=== PATIENT | female | born 1960 | race Caucasian/White ===

== ENCOUNTER 2020-06-22 09:09 | Emergency (ER) | payer BC, SELFPAY ==
[2020-06-22 09:13] VITALS: PULSE 95; RESP 16; TEMP 36.7; O2SAT 99; BMI 25.8
[2020-06-22 09:20] VITALS: BP 179/97; PULSE 90; RESP 18; O2SAT 99
--- NOTE | 2020-06-22 09:29 | ED_ITS ---
HPI - General Adult General: Chief complaint: Dental/Oral Stated complaint: flu symptoms/neg for covid as of 06/21 Time Seen by Provider: 06/22/20 09:10 Source: patient Mode of arrival: ambulatory Limitations: no limitations History of Present Illness: HPI narrative: Patient is a 59-year-old female who presents to ED today with a complaint of a sore throat over the past 3 weeks. Patient tells me she is having pain in the back of her throat with swallowing and states it feels like needles . She has been seen at another facility and prescribed a round of azithromycin without relief. She is also complaining of some hoarseness and body aches. Patient states she was tested for COVID recently and this came back negative. She has a complaint of some mild dizziness and mild right-sided belly pain that recently started. She has associated nausea and bloating but has not had any episodes of vomiting. She is reporting normal defecation and urinary habits. She has not been running fevers. She has not had any sick contacts. Onset (ago): day(s) Associated symptoms: Reports nausea; Deny chest pain, confusion, dyspnea, headache(s), malaise, rash, palpitations, syncope or vomiting Review of Systems Const: Reports: body aches; Denies: fever(s), chills, change in appetite, change in weight, fatigue or malaise Eyes: Denies: change in vision, blurry vision, photophobia, floaters or seeing flashes ENMT: Reports: throat pain and odynophagia; Denies: swelling of lips/tongue, oral sores, ear or mastoid pain, ear discharge, nasal congestion or sinus pain Card: Denies: chest pain, palpitations, irregular heart rhythm, edema, lightheadedness, syncope or pre-syncope Resp: Denies: dyspnea, productive cough or chest congestion GI: Reports: abdominal pain and nausea; Denies: vomiting, hematemesis, coffee ground emesis, heartburn, diarrhea, change in bowel habits, pain on defecation, change in stool character, hematochezia, melena or white/light colored stool : Denies: flank pain, difficulty voiding, dysuria, urinary frequency or urinary urgency Musc: Denies: neck pain, back pain, extremity pain, extremity swelling, joint pain or joint swelling Skin/Breast: Denies: rash Neuro: Reports: dizziness; Denies: headache(s), numbness in extremities, weakness in extremities, sensory changes, lack of coordination, difficulty walking, frequent falls, confusion or Slurred speech present PFSH ED PFSH: Social History Smoking and tobacco status: current every day smoker Physical Exam Const: COMMON NORMALS: no acute distress, patient oriented x3, no limitations and alert ORIENTATION/CONSCIOUSNESS: Yes oriented to person, Yes oriented to place and Yes oriented to time HENMT: COMMON NORMALS: normocephalic, atraumatic, hearing grossly normal bilaterally, external ears normal, EAC's normal, TM's normal bilaterally, Normal external nose present, Normal nasal mucous membranes and turbinates present and moist oral mucous membranes HEAD & SCALP: normal to inspection, normocephalic and atraumatic FACE & SINUS: normal facial exam and sinuses nontender NOSE: Normal external nose present and Normal nasal mucous membranes and turbinates present EXTERNAL EAR: Yes external ears normal EXTERNAL AUDITORY CANAL: EAC's normal TYMPANIC MEMBRANE: TM's normal bilaterally MOUTH: lip normal, tongue normal and other (pt has candidal lesions that brush to hard palate ) TEETH & GINGIVA: Yes edentulous THROAT: posterior oropharynx normal, tonsils normal and uvula midline Eye: COMMON NORMALS: Equal, round and reactive pupils present, EOMs intact bilaterally, conjunctivae normal and no scleral icterus CONJUNCTIVA: Yes conjunctivae normal PUPIL: Yes Equal, round and reactive pupils present Neck/C-Spine: COMMON NORMALS: full ROM, no lymphadenopathy and no meningeal signs Resp: COMMON NORMALS: normal respiratory effort and clear to auscultation bilaterally AUSCULTATION: clear to auscultation bilaterally Cardio: COMMON NORMALS: regular rate and regular rhythm RATE: regular rate RHYTHM: regular rhythm GI: COMMON NORMALS: Normal to inspection, nondistended, normoactive bowel sounds present, Soft to palpation, non-tender, No hepatosplenomegaly present and no masses PALPATION: Yes Soft to palpation and Yes No hepatosplenomegaly present Extremity: GENERAL: Yes normal exam except as noted Neuro: EDWIN COMA SCALE: document GCS findings Edwin coma scale eye o pening: Spontaneous Edwin coma scale verbal response: Orientated Edwin coma scale motor response: Obey commands Edwin coma scale total score: 15 COMMON NORMALS: patient oriented x3, CN's II-XII intact bilaterally, moves all extremities, no focal motor deficits, no sensory deficits noted and gait normal SENSORIUM/ORIENTATION: Yes alert, Yes oriented to person, Yes oriented to place and Yes oriented to time MENINGEAL SIGNS: Yes no meningeal signs Skin: COMMON NORMALS: no rashes or lesions noted GENERAL SKIN EXAM: no rashes or lesions noted Course Vital Signs: Vital signs: Vital Signs Temperature 98.1 F 06/22/20 09:13 Pulse Rate 82 06/22/20 10:31 Respiratory Rate 16 06/22/20 10:31 Blood Pressure 139/65 06/22/20 10:31 Pulse Oximetry 99 06/22/20 10:31 MDM - General Adult MDM Narrative: Medical decision making narrative: Patient's work-up here is non-concerning. Her vitals are stable at this time. Physical exam is normal apart from allie lesions noted throughout her hard palate. This is most likely the cause of patient's sore throat over the past few weeks. She is on chronic inhaled Symbicort, wears dentures, she is an everyday smoker, and rece ntly underwent antibiotic therapy. Will place patient on clotrimazole lozenges over the next 2 weeks. Recommend rinsing her mouth out thoroughly after using her Symbicort. Recommend close follow-up with her primary care provider. Return to ED precautions given. Lab Data: Labs: Lab Results 06/22/20 06/22/20 06/22/20 Range/Units 09:44 09:44 09:44 WBC 12.3 H (4.0-10.0) 10^3/ uL RBC 4.67 (4.1-5.3) 10^6/u L Hgb 14.3 (11.5-15.3) g/dL Hct 43.9 (37.0-47.0) % MCV 94.0 (81-99) fL MCH 30.6 (28.0-34.0) pg MCHC 32.6 (30.0-36.0) g/dL RDW 12.2 (12.1-15.1) % Plt Count 384 (130-400) 10^3/c mm MPV 9.9 (7.4-10.4) fL Neut % (Auto) 55.6 % Lymph % (Auto) 33.8 % [place] % (Auto) 5.1 % Eos % (Auto) 4.1 % Baso % (Auto) 1.1 % Neut # (Auto) 6.86 (1.8-7.7) 10^3/u L Lymph # (Auto) 4.2 (0.8-4.8) 10^3/u L [place] # (Auto) 0.6 (0.2-0.9) 10^3/u L Eos # (Auto) 0.5 (0.0-0.8) 10^3/u L Baso # (Auto) 0.1 (0.0-0.1) 10^3/u L Nucleated RBC % (a uto) 0 % Nucleated RBCs # 0.0 /100WBC Sodium 137 (136-145) mmol/L Potassium 4.3 (3.5-5.1) mmol/L Chloride 97 L (98-107) mmol/L Carbon Dioxide 29 (22-29) mmol/L Anion Gap 15.3 (5-19) BUN 15 (6-20) mg/dL Creatinine 0.7 (0.5-0.9) mg/dL GFR Calculation 86.2 L (90-130) mL/min Glucose 92 (65-115) mg/dL Calculated Osmolal ity 280 L (285-295) mOsm/k g Calcium 9.8 (8.5-10.5) mg/dL Total Bilirubin 0.2 (0.15-1.2) mg/dL AST 17 (0-32) U/L ALT 19 (0-33) U/L Alkaline Phosphata se 85 (35-105) IU/L Total Protein 8.0 (6.6-8.7) g/dL Albumin 4.3 (3.5-5.2) g/dL Globulin 3.7 (1.3-4.6) g/dL Lipase 34 (13-60) U/L Urine Color Yellow (Yellow) Urine Appearance Clear (CLEAR) Urine pH 6 (5-7) Ur Specific Gravit y 1.010 (1.005-1.030) Urine Protein Neg (Negative) Urine Glucose (UA) Norm (Normal) Urine Ketones Negative (Negative) Urine Blood Neg (Negative) Urine Nitrate Negative (Negative) Urine Bilirubin Neg (NEGATIVE) Urine Urobilinogen Norm (Negative) mg/dL Ur Leukocyte Andra ase Negative (Negative) Imaging Data^: CXR: Radiologist's impression: [address] [place] [address] XRay Report Signed Patient: Danisha Leonard Unit #: [id number] : 1960 Age/Sex: 59 / F ADM Date: 06/22/20 Loc: ER Room/Bed: Attending Dr: Ordering Provider/Ordering MD: Leda Leavitt Date of Service: 06/22/20 Procedure(s): XR chest 1V portable [id number] Accession Number(s): [id number] Report Number: [id number] WS: [id number] PORTABLE CHEST HISTORY: dizzy, body aches, low grade fevers COMPARISON: 10/21/2012 Lungs are clear and well expanded. No pleural effusion or pneumothorax. Cardiac size: Normal. Mediastinum/Aorta: Normal mediastinum. No osseous abnormality seen. XR/XR chest 1V portable [id number] IMPRESSION: Unremarkable portable chest. Dictated By: Rohini Goff DO Signed By: Rohini Goff DO Signed Date/Time: 06/22/2055 DD/ 3 Discharge Plan Discharge Patient Disposition: Home, Self-Care Clinical Impression: Candidiasis of mouth Condition: Stable Prescriptions: New clotrimazole 10 mg roman 10 mg MUCOUS MEM 5XD 14 Days Qty: 70 RF: 0 Discharge Orders: Discharge Order (Routine); Ordered 06/22/20 Ordered By: Leda Leavitt Referrals: Robert Ma MD [Primary Care Provider] - Patient Instructions: Oral Candidiasis (ED), Thrush - Adult Activity Restrictions/Additional Instructions: Please follow up with primary care in one week for continued symptoms. Discharge Date/Time: 06/22/20 10:31 Coding Level of Care Code ED Medical Education Specialist for Chg Fwd Exam Comprehensive
--- NOTE | 2020-06-22 09:31 | XR_ITS ---
WS: [id number] PORTABLE CHEST HISTORY: dizzy, body aches, low grade fevers COMPARISON: 10/21/2012 Lungs are clear and well expanded. No pleural effusion or pneumothorax. Cardiac size: Normal. Mediastinum/Aorta: Normal mediastinum. No osseous abnormality seen. XR/XR chest 1V portable [id number] IMPRESSION: Unremarkable portable chest.
[2020-06-22 09:40] VITALS: BP 150/83; PULSE 85; RESP 18; O2SAT 95
[2020-06-22] MEDS: sodium chloride 0.9% 1,000 ML 999 ML IV (09:47)
[2020-06-22 09:48] LABS: Add Urine Microscopic? NO
[2020-06-22 09:54] LABS: Basophils # 0.1 10^3/uL (0.0-0.1); Basophils % 1.1 %; Eosinophils # 0.5 10^3/uL (0.0-0.8); Eosinophils % 4.1 %; Hematocrit 43.9 % (37.0-47.0); Hemoglobin 14.3 g/dL (11.5-15.3); Lymphocytes # 4.2 10^3/uL (0.8-4.8); Lymphocytes % 33.8 %; Mean Corpuscular HGB Conc 32.6 g/dL (30.0-36.0); Mean Corpuscular Hemoglobin 30.6 pg (28.0-34.0); Mean Platelet Volume 9.9 fL (7.4-10.4); Monocytes # 0.6 10^3/uL (0.2-0.9); Monocytes % 5.1 %; Neutrophils # 6.86 10^3/uL (1.8-7.7); Neutrophils % 55.6 %; Nucleated Red Blood Cells % 0 %; Platelet Count 384 10^3/cmm (130-400); Red Blood Count 4.67 10^6/uL (4.1-5.3); Red Cell Distribution Width 12.2 % (12.1-15.1); White Blood Count 12.3 10^3/uL (4.0-10.0)
[2020-06-22 09:58] LABS: Bilirubin Urine Neg (NEGATIVE); Blood Urine Neg (Negative); Glucose Urine UA Norm (Normal); Ketones Urine Negative (Negative); Leukocyte Esterase Urine Negative (Negative); Nitrate Urine Negative (Negative); Protein Urine Neg (Negative); Urine Appearance Clear (CLEAR); Urine Color Yellow (Yellow); Urobilinogen Urine Norm (Negative); pH Urine 6 (5-7)
[2020-06-22 10:14] LABS: Alanine Aminotransferase 19 U/L (0-33); Albumin Level 4.3 g/dL (3.5-5.2); Alkaline Phosphatase 85 IU/L (35-105); Anion Gap 15.3 (5-19); Aspartate Amino Transferase 17 U/L (0-32); Blood Urea Nitrogen 15 mg/dL (6-20); Calcium 9.8 mg/dL (8.5-10.5); Carbon Dioxide 29 mmol/L (22-29); Chloride 97 mmol/L (98-107); Globulin 3.7 g/dL (1.3-4.6); Glomerular Filtration Rate 86.2 mL/min (90-130); Glucose 92 mg/dL (65-115); Lipase 34 U/L (13-60); Osmolality Calculated 280 mOsm/kg (285-295); Potassium 4.3 mmol/L (3.5-5.1); Sodium 137 mmol/L (136-145); Total Bilirubin 0.2 mg/dL (0.15-1.2)
[2020-06-22 10:31] VITALS: BP 139/65; PULSE 82; RESP 16; O2SAT 99
== END 2020-06-22 10:31 | disposition home or self-care (01) ==
PROVIDERS: Emergency Provider Physician Assistant; PCP Family Medicine
DX: B37.0 Candidal stomatitis (principal); F17.210 Nicotine dependence, cigarettes, uncomplicated
CPT/HCPCS: 12345; 71045; 80053; 81003; 83690; 85025; 96360; 99283; J7030

== ENCOUNTER 2020-07-04 13:04 | Outpatient (CLI) | payer BC, SELFPAY ==
[2020-07-04 13:35] LABS: C Reactive Protein 107.3 mg/L (0.0-4.9); Lipase 22 U/L (13-60)
== END 2020-07-04 13:05 | disposition home or self-care (01) ==
LOC: LAB 13:07
PROVIDERS: PCP Family Medicine; Visit Provider Family Medicine
DX: R10.11 Right upper quadrant pain (principal)
CPT/HCPCS: 83690; 86140

== ENCOUNTER 2020-07-04 16:02 | Observation (INO) | payer SELFPAY ==
[2020-07-04] VITALS (7 sets, daily range): BP systolic 99–130; BP diastolic 61–68; PULSE 75–85; RESP 16–18; TEMP 36.6–37.1; O2SAT 92–95; BMI 26.4
--- NOTE | 2020-07-04 16:32 | ECG_ITS ---
[facility] Test Date: 2020-07-04 Pat Name: Danisha Leonard Department: Room: Gender: Female Payable Representative: : 1960 Requested By: Virginia Walden Order Number: [id number] Riley MD: Diane Olivo M.D. Measurements Intervals [place] Rate: 78 P: 15 WA: 163 QRS: -30 QRSD: 90 T: 7 QT: 369 QTc: 421 Interpretive Statements SINUS RHYTHM BORDERLINE LEFT AXIS DEVIATION [QRS AXIS < -20] POSSIBLE RIGHT VENTRICULAR CONDUCTION DELAY [RSR (QR) IN V1/V2] No previous ECG available for comparison Electronically Signed On 07-04-2020 20:33:23 CDT by Diane Olivo M.D. [id number]
[2020-07-04] MEDS: sodium chloride 0.9% 1,000 ML 999 ML IV (16:48)
--- NOTE | 2020-07-04 17:17 | W.ED.MEDCLER ---
HPI - Medical Clearance General Chief complaint: Medical Clearance Stated complaint: direct admit for Dr. ricci Time Seen by Provider: 07/04/20 16:25 Source: patient and old records reviewed Limitations: other (Patient was sent from Dr. Ricci office for evaluation of ongoing fatigue, nausea, abnormal lab test. Dr. Ricci spoke with Dr. Garcia regarding admission but due to current policy the patient had to come to the ER for COVID screening.) Related Information Home Medications Medication Instructions Recorded Confirmed Magnesium-Zinc Tab 1 tab PO DAILY 07/04/20 07/04/20 Stool Softener 2 tab PO BEDTIME 07/04/20 07/04/20 Vitamin C 1 tab PO DAILY 07/04/20 07/04/20 multivitamin [Multiple Vitamins] 1 tab PO DAILY 07/04/20 07/04/20 nitrofurantoin monohyd/m-cryst 100 mg PO BID 07/04/20 07/04/20 [Macrobid] tramadol [Ultram] 50 mg PO TID PRN 07/04/20 07/04/20 Previous Rx's Medication Instructions Recorded clotrimazole 10 mg MUCOUS MEM 5XD 14 Days #70 06/22/20 tab Allergies Allergy/AdvReac Type Severity Reaction Status Date / Time clindamycin Allergy ALGY-Hives Verified 07/04/20 16:50 egg Allergy ADR-Vomitin Verified 07/04/20 16:50 g Penicillins Allergy ALGY-Hives Verified 07/04/20 16:50 Course Course On my exam the patient has a nontender abdomen. Heart and lungs are normal. She is alert and oriented. She has a negative COVID screen. She will be admitted to Dr. Sullivan. I did add EKG and troponin to her work-up. EKG shows a ventricular rate of 78 with sinus rhythm. Left axis deviation. Normal intervals. This was interpreted at 1655 on July 04, 2020. Vital Signs Temperature 98.7 F 07/04/20 16:12 Pulse Rate 80 07/04/20 16:56 Respiratory Rate 18 07/04/20 16:56 Blood Pressure 102/68 07/04/20 16:56 Pulse Oximetry 94 07/04/20 16:56 Discharge Plan Discharge Prescriptions: No Action clotrimazole 10 mg roman 10 mg MUCOUS MEM 5XD 14 Days Qty: 70 RF: 0 Multiple Vitamins Tablet 1 tab PO DAILY RF: 0 Ultram 50 mg Tablet 50 mg PO TID PRN (Reason: Pain) RF: 0 Macrobid 100 mg Capsule 100 mg PO BID RF: 0 Magnesium-Zinc Tab 1 tab PO DAILY RF: 0 Stool Softener 2 tab PO BEDTIME RF: 0 Vitamin C 1 tab PO DAILY RF: 0
[2020-07-04 17:40] LABS: Troponin(5th) Baseline 6 ng/L (0-10)
--- NOTE | 2020-07-04 17:55 | CTR_ITS ---
PROCEDURE INFORMATION: Exam: CT Chest Without and With Contrast Exam date and time: 07/04/2020 6:15 PM Age: 59 years old Clinical indication: Nausea; Cough; Prior surgery; Surgery type: Bladder, renal stents, hyst; Additional info: Nausea, malaise TECHNIQUE: Imaging protocol: Computed tomography of the chest without and with intravenous contrast. Radiation optimization: All CT scans at this facility use at least one of these dose optimization techniques: automated exposure control; mA and/or kV adjustment per patient size (includes targeted exams where dose is matched to clinical indication); or iterative reconstruction. Contrast material: OMNI 300; Contrast volume: 95 ml; Contrast route: INTRAVENOUS (IV); COMPARISON: CT abdomen pelvis w con* [id number] 08/31/2019 2:30 PM RADIATION DOSE METRICS: Total DLP (mGy-cm): 1559.59 FINDINGS: Lungs: There are scattered granuloma in both lungs in keeping with old granulomatous disease. There are some minimal atelectatic changes in the posterior right upper lobe and posterior left lower lobe. Pleural space: Unremarkable. No pneumothorax. No pleural effusion. Heart: Unremarkable. No cardiomegaly. No pericardial effusion. Aorta: Unremarkable. No aortic aneurysm. Lymph nodes: There are calcified hilar lymph nodes in keeping with old granulomatous disease. There is calcified paratracheal lymph node measuring approximately 9 x 14 mm. There is no adenopathy in the chest. Bones/joints: Unremarkable. No acute fracture. Soft tissues: Unremarkable. IMPRESSION: 1. Old granulomatous disease. 2. Minimal atelectasis. PROCEDURE INFORMATION: Exam: CT Abdomen And Pelvis Without And With Contrast Exam date and time: 07/04/2020 6:15 PM Age: 59 years old Clinical indication: Nausea; Cough; Prior surgery; Surgery type: Bladder, renal stents, hyst; Additional info: Nausea, malaise TECHNIQUE: Imaging protocol: Computed tomography of the abdomen and pelvis without and with intravenous contrast. Radiation optimization: All CT scans at this facility use at least one of these dose optimization techniques: automated exposure control; mA and/or kV adjustment per patient size (includes targeted exams where dose is matched to clinical indication); or iterative reconstruction. Contrast material: OMNI 300; Contrast volume: 95 ml; Contrast route: INTRAVENOUS (IV); COMPARISON: CT abdomen pelvis w con* [id number] 08/31/2019 2:30 PM RADIATION DOSE METRICS: Total DLP (mGy-cm): 1559.59 FINDINGS: Liver: There is a diffuse decrease in hepatic parenchymal density, consistent with moderate fatty infiltration. There is moderate enlargement of the liver. Gallbladder and bile ducts: Multiple calcified gallstones are present. Pancreas: The pancreas is normal. Spleen: The spleen is normal. Adrenals: The adrenal glands are normal. Kidneys and ureters: The kidneys are normal. There is no evidence of renal or ureteral calcifications. There is no evidence of hydronephrosis. Stomach and bowel: Moderate diverticulosis is present in the distal colon. There is moderate thickening of a segment of the mid sigmoid colon with some minimal stranding in the adjacent fat. This is worrisome for some mild diverticulitis. Correlation with clinical findings is suggested. There is no evidence of intestinal obstruction. Appendix: Not identified Intraperitoneal space: Unremarkable. No free air. No significant fluid collection. Vasculature: The aorta demonstrates moderate atherosclerotic calcification. A stent is again identified in the right common iliac artery and remains patent. Lymph nodes: Unremarkable. No enlarged lymph nodes. Bladder: Unremarkable as visualized. Reproductive: There has been a hysterectomy. Bones/joints: The lumbar spine demonstrates mild degenerative changes at multiple levels. Soft tissues: Unremarkable. CT/CT chest abd pel wo/w con IMPRESSION: 1. Question of mild diverticulitis. 2. Hepatomegaly and fatty liver. 3. Cholelithiasis. 4. Stable atherosclerotic disease in the aorta. Radiation Dose CTDIVOL = (mGy): DLP = 1559.59~1559.59 (mGy-cm)
--- NOTE | 2020-07-04 18:00 | PM.HP ---
Providers/Chief Complaint Admitting Physician: Stefan Sanchez MD Primary Care Provider: Robert Ma MD Chief Complaint: sent by doctor radhames History of Present Illness Danisha Leonard is a 59 year old female HTN, HLD, PVD, s/p PTCA, COPD, chronic smoker, infrarenal aortic aneurysm non complaint to medications was sent in today because of persistent nausea, malaise, weakness for last 1 month. Patient states she would feel nauseous whenever she would walk around. Her symptoms of nausea along with malaise and weakness get worse when she lies down at night to sleep. She denies of having any dysuria, diarrhea, headache. Does complain of change in sense of taste but denies any change in sense of smell. Denies of having any abdominal pain, weakness in her extremities, fall, night sweats, loss of weight, dizziness, sick contacts, exposure to COVID-19. She states she does have an exposure to take when she removed a tick from her neck around 2 weeks ago. She is also exposed to rodents at her house. When patient went to Dr. Ma office today blood work was done which showed mild derangement of liver function tests. She was sent into the ER today because of the blood work result and persistent of symptoms for last 1 month for further evaluation. Review of Systems General: Reports: 10 or more systems reviewed and unremarkable except in HPI and below Const: Reports: malaise; Denies: fever(s), chills, body aches, change in appetite, change in weight, night sweats, diaphoresis, change in sleep pattern, daytime sleepiness or snoring Eyes: Denies: change in vision, blurry vision, photophobia, eye discomfort or eye discharge ENMT: Denies: throat pain, enlarged tonsils, hoarseness, mouth pain, oral sores, dry mouth, tinnitus, nasal congestion or post nasal drip Card: Denies: chest pain, palpitations, irregular heart rhythm, edema, swelling of feet/ankles, lightheadedness, syncope, pre-syncope, dyspnea on exertion, orthopnea, leg pain with exertion or acrocyanosis Resp: Denies: dyspnea, productive cough, non-productive cough, wheezing, stridor, pain on inspiration, change in phlegm color, hemoptysis or chest congestion GI: Reports: abdominal pain and nausea; Denies: vomiting, hematemesis, coffee ground emesis, dysphagia, heartburn, diarrhea, constipation, bloating, GI cramping, change in bowel habits, pain on defecation, hematochezia or melena : Denies: flank pain, dysuria, urinary frequency, urinary urgency, urinary hesitancy, nocturia or hematuria Musc: Denies: neck pain, back pain, extremity pain, joint pain, joint swelling, joint redness, joint stiffness or limited range of motion Neuro: Denies: headache(s), numbness in extremities, weakness in extremities, sensory changes, lack of coordination, difficulty walking, frequent falls, dizziness, vertigo, confusion, Slurred speech present, difficulty communicating thoughts or seizure-like activity Psych: Denies: anxiety, depression, mood swings, panic attacks, hopelessness or irritability Endo: Denies: polyuria, polydipsia, tired all the time, cold intolerance, excessive sweating, flushing or heat intolerance Deric/Lymph: Denies: easy bruising or easy bleeding All/Imm: Denies: tongue swelling, facial swelling or acute wheezing Medications/Allergies Home Medications Medication Instructions Recorded Confirmed Last Taken Type clotrimazole 10 mg MUCOUS MEM 5XD 14 Days #70 06/22/20 07/04/20 07/04/20 15:30 Rx tab Magnesium-Zinc Tab 1 tab PO DAILY 07/04/20 07/04/20 Unknown History Multiple Vitamins 1 tab PO DAILY 07/04/20 07/04/20 Unknown History Stool Softener 2 tab PO BEDTIME 07/04/20 07/04/20 07/03/20 History Ultram 50 mg PO TID PRN 07/04/20 07/04/20 07/04/20 08:30 History Vitamin C 1 tab PO DAILY 07/04/20 07/04/20 07/03/20 History 2 tabs doxycycline hyclate 100 mg PO BID 7 Days #14 tab 07/05/20 Unknown Rx levofloxacin 500 mg PO DAILY 7 Days #7 tab 07/05/20 Unknown Rx sucralfate [Carafate] 2 gm PO BID PRN 28 Days #1120 ml 07/05/20 Unknown Rx ursodiol 250 mg PO BID #14 tab 07/05/20 Unknown Rx Allergies Allergy/AdvReac Type Severity Reaction Status Date / Time clindamycin Allergy ALGY-Hives Verified 07/04/20 16:50 egg Allergy ADR-Vomitin Verified 07/04/20 16:50 g Penicillins Allergy ALGY-Hives Verified 07/04/20 16:50 PFSH Acute PFSH: Medical History (Updated 07/04/20 @ 18:10 by Stefan Sanchez MD) Abdominal aortic aneurysm COPD (chronic obstructive pulmonary disease) HTN (hypertension) PAD (peripheral artery disease) Surgical History (Updated 07/04/20 @ 18:09 by Stefan Sanchez MD) Post PTCA Social History (Updated 07/04/20 @ 18:09 by Stefan Sanchez MD) Smoking and tobacco status: heavy tobacco smoker Alcohol intake: never Lives independently: Yes Household members: none Housing: House Vitals/I&O/Wt Last Vital Signs Temp 98.7 F 07/04/20 16:12 Pulse 80 07/04/20 16:56 Resp 18 07/04/20 16:56 BP 102/68 07/04/20 16:56 Pulse Ox 94 07/04/20 16:56 Weight last 48 hrs Weight 72.121 kg Physical Exam Narrative: EXAM NARRATIVE: General: No acute distress, AO x3 HEENT: PERRLA, pupils bilaterally equal and reactive Chest: Normal vesicular breath sounds, no added sounds, equal good air entry bilaterally CVS: S1-S2 regular, no murmurs, no tachycardia, no gallops, no rubs Abdomen: Soft, tenderness on deep palpation right upper quadrant, no guarding no rebound tenderness, no organomegaly, bowel sounds present Neuro: No focal deficits, no facial deformity, AO x3, power 5/5 in all limbs Data : 07/05/20 04:29 07/05/20 06:25 A&P Assessment and plan (1) Nausea: Status: Acute (2) Malaise: Status: Acute (3) PAD (peripheral artery disease): Status: Acute (4) HTN (hypertension): Status: Acute (5) COPD (chronic obstructive pulmonary disease): Status: Acute (6) COVID-19 virus test result unknown: Status: Acute (7) Abdominal aortic aneurysm: Status: Acute (8) Non-compliance: Status: Acute Additional A&P Information Patient symptoms of nausea, malaise can be up because various etiologies. Etiology could be because of cholelithiasis/cholecystitis though possibility of cholecystitis and cholangitis are low as per the examination. Patient symptoms could be because of unstable angina as she is noncompliant to her cardiac medication and history of peripheral stenting. It could be related to possible marijuana abuse. Patient is a chronic smoker. Her symptoms could be related to tick exposure. Cannot rule out infectious cause as well. Though patient is afebrile at present so we will hold off on starting any antibiotics. We will also check for rapid COVID antigen. We will get CBC, CMP, ESR, CRP, hepatitis panel, CT abdomen chest pelvis with and without contrast, d-dimer, GGT, LDH, proBNP, TSH, procalcitonin, urinalysis, drug urine toxicology, tick panel, CHANA screen. For now stop nitrofurantoin as that can also cause nausea and derangement of liver functions. Start patient on IV fluids, Protonix, Zofran as needed, bland diet. Chances of PE are low as patient is saturating well on room air and is hemodynamically stable. If patient's echocardiogram shows any regional wall motion abnormality we will check for a stress test. We will change medications as per the clinical course. Full code. Protonix. Low Christiano score: Low chances of DVT. On mechanical prophylaxis for DVT. We will admit patient under observation for less than 2 midnights for evaluation of nausea and fatigue Attestations Medical Necessity Statement*: Less than 2 midnights for evaluation of nausea and fatigue. Admit under observation Time Spent in Patient Care: Greater than 35 minutes (>than 50% of time spent in counselling and/or direct pt care on unit). Coding Level of Care Code Acute Continuous Improvement Lead for [facility] Fwd Diagnoses Nausea R11.0 Malaise R53.81 PAD (peripheral artery disease) I73.9 HTN (hypertension) I10 COPD (chronic obstructive pulmonary disease) J44.9 COVID-19 virus test result unknown Z20.828 Abdominal aortic aneurysm I71.4 Non-compliance Z91.19
[2020-07-04 18:25] LABS: Basophils # 0.1 10^3/uL (0.0-0.1); Basophils % 0.6 %; Eosinophils # 0.9 10^3/uL (0.0-0.8); Eosinophils % 11.1 %; Hematocrit 33.7 % (37.0-47.0); Hemoglobin 10.9 g/dL (11.5-15.3); Lymphocytes # 2.1 10^3/uL (0.8-4.8); Lymphocytes % 25.8 %; Mean Corpuscular HGB Conc 32.3 g/dL (30.0-36.0); Mean Corpuscular Hemoglobin 30.8 pg (28.0-34.0); Mean Corpuscular Volume 95.2 fL (81-99); Mean Platelet Volume 10.1 fL (7.4-10.4); Monocytes # 0.4 10^3/uL (0.2-0.9); Monocytes % 4.9 %; Neutrophils # 4.58 10^3/uL (1.8-7.7); Neutrophils % 57.2 %; Nucleated Red Blood Cells % 0 %; Platelet Count 234 10^3/cmm (130-400); Red Blood Count 3.54 10^6/uL (4.1-5.3); Red Cell Distribution Width 12.4 % (12.1-15.1)
[2020-07-04 18:47] LABS: NT Pro B Type Natriuretic Pept 111 pg/mL (0-125); Procalcitonin 0.15 ng/mL (0-0.5)
[2020-07-04] MEDS: iohexol 300 mg/mL 100 mL Btl IV (18:47)
[2020-07-04 18:50] LABS: C Reactive Protein 92.9 mg/L (0.0-4.9)
[2020-07-04 18:52] LABS: Thyroid Stimulating Hormone 0.66 uIU/mL (0.27-4.20)
[2020-07-04 18:53] LABS: Anion Gap 12.4 (5-19); Blood Urea Nitrogen 16 mg/dL (6-20); Calcium 8.6 mg/dL (8.5-10.5); Carbon Dioxide 27 mmol/L (22-29); Chloride 100 mmol/L (98-107); Globulin 2.9 g/dL (1.3-4.6); Glucose 93 mg/dL (65-115); Lactate Dehydrogenase 142 U/L (135-214); Sodium 136 mmol/L (136-145); Total Bilirubin 0.3 mg/dL (0.15-1.2)
[2020-07-04 19:01] LABS: SARS Covid-2 Antigen Negative (Negative)
--- NOTE | 2020-07-04 19:22 | PC.NURSE ---
EKG done at 1911 and shown to ER doctor
[2020-07-04 19:32] LABS: Alanine Aminotransferase 145 U/L (0-33); Albumin Level 3.2 g/dL (3.5-5.2); Alkaline Phosphatase 149 IU/L (35-105); Aspartate Amino Transferase 55 U/L (0-32); Gamma Glutamyl Transferase 265 U/L (5-36); Glomerular Filtration Rate 86.2 mL/min (90-130); Iron 64 ug/dL (37-145); Osmolality Calculated 286 mOsm/kg (285-295); Percent Saturation 33.8 % (20-50); Potassium 3.6 mmol/L (3.5-5.1); Total Iron Binding Capacity 189 mcg/dl; Total Protein 6.3 g/dL (6.6-8.7); Unsaturated Iron Binding 125 ug/dL (112-347)
[2020-07-04 19:48] LABS: Troponin 5 2HR Delta 0 ABS# (0-10)
[2020-07-04] MEDS: sodium chloride 0.9% 1,000 ML 75 ML IV (20:27)
[2020-07-04] MEDS: famotidine 20 mg/2 mL INJ IVP (20:27)
[2020-07-04 21:43] LABS: Amphetamines Screen Urine Negative (Negative); Barbiturates Screen Urine Negative (Negative); Benzodiazepines Screen Urine Negative (Negative); Cocaine Screen Urine Negative (Negative); Opiate Screen Urine Negative (Negative); PCP Screen Urine Negative (Negative); THC Screen Urine Negative (Negative)
--- NOTE | 2020-07-04 22:32 | ECG_ITS ---
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 Measurements Intervals [place] Rate: 79 P: 68 PA: 173 QRS: 76 QRSD: 86 T: 58 QT: 366 QTc: 420 Interpretive Statements SINUS RHYTHM Compared to ECG 07/04/2020 16:52:23 No significant changes Electronically Signed On 07-05-2020 12:57:00 CDT by Zulema Olivares M.D. [id number]
[2020-07-04 23:25] LABS: Erythrocyte Sedimentation Rate 53 mm/hr (0-15)
[2020-07-04 23:43] LABS: Troponin 5 6HR 6.73 ng/L (0-10); Troponin 5 6HR Delta 0.73 ng/L (0-12)
[2020-07-04 23:48] LABS: Bacteria Urine 1+; Bilirubin Urine Neg (NEGATIVE); Blood Urine 2+ (Negative); Glucose Urine UA Norm (Normal); Ketones Urine 1+ (Negative); Leukocyte Esterase Urine 2+ (Negative); Nitrate Urine Negative (Negative); Protein Urine Neg (Negative); RBC Urine 0-4 /hpf (0-2); Squamous Epithelial Cell Urine 25-40 (0-5); Urine Appearance Cloudy (CLEAR); Urine Color Yellow (Yellow); Urobilinogen Urine Norm (Negative); WBC Urine 25-40 /hpf (0-5); pH Urine 5 (5-7)
[2020-07-05 03:20] VITALS: BP 106/64; PULSE 76; RESP 18; TEMP 36.7; O2SAT 95
[2020-07-05 05:21] LABS: Basophils # 0.1 10^3/uL (0.0-0.1); Basophils % 1.1 %; Eosinophils # 0.9 10^3/uL (0.0-0.8); Eosinophils % 13.2 %; Hematocrit 35.1 % (37.0-47.0); Hemoglobin 11.3 g/dL (11.5-15.3); Lymphocytes % 42.5 %; Mean Corpuscular HGB Conc 32.2 g/dL (30.0-36.0); Mean Corpuscular Volume 96.4 fL (81-99); Mean Platelet Volume 10.7 fL (7.4-10.4); Monocytes # 0.5 10^3/uL (0.2-0.9); Monocytes % 6.7 %; Neutrophils # 2.55 10^3/uL (1.8-7.7); Neutrophils % 36.4 %; Nucleated Red Blood Cells % 0 %; Platelet Count 252 10^3/cmm (130-400); Red Blood Count 3.64 10^6/uL (4.1-5.3); Red Cell Distribution Width 12.4 % (12.1-15.1)
[2020-07-05 05:38] LABS: Hepatitis A Antibody IgM Non-Reactive (Nonreactive); Hepatitis B Core AB, Total Non-Reactive (Nonreactive); Hepatitis B Surface AB 3.5 (0-8.5); Hepatitis B Surface Antigen Non-Reactive (Nonreactive); Hepatitis C Virus Antibody Non-Reactive (Nonreactive)
[2020-07-05 05:49] LABS: Estmated Average Glucose 134; Hemoglobin A1C 6.3 % (4.0-6.0)
[2020-07-05 06:08] LABS: Magnesium 2.3 mg/dL (1.7-2.3)
[2020-07-05 06:12] LABS: Slide Review Slide Review Perform
[2020-07-05 06:14] LABS: Chol HDL Ratio 4.48 mg/dL (0.0-4.40); Cholesterol 224 mg/dL (0-200); HDL Cholesterol 50 mg/dL (60-100); LDL Cholesterol Calculated 151 mg/dL (50-129); Triglycerides 113 mg/dL (0-150); VLDL Cholestrol Calculation 23 mg/dL (0-30)
[2020-07-05 06:56] LABS: Alanine Aminotransferase 111 U/L (0-33); Alkaline Phosphatase 147 IU/L (35-105); Anion Gap 10.6 (5-19); Aspartate Amino Transferase 34 U/L (0-32); Blood Urea Nitrogen 13 mg/dL (6-20); Calcium 8.6 mg/dL (8.5-10.5); Carbon Dioxide 26 mmol/L (22-29); Chloride 106 mmol/L (98-107); Glucose 101 mg/dL (65-115); Osmolality Calculated 284 mOsm/kg (285-295); Potassium 3.6 mmol/L (3.5-5.1); Sodium 139 mmol/L (136-145); Total Bilirubin 0.2 mg/dL (0.15-1.2)
--- NOTE | 2020-07-05 07:16 | PC.NURSE ---
Patient resting in bed, denies pain, reports feeling electricity throughout my body when I get up and nauseas. Assisted to bathroom standby assist, no weakness noted, voided X1, assisted back to bed Call light in reach, SCD's placed.
[2020-07-05 07:52] VITALS: BP 121/58; PULSE 80; RESP 18; TEMP 36.7; O2SAT 95
[2020-07-05] MEDS: famotidine 20 mg/2 mL INJ IVP (08:44)
[2020-07-05] MEDS: aspirin 81 mg EC Tablet PO (08:44)
[2020-07-05] MEDS: sodium chloride 0.9% 1,000 ML 75 ML IV (08:45)
[2020-07-05 11:27] VITALS: BP 137/78; PULSE 78; RESP 17; TEMP 36.5; O2SAT 95
--- NOTE | 2020-07-05 11:33 | PC.CHAP ---
Pastoral Care Encounter/Spiritual Assessment Type of Contact [] Declined prepared foods service team member visit [] Patient/Family/Request visit [] Outpatient visit [] Follow-up visit [] Physician referral [] Code/Alert [X] Routine visit [] Staff referral [] Actively dying [] Patient sleeping [] Family support [] [] Out of room [] Palliative care [] [x] Receiving care in room [] Pre-surgical visit [] Trauma [] Long length of stay [] ICU visit [] Other: Relational/Emotional Strength [x] Patient feels connected with others/family/visitors/staff [x] Distress [] Loneliness/isolation [] Abandonment Spirituality of Patient [x] Person of Donna [] Attends Mosque of their Donna [x] Believes in Prayer [] Reads Bible or Jehovah'S Witness materials [] There are Spiritual issues to be addressed Risk Prevention Engineer Interventions [x] Prayer [x] Active listening [x] Non-anxious presence [x] Spiritual/emotional support [] Crisis/trauma care [x] Spiritual counseling [] Bereavement support [] Provided bereavement packet [] Provided Bible/devotional materials [] Provided toy/stuffed animal, coloring book to patient or family member [] Provided Communion [] Anointing/[place] [] Salvation [x] Completed spiritual assessment [] Other: Impact on Illness or Injury [] Angry [x] Fearful [x] Anxious [] Often cries [] Exhaustion [] Unable to work [] Unable to attend quaker [] Unable to walk/stand [] Unable to read [] Unable to drive [] Unable to eat/drink [] Unable to sleep [] Unable to be with family [] Patient intubated [] Other: Summary She a neative attiitidue was able to communicate her feelings doen't know about treatment Time spent with patient 10 mins
--- NOTE | 2020-07-05 11:41 | PC.NURSE ---
Patient requesting macrobid states, I have a UTI and was started on macrobid but I haven't gotten it here. Notified Dr. Sanchez. Deneis need for tramadol or pain medication at this time.
--- NOTE | 2020-07-05 13:20 | P.DS_ITS ---
Discharge Providers Date of Admission: 07/04/20 16:58 Date of Discharge: July 05, 2020 Attending Provider at Admission: Stefan Sanchez MD Attending Provider at Discharge: Stefan Sanchez MD Primary Care Provider: Robert Ricci MD Diagnoses at Discharge Discharge Diagnosis (1) Nausea: Status: Acute (2) Malaise: Status: Acute (3) PAD (peripheral artery disease): Status: Acute (4) HTN (hypertension): Status: Acute (5) COPD (chronic obstructive pulmonary disease): Status: Acute (6) COVID-19 virus test result unknown: Status: Acute (7) Abdominal aortic aneurysm: Status: Acute (8) Non-compliance: Status: Acute Reason for Visit Reason for Visit: sent by doctor ricci Hospital Course Discharge Summary: Danisha Leonard is a 59 year old female HTN, HLD, PVD, s/p PTCA, COPD, chronic smoker, infrarenal aortic aneurysm non complaint to medications was sent in today because of persistent nausea, malaise, weakness for last 1 month. Patient states she would feel nauseous whenever she would walk around. Her symptoms of nausea along with malaise and weakness get worse when she lies down at night to sleep. She denies of having any dysuria, diarrhea, headache. Does complain of change in sense of taste but denies any change in sense of smell. Denies of having any abdominal pain, weakness in her extremities, fall, night sweats, loss of weight, dizziness, sick contacts, exposure to COVID-19. She states she does have an exposure to take when she removed a tick from her neck around 2 weeks ago. She is also exposed to rodents at her house. When patient went to Dr. Ricci office today blood work was done which showed mild derangement of liver function tests. She was sent into the ER today because of the blood work result and persistent of symptoms for last 1 month for further evaluation. Patient was admitted to the floor for further evaluation. Her blood from showed a normal hemoglobin, white count with differential with mildly elevated eosinophilia, ESR of 53, d-dimer of 1.9, liver function concerning for a normal bilirubin, AST/ALT of 55/145 and alkaline phosphatase of 149, CRP of 92, urinalysis negative for nitrite but positive for 2+ leuk esterase with 25-40 WBCs, toxicology negative, negative hepatitis panel. She underwent CT abdomen pelvis chest with and without contrast which was concerning for all granulomat ous disease with possible atelectatic changes in the right posterior upper lobe and posterior left lower lobe, old granulomatous hilar lymph nodes and paratracheal lymph node measuring up to 9 into [address] abdomen concerning for hepatomegaly and fatty liver. Gallbladder ultrasound was done which showed hepatomegaly with diffuse fatty infiltration with cholelithiasis with a normal common bile duct. It is possible that patient symptoms are because of unstable angina but troponins were cycled and were within normal limits with echocardiogram showing an EF of 65% with moderate pulmonary hypertension and no diastolic dysfunction. It is possible that patient symptoms of persistent nausea but no vomiting is most likely because of cholelithiasis. Patient has been advised to take Carafate and Ursodiol with bland fat-free diet for next couple of weeks. She has been advised to follow-up with Dr. James as an outpatient for possible elective cholecystectomy. Her symptoms of tiredness and weakness could be related to chronic granulomatous disease for which tick panel, histo panel, QuantiFERON has been sent and the results will come back in a week. Results were discussed with her primary care provider Dr. Ricci. He agrees with the plan of treatment. Patient to follow-up with Dr. Ricci in a week in his office for a repeat CMP. He is been discharged in hemodynamic stable condition. Her home medication of nitrofurantoin has been stopped because it can cause liver dysfunction as well. She is been discharged on levofloxacin for possible UTI for next 5 days and doxycycline for next 7 days for tick exposure. Physical Exam Narrative: EXAM NARRATIVE: General: No acute distress, AO x3 HEENT: PERRLA, pupils bilaterally equal and reactive Chest: Normal vesicular breath sounds, no added sounds, equal good air entry bilaterally CVS: S1-S2 regular, no murmurs, no tachycardia, no gallops, no rubs Abdomen: Soft, tenderness on deep palpation right upper quadrant, no guarding no rebound tenderness, no organomegaly, bowel sounds present Neuro: No focal deficits, no facial deformity, AO x3, power 5/5 in all limbs Discharge Data Data Completed and Pending: Completed Studies During Hospitalization Category Date Time Status CT chest abd pel wo/w con Routine Cat Scan 07/04/20 17:55 Completed CV echo complete* [id number] Routine Ultrasound 07/05/20 17:55 Completed Pending at discharge Category Date Time Status Angiotensin Conve rting Enzyme Routi ne Lab 07/04/20 22:57 Received Blood Culture Sta t Lab 07/04/20 23:10 Results Histoplasma Antib natalie Routine Lab 07/04/20 22:57 Received LAB Peripheral Sm ear Routine Lab 07/05/20 04:29 Received [facility] CHANA Profile R outine Lab 07/04/20 22:57 Received [id number] ld Plus Routine Lab 07/04/20 22:57 Received Tick Panel Stat Lab 07/04/20 22:57 Received Labs from last 24 hours 07/05/20 07/05/20 07/05/20 06:25 04:29 04:29 WBC 7.0 Corrected WBC RBC 3.64 L Hgb 11.3 L Hct 35.1 L MCV 96.4 MCH 31.0 MCHC 32.2 RDW 12.4 Plt Count 252 MPV 10.7 H Gran % Neut % (Auto) 36.4 Lymph % (Auto) 42.5 Mitchell % (Auto) 6.7 Eos % (Auto) 13.2 Baso % (Auto) 1.1 Neut # (Auto) 2.55 Lymph # (Auto) 3.0 Mitchell # (Auto) 0.5 Eos # (Auto) 0.9 H Baso # (Auto) 0.1 Absolute Gran (aut o) Nucleated RBC % (a uto) 0 Nucleated RBCs # 0.0 ESR D-Dimer Sodium 139 Cancelled Potassium 3.6 Cancelled Chloride 106 Cancelled Carbon Dioxide 26 Cancelled Anion Gap 10.6 Cancelled BUN 13 Cancelled Creatinine 0.6 Cancelled GFR Calculation 103.0 Cancelled Glucose 101 Cancelled Estimat Average Gl ucose Hemoglobin A1c Calculated Osmolal ity 284 L Cancelled Calcium 8.6 Cancelled Magnesium 2.3 Iron TIBC % Saturation Unsat Iron Binding Total Bilirubin 0.2 Cancelled GGT AST 34 H Cancelled ALT 111 H Cancelled Alkaline Phosphata se 147 H Cancelled Lactate Dehydrogen ase Troponin T Baselin e Troponin T 120 Min [place] Troponin T Troponin T Hi Sens 6Hr Troponin T Hi Sens 6Hr Delta C-Reactive Protein NT-Pro-B Natriuret Pep Total Protein 6.0 L Cancelled Albumin 3.0 L Cancelled Globulin 3.0 Cancelled Triglycerides Cholesterol LDL Cholesterol, C alc Total VLDL Cholest jorge HDL Cholesterol Cholesterol/HDL Ra talisha Angiotensin Conver t Enz Procalcitonin TSH Urine Color Urine Appearance Urine pH Ur Specific Gravit y Urine Protein Urine Glucose (UA) Urine Ketones Urine Blood Urine Nitrate Urine Bilirubin Urine Urobilinogen Ur Leukocyte Andra ase Urine RBC Urine WBC Ur Squamous Epith Cells Amorphous Sediment Urine Bacteria Urine Opiates Scre en Ur Barbiturates Sc reen Ur Phencyclidine S crn Ur Amphetamines Sc reen U Benzodiazepines Scrn Urine Cocaine Scre en U Marijuana (THC) Screen SS-A/Ro IgG Antibo dy SS-B/La IgG Antibo dy Anti-nRNP/Sm IgG A b Scl-70 Scleroderma Ab Lyme Ab (Western B lot) E. chaffeensis IgG Ab E. chaffeensis IgM Ab E. chaffeensis Int erp E. chaffeensis Com ment Hepatitis A IgM Ab Hep Bs Antigen Hep Bs Antibody Hep B Core Total A b Hepatitis C Antibo dy Histoplasma Antibo dy Rickettsia IgG Ab Rickettsia IgM Ab SARS-CoV-2 Ag (Rap id) TB (QFT) Gold In T ube TB Test (QFT) Nil TB Test (QFT) Rocky gen TB Test Mitogen - Nil TB Test TB - Nil 07/05/20 07/05/20 07/04/20 04:29 04:29 22:57 WBC Corrected WBC RBC Hgb Hct MCV MCH MCHC RDW Plt Count MPV Gran % Neut % (Auto) Lymph % (Auto) Mitchell % (Auto) Eos % (Auto) Baso % (Auto) Neut # (Auto) Lymph # (Auto) Mitchell # (Auto) Eos # (Auto) Baso # (Auto) Absolute Gran (aut o) Nucleated RBC % (a uto) Nucleated RBCs # ESR D-Dimer Sodium Potassium Chloride Carbon Dioxide Anion Gap BUN Creatinine GFR Calculation Glucose Estimat Average Gl ucose 134 Hemoglobin A1c 6.3 H Calculated Osmolal ity Calcium Magnesium Iron TIBC % Saturation Unsat Iron Binding Total Bilirubin GGT AST ALT Alkaline Phosphata se Lactate Dehydrogen ase Troponin T Baselin e Troponin T 120 Min [place] Delta Troponin T Troponin T Hi Sens 6Hr Troponin T Hi Sens 6Hr Delta C-Reactive Protein NT-Pro-B Natriuret Pep Total Protein Albumin Globulin Triglycerides 113 Cholesterol 224 H LDL Cholesterol, C alc 151 H Total VLDL Cholest jorge 23 HDL Cholesterol 50 L Cholesterol/HDL Ra talisha 4.48 H Angiotensin Conver t Enz Procalcitonin TSH Urine Color Urine Appearance Urine pH Ur Specific Gravit y Urine Protein Urine Glucose (UA) Urine Ketones Urine Blood Urine Nitrate Urine Bilirubin Urine Urobilinogen Ur Leukocyte Andra ase Urine RBC Urine WBC Ur Squamous Epith Cells Amorphous Sediment Urine Bacteria Urine Opiates Scre en Ur Barbiturates Sc reen Ur Phencyclidine S crn Ur Amphetamines Sc reen U Benzodiazepines Scrn Urine Cocaine Scre en U Marijuana (THC) Screen SS-A/Ro IgG Antibo dy SS-B/La IgG Antibo dy Anti-nRNP/Sm IgG A b Scl-70 Scleroderma Ab Lyme Ab (Western B lot) E. chaffeensis IgG Ab E. chaffeensis IgM Ab E. chaffeensis Int erp E. chaffeensis Com ment Hepatitis A IgM Ab Non-reactive Hep Bs Antigen Non-reactive Hep Bs Antibody 3.5 Hep B Core Total A b Non-reactive Hepatitis C Antibo dy Non-reactive Histoplasma Antibo dy Rickettsia IgG Ab Rickettsia IgM Ab SARS-CoV-2 Ag (Rap id) TB (QFT) Gold In T ube TB Test (QFT) Nil TB Test (QFT) Rocky gen TB Test Mitogen - Nil TB Test TB - Nil 07/04/20 07/04/20 07/04/20 22:57 22:57 22:57 WBC Corrected WBC RBC Hgb Hct MCV MCH MCHC RDW Plt Count MPV Gran % Neut % (Auto) Lymph % (Auto) Mitchell % (Auto) Eos % (Auto) Baso % (Auto) Neut # (Auto) Lymph # (Auto) Mitchell # (Auto) Eos # (Auto) Baso # (Auto) Absolute Gran (aut o) Nucleated RBC % (a uto) Nucleated RBCs # ESR D-Dimer Sodium Potassium Chloride Carbon Dioxide Anion Gap BUN Creatinine GFR Calculation Glucose Estimat Average Gl ucose Hemoglobin A1c Calculated Osmolal ity Calcium Magnesium Iron TIBC % Saturation Unsat Iron Binding Total Bilirubin GGT AST ALT Alkaline Phosphata se Lactate Dehydrogen ase Troponin T Baselin e Troponin T 120 Min [place] Troponin T Troponin T Hi Sens 6Hr Troponin T Hi Sens 6Hr Delta C-Reactive Protein NT-Pro-B Natriuret Pep Total Protein Albumin Globulin Triglycerides Cholesterol LDL Cholesterol, C alc Total VLDL Cholest jorge HDL Cholesterol Cholesterol/HDL Ra talisha Angiotensin Conver t Enz Procalcitonin TSH Urine Color Urine Appearance Urine pH Ur Specific Gravit y Urine Protein Urine Glucose (UA) Urine Ketones Urine Blood Urine Nitrate Urine Bilirubin Urine Urobilinogen Ur Leukocyte Andra ase Urine RBC Urine WBC Ur Squamous Epith Cells Amorphous Sediment Urine Bacteria Urine Opiates Scre en Ur Barbiturates Sc reen Ur Phencyclidine S crn Ur Amphetamines Sc reen U Benzodiazepines Scrn Urine Cocaine Scre en U Marijuana (THC) Screen SS-A/Ro IgG Antibo dy Pending SS-B/La IgG Antibo dy Pending Anti-nRNP/Sm IgG A b Pending Scl-70 Scleroderma Ab Pending Lyme Ab (Western B lot) E. chaffeensis IgG Ab E. chaffeensis IgM Ab E. chaffeensis Int erp E. chaffeensis Com ment Hepatitis A IgM Ab Hep Bs Antigen Hep Bs Antibody Hep B Core Total A b Hepatitis C Antibo dy Histoplasma Antibo dy Pending Rickettsia IgG Ab Rickettsia IgM Ab SARS-CoV-2 Ag (Rap id) TB (QFT) Gold In T ube Pending TB Test (QFT) Nil Pending TB Test (QFT) Rocky gen Pending TB Test Mitogen - Nil Pending TB Test TB - Nil Pending 07/04/20 07/04/20 07/04/20 22:57 22:57 22:57 WBC Corrected WBC RBC Hgb Hct MCV MCH MCHC RDW Plt Count MPV Gran % Neut % (Auto) Lymph % (Auto) Mitchell % (Auto) Eos % (Auto) Baso % (Auto) Neut # (Auto) Lymph # (Auto) Mitchell # (Auto) Eos # (Auto) Baso # (Auto) Absolute Gran (aut o) Nucleated RBC % (a uto) Nucleated RBCs # ESR D-Dimer Sodium Potassium Chloride Carbon Dioxide Anion Gap BUN Creatinine GFR Calculation Glucose Estimat Average Gl ucose Hemoglobin A1c Calculated Osmolal ity Calcium Magnesium Iron TIBC % Saturation Unsat Iron Binding Total Bilirubin GGT AST ALT Alkaline Phosphata se Lactate Dehydrogen ase Troponin T Baselin e Troponin T 120 Min [place] Delta Troponin T Troponin T Hi Sens 6Hr 6.73 Troponin T Hi Sens 6Hr Delta 0.73 C-Reactive Protein NT-Pro-B Natriuret Pep Total Protein Albumin Globulin Triglycerides Cholesterol LDL Cholesterol, C alc Total VLDL Cholest jorge HDL Cholesterol Cholesterol/HDL Ra talisha Angiotensin Conver t Enz Pending Procalcitonin TSH Urine Color Urine Appearance Urine pH Ur Specific Gravit y Urine Protein Urine Glucose (UA) Urine Ketones Urine Blood Urine Nitrate Urine Bilirubin Urine Urobilinogen Ur Leukocyte Andra ase Urine RBC Urine WBC Ur Squamous Epith Cells Amorphous Sediment Urine Bacteria Urine Opiates Scre en Ur Barbiturates Sc reen Ur Phencyclidine S crn Ur Amphetamines Sc reen U Benzodiazepines Scrn Urine Cocaine Scre en U Marijuana (THC) Screen SS-A/Ro IgG Antibo dy SS-B/La IgG Antibo dy Anti-nRNP/Sm IgG A b Scl-70 Scleroderma Ab Lyme Ab (Western B lot) Pending E. chaffeensis IgG Ab Pending E. chaffeensis IgM Ab Pending E. chaffeensis Int erp Pending E. chaffeensis Com ment Pending Hepatitis A IgM Ab Hep Bs Antigen Hep Bs Antibody Hep B Core Total A b Hepatitis C Antibo dy Histoplasma Antibo dy Rickettsia IgG Ab Pending Rickettsia IgM Ab Pending SARS-CoV-2 Ag (Rap id) TB (QFT) Gold In T ube TB Test (QFT) Nil TB Test (QFT) Rocky gen TB Test Mitogen - Nil TB Test TB - Nil 07/04/20 07/04/20 07/04/20 20:10 20:10 19:04 WBC Corrected WBC RBC Hgb Hct MCV MCH MCHC RDW Plt Count MPV Gran % Neut % (Auto) Lymph % (Auto) Mitchell % (Auto) Eos % (Auto) Baso % (Auto) Neut # (Auto) Lymph # (Auto) Mitchell # (Auto) Eos # (Auto) Baso # (Auto) Absolute Gran (aut o) Nucleated RBC % (a uto) Nucleated RBCs # ESR D-Dimer Sodium Potassium Chloride Carbon Dioxide Anion Gap BUN Creatinine GFR Calculation Glucose Estimat Average Gl ucose Hemoglobin A1c Calculated Osmolal ity Calcium Magnesium Iron TIBC % Saturation Unsat Iron Binding Total Bilirubin GGT AST ALT Alkaline Phosphata se Lactate Dehydrogen ase Troponin T Baselin e Troponin T 120 Min [place] 6.00 Delta Troponin T 0 Troponin T Hi Sens 6Hr Troponin T Hi Sens 6Hr Delta C-Reactive Protein NT-Pro-B Natriuret Pep Total Protein Albumin Globulin Triglycerides Cholesterol LDL Cholesterol, C alc Total VLDL Cholest jorge HDL Cholesterol Cholesterol/HDL Ra talisha Angiotensin Conver t Enz Procalcitonin TSH Urine Color Yellow Urine Appearance Cloudy Urine pH 5 Ur Specific Gravit y 1.010 Urine Protein Neg Urine Glucose (UA) Norm Urine Ketones 1+ H Urine Blood 2+ H Urine Nitrate Negative Urine Bilirubin Neg Urine Urobilinogen Norm Ur Leukocyte Andra ase 2+ H Urine RBC 0-4 H Urine WBC 25-40 H Ur Squamous Epith Cells 25-40 H Amorphous Sediment Not Reportable Urine Bacteria 1+ H Urine Opiates Scre en Negative Ur Barbiturates Sc reen Negative Ur Phencyclidine S crn Negative Ur Amphetamines Sc reen Negative U Benzodiazepines Scrn Negative Urine Cocaine Scre en Negative U Marijuana (THC) Screen Negative SS-A/Ro IgG Antibo dy SS-B/La IgG Antibo dy Anti-nRNP/Sm IgG A b Scl-70 Scleroderma Ab Lyme Ab (Western B lot) E. chaffeensis IgG Ab E. chaffeensis IgM Ab E. chaffeensis Int erp E. chaffeensis Com ment Hepatitis A IgM Ab Hep Bs Antigen Hep Bs Antibody Hep B Core Total A b Hepatitis C Antibo dy Histoplasma Antibo dy Rickettsia IgG Ab Rickettsia IgM Ab SARS-CoV-2 Ag (Rap id) TB (QFT) Gold In T ube TB Test (QFT) Nil TB Test (QFT) Rocky gen TB Test Mitogen - Nil TB Test TB - Nil 07/04/20 07/04/20 07/04/20 18:11 18:11 18:11 WBC 8.0 Corrected WBC RBC 3.54 L Hgb 10.9 L Hct 33.7 L MCV 95.2 MCH 30.8 MCHC 32.3 RDW 12.4 Plt Count 234 MPV 10.1 Gran % Neut % (Auto) 57.2 Lymph % (Auto) 25.8 Mitchell % (Auto) 4.9 Eos % (Auto) 11.1 Baso % (Auto) 0.6 Neut # (Auto) 4.58 Lymph # (Auto) 2.1 Mitchell # (Auto) 0.4 Eos # (Auto) 0.9 H Baso # (Auto) 0.1 Absolute Gran (aut o) Nucleated RBC % (a uto) 0 Nucleated RBCs # 0.0 ESR 53 H D-Dimer Sodium Potassium Chloride Carbon Dioxide Anion Gap BUN Creatinine GFR Calculation Glucose Estimat Average Gl ucose Hemoglobin A1c Calculated Osmolal ity Calcium Magnesium Iron TIBC % Saturation Unsat Iron Binding Total Bilirubin GGT AST ALT Alkaline Phosphata se Lactate Dehydrogen ase Troponin T Baselin e Troponin T 120 Min [place] Troponin T Troponin T Hi Sens 6Hr Troponin T Hi Sens 6Hr Delta C-Reactive Protein NT-Pro-B Natriuret Pep Total Protein Albumin Globulin Triglycerides Cholesterol LDL Cholesterol, C alc Total VLDL Cholest jorge HDL Cholesterol Cholesterol/HDL Ra talisha Angiotensin Conver t Enz Procalcitonin TSH 0.66 Urine Color Urine Appearance Urine pH Ur Specific Gravit y Urine Protein Urine Glucose (UA) Urine Ketones Urine Blood Urine Nitrate Urine Bilirubin Urine Urobilinogen Ur Leukocyte Andra ase Urine RBC Urine WBC Ur Squamous Epith Cells Amorphous Sediment Urine Bacteria Urine Opiates Scre en Ur Barbiturates Sc reen Ur Phencyclidine S crn Ur Amphetamines Sc reen U Benzodiazepines Scrn Urine Cocaine Scre en U Marijuana (THC) Screen SS-A/Ro IgG Antibo dy SS-B/La IgG Antibo dy Anti-nRNP/Sm IgG A b Scl-70 Scleroderma Ab Lyme Ab (Western B lot) E. chaffeensis IgG Ab E. chaffeensis IgM Ab E. chaffeensis Int erp E. chaffeensis Com ment Hepatitis A IgM Ab Hep Bs Antigen Hep Bs Antibody Hep B Core Total A b Hepatitis C Antibo dy Histoplasma Antibo dy Rickettsia IgG Ab Rickettsia IgM Ab SARS-CoV-2 Ag (Rap id) TB (QFT) Gold In T ube TB Test (QFT) Nil TB Test (QFT) Rocky gen TB Test Mitogen - Nil TB Test TB - Nil 07/04/20 07/04/20 07/04/20 18:11 18:11 18:02 WBC Corrected WBC RBC Hgb Hct MCV MCH MCHC RDW Plt Count MPV Gran % Neut % (Auto) Lymph % (Auto) Mitchell % (Auto) Eos % (Auto) Baso % (Auto) Neut # (Auto) Lymph # (Auto) Mitchell # (Auto) Eos # (Auto) Baso # (Auto) Absolute Gran (aut o) Nucleated RBC % (a uto) Nucleated RBCs # ESR D-Dimer 1.90 H Sodium 136 Potassium 3.6 Chloride 100 Carbon Dioxide 27 Anion Gap 12.4 BUN 16 Creatinine 0.7 GFR Calculation 86.2 L Glucose 93 Estimat Average Gl ucose Hemoglobin A1c Calculated Osmolal ity 286 Calcium 8.6 Magnesium Iron 64 TIBC 189 % Saturation 33.8 Unsat Iron Binding 125 Total Bilirubin 0.3 GGT 265 H AST 55 H ALT 145 H Alkaline Phosphata se 149 H Lactate Dehydrogen ase 142 Troponin T Baselin e Troponin T 120 Min [place] Delta Troponin T Troponin T Hi Sens 6Hr Troponin T Hi Sens 6Hr Delta C-Reactive Protein NT-Pro-B Natriuret Pep 111 Total Protein 6.3 L Albumin 3.2 L Globulin 2.9 Triglycerides Cholesterol LDL Cholesterol, C alc Total VLDL Cholest jorge HDL Cholesterol Cholesterol/HDL Ra talisha Angiotensin Conver t Enz Procalcitonin 0.15 TSH Urine Color Urine Appearance Urine pH Ur Specific Gravit y Urine Protein Urine Glucose (UA) Urine Ketones Urine Blood Urine Nitrate Urine Bilirubin Urine Urobilinogen Ur Leukocyte Andra ase Urine RBC Urine WBC Ur Squamous Epith Cells Amorphous Sediment Urine Bacteria Urine Opiates Scre en Ur Barbiturates Sc reen Ur Phencyclidine S crn Ur Amphetamines Sc reen U Benzodiazepines Scrn Urine Cocaine Scre en U Marijuana (THC) Screen SS-A/Ro IgG Antibo dy SS-B/La IgG Antibo dy Anti-nRNP/Sm IgG A b Scl-70 Scleroderma Ab Lyme Ab (Western B lot) E. chaffeensis IgG Ab E. chaffeensis IgM Ab E. chaffeensis Int erp E. chaffeensis Com ment Hepatitis A IgM Ab Hep Bs Antigen Hep Bs Antibody Hep B Core Total A b Hepatitis C Antibo dy Histoplasma Antibo dy Rickettsia IgG Ab Rickettsia IgM Ab SARS-CoV-2 Ag (Rap id) Negative TB (QFT) Gold In T ube TB Test (QFT) Nil TB Test (QFT) Rocky gen TB Test Mitogen - Nil TB Test TB - Nil 07/04/20 07/04/20 07/04/20 17:05 17:02 17:02 WBC Cancelled Corrected WBC Cancelled RBC Cancelled Hgb Cancelled Hct Cancelled MCV Cancelled MCH Cancelled MCHC Cancelled RDW Cancelled Plt Count Cancelled MPV Cancelled Gran % Cancelled Neut % (Auto) Cancelled Lymph % (Auto) Cancelled Mitchell % (Auto) Cancelled Eos % (Auto) Cancelled Baso % (Auto) Cancelled Neut # (Auto) Cancelled Lymph # (Auto) Cancelled Mitchell # (Auto) Cancelled Eos # (Auto) Cancelled Baso # (Auto) Cancelled Absolute Gran (aut o) Cancelled Nucleated RBC % (a uto) Cancelled Nucleated RBCs # Cancelled ESR D-Dimer Sodium Potassium Chloride Carbon Dioxide Anion Gap BUN Creatinine GFR Calculation Glucose Estimat Average Gl ucose Hemoglobin A1c Calculated Osmolal ity Calcium Magnesium Iron TIBC % Saturation Unsat Iron Binding Total Bilirubin GGT AST ALT Alkaline Phosphata se Lactate Dehydrogen ase Troponin T Baselin e 6 Troponin T 120 Min [place] Troponin T Troponin T Hi Sens 6Hr Troponin T Hi Sens 6Hr Delta C-Reactive Protein 92.9 H NT-Pro-B Natriuret Pep Total Protein Albumin Globulin Triglycerides Cholesterol LDL Cholesterol, C alc Total VLDL Cholest jorge HDL Cholesterol Cholesterol/HDL Ra talisha Angiotensin Conver t Enz Procalcitonin TSH Urine Color Urine Appearance Urine pH Ur Specific Gravit y Urine Protein Urine Glucose (UA) Urine Ketones Urine Blood Urine Nitrate Urine Bilirubin Urine Urobilinogen Ur Leukocyte Andra ase Urine RBC Urine WBC Ur Squamous Epith Cells Amorphous Sediment Urine Bacteria Urine Opiates Scre en Ur Barbiturates Sc reen Ur Phencyclidine S crn Ur Amphetamines Sc reen U Benzodiazepines Scrn Urine Cocaine Scre en U Marijuana (THC) Screen SS-A/Ro IgG Antibo dy SS-B/La IgG Antibo dy Anti-nRNP/Sm IgG A b Scl-70 Scleroderma Ab Lyme Ab (Western B lot) E. chaffeensis IgG Ab E. chaffeensis IgM Ab E. chaffeensis Int erp E. chaffeensis Com ment Hepatitis A IgM Ab Hep Bs Antigen Hep Bs Antibody Hep B Core Total A b Hepatitis C Antibo dy Histoplasma Antibo dy Rickettsia IgG Ab Rickettsia IgM Ab SARS-CoV-2 Ag (Rap id) TB (QFT) Gold In T ube TB Test (QFT) Nil TB Test (QFT) Rocky gen TB Test Mitogen - Nil TB Test TB - Nil Vitals: Last Vital Signs Temp 97.7 F 07/05/20 11:27 Pulse 78 07/05/20 11:27 Resp 17 07/05/20 11:27 BP 137/78 07/05/20 11:27 Pulse Ox 95 07/05/20 11:27 Discharge Plan Discharge Patient Disposition: Home Condition: Stable Prescriptions: New levofloxacin 500 mg tablet 500 mg PO DAILY 7 Days Qty: 7 RF: 0 doxycycline hyclate 100 mg tablet 100 mg PO BID 7 Days Qty: 14 RF: 0 Carafate 100 mg/mL suspension 2 gm PO BID PRN (Reason: nausea and vomiting) 28 Days Qty: 1120 RF: 0 ursodiol 250 mg tablet 250 mg PO BID Qty: 14 RF: 0 Continued clotrimazole 10 mg roman 10 mg MUCOUS MEM 5XD 14 Days Qty: 70 RF: 0 Multiple Vitamins Tablet 1 tab PO DAILY RF: 0 Ultram 50 mg Tablet 50 mg PO TID PRN (Reason: Pain) RF: 0 Magnesium-Zinc Tab 1 tab PO DAILY RF: 0 Stool Softener 2 tab PO BEDTIME RF: 0 Vitamin C 1 tab PO DAILY RF: 0 Discontinued nitrofurantoin monohyd/m-cryst [Macrobid] 100 mg Capsule 100 mg PO BID RF: 0 Discharge Orders: Discharge Order (Routine); Ordered 07/05/20 Ordered By: Stefan Sanchez Referrals: Mukesh James MD [Physician] - 08/09/20 1:00 pm (possible cholecystectomy, persistent nausea) Robert Ricci MD [Primary Care Provider] - 07/13/20 10:15 am Discharge Diet: GI Soft Discharge Activity: Resume usual activity Patient Instructions: Doxycycline (By mouth), Levofloxacin (By mouth), Chronic Hypertension (DC), Fatigue (DC) Activity Restrictions/Additional Instructions: Please use bland diet for next 2 weeks. Levofloxacin and doxycycline at the antibiotic facility for next 1 week. Please recheck CMP in 1 week and follow-up with your primary care provider Dr. Ricci. Please follow-up with Dr. Harp in 1 month for possible cholecystectomy if your symptoms of nausea persist. Stop medication Macrobid. Discharge Attestations Time Spent in Discharge Care*: greater than 30 min Specific Discharge Activities: Specific discharge activities: educating patient, discussing with pcp/other providers, discussing with director of casework department/social workers/dc planners, documenting/other paperwork and evaluating patient/reviewing data Status at Discharge: Cognitive status at discharge: cognitively intact , Behavioral status at discharge: cooperative , Functional status at discharge: independent ambulation Overall status at discharge: patient is progressing back to baseline Quality Metrics Clinical Quality Measures During this hospital stay, did patient experience: None Coding Level of Care Code Acute Drama 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
[2020-07-05 13:26] VITALS: BP 137/78; PULSE 78; RESP 17; TEMP 36.5; O2SAT 95
--- NOTE | 2020-07-05 13:57 | PC.NURSE ---
Discharge instructions provided, verbalized understanding, awaiting meds to beds delivery for discharge.
[2020-07-05 14:02] LABS: LAB Peripheral Smear Sent for Review
--- NOTE | 2020-07-05 15:00 | PC.NURSE ---
Medication dropped off from pharmacy meds to beds.
--- NOTE | 2020-07-05 17:55 | USCV_ITS ---
Danisha Leonard Age: 59 Gender: F : 1960 Exam Date: 07/05/2020 05:57 Ordering Phys: Stefan Sanchez MD Technologist: Karen Mccain Exam Location: [facility] [place] Indication: PHTN DD BP: 106 / 64 HR: 77 Rhythm: Sinus Technical Quality: Adequate MEASUREMENTS (Male / Female) Normal Values 2D ECHO LV Diastolic Diameter PLAX 3.6 cm 4.2 - 5.9 / 3.9 - 5.3 cm LV Systolic Diameter PLAX 2.6 cm LV Chamber Size 2.8 cm IVS Diastolic Thickness 0.9 cm 0.6 - 1.0 / 0.6 - 0.9 cm IVS Systolic Thickness 1.3 cm LVPW Diastolic Thickness 1.3 cm 0.6 - 1.0 / 0.6 - 0.9 cm LVPW Systolic Thickness 1.4 cm RV Chamber Size 2.1 cm LVOT Diameter 2.0 cm LV Ejection Fraction 2D Teich 57.6 % LV Ejection Fraction MOD 2C 67.2 % LV Ejection Fraction 2C AL 68.1 % LA Diameter 3.7 cm LA Width 2.8 cm LA Height 4.4 cm RA Width 2.2 cm RA Height 3.5 cm M-MODE LV Diastolic Diameter MM 4.2 cm 4.2 - 5.9 / 3.9 - 5.3 cm LV Systolic Diameter MM 2.8 cm LV Ejection Fraction MM Teich 61.1 % IVS Diastolic Thickness MM 0.7 cm 0.6 - 1.0 / 0.6 - 0.9 cm IVS Systolic Thickness MM 1.2 cm LVPW Diastolic Thickness MM 1.1 cm 0.6 - 1.0 / 0.6 - 0.9 cm LVPW Systolic Thickness MM 1.3 cm RV Diastolic Diameter MM 1.5 cm Aortic Annulus Diameter 3.2 cm LA Ao Ratio MM 1.1 MV E Point Septal Separation 0.4 cm DOPPLER AV Peak Velocity 127.0 cm/s LVOT Peak Velocity 87.0 cm/s AV Area Cont Eq vti 2.8 cm squared AV Area Cont Eq pk 2.2 cm squared MV Area PHT 4.8 cm squared Mitral E to A Ratio 1.1 MV E' Velocity 12.0 cm/s Mitral E to MV E' Ratio 8.7 Mitral E to LV E' Lateral Ratio 8.6 Mitral E to LV E' Septal Ratio 8.9 TR Peak Velocity 399.2 cm/s TR Peak Gradient 63.7 mmHg TR Mean Velocity 267.0 cm/s TR Mean Gradient 34.1 mmHg TR Velocity Time Integral 152.4 cm TV Peak E Velocity 59.0 cm/s Right Atrial Pressure 3.0 mmHg Pulmonary Artery Systolic Pressu 66.7 mmHg PV Peak Velocity 72.0 cm/s RV Acceleration Time 0.1 s RV Ejection Time 0.4 s RV AcT/ET 0.3 FINDINGS Left Ventricle Normal left ventricular size, systolic function and wall thickness, with no regional wall motion abnormalities. Normal left ventricular wall thickness. Normal diastolic filling pattern. Right Ventricle The right ventricle is normal in size and function. Right Atrium The right atrium is normal in size. Left Atrium The left atrium is normal in size. Mitral Valve Structurally normal mitral valve without significant stenosis or prolapse. There is no mitral regurgitation. Aortic Valve Structurally normal aortic valve without significant sclerosis or stenosis. There is no aortic regurgitation. Tricuspid Valve Structurally normal tricuspid valve without significant stenosis. Trace TR is present.RVSP is elevated and is more than 60. At least moderate pulmonary hypertension is noted. RA pressure is 0 to 5 mmHg. Pulmonic Valve Structurally normal pulmonic valve without significant stenosis. There is no pulmonic regurgitation. Pericardium Normal pericardium without effusion. Aorta Normal ascending aorta dimension. CONCLUSIONS Normal LV systolic function with EF of 55 to 60%. Normal diastolic function. Pulmonary hypertension is noted. Normal RA pressure Javier Nagy MD (Electronically Signed) Final Date: 05 July 2020 11:32 S
--- NOTE | 2020-07-06 11:26 | PC.RESP ---
Smoking Cessation information sent to patient.
[2020-07-06 13:44] LABS: Angiotensin Converting Enzyme 27 U/L (9-67); Anti-Double Strand DNA AB <1 IU/mL; Jo-1 Antibody <1.0 NEG AI (<1.0 NEG); Lyme AB Screen <0.90 index; SM/RNP Antibodies <1.0 NEG AI (<1.0 NEG); SS-B/LA IGG <1.0 NEG AI (<1.0 NEG); Scleroderma Ab(Scl-70) Ab <1.0 NEG AI (<1.0 NEG); Ss-A/Ro Igg <1.0 NEG AI (<1.0 NEG)
[2020-07-07 12:40] LABS: Quantiferon Mitogen >10.00 IU/mL; Quantiferon Nil 0.04 IU/mL; Quantiferon Plus TB2 0.01 IU/mL; Quantiferon TB Gold NEGATIVE (NEGATIVE)
[2020-07-08 17:14] LABS: E. Chaffeensis AB IGG <1:64; E. Chaffeensis AB IGM <1:20; RMSF IGG NOT DETECTED; RMSF IGM NOT DETECTED
== END 2020-07-05 15:16 | disposition home or self-care (01) ==
LOC: ER 16:44 → MEDSURG 17:32
PROVIDERS: Emergency Medicine; Admitting Provider Student in an Organized Health Care Education/Training Program; PCP Family Medicine; Visit Provider Student in an Organized Health Care Education/Training Program
DX: R11.0 Nausea (principal); R53.81 Other malaise; I73.9 Peripheral vascular disease, unspecified; I10 Essential (primary) hypertension; J44.9 Chronic obstructive pulmonary disease, unspecified; I71.4 Abdominal aortic aneurysm, without rupture; Z91.19 Patient's noncompliance with other medical treatment and regimen; Z20.828 Contact with and (suspected) exposure to other viral communicable diseases; F17.210 Nicotine dependence, cigarettes, uncomplicated
CPT/HCPCS: 12345; 36415; 71260; 74178; 80053; 80061; 80306; 80500; 81001; 82164; 82977; 83036; 83540; 83550; 83615; 83735; 83880; 84145; 84443; 84484; 85025; 85378; 85651; 86140; 86225; 86235; 86480; 86618; 86666; 86698; 86705; 86706; 86709; 86757; 86803; 87040; 87340; 87426; 93005; 93306; 96361; 96374; 96375; 99284; 99285; G0378; J3490; J7030; Q9967

== ENCOUNTER 2020-07-12 12:23 | Emergency (ER) | payer SELFPAY ==
[2020-07-12 12:44] VITALS: BP 122/76; PULSE 100; RESP 16; TEMP 36.7; O2SAT 96; BMI 25.4
--- NOTE | 2020-07-12 13:01 | ECG_ITS ---
[facility] Test Date: 2020-07-12 Pat Name: Danisha Leonard Department: Room: Gender: Female Individualized Education Plan Aide: : 1960 Requested By: Feng Florian I Order Number: [id number] Riley MD: Diane Olivo M.D. Measurements Intervals [place] Rate: 87 P: 66 WA: 147 QRS: 75 QRSD: 82 T: 74 QT: 340 QTc: 411 Interpretive Statements SINUS RHYTHM Compared to ECG 07/04/2020 19:12:00 No significant changes Electronically Signed On 07-13-2020 0:28:37 CDT by Diane Olivo M.D. [id number]
--- NOTE | 2020-07-12 13:02 | ED_ITS ---
HPI - General Adult General: Chief complaint: General Medical Stated complaint: Abd pain, HTN, R arm pain Time Seen by Provider: 07/12/20 12:52 Source: patient Mode of arrival: ambulatory Limitations: no limitations History of Present Illness: HPI narrative: Patient is a 59-year-old female who was recently admitted for gallbladder disease. Gallbladder was not taken out and she was discharged home. She states that she has an outpatient appointment with the surgeon. She initially thought the gallbladder was going to be surgically removed during her hospital admission but apparently was not. Her pain continues to be present and it is worsening now. She denies any fever. She does know what is going on. She says she does not know she will live until her surgical appointment because the pain hurts a lot. Onset (ago): hour(s) Location: abdomen (RUQ) Radiation: non-radiation Severity scale (1-10): 3 Quality: stabbing Pain Consistency: constant Relieving factors: none Exacerbating factors: none Associated symptoms: Reports nausea; Deny chest pain, confusion, cough, diaphoresis, decreased appetite, dyspnea, fevers/chills or rash Review of Systems General: Reports: 10 or more systems reviewed and unremarkable except in HPI and below Const: Denies: diaphoresis Eyes: Denies: change in vision or blurry vision ENMT: Denies: throat pain, enlarged tonsils, odynophagia, hoarseness, mouth pain or swelling of lips/tongue Card: Denies: chest pain Resp: Denies: dyspnea GI: Reports: nausea : Denies: flank pain, difficulty voiding, dysuria, urinary frequency, urinary urgency or urinary hesitancy Musc: Denies: neck pain, back pain or extremity swelling Skin/Breast: Denies: rash, pruritus or erythema Neuro: Denies: confusion Endo: Denies: polyuria, polydipsia or tired all the time PFSH ED PFSH: Medical History Abdominal aortic aneurysm COPD (chronic obstructive pulmonary disease) HTN (hypertension) PAD (peripheral artery disease) Surgical History Post PTCA Social History Smoking and tobacco status: heavy tobacco smoker Alcohol intake: never Substance/Drug Use: never Lives independently: Yes Household members: none Housing: House Physical Exam Const: COMMON NORMALS: no acute distress, average body habitus, patient oriented x3, no limitations, healthy appearing, alert and well nourished HENMT: COMMON NORMALS: normocephalic, atraumatic and moist oral mucous membranes HEAD & SCALP: normocephalic and atraumatic Neck/C-Spine: COMMON NORMALS: no meningeal signs and no JVD Resp: COMMON NORMALS: normal respiratory effort, No retractions, No use of accessory muscles, clear to auscultation bilaterally and percussion normal AUSCULTATION: clear to auscultation bilaterally PERCUSSION: percussion normal Cardio: COMMON NORMALS: no JVD, regular rate, regular rhythm, S1 normal heart sound present, S2 normal heart sound present, No gallops present (Cardio), No clicks present (Cardio), No murmurs present (Cardio), No rub (Cardio) and Peripheral pulses 2+ throughout RATE: regular rate RHYTHM: regular rhythm HEART SOUNDS: S1 normal heart sound present and S2 normal heart sound present PERIPHERAL PULSES: Peripheral pulses 2+ throughout GI: COMMON NORMALS: Normal to inspection, nondistended, normoactive bowel sounds present, Soft to palpation, No hepatosplenomegaly present, no masses and no bruits PALPATION: Yes Soft to palpation, Yes Tenderness to palpation present (GI) Details: RUQ, No Guarding due to palpation present (GI), No Rigid due to palpation, Yes No hepatosplenomegaly present and No Rebound tenderness present : COMMON NORMALS: Yes no CVA tenderness BLADDER/KIDNEY EXAM: Yes no CVA tenderness Back/Pelvis: COMMON NORMALS: no CVA tenderness Extremity: COMMON NORMALS: normal to inspection, full ROM, capillary refill normal, no calf tenderness and no pedal edema Neuro: COMMON NORMALS: patient oriented x3 SENSORIUM/ORIENTATION: Yes alert MENINGEAL SIGNS: Yes no meningeal signs Skin: COMMON NORMALS: no rashes or lesions noted, no wounds, turgor normal, no jaundice, no petechiae and no mottling GENERAL SKIN EXAM: no rashes or lesions noted and turgor normal Course Reevaluation(s): Reevaluation #1: Discussed her lab and imaging findings with her. No signs of acute cholecystitis. She however has diverticulitis and g allbladder disease. I believe her pain is from the gallbladder disease. She already has an appointment to see the surgeon and she is advised to keep that appointment. We will give her some antibiotics for diverticulitis as well as pain medicine. She is advised to consume a low-fat diet to prevent recurrence of the pain. She voiced understanding and is in agreement with the plan Time: 17:06 Vital Signs: Vital signs: Vital Signs Temperature 98.1 F 07/12/20 12:44 Pulse Rate 78 07/12/20 16:51 Respiratory Rate 14 07/12/20 16:51 Blood Pressure 127/79 07/12/20 16:51 Pulse Oximetry 97 07/12/20 16:51 MDM - General Adult MDM Narrative: Medical decision making narrative: 59-year-old female with a history of gallbladder disease who presents to the emergency department with right upper quadrant pain. Evaluation shows that she does not have cholecystitis. She however has resolving diverticulitis on CT. She is discharged home with a prescription for ciprofloxacin and metronidazole as well as hydrocodone for pain. She already has an appointment with the surgeon and she is advised to keep the appointment. She is also advised to consume a low-fat diet. Medical Records: Attestation: I reviewed the patient's medical records. Lab Data: Attestation: I reviewed the patient's lab results. Labs: Lab Results 07/12/20 07/12/20 07/12/20 Range/Units 13:17 13:17 13:17 WBC 7.2 (4.0-10.0) 10^3/ uL RBC 4.32 (4.1-5.3) 10^6/u L Hgb 13.5 (11.5-15.3) g/dL Hct 41.0 (37.0-47.0) % MCV 94.9 (81-99) fL MCH 31.3 (28.0-34.0) pg MCHC 32.9 (30.0-36.0) g/dL RDW 12.7 (12.1-15.1) % Plt Count 544 H (130-400) 10^3/c mm MPV 9.5 (7.4-10.4) fL Neut % (Auto) 42.6 % Lymph % (Auto) 42.8 % [place] % (Auto) 6.1 % Eos % (Auto) 5.3 % Baso % (Auto) 2.8 % Neut # (Auto) 3.08 (1.8-7.7) 10^3/u L Lymph # (Auto) 3.1 (0.8-4.8) 10^3/u L [place] # (Auto) 0.4 (0.2-0.9) 10^3/u L Eos # (Auto) 0.4 (0.0-0.8) 10^3/u L Baso # (Auto) 0.2 H (0.0-0.1) 10^3/u L Nucleated RBC % (a uto) 0 % Nucleated RBCs # 0.0 /100WBC Sodium 136 (136-145) mmol/L Potassium 4.7 (3.5-5.1) mmol/L Chloride 98 (98-107) mmol/L Carbon Dioxide 29 (22-29) mmol/L Anion Gap 13.7 (5-19) BUN 17 (6-20) mg/dL Creatinine 0.8 (0.5-0.9) mg/dL GFR Calculation 73.9 L (90-130) mL/min Glucose 107 (65-115) mg/dL Calculated Osmolal ity 279 L (285-295) mOsm/k g Calcium 10.4 (8.5-10.5) mg/dL Total Bilirubin 0.2 (0.15-1.2) mg/dL AST 14 (0-32) U/L ALT 25 (0-33) U/L Alkaline Phosphata se 121 H (35-105) IU/L Troponin T Baselin e 6 (0-10) ng/L Troponin T 120 Min [place] (0-10) ng/L Delta Troponin T (0-10) ABS# C-Reactive Protein 3.3 (0.0-4.9) mg/L Total Protein 7.7 (6.6-8.7) g/dL Albumin 4.2 (3.5-5.2) g/dL Globulin 3.5 (1.3-4.6) g/dL Lipase 45 (13-60) U/L Urine Color (Yellow) Urine Appearance (CLEAR) Urine pH (5-7) Ur Specific Gravit y (1.005-1.030) Urine Protein (Negative) Urine Glucose (UA) (Normal) Urine Ketones (Negative) Urine Blood (Negative) Urine Nitrate (Negative) Urine Bilirubin (NEGATIVE) Urine Urobilinogen (Negative) mg/dL Ur Leukocyte Andra ase (Negative) 07/12/20 07/12/20 Range/Units 14:09 15:30 WBC (4.0-10.0) 10^3/ uL RBC (4.1-5.3) 10^6/u L Hgb (11.5-15.3) g/dL Hct (37.0-47.0) % MCV (81-99) fL MCH (28.0-34.0) pg MCHC (30.0-36.0) g/dL RDW (12.1-15.1) % Plt Count (130-400) 10^3/c mm MPV (7.4-10.4) fL Neut % (Auto) % Lymph % (Auto) % [place] % (Auto) % Eos % (Auto) % Baso % (Auto) % Neut # (Auto) (1.8-7.7) 10^3/u L Lymph # (Auto) (0.8-4.8) 10^3/u L [place] # (Auto) (0.2-0.9) 10^3/u L Eos # (Auto) (0.0-0.8) 10^3/u L Baso # (Auto) (0.0-0.1) 10^3/u L Nucleated RBC % (a uto) % Nucleated RBCs # /100WBC Sodium (136-145) mmol/L Potassium (3.5-5.1) mmol/L Chloride (98-107) mmol/L Carbon Dioxide (22-29) mmol/L Anion Gap (5-19) BUN (6-20) mg/dL Creatinine (0.5-0.9) mg/dL GFR Calculation (90-130) mL/min Glucose (65-115) mg/dL Calculated Osmolal ity (285-295) mOsm/k g Calcium (8.5-10.5) mg/dL Total Bilirubin (0.15-1.2) mg/dL AST (0-32) U/L ALT (0-33) U/L Alkaline Phosphata se (35-105) IU/L Troponin T Baselin e (0-10) ng/L Troponin T 120 Min [place] 6.00 (0-10) ng/L Delta Troponin T 0 (0-10) ABS# C-Reactive Protein (0.0-4.9) mg/L Total Protein (6.6-8.7) g/dL Albumin (3.5-5.2) g/dL Globulin (1.3-4.6) g/dL Lipase (13-60) U/L Urine Color Straw (Yellow) Urine Appearance Clear (CLEAR) Urine pH 6 (5-7) Ur Specific Gravit y 1.015 (1.005-1.030) Urine Protein Neg (Negative) Urine Glucose (UA) Norm (Normal) Urine Ketones Negative (Negative) Urine Blood Neg (Negative) Urine Nitrate Negative (Negative) Urine Bilirubin Neg (NEGATIVE) Urine Urobilinogen Norm (Negative) mg/dL Ur Leukocyte Andra ase Negative (Negative) Imaging Data^: US: Radiologist's impression: [place] [address] Ultrasound Report Signed Patient: Danisha Leonard #: [id number] : 1960cct#:[id number] Age/Sex: 59 / FADM Date: 07/12/20 Loc: [facility]/Bed: Attending Dr: Ordering Provider/Ordering MD: Feng Florian MD, [facility] [place] Date of Service: 07/12/20 Procedure(s): US gall bladder 19288 Accession Number(s): [id number] Report Number: [id number] WS: [id number] ULTRASOUND ABDOMEN LIMITED CLINICAL INFORMATION: RUQ pain. GB disease COMPARISON: None. FINDINGS: Liver Size: Normal. Craniocaudal length: 13.5 cm. Echogenicity: Diffuse fatty infiltration liver. Surface nodularity: None. Mass (size and location): None. Bile ducts Intrahepatic ducts: Normal. Common bile duct diameter: 0.3 cm. Gallbladder Cholelithiasis. Gallstones: Present Gallbladder sludge: None. Gallbladder wall thickening: None. Pericholecystic fluid: None. Sonographic Rosales sign: Absent. Pancreas Normal as visualized. Right kidney: Normal. Hydronephrosis: None. Size: 10.6 cm x 3.9 cm x 4.1 cm. Abdominal aorta and IVC Visualized portions are normal. Ascites: None. US/US gall bladder [id number] IMPRESSION: 1. Mild diffuse fatty infiltration liver. 2. Dense shadowing cholelithiasis. Normal common bile duct. Gallbladder wall not well seen due to shadowing. 3. No hydronephrosis in right kidney. Dictated By:Castillo Maddox MD Signed By:Castillo Maddox MDSigned Date/Time:07/12/20 1548 DD/ 1546 CT Abd/Pel: Radiologist's impression: [place] [address] CT Scan Report Signed Patient: Danisha Leonard #: [id number] : 2Acct#:[id number] Age/Sex: 59 / FADM Date: 07/12/20 Loc: [facility]/Bed: Attending Dr: Ordering Provider/Ordering MD: Feng Florian MD, [facility] [place] Date of Service: 07/12/20 Procedure(s): CT abdomen pelvis w con* [id number] Accession Number(s): [id number] Report Number: [id number] PROCEDURE INFORMATION: Exam: CT Abdomen And Pelvis With Contrast Exam date and time: 07/12/2020 3:06 PM Age: 59 years old Clinical indication: Abdominal pain; Localized; Right upper quadrant (ruq); Prior surgery; Surgery type: Renal stent. Hysterectomy. Bladder; Patient HX: Persistent ruq pain. ; Additional info: Ruq pain. Gbd TECHNIQUE: Imaging protocol: Computed tomography of the abdomen and pelvis with intravenous contrast. Radiation optimization: All CT scans at this facility use at least one of these dose optimization techniques: automated exposure control; mA and/or kV adjustment per patient size (includes targeted exams where dose is matched to clinical indication); or iterative reconstruction. Contrast material: OMNI 300; Contrast volume: 95 ml; Contrast route: INTRAVENOUS (IV); COMPARISON: CT chest abd pel wo/w con 07/04/2020 6:40 PM RADIATION DOSE METRICS: Total DLP (mGy-cm): 517.98 FINDINGS: Liver: Mild hepatic steatosis, unchanged. Gallbladder and bile ducts: Numerous 4-5 mm calcified gallstones layering in dependent aspect of otherwise unremarkable gallbladder. No biliary ductal dilatation or obvious common duct stone. Pancreas: Normal. No ductal dilation. Spleen: Normal. No splenomegaly. Adrenals: Normal. No mass. Kidneys and ureters: Normal. No hydronephrosis. Stomach and bowel: Recent 07/04/2020 CT scan suggested mild sigmoid colon diverticulitis. This appears improved today. Appendix: No evidence of appendicitis. Intraperitoneal space: Unremarkable. No free air. No significant fluid collection. Vasculature: Abundant aortoiliac atherosclerotic disease with right common iliac artery stent in place, unchanged. Lymph nodes: Unremarkable. No enlarged lymph nodes. Bladder: Unremarkable as visualized. Reproductive: Prior hysterectomy. Bones/joints: Unremarkable. No acute fracture. Soft tissues: Unremarkable. CT/CT abdomen pelvis w con* [id number] IMPRESSION: 1.) Mild sigmoid colon diverticulitis, improving. 2.) Hepatic steatosis, unchanged. Chronic gallstones. No CT evidence for acute cholecystitis. Radiation Dose CTDIVOL = (mGy): DLP = 517.98 (mGy-cm) Dictated By:Shreyas Enrique MD Signed By:Shreyas Enriqueigned Date/Time:07/12/201619 DD/ 18 Discharge Plan Discharge Patient Disposition: Home Clinical Impression: Biliary colic Biliary calculi Qualifiers: Cholelithiasis location: gallbladder Cholecystitis presence: without cholecystitis Biliary obstruction: without biliary obstruction Qualified Code(s): K80.20 - Calculus of gallbladder without cholecystitis without obstruction Diverticulitis large intestine Qualifiers: Diverticulitis bleeding: without bleeding Diverticulitis complication: without perforation or abscess Qualified Code(s): K57.32 - Diverticulitis of large intestine without perforation or abscess without bleeding Condition: Stable Prescriptions: New ciprofloxacin HCl 500 mg tablet 500 mg PO BID Qty: 14 RF: 0 Flagyl 500 mg tablet 250 mg PO TID Qty: 21 RF: 0 Leggett 5-325 mg tablet 1 tab PO Q6H PRN (Reason: gall stones) Qty: 14 RF: 0 Continued multivitamin [Multiple Vitamins] Tablet 1 tab PO DAILY RF: 0 Magnesium-Zinc Tab 1 tab PO DAILY RF: 0 Stool Softener 2 tab PO BEDTIME RF: 0 Vitamin C 1 tab PO DAILY RF: 0 sucralfate [Carafate] 100 mg/mL suspension 2 gm PO BID PRN (Reason: nausea and vomiting) 28 Days Qty: 1120 RF: 0 ursodiol 250 mg tablet 250 mg PO BID Qty: 14 RF: 0 clotrimazole 10 mg roman 10 mg PO 5XD RF: 0 clopidogrel 75 mg tablet 75 mg PO DAILY RF: 0 Aspir-81 81 mg Tablet,Delayed Release (Dr/Ec) 81 mg PO DAILY RF: 0 potassium gluconate 1 tab PO DAILY RF: 0 Discontinued tramadol [Ultram] 50 mg Tablet 50 mg PO TID PRN (Reason: Pain) RF: 0 levofloxacin 500 mg tablet See Rx Instructions .ROUTE .COMPLEX RF: 0 doxycycline hyclate 100 mg tablet 100 mg PO BID RF: 0 Discharge Orders: Discharge Order (Routine); Ordered 07/12/20 Ordered By: Feng Florian Referrals: Robert Ma MD [Primary Care Provider] - 4-7 days Discharge Activity: Resume usual activity Patient Instructions: Diverticulitis (ED), Biliary Colic (ED) Activity Restrictions/Additional Instructions: Return for any new or worsening symptoms. Follow-up with your primary care provider within 1 week. Take antibiotics as prescribed. Consume a low-fat diet to prevent recurrence of the pain. Coding Level of Care Code ED Memory Care Program Resident for Aida Fwfestus Exam Comprehensive
[2020-07-12 13:37] LABS: Basophils # 0.2 10^3/uL (0.0-0.1); Basophils % 2.8 %; Eosinophils # 0.4 10^3/uL (0.0-0.8); Eosinophils % 5.3 %; Hemoglobin 13.5 g/dL (11.5-15.3); Lymphocytes # 3.1 10^3/uL (0.8-4.8); Lymphocytes % 42.8 %; Mean Corpuscular HGB Conc 32.9 g/dL (30.0-36.0); Mean Corpuscular Hemoglobin 31.3 pg (28.0-34.0); Mean Corpuscular Volume 94.9 fL (81-99); Mean Platelet Volume 9.5 fL (7.4-10.4); Monocytes # 0.4 10^3/uL (0.2-0.9); Monocytes % 6.1 %; Neutrophils # 3.08 10^3/uL (1.8-7.7); Neutrophils % 42.6 %; Nucleated Red Blood Cells % 0 %; Platelet Count 544 10^3/cmm (130-400); Red Blood Count 4.32 10^6/uL (4.1-5.3); Red Cell Distribution Width 12.7 % (12.1-15.1); White Blood Count 7.2 10^3/uL (4.0-10.0)
[2020-07-12 13:55] LABS: Alanine Aminotransferase 25 U/L (0-33); Albumin Level 4.2 g/dL (3.5-5.2); Alkaline Phosphatase 121 IU/L (35-105); Anion Gap 13.7 (5-19); Aspartate Amino Transferase 14 U/L (0-32); Blood Urea Nitrogen 17 mg/dL (6-20); Calcium 10.4 mg/dL (8.5-10.5); Carbon Dioxide 29 mmol/L (22-29); Chloride 98 mmol/L (98-107); Globulin 3.5 g/dL (1.3-4.6); Glomerular Filtration Rate 73.9 mL/min (90-130); Glucose 107 mg/dL (65-115); Lipase 45 U/L (13-60); Osmolality Calculated 279 mOsm/kg (285-295); Potassium 4.7 mmol/L (3.5-5.1); Sodium 136 mmol/L (136-145); Total Bilirubin 0.2 mg/dL (0.15-1.2); Total Protein 7.7 g/dL (6.6-8.7); Troponin(5th) Baseline 6 ng/L (0-10)
--- NOTE | 2020-07-12 13:59 | CTR_ITS ---
PROCEDURE INFORMATION: Exam: CT Abdomen And Pelvis With Contrast Exam date and time: 07/12/2020 3:06 PM Age: 59 years old Clinical indication: Abdominal pain; Localized; Right upper quadrant (ruq); Prior surgery; Surgery type: Renal stent. Hysterectomy. Bladder; Patient HX: Persistent ruq pain. ; Additional info: Ruq pain. Gbd TECHNIQUE: Imaging protocol: Computed tomography of the abdomen and pelvis with intravenous contrast. Radiation optimization: All CT scans at this facility use at least one of these dose optimization techniques: automated exposure control; mA and/or kV adjustment per patient size (includes targeted exams where dose is matched to clinical indication); or iterative reconstruction. Contrast material: OMNI 300; Contrast volume: 95 ml; Contrast route: INTRAVENOUS (IV); COMPARISON: CT chest abd pel wo/w con 07/04/2020 6:40 PM RADIATION DOSE METRICS: Total DLP (mGy-cm): 517.98 FINDINGS: Liver: Mild hepatic steatosis, unchanged. Gallbladder and bile ducts: Numerous 4-5 mm calcified gallstones layering in dependent aspect of otherwise unremarkable gallbladder. No biliary ductal dilatation or obvious common duct stone. Pancreas: Normal. No ductal dilation. Spleen: Normal. No splenomegaly. Adrenals: Normal. No mass. Kidneys and ureters: Normal. No hydronephrosis. Stomach and bowel: Recent 07/04/2020 CT scan suggested mild sigmoid colon diverticulitis. This appears improved today. Appendix: No evidence of appendicitis. Intraperitoneal space: Unremarkable. No free air. No significant fluid collection. Vasculature: Abundant aortoiliac atherosclerotic disease with right common iliac artery stent in place, unchanged. Lymph nodes: Unremarkable. No enlarged lymph nodes. Bladder: Unremarkable as visualized. Reproductive: Prior hysterectomy. Bones/joints: Unremarkable. No acute fracture. Soft tissues: Unremarkable. CT/CT abdomen pelvis w con* [id number] IMPRESSION: 1.) Mild sigmoid colon diverticulitis, improving. 2.) Hepatic steatosis, unchanged. Chronic gallstones. No CT evidence for acute cholecystitis. Radiation Dose CTDIVOL = (mGy): DLP = 517.98 (mGy-cm)
[2020-07-12 14:12] LABS: C Reactive Protein 3.3 mg/L (0.0-4.9)
[2020-07-12 14:19] LABS: Add Urine Microscopic? NO
[2020-07-12 14:23] LABS: Bilirubin Urine Neg (NEGATIVE); Blood Urine Neg (Negative); Glucose Urine UA Norm (Normal); Ketones Urine Negative (Negative); Leukocyte Esterase Urine Negative (Negative); Nitrate Urine Negative (Negative); Protein Urine Neg (Negative); Specific Gravity, Urine 1.015 (1.005-1.030); Urine Appearance Clear (CLEAR); Urine Color Straw (Yellow); Urobilinogen Urine Norm (Negative); pH Urine 6 (5-7)
--- NOTE | 2020-07-12 15:01 | ECG_ITS ---
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 Measurements Intervals [place] Rate: 81 P: 58 ID: [id number] QRS: 63 QRSD: 82 T: 61 QT: 364 QTc: 424 Interpretive Statements SINUS RHYTHM Compared to ECG 07/12/2020 13:20:13 No significant changes Electronically Signed On 07-13-2020 0:39:30 CDT by Diane Olivo M.D. [id number]
[2020-07-12 15:09] VITALS: BP 108/71; PULSE 83; RESP 18; O2SAT 97
[2020-07-12] MEDS: iohexol 300 mg/mL 100 mL Btl IV (15:44)
[2020-07-12 15:59] LABS: Troponin 5 2HR Delta 0 ABS# (0-10)
[2020-07-12 16:51] VITALS: BP 127/79; PULSE 78; RESP 14; O2SAT 97
[2020-07-12 17:26] VITALS: BP 127/79; PULSE 74; RESP 20; O2SAT 97
== END 2020-07-12 17:28 | disposition home or self-care (01) ==
PROVIDERS: Emergency Provider Family Medicine; PCP Family Medicine
DX: K80.20 Calculus of gallbladder without cholecystitis without obstruction (principal); K57.32 Diverticulitis of large intestine without perforation or abscess without bleeding; Z79.02 Long term (current) use of antithrombotics/antiplatelets; Z79.82 Long term (current) use of aspirin; J44.9 Chronic obstructive pulmonary disease, unspecified; I10 Essential (primary) hypertension; F17.210 Nicotine dependence, cigarettes, uncomplicated
CPT/HCPCS: 12345; 36415; 74177; 76705; 80053; 81003; 83690; 84484; 85025; 86140; 93005; 99282; 99284; Q9967

== ENCOUNTER → 2020-08-05 09:25 | Outpatient (BNVA) | payer BC, SELFPAY | PROVIDERS: PCP Family Medicine; Visit Provider Internal Medicine | DX: Z11.59 Encounter for screening for other viral diseases (principal) | CPT/HCPCS: 87635 ==

== ENCOUNTER 2020-08-11 09:16 | Day surgery (SDC) | payer SELFPAY ==
[2020-08-10 17:03] VITALS: BMI 24.8
[2020-08-11] VITALS (7 sets, daily range): BP systolic 92–144; BP diastolic 63–75; PULSE 73–94; RESP 16–20; TEMP 36.2–36.8; O2SAT 90–100
--- NOTE | 2020-08-11 09:31 | W.PM.OPSUD ---
Surgery/Procedure H&P Update DATE OF PROCEDURE: August 11, 2020 DATE H&P PERFORMED: 08/02/20 H&P UPDATE INFORMATION: I have reviewed H&P completed within last 30 days, I have examined patient prior to procedure and No changes to prior documentation PREOP DIAGNOSIS: Cholelithiasis PLANNED PROCEDURE: Operation Date: 08/11/20 10:05 Proposed Procedures p Laparoscopic Cholecystectomy poss open 00905 K80.20(Not Applicable) - Mukesh James MD
[2020-08-11] MEDS: sodium chloride 0.9% 1,000 ML 30 ML IV (09:55)
--- NOTE | 2020-08-11 10:10 | ANES.PREANE2 ---
Pre-Anesthetic Assessment Pre-Anesthetic Assessment: Height/Weight: Height 1.68 m Weight 69.853 kg Temp Pulse Resp BP Pulse Ox 97.2 F L 94 18 92/75 96 08/11/20 09:49 08/11/20 09:49 08/11/20 09:49 08/11/20 09:49 08/11/20 09:49 Preop Diagnosis: Cholelithiasis Proposed Procedure: Operation Date: 08/11/20 10:05 Proposed Procedures p [place] [address] K80.20(Not Applicable) - Mukesh James MD Familial anesthetic complications: none Was Beta Farhana taken within 24 hours: N/A Last intake: Intake Last Liquid Date 08/10/20 Last Liquid Time 22:00 Last Solid Date 08/10/20 Last Solid Time 19:00 Social: Social History: Tobacco and No alcohol Exam: Pre-Anes Outpt Exam: alert, oriented x 3, clear to auscultation bilaterally and regular rate & rhythm Airway: Cervical ROM: WNL MP: 2 Dentition: False Pulmonary: Pulmonary: COPD CV/HEM: CV/HEM: HTN and PVD Comments: AAA echo - EF 55%, mod pulm HTn Anesthetic Plan: ASA status: 3 Anesthesia: General Risk of > 500 ml blood loss (7ml/kg in children): No Meds/Allergies Current Medications: Current Medications Generic Name Dose Route Start Last Admin Trade Name Freq PRN Reason Stop Dose Admin Sodium Chloride 1,000 mls @ 30 ml s/hr 08/11/20 09:30 08/11/20 09:55 Sodium Chloride 0.9% IV 08/12/20 09:29 30 mls/hr .Q24H NILS Administration PFSH Anesthesia PFSH: Medical History (Updated 08/02/20 @ 16:53 by Mukesh James MD) Abdominal aortic aneurysm COPD (chronic obstructive pulmonary disease) HTN (hypertension) PAD (peripheral artery disease) Sigmoid diverticulitis Surgical History History of hysterectomy Post PTCA Status post colonoscopy Social History Smoking and tobacco status: heavy tobacco smoker Alcohol intake: never Lives independently: Yes Household members: none Housing: House Data Anesthesia Cardiac Studies: No Data to Display
[2020-08-11] MEDS: levofloxacin-dextrose 5 % 500 MG/100 ML PREMIX 100 MG IV (13:03)
[2020-08-11] MEDS: HYDROcodone-acetaminophen 5-325 mg Tablet 1 TAB PO (15:11)
--- NOTE | 2020-08-11 15:30 | ANE.PACU2 ---
Inpatient post-anesthesia follow up: Airway intact: Yes Vital signs: Temperature 98.3 F Pulse Rate 78 Respiratory Rate 18 Blood Pressure 126/64 Pulse Oximetry 90 Oxygen Delivery Me thod Room Air Oxygen Flow Rate 0 Fraction of Inspir ed Oxygen Hydration adequate: Yes Nausea and vomiting: No Pain level: 1 Mental status: Baseline
--- NOTE | 2020-08-11 17:54 | P.OP_ITS ---
Operative Report Date of procedure: August 11, 2020 Pre-op Diagnosis: Cholelithiasis Post-op diagnosis: same Procedure Done: Laparoscopic cholecystectomy Specimens removed/disposition: Gallbladder Surgeon: Mukesh James Anesthesia: MAC Condition: stable Disposition: PACU Procedure: The patient was taken to the operating room and was intubated under general anesthesia. After the antibiotic had been administered, the abdomen was prepped and draped in a sterile manner. Using a #15 blade, a 1 centimeter infraumbilical curvilinear incision was made and using an open Jake technique the peritoneal cavity was entered. A 10 millimeter port was placed and 15 millimeters of pneumoperitoneum was created. A 10 millimeter, 30 degrees scope was then introduced. Three 5 millimeter ports were placed in the epigastric, midclavicular and the anterior axillary line two fingerbreadths below the costal margin on the right side under the direct visualization. Ratcheted forceps were introduced into the lateral most port and was used to retract the fundus of the gallbladder cephalad and using forceps the infundibulum of the gallbladder was retracted laterally. Using L-hook cautery the peritoneum overlying the Calot's triangle was opened medially and laterally until the cystic duct and the cystic artery were skeletonized. Dissection was carried along the body of the gallbladder and after ensuring critical view of safety, 4 clips applied on the cystic duct and 3 clips applied on the cystic artery and cut leaving, 3 clips on the remaining portion of the duct and 2 clips on the remaining portion of the artery. The rest of the gallbladder was dissected off the liver using L-hook cautery. The gallbladder was distended and there was spillage of bile but no stones which was irrigated and suctioned out. There was no bleeding or bile l eaking noted from the gallbladder fossa and the clips appeared to be in place. An EndoCatch bag was introduced to remove the gallbladder. All the ports were removed under direct visualization and there was no bleeding noted from the port sites. The fascia of the umbilicus was closed using [id number] 0 Vicryl sutures and the subcutaneous tissue was approximated using 3-0 Vicryl sutures. The skin at all four ports were closed using 4-0 Monocryl and Dermabond. A total of 10 millimeters of 0.5% Marcaine was infiltrated around the port sites. The patient was stable throughout the procedure.
== END 2020-08-11 15:30 | disposition home or self-care (01) ==
PROVIDERS: PCP Family Medicine; Visit Provider Surgery
PROC: 0FT44ZZ Resection of Gallbladder, Percutaneous Endoscopic Approach (ICD-10-PCS; CPT 47562; principal; 2020-08-11 10:05)
DX: K80.10 Calculus of gallbladder with chronic cholecystitis without obstruction (principal); J44.9 Chronic obstructive pulmonary disease, unspecified; I10 Essential (primary) hypertension; F17.200 Nicotine dependence, unspecified, uncomplicated; Z88.0 Allergy status to penicillin; Z88.1 Allergy status to other antibiotic agents; Z79.82 Long term (current) use of aspirin
CPT/HCPCS: 47562; 12345; 88304; J1956; J2405; J2704; J2710; J3010; J3490; J7030

== ENCOUNTER → 2020-10-06 14:31 | Outpatient (BNVA) | payer MEDICAID, SELFPAY | PROVIDERS: PCP Family Medicine; Visit Provider Surgery | DX: Z11.59 Encounter for screening for other viral diseases (principal); K57.32 Diverticulitis of large intestine without perforation or abscess without bleeding | CPT/HCPCS: 87635 ==

== ENCOUNTER 2020-10-11 08:00 | Day surgery (SDC) | payer MEDICAID, SELFPAY ==
[2020-10-06 13:32] VITALS: BMI 25.2
[2020-10-11 08:35] VITALS: BP 125/86; PULSE 99; RESP 18; TEMP 37.2; O2SAT 95
--- NOTE | 2020-10-11 08:41 | W.PM.OPSUD ---
Surgery/Procedure H&P Update DATE OF PROCEDURE: October 11, 2020 DATE H&P PERFORMED: 09/27/20 H&P UPDATE INFORMATION: I have reviewed H&P completed within last 30 days, I have examined patient prior to procedure and No changes to prior documentation PREOP DIAGNOSIS: History of diverticulitis PLANNED PROCEDURE: Operation Date: 10/11/20 09:00 Proposed Procedures p Colonoscopy 45089 K57.32(Not Applicable) - Mukesh James MD
[2020-10-11] MEDS: sodium chloride 0.9% 1,000 ML 30 ML IV (08:43)
--- NOTE | 2020-10-11 08:57 | ANES.PREANE2 ---
Pre-Anesthetic Assessment Pre-Anesthetic Assessment: Height/Weight: Height 1.68 m Weight 70.76 kg Temp Pulse Resp BP Pulse Ox 99 F 99 18 125/86 95 10/11/20 08:35 10/11/20 08:35 10/11/20 08:35 10/11/20 08:35 10/11/20 08:35 Preop Diagnosis: History of diverticulitis Proposed Procedure: Operation Date: 10/11/20 09:00 Proposed Procedures p Colonoscopy 03418 K57.32(Not Applicable) - Mukesh James MD Familial anesthetic complications: none Was Beta Farhana taken within 24 hours: N/A Last intake: Intake Last Liquid Date 10/10/20 Last Liquid Time 20:00 Last Solid Date 10/09/20 Last Solid Time 20:00 Last Intake: 05:30 Social: Social History: Tobacco Packs per day: 1.5ppd Pack years: 30 Exam: Pre-Anes Outpt Exam: alert, oriented x 3, clear to auscultation bilaterally and regular rate & rhythm Airway: Submandibular: WNL Cervical ROM: WNL MP: 1 Dentition: False Pulmonary: Pulmonary: COPD Comments: pulm HTN ef 55% CV/HEM: CV/HEM: HTN Comments: Peripheral stent in 2013 : : None reported Hepatic: Hepatic: None reported GI: GI: None reported Metabolic: Metabolic: None reported Musc/skel: Musc/skel: Lower Back Pain and OA/DJD Anesthetic Plan: ASA status: 3 Anesthesia: MAC Risk of > 500 ml blood loss (7ml/kg in children): No Meds/Allergies Current Medications: Current Medications Generic Name Dose Route Start Last Admin Trade Name Freq PRN Reason Stop Dose Admin Sodium Chloride 1,000 mls @ 30 ml s/hr 10/11/20 08:30 10/11/20 08:43 Sodium Chloride 0.9% IV 30 mls/hr .Q24H NILS Administration PFSH Anesthesia PFSH: Medical History (Updated 09/27/20 @ 17:16 by Mukesh James MD) Abdominal aortic aneurysm COPD (chronic obstructive pulmonary disease) Gastritis HTN (hypertension) PAD (peripheral artery disease) Sigmoid diverticulitis Surgical History (Updated 09/27/20 @ 17:16 by Mukesh James MD) History of hysterectomy Post PTCA Status post colonoscopy Status post laparoscopic cholecystectomy (09/10/20) Social History Smoking and tobacco status: heavy tobacco smoker Alcohol intake: never Lives independently: Yes Household members: none Housing: House Data Anesthesia Cardiac Studies: No Data to Display
[2020-10-11 11:54] VITALS: BP 87/62; PULSE 77; RESP 18; TEMP 36.1; O2SAT 99
--- NOTE | 2020-10-11 12:06 | ANE.PACU2 ---
Inpatient post-anesthesia follow up: Airway intact: Yes Vital signs: Temperature 97 F Pulse Rate 77 Respiratory Rate 18 Blood Pressure 87/62 Pulse Oximetry 99 Oxygen Delivery Me thod Room Air Oxygen Flow Rate Fraction of Inspir ed Oxygen Hydration adequate: Yes Nausea and vomiting: No Pain level: 1 Mental status: Baseline
[2020-10-11 12:14] VITALS: BP 100/86; PULSE 79; RESP 18; O2SAT 100
--- NOTE | 2020-10-11 17:32 | ANE.PACU2 ---
Inpatient post-anesthesia follow up: Airway intact: Yes Vital signs: Temperature 97 F Pulse Rate 79 Respiratory Rate 18 Blood Pressure 100/86 Pulse Oximetry 100 Oxygen Delivery Me thod Room Air Oxygen Flow Rate Fraction of Inspir ed Oxygen Hydration adequate: Yes Nausea and vomiting: No Pain level: 1 Mental status: Baseline
== END 2020-10-11 12:21 | disposition home or self-care (01) ==
PROVIDERS: PCP Family Medicine; Visit Provider Surgery
PROC: 0DJD8ZZ Inspection of Lower Intestinal Tract, Via Natural or Artificial Opening Endoscopic (ICD-10-PCS; CPT 45378; principal; 2020-10-11 09:00)
DX: K57.32 Diverticulitis of large intestine without perforation or abscess without bleeding (principal); K57.30 Diverticulosis of large intestine without perforation or abscess without bleeding; K64.8 Other hemorrhoids; I10 Essential (primary) hypertension; M19.90 Unspecified osteoarthritis, unspecified site; J44.9 Chronic obstructive pulmonary disease, unspecified; F17.210 Nicotine dependence, cigarettes, uncomplicated; Z79.82 Long term (current) use of aspirin
CPT/HCPCS: 12345; 45378; J7030

== ENCOUNTER 2020-11-12 13:18 | Emergency (ER) | payer MEDICAID, SELFPAY ==
--- NOTE | 2020-11-12 13:29 | XRR_ITS ---
PROCEDURE INFORMATION: Exam: XR Chest, 1 View Exam date and time: 11/12/2020 1:30 PM Age: 60 years old Clinical indication: Shortness of breath; Additional info: SOB TECHNIQUE: Imaging protocol: XR of the chest Views: 1 view. COMPARISON: CT chest abd pel wo/w con 07/04/2020 6:40 PM FINDINGS: Lungs: Moderately hyperaerated lungs consistent with deep inspiratory effort vs significant reactive airway disease vs moderate COPD . Pleural space: Unremarkable. No pleural effusion. No pneumothorax. Heart/Mediastinum: Unremarkable. No cardiomegaly. Vasculature: Calcification of the thoracic aorta and/or great vessels consistent with atherosclerotic vessel disease. Bones/joints: Mild thoracic spondylosis. XR/XR chest 1V portable [id number] IMPRESSION: Moderately hyperaerated lungs consistent with deep inspiratory effort vs significant reactive airway disease vs moderate COPD .
[2020-11-12 13:30] VITALS: BP 146/82; PULSE 115; RESP 14; TEMP 36.8; O2SAT 95; BMI 24.5
--- NOTE | 2020-11-12 13:45 | ED_ITS ---
HPI - General Adult General: Chief complaint: General Medical Stated complaint: sore throat Time Seen by Provider: 11/12/20 13:27 History of Present Illness: HPI narrative: 60-year-old female presents emergency room with complaint of chest pain and sore throat. She actually had this going on for about 4 months and 1 degree or another at various times sugars were a stroke a chest pain that radiates into her shoulders. She has been seen for a couple times before but in talking to her does not sound like she has had any previous work-up she cannot recall when or if she has had a stress test at all in the last few years. She did recently states she had her gallbladder out. She is not having any nausea or vomiting associated with this. Onset (ago): month(s) (4) Location: chest Radiation: other (Shoulders) Severity: moderate Quality: aching Pain Consistency: intermittent Relieving factors: rest Exacerbating factors: none Associated symptoms: Reports chest pain, cough, dyspnea, malaise, nausea and short of breath; Deny confusion, diaphoresis, decreased appetite, fevers/chills, headache(s), rash, palpitations, seizures, syncope, vomiting or weakness Treatments prior to arrival: none Review of Systems Const: Reports: malaise; Denies: diaphoresis ENMT: Denies: throat pain, ear or mastoid pain, nasal discharge or nasal congestion Card: Reports: chest pain; Denies: palpitations or syncope Resp: Reports: dyspnea GI: Reports: nausea; Denies: vomiting : Denies: flank pain, difficulty voiding, dysuria, urinary frequency or urinary urgency Skin/Breast: Denies: rash or pruritus Neuro: Denies: headache(s) or confusion PFSH ED PFSH: Medical History Abdominal aortic aneurysm COPD (chronic obstructive pulmonary disease) Gastritis HTN (hypertension) PAD (peripheral artery disease) Sigmoid diverticulitis Surgical History History of hysterectomy Post PTCA Status post colonoscopy (10/11/20) 10 years Status post laparoscopic cholecystectomy (08/11/20) Social History Smoking and tobacco status: heavy tobacco smoker Alcohol intake: never Lives independently: Yes Household members: none Housing: House Physical Exam Const: COMMON NORMALS: no acute distress GENERAL APPEARANCE: cooperative and comfortable ORIENTATION/CONSCIOUSNESS: Yes awake, Yes oriented to person, Yes oriented to place and Yes oriented to time HENMT: COMMON NORMALS: normocephalic, atraumatic, hearing grossly normal bilaterally, external ears normal, EAC's normal, TM's normal bilaterally, Normal external nose present and Normal nasal mucous membranes and turbinates present HEAD & SCALP: normocephalic and atraumatic FACE & SINUS: normal facial exam NOSE: Normal external nose present, Normal nares present and Normal nasal mucous membranes and turbinates present EXTERNAL EAR: Yes external ears normal and Yes external ear abnormal EXTERNAL AUDITORY CANAL: EAC's normal TYMPANIC MEMBRANE: TM's normal bilaterally MOUTH: Normal oral and palatal mucosa present, lip normal, tongue normal, moist mucous membranes abnormal and lip abnormal Eye: COMMON NORMALS: Equal, round and reactive pupils present, EOMs intact bilaterally, conjunctivae normal and no scleral icterus CONJUNCTIVA: Yes conjunctivae normal PUPIL: Yes Equal, round and reactive pupils present Neck/C-Spine: COMMON NORMALS: no JVD Resp: COMMON NORMALS: normal respiratory effort, No retractions, No use of accessory muscles and clear to auscultation bilaterally AUSCULTATION: clear to auscultation bilaterally Cardio: COMMON NORMALS: no JVD, regular rate, regular rhythm and No murmurs present (Cardio) RATE: regular rate RHYTHM: regular rhythm GI: COMMON NORMALS: Soft to palpation and No hepatosplenomegaly present AUSCULTATION: Yes normoactive bowel sounds PALPATION: Yes Soft to palpation, No Tenderness to palpation present (GI), No Guarding due to palpation present (GI) and Yes No hepatosplenomegaly present Extremity: COMMON NORMALS: normal to inspection, capillary refill normal, no clubbing, cyanosis or edema, no calf tenderness and no pedal edema Neuro: SENSORIUM/ORIENTATION: Yes oriented to person, Yes oriented to place and Yes oriented to time Skin: COMMON NORMALS: no rashes or lesions noted GENERAL SKIN EXAM: no rashes or lesions noted Course Vital Signs: Vital signs: Vital Signs Temperature 98.2 F 11/12/20 13:30 Pulse Rate 85 11/12/20 17:27 Respiratory Rate 18 11/12/20 17:27 Blood Pressure 161/87 11/12/20 17:27 Pulse Oximetry 97 11/12/20 17:27 MDM - General Adult MDM Narrative: Medical decision making narrative: Reviewed the findings with the patient we will go ahead and discharge her home have her follow-up with [facility] as previously planned we will get her set up for a stress test continue her other medications for her blood pressure started her on isosorbide mononitrate for cardioprotective effect as well continue her aspirin if she has any further problems return. Lab Data: Labs: Lab Results 11/12/20 11/12/20 11/12/20 Range/Units 10:48 10:48 10:48 WBC 8.6 (4.0-10.0) 10^3/ uL RBC 4.84 (4.1-5.3) 10^6/u L Hgb 15.1 (11.5-15.3) g/dL Hct 44.7 (37.0-47.0) % MCV 92.4 (81-99) fL MCH 31.2 (28.0-34.0) pg MCHC 33.8 (30.0-36.0) g/dL RDW 12.0 L (12.1-15.1) % Plt Count 401 H (130-400) 10^3/c mm MPV 10.3 (7.4-10.4) fL Neut % (Auto) 54.3 % Lymph % (Auto) 36.1 % [place] % (Auto) 6.1 % Eos % (Auto) 1.9 % Baso % (Auto) 1.5 % Neut # (Auto) 4.64 (1.8-7.7) 10^3/u L Lymph # (Auto) 3.1 (0.8-4.8) 10^3/u L [place] # (Auto) 0.5 (0.2-0.9) 10^3/u L Eos # (Auto) 0.2 (0.0-0.8) 10^3/u L Baso # (Auto) 0.1 (0.0-0.1) 10^3/u L Nucleated RBC % (a uto) 0 % Nucleated RBCs # 0.0 /100WBC Sodium 136 (136-145) mmol/L Potassium 4.2 (3.5-5.1) mmol/L Chloride 97 L (98-107) mmol/L Carbon Dioxide 25 (22-29) mmol/L Anion Gap 18.2 (5-19) BUN 7 (6-20) mg/dL Creatinine 0.8 (0.5-0.9) mg/dL GFR Calculation 73.7 L (90-130) mL/min Glucose 93 (65-115) mg/dL Calculated Osmolal ity 280 L (285-295) mOsm/k g Calcium 10.3 (8.5-10.5) mg/dL Total Bilirubin 0.4 (0.15-1.2) mg/dL AST 13 (0-32) U/L ALT 11 (0-33) U/L Alkaline Phosphata se 140 H (35-105) IU/L Troponin T Gen 5 n g/L 6 (0-10) ng/L Troponin T Baselin e (0-10) ng/L Total Protein 7.6 (6.6-8.7) g/dL Albumin 4.6 (3.5-5.2) g/dL Globulin 3.0 (1.3-4.6) g/dL Urine Color (Yellow) Urine Appearance (CLEAR) Urine pH (5-7) Ur Specific Gravit y (1.005-1.030) Urine Protein (Negative) Urine Glucose (UA) (Normal) Urine Ketones (Negative) Urine Blood (Negative) Urine Nitrate (Negative) Urine Bilirubin (Negative) Prot Sulfosalicyli c Acd (Negative) Urine Urobilinogen (Negative) mg/dL Ur Leukocyte Andra ase (Negative) SARS-CoV-2 Ag (Rap id) (Negative) Group A Strep Rapi d (Negative) 11/12/20 11/12/20 11/12/20 Range/Units 14:08 14:09 14:09 WBC (4.0-10.0) 10^3/ uL RBC (4.1-5.3) 10^6/u L Hgb (11.5-15.3) g/dL Hct (37.0-47.0) % MCV (81-99) fL MCH (28.0-34.0) pg MCHC (30.0-36.0) g/dL RDW (12.1-15.1) % Plt Count (130-400) 10^3/c mm MPV (7.4-10.4) fL Neut % (Auto) % Lymph % (Auto) % [place] % (Auto) % Eos % (Auto) % Baso % (Auto) % Neut # (Auto) (1.8-7.7) 10^3/u L Lymph # (Auto) (0.8-4.8) 10^3/u L [place] # (Auto) (0.2-0.9) 10^3/u L Eos # (Auto) (0.0-0.8) 10^3/u L Baso # (Auto) (0.0-0.1) 10^3/u L Nucleated RBC % (a uto) % Nucleated RBCs # /100WBC Sodium (136-145) mmol/L Potassium (3.5-5.1) mmol/L Chloride (98-107) mmol/L Carbon Dioxide (22-29) mmol/L Anion Gap (5-19) BUN (6-20) mg/dL Creatinine (0.5-0.9) mg/dL GFR Calculation (90-130) mL/min Glucose (65-115) mg/dL Calculated Osmolal ity (285-295) mOsm/k g Calcium (8.5-10.5) mg/dL Total Bilirubin (0.15-1.2) mg/dL AST (0-32) U/L ALT (0-33) U/L Alkaline Phosphata se (35-105) IU/L Troponin T Gen 5 n g/L (0-10) ng/L Troponin T Baselin e (0-10) ng/L Total Protein (6.6-8.7) g/dL Albumin (3.5-5.2) g/dL Globulin (1.3-4.6) g/dL Urine Color Dark yellow (Yellow) Urine Appearance Clear (CLEAR) Urine pH 8 H (5-7) Ur Specific Gravit y 1.010 (1.005-1.030) Urine Protein Neg (Negative) Urine Glucose (UA) Norm (Normal) Urine Ketones Negative (Negative) Urine Blood Neg (Negative) Urine Nitrate Negative (Negative) Urine Bilirubin Neg (Negative) Prot Sulfosalicyli c Acd Negative (Negative) Urine Urobilinogen Norm (Negative) mg/dL Ur Leukocyte Andra ase Negative (Negative) SARS-CoV-2 Ag (Rap id) Negative (Negative) Group A Strep Rapi d Negative (Negative) 11/12/20 11/12/20 Range/Units 15:50 15:50 WBC (4.0-10.0) 10^3/ uL RBC (4.1-5.3) 10^6/u L Hgb (11.5-15.3) g/dL Hct (37.0-47.0) % MCV (81-99) fL MCH (28.0-34.0) pg MCHC (30.0-36.0) g/dL RDW (12.1-15.1) % Plt Count (130-400) 10^3/c mm MPV (7.4-10.4) fL Neut % (Auto) % Lymph % (Auto) % [place] % (Auto) % Eos % (Auto) % Baso % (Auto) % Neut # (Auto) (1.8-7.7) 10^3/u L Lymph # (Auto) (0.8-4.8) 10^3/u L [place] # (Auto) (0.2-0.9) 10^3/u L Eos # (Auto) (0.0-0.8) 10^3/u L Baso # (Auto) (0.0-0.1) 10^3/u L Nucleated RBC % (a uto) % Nucleated RBCs # /100WBC Sodium 137 (136-145) mmol/L Potassium 3.9 (3.5-5.1) mmol/L Chloride 100 (98-107) mmol/L Carbon Dioxide 26 (22-29) mmol/L Anion Gap 14.9 (5-19) BUN 7 (6-20) mg/dL Creatinine 0.6 (0.5-0.9) mg/dL GFR Calculation 102.7 (90-130) mL/min Glucose 83 (65-115) mg/dL Calculated Osmolal ity 281 L (285-295) mOsm/k g Calcium 9.5 (8.5-10.5) mg/dL Total Bilirubin 0.4 (0.15-1.2) mg/dL AST 13 (0-32) U/L ALT 10 (0-33) U/L Alkaline Phosphata se 121 H (35-105) IU/L Troponin T Gen 5 n g/L (0-10) ng/L Troponin T Baselin e 6 (0-10) ng/L Total Protein 7.3 (6.6-8.7) g/dL Albumin 4.1 (3.5-5.2) g/dL Globulin 3.2 (1.3-4.6) g/dL Urine Color (Yellow) Urine Appearance (CLEAR) Urine pH (5-7) Ur Specific Gravit y (1.005-1.030) Urine Protein (Negative) Urine Glucose (UA) (Normal) Urine Ketones (Negative) Urine Blood (Negative) Urine Nitrate (Negative) Urine Bilirubin (Negative) Prot Sulfosalicyli c Acd (Negative) Urine Urobilinogen (Negative) mg/dL Ur Leukocyte Andra ase (Negative) SARS-CoV-2 Ag (Rap id) (Negative) Group A Strep Rapi d (Negative) Discharge Plan Discharge Patient Disposition: Home Clinical Impression: Atypical chest pain, HTN (hypertension), Hoarseness Condition: Stable Prescriptions: New isosorbide mononitrate 30 mg tablet extended release 24 hr 30 mg PO DAILY Qty: 30 RF: 0 No Action albuterol sulfate [Ventolin HFA] 90 mcg/actuation HFA aerosol inhaler 2 puff INHALATION Q6H PRN (Reason: Shortness Of Breath) RF: 0 pantoprazole [Protonix] 40 mg tablet,delayed release (DR/EC) 40 mg PO QAM 30 Days Qty: 30 RF: 3 multivitamin [Multiple Vitamins] Tablet 1 tab PO DAILY RF: 0 Vitamin C 1 tab PO DAILY RF: 0 aspirin [Aspir-81] 81 mg Tablet,Delayed Release (Dr/Ec) 81 mg PO DAILY RF: 0 tramadol 50 mg tablet 50 mg PO DAILY RF: 0 budesonide-formoterol [Symbicort] 80-4.5 mcg/actuation Hfa Aerosol Inhaler 2 puff INHALATION BID RF: 0 docusate sodium [Colace] 100 mg capsule 100 mg PO BID Qty: 30 RF: 0 Discharge Orders: Discharge ED (Routine); Ordered 11/12/20 Ordered By: Jossue Lozoya Referrals: Robert Ma MD [Primary Care Provider] - Discharge Activity: Limit activity as instructed Activity Restrictions/Additional Instructions: Keep appointment with Dr. Puente as previously scheduled. Case management will call to set up a cardiac stress test. Return if you have further problems. Coding Level of Care Code ED Baggage And Mail Agent for [place] Fwd Exam Comprehensive
--- NOTE | 2020-11-12 13:45 | ECG_ITS ---
[facility] Test Date: 2020-11-12 Pat Name: Danisha Leonard Department: Room: Gender: Female Supervisor Veneer: GISEL : 1960 Requested By: Jossue Walden Order Number: [id number] Reading MD: DARNELL GARCIA Measurements Intervals [place] Rate: P: RI: QRS: 0 QRSD: T: 0 QT: QTc: Interpretive Statements NO FURTHER INTERPRETATION POSSIBLE ATYPICAL ECG WARNING: DATA QUALITY MAY AFFECT INTERPRETATION Compared to ECG 07/12/2020 15:24:33 Sinus rhythm no longer present Electronically Signed On 11-12-2020 18:54:16 CONCHE OPERATOR by DARNELL GARCIA [id number]
[2020-11-12 14:45] LABS: Basophils # 0.1 10^3/uL (0.0-0.1); Basophils % 1.5 %; Eosinophils # 0.2 10^3/uL (0.0-0.8); Eosinophils % 1.9 %; Hematocrit 44.7 % (37.0-47.0); Hemoglobin 15.1 g/dL (11.5-15.3); Lymphocytes # 3.1 10^3/uL (0.8-4.8); Lymphocytes % 36.1 %; Mean Corpuscular HGB Conc 33.8 g/dL (30.0-36.0); Mean Corpuscular Hemoglobin 31.2 pg (28.0-34.0); Mean Corpuscular Volume 92.4 fL (81-99); Mean Platelet Volume 10.3 fL (7.4-10.4); Monocytes # 0.5 10^3/uL (0.2-0.9); Monocytes % 6.1 %; Neutrophils # 4.64 10^3/uL (1.8-7.7); Neutrophils % 54.3 %; Nucleated Red Blood Cells % 0 %; Platelet Count 401 10^3/cmm (130-400); Red Blood Count 4.84 10^6/uL (4.1-5.3); White Blood Count 8.6 10^3/uL (4.0-10.0)
[2020-11-12 14:46] LABS: Add Urine Microscopic? NO
[2020-11-12 15:04] LABS: Bilirubin Urine Neg (Negative); Blood Urine Neg (Negative); Glucose Urine UA Norm (Normal); Ketones Urine Negative (Negative); Leukocyte Esterase Urine Negative (Negative); Nitrate Urine Negative (Negative); Protein Urine Neg (Negative); Sulfosalicylic Acid Urine Negative (Negative); Urine Appearance Clear (CLEAR); Urine Color Dark Yellow (Yellow); Urobilinogen Urine Norm (Negative); pH Urine 8 (5-7)
[2020-11-12 15:16] LABS: Alanine Aminotransferase 11 U/L (0-33); Albumin Level 4.6 g/dL (3.5-5.2); Alkaline Phosphatase 140 IU/L (35-105); Anion Gap 18.2 (5-19); Aspartate Amino Transferase 13 U/L (0-32); Blood Urea Nitrogen 7 mg/dL (6-20); Calcium 10.3 mg/dL (8.5-10.5); Carbon Dioxide 25 mmol/L (22-29); Chloride 97 mmol/L (98-107); Glomerular Filtration Rate 73.7 mL/min (90-130); Glucose 93 mg/dL (65-115); Osmolality Calculated 280 mOsm/kg (285-295); Potassium 4.2 mmol/L (3.5-5.1); Sodium 136 mmol/L (136-145); Total Bilirubin 0.4 mg/dL (0.15-1.2); Total Protein 7.6 g/dL (6.6-8.7)
[2020-11-12 15:17] LABS: Rapid Strep A Test Negative (Negative)
[2020-11-12 15:17] LABS: Troponin T (5th) Once 6 ng/L (0-10)
[2020-11-12 15:18] VITALS: BP 142/80; PULSE 85; RESP 18; O2SAT 94
--- NOTE | 2020-11-12 15:28 | ECG_ITS ---
[facility] Test Date: 2020-11-12 Pat Name: Danisha Leonard Department: Room: Gender: Female Ambulance Mechanic: GISEL : 1960 Requested By: Jossue Walden Order Number: [id number] Reading MD: DARNELL GARCIA Measurements Intervals [place] Rate: 101 P: 66 TX: 153 QRS: 62 QRSD: 81 T: 69 QT: 334 QTc: 434 Interpretive Statements SINUS TACHYCARDIA ABNORMAL RHYTHM ECG INTERPRETATION BASED ON A DEFAULT AGE OF 40 YEARS Compared to ECG 11/12/2020 13:52:43 No significant changes Electronically Signed On 11-12-2020 18:54:11 CASKET COVERER by DARNELL GARCIA [id number] f
[2020-11-12 15:34] LABS: SARS Covid-2 Antigen Negative (Negative)
--- NOTE | 2020-11-12 15:45 | ECG_ITS ---
[facility] Test Date: 2020-11-12 Pat Name: Danisha Leonard Department: Room: Gender: Female Entry Level Management: GISEL : 1960 Requested By: Jossue Walden Order Number: [id number] Reading MD: DARNELL GARCIA Measurements Intervals [place] Rate: 89 P: 62 TN: 165 QRS: 68 QRSD: 85 T: 65 QT: 363 QTc: 442 Interpretive Statements SINUS RHYTHM Compared to ECG 11/12/2020 14:08:26 Sinus tachycardia no longer present Electronically Signed On 11-12-2020 18:55:25 RESIDENTIAL DIRECT SUPPORT PROFESSIONAL by DARNELL GARCIA [id number] f
[2020-11-12 16:06] VITALS: BP 149/88; PULSE 86; RESP 18; O2SAT 96
[2020-11-12 16:24] LABS: Alanine Aminotransferase 10 U/L (0-33); Albumin Level 4.1 g/dL (3.5-5.2); Alkaline Phosphatase 121 IU/L (35-105); Aspartate Amino Transferase 13 U/L (0-32); Blood Urea Nitrogen 7 mg/dL (6-20); Calcium 9.5 mg/dL (8.5-10.5); Carbon Dioxide 26 mmol/L (22-29); Chloride 100 mmol/L (98-107); Globulin 3.2 g/dL (1.3-4.6); Glomerular Filtration Rate 102.7 mL/min (90-130); Glucose 83 mg/dL (65-115); Osmolality Calculated 281 mOsm/kg (285-295); Sodium 137 mmol/L (136-145); Total Bilirubin 0.4 mg/dL (0.15-1.2); Total Protein 7.3 g/dL (6.6-8.7)
[2020-11-12 16:26] LABS: Troponin(5th) Baseline 6 ng/L (0-10)
[2020-11-12 16:39] LABS: Anion Gap 14.9 (5-19); Potassium 3.9 mmol/L (3.5-5.1)
[2020-11-12 17:27] VITALS: BP 161/87; PULSE 85; RESP 18; O2SAT 97
--- NOTE | 2020-11-14 11:29 | DCPLANNER ---
environmental engineering manager had message to schedule an outpatient stress test for patient. environmental engineering manager faxed order to centralized scheduling, will call for appointment information.
--- NOTE | 2020-11-15 10:42 | DCPLANNER ---
Patient has an out patient stress test scheduled for Wednesday, November 18, 2020 at 10:45. Centralized scheduling will contact patient with appointment information.
--- NOTE | 2021-01-03 08:13 | DCPLANNER ---
Patient had a stress test scheduled - patient did attend stress test.
== END 2020-11-12 17:29 | disposition home or self-care (01) ==
PROVIDERS: Registered Nurse; Emergency Provider Family Medicine; PCP Family Medicine
DX: R07.89 Other chest pain (principal); I10 Essential (primary) hypertension; R49.0 Dysphonia; Z79.82 Long term (current) use of aspirin; J44.9 Chronic obstructive pulmonary disease, unspecified; F17.210 Nicotine dependence, cigarettes, uncomplicated
CPT/HCPCS: 12345; 71045; 80053; 81003; 84484; 85025; 87081; 87426; 87880; 93005; 99282; 99283

== ENCOUNTER 2020-11-18 07:50 | Outpatient (CLI) | payer MEDICAID, SELFPAY ==
[2020-11-18 08:44] VITALS: BMI 24.5
--- NOTE | 2020-11-18 08:44 | ECG_ITS ---
[facility] Test Date: 2020-11-18 Pat Name: Danisha Leonard Department: Room: Gender: Female Network Relay Tester: Marilyjohn Hineser : 1960 Requested By: Jossue Walden Order Number: [id number] Riley MD: DARNELL GARCIA Interpretive Statements NAME OF STUDY: LEXISCAN SESTAMIBI STRESS TEST INDICATION: Chest Pain NOTE: Please note that this is the electrocardiogram portion of the Lexiscan/Sestamibi stress test. The perfusion scan will be documented separately. DATA: Baseline heart rate was 84 beats per minute. Baseline blood pressure was 152/69 millimeters of mercury. Target heart rate was 162. Maximum heart rate achieved was 99. which was 61 % of the predicted target heart rate. Maximum blood pressure was 164/69 millimeters of mercury. The reason for ending the test was completion of the protocol. The patient did not experience any symptoms. ELECTROCARDIOGRAM: BASELINE: Sinus rhythm. Normal axis. Otherwise, no ST-T changes suggestive of ischemia noted. No arrhythmia noted. EXERCISE: After Lexiscan injection, no ST-T changes suggestive of ischemic noted. No arrhythmia noted. 1. EKG not suggestive of ischemia 2. Lexiscan injection unremarkable. 3. Perfusion scan will be documented separately. Electronically Signed On 11-21-2020 13:22:56 SYNTHETIC GEM PRESS OPERATOR by DARNELL GARCIA [id number]
--- NOTE | 2020-11-18 08:45 | NMCV_ITS ---
NM kenia perf SPECT r/s* [id number] Danisha Leonard Age: 60 Gender: F : 1960 Exam Date: 11/18/2020 09:49 Ordering Phys: Jossue Lozoya DO Technologist: KENDALL Navarro Exam Location: [facility] Indications: CHEST PAIN STRESS TEST Please see separate stress test report in [facility] for full findings IMAGE PROTOCOL Rest/Stress 1 Lexiscan Day Radiopharmaceutical Dose (mCi) Administration Site Administered by Rest: Tc-99m 10.6 IV KENDALL Grossman Sestamibi Stress:Tc-99m 32.5 IV KENDALL Grossman Sestamibi Rest: 18-Nov-2020 60 Discovery 630 Stress: 18-Nov-2020 30 Discovery 630 0.4mg Lexiscan. Images obtained in supine and prone position. SPECT RESULTS Technical Quality: Excellent Raw Data Analysis: Normal Image Corrections: No attenuation or motion correction applied Summed Stress Score: 0 Summed Rest Score: 0 Summed Difference Score: 0 PERFUSION FINDINGS SPECT images demonstrate homogeneous tracer distribution throughout the myocardium. FUNCTIONAL RESULTS (calculated via Gated SPECT) Stress Image LV EF (%): 82 Stress EDV (mL):38 TID: 0.81 Stress ESV (mL):7 Rest Image LV EF (%): 82 FUNCTIONAL FINDINGS: Left ventricle function is hyperdynamic and 80% IMPRESSIONS Myocardial perfusion imaging is normal. Left ventricle function is hyperdynamic and 80%. There is no wall motion abnormality. Study is negative for ischemia. EKG segment will be documented separately. oDnell Mello MD (Electronically Signed) Final Date: 18 November 2020 20:27 S
[2020-11-18 10:22] VITALS: BP 164/65; PULSE 95
[2020-11-18] MEDS: regadenoson 0.4 Mg/5 ml Syringe IVP (10:23)
== END 2020-11-18 07:51 | disposition home or self-care (01) ==
LOC: CDL 07:51
PROVIDERS: PCP Family Medicine; Visit Provider Family Medicine
DX: R07.9 Chest pain, unspecified (principal)
CPT/HCPCS: 78452; 93017; A9500; J2785

== ENCOUNTER 2020-11-29 15:51 | Emergency (ER) | payer MEDICAID, SELFPAY ==
[2020-11-29] VITALS (7 sets, daily range): BP systolic 101–139; BP diastolic 63–85; PULSE 75–103; RESP 16–24; TEMP 36.5; O2SAT 96–98; BMI 24.5
--- NOTE | 2020-11-29 16:28 | XR_ITS ---
WS: [id number] Exam: XR chest 1V portable [id number] Date/Time of Exam: 11/29/2020 4:32 PM Reason For Exam: chest pain Comparison 11/12/2020. The lungs are bilaterally clear and fully expanded. Normal cardiomediastinal structures and bony [place] ents. No pleural effusions. No change. XR/XR chest 1V portable [id number] IMPRESSION: 1. No acute cardiopulmonary finding.
--- NOTE | 2020-11-29 16:28 | ECG_ITS ---
[facility] Test Date: 2020-11-29 Pat Name: Danisha Leonard Department: Room: Gender: Female Lion Tamer: : 1960 Requested By: Jossue Walden Order Number: [id number] Riley MD: Diane Olivo M.D. Measurements Intervals [place] Rate: 102 P: 53 PA: 146 QRS: 59 QRSD: 80 T: 60 QT: 318 QTc: 416 Interpretive Statements SINUS TACHYCARDIA ABNORMAL RHYTHM ECG WARNING: DATA QUALITY MAY AFFECT INTERPRETATION Compared to ECG 11/12/2020 15:31:48 Sinus rhythm no longer present Electronically Signed On 11-29-2020 23:52:06 PORCELAIN MIXER by Diane Olivo M.D. [email or web address]
--- NOTE | 2020-11-29 17:09 | ED_ITS ---
Documented by User: Jossue Lozoya DO 11/30/20 17:39 HPI - Chest Pain General: Chief Complaint: Chest Pain Stated Complaint: CHEST PAIN Time Seen by Provider: 11/29/20 16:26 History of Present Illness: HPI narrative: 60-year-old female returns emergency room she was here on November 12 with complaints of vague chest and abdominal discomfort work-up was unremarkable she been having it for 4 months also complaining some swallowing and neck discomfort she was supposed to see Dr. Puente in follow-up for that. Would set up for a sestamibi stress test and also put on isosorbide. She had a stress test reviewing it in the chart it was negative. States this morning around 8:00 she began having chest discomfort again radiating up into her neck and she states her neck feels swollen like she has difficult time swallowing. She denies any difficulty breathing she denies any hematemesis or coffee-ground emesis MD complaint: chest pain Onset (ago): hour(s) Timing of current episode: episodic Prior episodes: Yes Onset: during rest and during exertion Pain location: substernal Pain radiation: neck Severity: severe Quality: heaviness Associated symptoms: Reports sense of impending doom; Deny abdominal pain, diaphoresis, dyspnea, fever(s), leg edema, nausea, palpitations, syncope or vomiting Treatment prior to arrival: none Review of Systems Const: Denies: fever(s) or diaphoresis ENMT: Denies: throat pain, ear or mastoid pain, nasal discharge or nasal congestion Card: Denies: palpitations or syncope Resp: Denies: dyspnea GI: Denies: abdominal pain, nausea or vomiting : Denies: flank pain, difficulty voiding, dysuria, urinary frequency or urinary urgency Skin/Breast: Denies: rash or pruritus PFSH ED PFSH: Medical History Abdominal aortic aneurysm COPD (chronic obstructive pulmonary disease) Gastritis HTN (hypertension) PAD (peripheral artery disease) Sigmoid diverticulitis Surgical History History of hysterectomy Post PTCA Status post colonoscopy (10/11/20) 10 years Status post laparoscopic cholecystectomy (08/11/20) Social History Smoking and tobacco status: heavy tobacco smoker Alcohol intake: never Lives independently: Yes Household members: none Housing: House Physical Exam Const: COMMON NORMALS: no acute distress GENERAL APPEARANCE: cooperative and comfortable ORIENTATION/CONSCIOUSNESS: Yes awake, Yes oriented to person, Yes oriented to place and Yes oriented to time HENMT: COMMON NORMALS: normocephalic, atraumatic and hearing grossly normal bilaterally HEAD & SCALP: normocephalic and atraumatic Neck/C-Spine: COMMON NORMALS: full ROM, no lymphadenopathy, supple and no JVD Lymph: LYMPHATIC: no lymphadenopathy noted and no lymphedema noted Resp: COMMON NORMALS: normal respiratory effort, No retractions, No use of accessory muscles and clear to auscultation bilaterally AUSCULTATION: clear to auscultation bilaterally Cardio: COMMON NORMALS: no JVD, regular rate, regular rhythm and No murmurs present (Cardio) RATE: regular rate RHYTHM: regular rhythm GI: COMMON NORMALS: Soft to palpation and No hepatosplenomegaly present AUSCULTATION: Yes normoactive bowel sounds PALPATION: Yes Soft to palpation, No Tenderness to palpation present (GI), No Guarding due to palpation present (GI) and Yes No hepatosplenomegaly present Extremity: COMMON NORMALS: normal to inspection, capillary refill normal, no clubbing, cyanosis or edema, no calf tenderness and no pedal edema Neuro: SENSORIUM/ORIENTATION: Yes oriented to person, Yes oriented to place and Yes oriented to time Skin: COMMON NORMALS: no rashes or lesions noted GENERAL SKIN EXAM: no rashes or lesions noted Course Vital Signs: Vital signs: Vital Signs Temperature 97.7 F 11/29/20 16:21 Pulse Rate 88 11/29/20 21:21 Respiratory Rate 18 11/29/20 21:21 Blood Pressure 128/63 11/29/20 19:18 Pulse Oximetry 98 11/29/20 21:21 MDM - Chest Pain MDM Narrative: Medical decision making narrative: CT of the neck shows concerning vasculature. CTA of the head and neck ordered care turned over to Dr. Rodriguez at change of shift see his notes for final Lab Data: Labs: Lab Results 11/29/20 11/29/20 11/29/20 Range/Units 17:00 17:00 17:00 WBC 9.4 (4.0-10.0) 10^3/ uL RBC 4.51 (4.1-5.3) 10^6/u L Hgb 14.0 (11.5-15.3) g/dL Hct 41.9 (37.0-47.0) % MCV 92.9 (81-99) fL MCH 31.0 (28.0-34.0) pg MCHC 33.4 (30.0-36.0) g/dL RDW 12.3 (12.1-15.1) % Plt Count 393 (130-400) 10^3/c mm MPV 9.7 (7.4-10.4) fL Neut % (Auto) 55.7 % Lymph % (Auto) 33.0 % Trigg % (Auto) 7.3 % Eos % (Auto) 2.1 % Baso % (Auto) 1.6 % Neut # (Auto) 5.22 (1.8-7.7) 10^3/u L Lymph # (Auto) 3.1 (0.8-4.8) 10^3/u L Trigg # (Auto) 0.7 (0.2-0.9) 10^3/u L Eos # (Auto) 0.2 (0.0-0.8) 10^3/u L Baso # (Auto) 0.2 H (0.0-0.1) 10^3/u L Nucleated RBC % (a uto) 0 % Nucleated RBCs # 0.0 /100WBC Sodium 137 (136-145) mmol/L Potassium 4.0 (3.5-5.1) mmol/L Chloride 101 (98-107) mmol/L Carbon Dioxide 26 (22-29) mmol/L Anion Gap 14.0 (5-19) BUN 14 (6-20) mg/dL Creatinine 0.8 (0.5-0.9) mg/dL GFR Calculation 73.7 L (90-130) mL/min Glucose 126 H (65-115) mg/dL Calculated Osmolal ity 286 (285-295) mOsm/k g Lactate (0.5-2.2) mmol/L Calcium 9.5 (8.5-10.5) mg/dL Total Bilirubin 0.2 (0.15-1.2) mg/dL AST 10 (0-32) U/L ALT 10 (0-33) U/L Alkaline Phosphata se 114 H (35-105) IU/L Troponin T Baselin e 7 (0-10) ng/L Troponin T 120 Min [place] (0-10) ng/L Delta Troponin T (0-10) ABS# Total Protein 6.9 (6.6-8.7) g/dL Albumin 4.0 (3.5-5.2) g/dL Globulin 2.9 (1.3-4.6) g/dL 11/29/20 11/29/20 Range/Units 19:07 19:07 WBC (4.0-10.0) 10^3/ uL RBC (4.1-5.3) 10^6/u L Hgb (11.5-15.3) g/dL Hct (37.0-47.0) % MCV (81-99) fL MCH (28.0-34.0) pg MCHC (30.0-36.0) g/dL RDW (12.1-15.1) % Plt Count (130-400) 10^3/c mm MPV (7.4-10.4) fL Neut % (Auto) % Lymph % (Auto) % Trigg % (Auto) % Eos % (Auto) % Baso % (Auto) % Neut # (Auto) (1.8-7.7) 10^3/u L Lymph # (Auto) (0.8-4.8) 10^3/u L Trigg # (Auto) (0.2-0.9) 10^3/u L Eos # (Auto) (0.0-0.8) 10^3/u L Baso # (Auto) (0.0-0.1) 10^3/u L Nucleated RBC % (a uto) % Nucleated RBCs # /100WBC Sodium (136-145) mmol/L Potassium (3.5-5.1) mmol/L Chloride (98-107) mmol/L Carbon Dioxide (22-29) mmol/L Anion Gap (5-19) BUN (6-20) mg/dL Creatinine (0.5-0.9) mg/dL GFR Calculation (90-130) mL/min Glucose (65-115) mg/dL Calculated Osmolal ity (285-295) mOsm/k g Lactate 2.1 (0.5-2.2) mmol/L Calcium (8.5-10.5) mg/dL Total Bilirubin (0.15-1.2) mg/dL AST (0-32) U/L ALT (0-33) U/L Alkaline Phosphata se (35-105) IU/L Troponin T Baselin e (0-10) ng/L Troponin T 120 Min [place] 6.38 (0-10) ng/L Delta Troponin T -0.62 L (0-10) ABS# Total Protein (6.6-8.7) g/dL Albumin (3.5-5.2) g/dL Globulin (1.3-4.6) g/dL Discharge Plan Discharge Patient Disposition: Home Clinical Impression: Chest pain, Pneumonia Condition: Stable Prescriptions: New Protonix 40 mg tablet,delayed release (DR/EC) 40 mg PO DAILY Qty: 60 RF: 0 doxycycline hyclate 100 mg capsule 100 mg PO BID 7 Days Qty: 14 RF: 0 No Action albuterol sulfate [Ventolin HFA] 90 mcg/actuation HFA aerosol inhaler 2 puff INHALATION Q6H PRN (Reason: Shortness Of Breath) RF: 0 pantoprazole [Protonix] 40 mg tablet,delayed release (DR/EC) 40 mg PO QAM 30 Days Qty: 30 RF: 3 multivitamin [Multiple Vitamins] Tablet 1 tab PO DAILY RF: 0 Vitamin C 1 tab PO DAILY RF: 0 aspirin [Aspir-81] 81 mg Tablet,Delayed Release (Dr/Ec) 81 mg PO DAILY RF: 0 isosorbide mononitrate 30 mg tablet extended release 24 hr 30 mg PO DAILY Qty: 30 RF: 0 tramadol 50 mg tablet 50 mg PO DAILY RF: 0 budesonide-formoterol [Symbicort] 80-4.5 mcg/actuation Hfa Aerosol Inhaler 2 puff INHALATION BID RF: 0 docusate sodium [Colace] 100 mg capsule 100 mg PO BID Qty: 30 RF: 0 Discharge Orders: Discharge ED (Routine); Ordered 11/29/20 Ordered By: Jax Rodriguez Referrals: Zeferino Matthews MD [Physician] - 1-3 days Robert Ma MD [Primary Care Provider] - Discharge Diet: Advance as tolerated Discharge Activity: Resume usual activity Patient Instructions: Chest Pain (ED) Coding Level of Care Code ED Elementary Assistant Principal for Chg Fwd Exam Comprehensive Documented by User: Jax Rodriguez MD 11/29/20 20:38 HPI - Chest Pain General: Chief Complaint: Chest Pain Stated Complaint: CHEST PAIN Time Seen by Provider: 11/29/20 16:26 PFSH ED PFSH: Medical History Abdominal aortic aneurysm COPD (chronic obstructive pulmonary disease) Gastritis HTN (hypertension) PAD (peripheral artery disease) Sigmoid diverticulitis Surgical History History of hysterectomy Post PTCA Status post colonoscopy (10/11/20) 10 years Status post laparoscopic cholecystectomy (08/11/20) Social History Smoking and tobacco status: heavy tobacco smoker Alcohol intake: never Lives independently: Yes Household members: none Housing: House Course Vital Signs: Vital signs: Vital Signs Temperature 97.7 F 11/29/20 16:21 Pulse Rate 88 11/29/20 21:21 Respiratory Rate 18 11/29/20 21:21 Blood Pressure 128/63 11/29/20 19:18 Pulse Oximetry 98 11/29/20 21:21 MDM - Chest Pain MDM Narrative: Medical decision making narrative: Patient presents with chest pain is atypical in nature. GI cocktail did take away her pain will start her on Protonix. CT of her chest did show a slight pneumonia as well. She has no pulmonary emboli. CT of her neck showed some occlusion of her right ICA and CT angio of her neck was performed. 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 She is having no acute strokelike symptoms. She is to take a baby aspirin a day and will get her follow-up with Dr. Matthews. Informed her she has any strokelike symptoms she is to return immediately. She understands agrees to plan. Lab Data: Labs: Lab Results 11/29/20 11/29/20 11/29/20 Range/Units 17:00 17:00 17:00 WBC 9.4 (4.0-10.0) 10^3/ uL RBC 4.51 (4.1-5.3) 10^6/u L Hgb 14.0 (11.5-15.3) g/dL Hct 41.9 (37.0-47.0) % MCV 92.9 (81-99) fL MCH 31.0 (28.0-34.0) pg MCHC 33.4 (30.0-36.0) g/dL RDW 12.3 (12.1-15.1) % Plt Count 393 (130-400) 10^3/c mm MPV 9.7 (7.4-10.4) fL Neut % (Auto) 55.7 % Lymph % (Auto) 33.0 % Trigg % (Auto) 7.3 % Eos % (Auto) 2.1 % Baso % (Auto) 1.6 % Neut # (Auto) 5.22 (1.8-7.7) 10^3/u L Lymph # (Auto) 3.1 (0.8-4.8) 10^3/u L Trigg # (Auto) 0.7 (0.2-0.9) 10^3/u L Eos # (Auto) 0.2 (0.0-0.8) 10^3/u L Baso # (Auto) 0.2 H (0.0-0.1) 10^3/u L Nucleated RBC % (a uto) 0 % Nucleated RBCs # 0.0 /100WBC Sodium 137 (136-145) mmol/L Potassium 4.0 (3.5-5.1) mmol/L Chloride 101 (98-107) mmol/L Carbon Dioxide 26 (22-29) mmol/L Anion Gap 14.0 (5-19) BUN 14 (6-20) mg/dL Creatinine 0.8 (0.5-0.9) mg/dL GFR Calculation 73.7 L (90-130) mL/min Glucose 126 H (65-115) mg/dL Calculated Osmolal ity 286 (285-295) mOsm/k g Lactate (0.5-2.2) mmol/L Calcium 9.5 (8.5-10.5) mg/dL Total Bilirubin 0.2 (0.15-1.2) mg/dL AST 10 (0-32) U/L ALT 10 (0-33) U/L Alkaline Phosphata se 114 H (35-105) IU/L Troponin T Baselin e 7 (0-10) ng/L Troponin T 120 Min [place] (0-10) ng/L Delta Troponin T (0-10) ABS# Total Protein 6.9 (6.6-8.7) g/dL Albumin 4.0 (3.5-5.2) g/dL Globulin 2.9 (1.3-4.6) g/dL 11/29/20 11/29/20 Range/Units 19:07 19:07 WBC (4.0-10.0) 10^3/ uL RBC (4.1-5.3) 10^6/u L Hgb (11.5-15.3) g/dL Hct (37.0-47.0) % MCV (81-99) fL MCH (28.0-34.0) pg MCHC (30.0-36.0) g/dL RDW (12.1-15.1) % Plt Count (130-400) 10^3/c mm MPV (7.4-10.4) fL Neut % (Auto) % Lymph % (Auto) % Trigg % (Auto) % Eos % (Auto) % Baso % (Auto) % Neut # (Auto) (1.8-7.7) 10^3/u L Lymph # (Auto) (0.8-4.8) 10^3/u L Trigg # (Auto) (0.2-0.9) 10^3/u L Eos # (Auto) (0.0-0.8) 10^3/u L Baso # (Auto) (0.0-0.1) 10^3/u L Nucleated RBC % (a uto) % Nucleated RBCs # /100WBC Sodium (136-145) mmol/L Potassium (3.5-5.1) mmol/L Chloride (98-107) mmol/L Carbon Dioxide (22-29) mmol/L Anion Gap (5-19) BUN (6-20) mg/dL Creatinine (0.5-0.9) mg/dL GFR Calculation (90-130) mL/min Glucose (65-115) mg/dL Calculated Osmolal ity (285-295) mOsm/k g Lactate 2.1 (0.5-2.2) mmol/L Calcium (8.5-10.5) mg/dL Total Bilirubin (0.15-1.2) mg/dL AST (0-32) U/L ALT (0-33) U/L Alkaline Phosphata se (35-105) IU/L Troponin T Baselin e (0-10) ng/L Troponin T 120 Min [place] 6.38 (0-10) ng/L Delta Troponin T -0.62 L (0-10) ABS# Total Protein (6.6-8.7) g/dL Albumin (3.5-5.2) g/dL Globulin (1.3-4.6) g/dL Imaging Data^: CT Chest: Radiologist's impression: [place] [address] CT Scan Report Signed Patient: Danisha Leoanrd Unit #: [id number] : 1960 Age/Sex: 60 / F ADM Date: 11/29/20 Loc: ER Room/Bed: Attending Dr: Ordering Provider/Ordering MD: Jossue Lozoya DO Date of Service: 11/29/20 Procedure(s): CT angio chest PE protcl [id number] Accession Number(s): [id number] Report Number: [id number] PROCEDURE INFORMATION: Exam: CT Angiography Chest With Contrast Exam date and time: 11/29/2020 6:31 PM Age: 60 years old Clinical indication: Shortness of breath; Additional info: Chest pain TECHNIQUE: Imaging protocol: Computed tomographic angiography of the chest with intravenous contrast. 3D rendering (Not supervised by radiologist): MIP and/or 3D reconstructed images were created by the technologist. Radiation optimization: All CT scans at this facility use at least one of these dose optimization techniques: automated exposure control; mA and/or kV adjustment per patient size (includes targeted exams where dose is matched to clinical indication); or iterative reconstruction. Contrast material: OMNI 350; Contrast volume: 70 ml; Contrast route: INTRAVENOUS (IV); COMPARISON: CT chest abd pel wo/w con 07/04/2020 6:40 PM RADIATION DOSE METRICS: Total DLP (mGy-cm): 610.07 FINDINGS: Pulmonary arteries: There is no pulmonary embolus. Aorta: There are moderate atherosclerotic changes in the abdominal aorta. Lungs: There is patchy airspace opacity in the left lower lobe compatible with pneumonic infiltrate. There is mild diffuse interstitial and ground-glass opacity in the lungs compatible with mild pneumonitis versus CHF. There are moderate emphysematous changes. Pleural space: Unremarkable. No pneumothorax. No pleural effusion. Heart: Unremarkable. No cardiomegaly. No pericardial effusion. Mediastinal space: A small hiatal hernia is present. Lymph nodes: There is a 1.5 cm short axis left hilar lymph node image 186. There is a 1.3 cm short axis precarinal lymph node image 193. There is a 1.2 cm right hilar lymph node image 225. There is no axillary adenopathy. Gallbladder and bile ducts: There has been a cholecystectomy. Bones/joints: No acute bony abnormality. Unchanged soft tissue density anterior to the spine is noted at the L1-L2 disc space level. Soft tissues: Unremarkable. CT/CT angio chest PE protcl [id number] IMPRESSION: 1. There is no pulmonary embolus. 2. There is patchy airspace opacity in the left lower lobe compatible with pneumonic infiltrate. 3. There is mild diffuse interstitial and ground-glass opacity in the lungs compatible with mild pneumonitis versus CHF. 4. Mediastinal and hilar adenopathy is noted. ct neck: Radiologist's impression: [address] [place] [address] CT Scan Report Signed with Hannah Patient: Danisha Leonard Unit #: [id number] : 1960 Age/Sex: 60 / F ADM Date: 11/29/20 Loc: ER Room/Bed: Attending Dr: Ordering Provider/Ordering MD: Jossue Lozoya DO Date of Service: 11/29/20 Procedure(s): CT neck w con* [id number] Accession Number(s): [id number] Report Number: [id number]/CT neck w con* [id number] THIS REPORT CONTAINS FINDINGS THAT MAY BE CRITICAL TO PATIENT CARE. The findings were verbally communicated via telephone conference with Jossue Lozoya at 6:21 PM FLATWORK ASSEMBLER on 11/29/2020. The findings were acknowledged and understood. Radiation Dose CTDIVOL = (mGy): DLP = 633.72 (mGy-cm) Addendum Dictated By: Rupal Bell Addendum Signed By: Rupal Bell Signed Date/Time: 11/29/201821 Addendum Cosigned By: PROCEDURE INFORMATION: Exam: CT Neck With Contrast Exam date and time: 11/29/2020 5:20 PM Age: 60 years old Clinical indication: Mass, lump, or swelling in neck; Additional info: Sweling difficulty swallowing TECHNIQUE: Imaging protocol: Computed tomography images of the neck with intravenous contrast. Radiation optimization: All CT scans at this facility use at least one of these dose optimization techniques: automated exposure control; mA and/or kV adjustment per patient size (includes targeted exams where dose is matched to clinical indication); or iterative reconstruction. Contrast material: OMNI 300; Contrast volume: 95 ml; Contrast route: INTRAVENOUS (IV); COMPARISON: ROR carotid duplex BI 11/12/2014 1:15 PM RADIATION DOSE METRICS: Total DLP (mGy-cm): 633.72 FINDINGS: Tubes, catheters and devices: Images at the skull base demonstrate smaller CT all over and weaker enhancement of the right middle cerebral artery compared to the left as result of the proximal stenosis and collateral flow from the posterior circulation. Brain: No acute infarct is identified. Nasopharynx: Unremarkable. Oropharynx: The tonsils are mildly enlarged without a fluid collection or abscess. Hypopharynx: Unremarkable. Larynx: There is asymmetry of the vocal cords with small nodularity on the left image 63 that may reflect some scarring or small soft tissue nodule. Retropharyngeal space: Unremarkable. Submandibular/Parotid glands: Normal. Glands are normal in size. Thyroid: Normal. No enlarged or calcified nodules. Lymph nodes: There is mediastinal adenopathy including a 2 cm short axis lymph node in the aortopulmonary window. Enlarged right hilar lymph node measures 1.5 cm in short axis. There is a subcarinal lymph node measuring 1.5 cm in short axis. There is no pathologic adenopathy in the neck. Trachea: Visualized trachea is unremarkable. Lungs: There are moderate to severe emphysematous changes. Mild interstitial and ground-glass opacities noted in the lungs compatible with mild edema or pneumonitis. A few scattered pulmonary calcified granulomas are noted. Bones/joints: Unremarkable. No acute fracture. Vasculature: There is abundant plaque at the carotid bulb bilaterally. There is high-grade near complete occlusion of the right internal carotid artery with only a thin string of contrast. There is also approximately 70% narrowing of the origin of the left internal carotid artery at the carotid bulb. The bilateral vertebral arteries are widely patent and well opacified without any cut off for stenosis but there is noted to be a large plaque and short segment of significant stenosis at the origin of the left vertebral artery. Soft tissues: Both vertebral arteries are widely patent. CT/CT neck w con* [id number] IMPRESSION: 1. Essentially near complete occlusion of the right internal carotid artery with markedly diminished flow. There is also at least 70% narrowing of the origin of the proximal left internal carotid artery due to marked plaque at the carotid bulb. CT angiogram of the neck may be helpful for further evaluation of the vessels. 2. There is asymmetry of the vocal cords with small nodularity on the left image 63 that may reflect some scarring or small soft tissue nodule. 3. Tonsils are symmetrically enlarged in this may reflect mild tonsillitis without abscess. 4. Mediastinal and right hilar adenopathy. No adenopathy in the neck. No discrete soft tissue pulmonary nodule is identified. Chest CT may be helpful for further evaluation. 5. Marked/severe narrowing of the origin of the left vertebral artery due to large plaque. cta neck: Radiologist's impression: [facility] [address] [address] Scan Report Signed with Addenda Patient: Danisha Leonard Unit #: [id number] : 1960 Age/Sex: 60 / F ADM Date: 01/30/20 Loc: ER Room/Bed: Attending Dr: Ordering Provider/Ordering MD: Jax Rodriguez MD Date of Service: 11/29/20 Procedure(s): CT angio neck 03786 Accession Number(s): [id number] Report Number: [id number]/CT angio neck [id number] THIS REPORT CONTAINS FINDINGS THAT MAY BE CRITICAL TO PATIENT CARE. The findings were verbally communicated via telephone conference with jax Rodriguez at 8:12 PM FLATWORK ASSEMBLER on 11/29/2020. The findings were acknowledged and understood. Radiation Dose CTDIVOL = (mGy): DLP = 2187 (mGy-cm) Addendum Dictated By: Maicol Davis MD Addendum Signed By: Maicol Davis MD Signed Date/Time: 11/29/202012 Addendum Cosigned By: PROCEDURE INFORMATION: Exam: CT Angiography Neck With Contrast Exam date and time: 11/29/2020 7:11 PM Age: 60 years old Clinical indication: Mass, lump, or swelling in neck; Additional info: Occlusion TECHNIQUE: Imaging protocol: Computed tomography angiography of the neck with intravenous contrast. 3D rendering (Not supervised by radiologist): MIP and/or 3D reconstructed images were created by the technologist. Radiation optimization: All CT scans at this facility use at least one of these dose optimization techniques: automated exposure control; mA and/or kV adjustment per patient size (includes targeted exams where dose is matched to clinical indication); or iterative reconstruction. Contrast material: VISI 320; Contrast volume: 75 ml; Contrast route: INTRAVENOUS (IV); COMPARISON: CT neck w con* [id number] 11/29/2020 5:30 PM RADIATION DOSE METRICS: Total DLP (mGy-cm): 2187 FINDINGS: Right common carotid artery: No stenosis. No dissection or occlusion. Right internal carotid artery: Partially calcified right hilar and right subcarinal adenopathy. Right carotid bifurcation calcified plaque. 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 Calcified plaque in the right cavernous ICA without significant stenosis. Reconstitution of a small cavernous right ICA from collaterals with patent supraclinoid, right M1 segment and right trifurcation arteries. Right external carotid artery: No occlusion or stenosis of the origin. Right vertebral artery: Dominant right vertebral artery with patent left vertebral artery. Left common carotid artery: Normal variant common origin of the left common carotid artery and innominate artery consistent with bovine arch. Left internal carotid artery: 3.7 mm minimum proximal left ICA diameter with 5.7 mm diameter more distally. Mild 21% left ICA origin stenosis. Left carotid bifurcation calcified plaque. Dominant left A1 segment with probable aplastic right A1 segment. Normal variant. Calcified plaque in the left cavernous ICA without significant stenosis. Left external carotid artery: No occlusion or stenosis of the origin. Left vertebral artery: 50% stenosis in the left subclavian artery, 2.7 cm distal to its origin, just proximal to the left vertebral artery origin. The patient may be at risk for left subclavian steal. Other vasculature: Patent bilateral posterior communicating arteries. Dominant left A1 segment supplies both anterior cerebral arteries with probable aplastic right A1 segment. Bones/joints: Moderate to severe multilevel spine degenerative changes including degenerative disc disease, spondylosis and facet degenerative changes. Soft tissues: Normal. No significant soft tissue swelling. Lymph nodes: Calcified right hilar nodes and/or mediastinal nodes and/or lung granulomas consistent with old granulomatous disease. Mild to moderate noncalcified aortopulmonary window adenopathy consistent with noncalcified granulomatous disease versus other reactive disease versus neoplastic process. CT/CT angio neck [id number] IMPRESSION: 1. Mild to moderate noncalcified aortopulmonary window adenopathy consistent with noncalcified granulomatous disease versus other reactive disease versus neoplastic process. 2. 50% stenosis in the left subclavian artery, 2.7 cm distal to its origin, just proximal to the left vertebral artery origin. The patient may be at risk for left subclavian steal. 3. Dominant right vertebral artery with patent left vertebral artery. 4. 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 5. Patent bilateral posterior communicating arteries. 6. Dominant left A1 segment supplies both anterior cerebral arteries with probable aplastic right A1 segment. 7. Reconstitution of a small cavernous right ICA from collaterals with patent supraclinoid, right M1 segment and right trifurcation arteries. Discharge Plan Discharge Patient Disposition: Home Clinical Impression: Chest pain, Pneumonia Condition: Stable Prescriptions: New Protonix 40 mg tablet,delayed release (DR/EC) 40 mg PO DAILY Qty: 60 RF: 0 doxycycline hyclate 100 mg capsule 100 mg PO BID 7 Days Qty: 14 RF: 0 No Action albuterol sulfate [Ventolin HFA] 90 mcg/actuation HFA aerosol inhaler 2 puff INHALATION Q6H PRN (Reason: Shortness Of Breath) RF: 0 pantoprazole [Protonix] 40 mg tablet,delayed release (DR/EC) 40 mg PO QAM 30 Days Qty: 30 RF: 3 multivitamin [Multiple Vitamins] Tablet 1 tab PO DAILY RF: 0 Vitamin C 1 tab PO DAILY RF: 0 aspirin [Aspir-81] 81 mg Tablet,Delayed Release (Dr/Ec) 81 mg PO DAILY RF: 0 isosorbide mononitrate 30 mg tablet extended release 24 hr 30 mg PO DAILY Qty: 30 RF: 0 tramadol 50 mg tablet 50 mg PO DAILY RF: 0 budesonide-formoterol [Symbicort] 80-4.5 mcg/actuation Hfa Aerosol Inhaler 2 puff INHALATION BID RF: 0 docusate sodium [Colace] 100 mg capsule 100 mg PO BID Qty: 30 RF: 0 Discharge Orders: Discharge ED (Routine); Ordered 11/29/20 Ordered By: Jax Rodriguez Referrals: Zeferino Matthews MD [Physician] - 1-3 days Robert Ma MD [Primary Care Provider] - Discharge Diet: Advance as tolerated Discharge Activity: Resume usual activity Patient Instructions: Chest Pain (ED) Coding Level of Care Code ED Elementary Assistant Principal for Chg Fwd Exam Comprehensive
[2020-11-29 17:10] LABS: Basophils # 0.2 10^3/uL (0.0-0.1); Basophils % 1.6 %; Eosinophils # 0.2 10^3/uL (0.0-0.8); Eosinophils % 2.1 %; Hematocrit 41.9 % (37.0-47.0); Lymphocytes # 3.1 10^3/uL (0.8-4.8); Mean Corpuscular HGB Conc 33.4 g/dL (30.0-36.0); Mean Corpuscular Volume 92.9 fL (81-99); Mean Platelet Volume 9.7 fL (7.4-10.4); Monocytes # 0.7 10^3/uL (0.2-0.9); Monocytes % 7.3 %; Neutrophils # 5.22 10^3/uL (1.8-7.7); Neutrophils % 55.7 %; Nucleated Red Blood Cells % 0 %; Platelet Count 393 10^3/cmm (130-400); Red Blood Count 4.51 10^6/uL (4.1-5.3); Red Cell Distribution Width 12.3 % (12.1-15.1); White Blood Count 9.4 10^3/uL (4.0-10.0)
[2020-11-29 17:29] LABS: Alanine Aminotransferase 10 U/L (0-33); Alkaline Phosphatase 114 IU/L (35-105); Aspartate Amino Transferase 10 U/L (0-32); Blood Urea Nitrogen 14 mg/dL (6-20); Calcium 9.5 mg/dL (8.5-10.5); Carbon Dioxide 26 mmol/L (22-29); Chloride 101 mmol/L (98-107); Globulin 2.9 g/dL (1.3-4.6); Glomerular Filtration Rate 73.7 mL/min (90-130); Glucose 126 mg/dL (65-115); Osmolality Calculated 286 mOsm/kg (285-295); Sodium 137 mmol/L (136-145); Total Bilirubin 0.2 mg/dL (0.15-1.2); Total Protein 6.9 g/dL (6.6-8.7)
[2020-11-29 17:35] LABS: Troponin(5th) Baseline 7 ng/L (0-10)
[2020-11-29] MEDS: iohexol 300 mg/mL 100 mL Btl IV (17:42)
[2020-11-29] MEDS: lidocaine 2% viscous 15 ML, aluminum-mag hydrox-simethicon 30 ML, sucralfate oral liq 1 GM PO (17:45)
--- NOTE | 2020-11-29 18:24 | CTR_ITS ---
PROCEDURE INFORMATION: Exam: CT Angiography Chest With Contrast Exam date and time: 11/29/2020 6:31 PM Age: 60 years old Clinical indication: Shortness of breath; Additional info: Chest pain TECHNIQUE: Imaging protocol: Computed tomographic angiography of the chest with intravenous contrast. 3D rendering (Not supervised by radiologist): MIP and/or 3D reconstructed images were created by the technologist. Radiation optimization: All CT scans at this facility use at least one of these dose optimization techniques: automated exposure control; mA and/or kV adjustment per patient size (includes targeted exams where dose is matched to clinical indication); or iterative reconstruction. Contrast material: OMNI 350; Contrast volume: 70 ml; Contrast route: INTRAVENOUS (IV); COMPARISON: CT chest abd pel wo/w con 07/04/2020 6:40 PM RADIATION DOSE METRICS: Total DLP (mGy-cm): 610.07 FINDINGS: Pulmonary arteries: There is no pulmonary embolus. Aorta: There are moderate atherosclerotic changes in the abdominal aorta. Lungs: There is patchy airspace opacity in the left lower lobe compatible with pneumonic infiltrate. There is mild diffuse interstitial and ground-glass opacity in the lungs compatible with mild pneumonitis versus CHF. There are moderate emphysematous changes. Pleural space: Unremarkable. No pneumothorax. No pleural effusion. Heart: Unremarkable. No cardiomegaly. No pericardial effusion. Mediastinal space: A small hiatal hernia is present. Lymph nodes: There is a 1.5 cm short axis left hilar lymph node image 186. There is a 1.3 cm short axis precarinal lymph node image 193. There is a 1.2 cm right hilar lymph node image 225. There is no axillary adenopathy. Gallbladder and bile ducts: There has been a cholecystectomy. Bones/joints: No acute bony abnormality. Unchanged soft tissue density anterior to the spine is noted at the L1-L2 disc space level. Soft tissues: Unremarkable. CT/CT angio chest PE protcl [id number] IMPRESSION: 1. There is no pulmonary embolus. 2. There is patchy airspace opacity in the left lower lobe compatible with pneumonic infiltrate. 3. There is mild diffuse interstitial and ground-glass opacity in the lungs compatible with mild pneumonitis versus CHF. 4. Mediastinal and hilar adenopathy is noted. Radiation Dose CTDIVOL = (mGy): DLP = 610.07 (mGy-cm)
--- NOTE | 2020-11-29 18:28 | ECG_ITS ---
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 Measurements Intervals [place] Rate: 78 P: 64 OR: 158 QRS: 70 QRSD: 86 T: 65 QT: 383 QTc: 436 Interpretive Statements SINUS RHYTHM Compared to ECG 11/29/2020 16:20:11 Sinus tachycardia no longer present Electronically Signed On 11-30-2020 0:11:41 TOY MAKER by Diane Olivo M.D. [id number]
--- NOTE | 2020-11-29 18:33 | CTR_ITS ---
PROCEDURE INFORMATION: Exam: CT Angiography Neck With Contrast Exam date and time: 11/29/2020 7:11 PM Age: 60 years old Clinical indication: Mass, lump, or swelling in neck; Additional info: Occlusion TECHNIQUE: Imaging protocol: Computed tomography angiography of the neck with intravenous contrast. 3D rendering (Not supervised by radiologist): MIP and/or 3D reconstructed images were created by the technologist. Radiation optimization: All CT scans at this facility use at least one of these dose optimization techniques: automated exposure control; mA and/or kV adjustment per patient size (includes targeted exams where dose is matched to clinical indication); or iterative reconstruction. Contrast material: VISI 320; Contrast volume: 75 ml; Contrast route: INTRAVENOUS (IV); COMPARISON: CT neck w con* [id number] 11/29/2020 5:30 PM RADIATION DOSE METRICS: Total DLP (mGy-cm): 2187 FINDINGS: Right common carotid artery: No stenosis. No dissection or occlusion. Right internal carotid artery: Partially calcified right hilar and right subcarinal adenopathy. Right carotid bifurcation calcified plaque. 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 Calcified plaque in the right cavernous ICA without significant stenosis. Reconstitution of a small cavernous right ICA from collaterals with patent supraclinoid, right M1 segment and right trifurcation arteries. Right external carotid artery: No occlusion or stenosis of the origin. Right vertebral artery: Dominant right vertebral artery with patent left vertebral artery. Left common carotid artery: Normal variant common origin of the left common carotid artery and innominate artery consistent with bovine arch. Left internal carotid artery: 3.7 mm minimum proximal left ICA diameter with 5.7 mm diameter more distally. Mild 21% left ICA origin stenosis. Left carotid bifurcation calcified plaque. Dominant left A1 segment with probable aplastic right A1 segment. Normal variant. Calcified plaque in the left cavernous ICA without significant stenosis. Left external carotid artery: No occlusion or stenosis of the origin. Left vertebral artery: 50% stenosis in the left subclavian artery, 2.7 cm distal to its origin, just proximal to the left vertebral artery origin. The patient may be at risk for left subclavian steal. Other vasculature: Patent bilateral posterior communicating arteries. Dominant left A1 segment supplies both anterior cerebral arteries with probable aplastic right A1 segment. Bones/joints: Moderate to severe multilevel spine degenerative changes including degenerative disc disease, spondylosis and facet degenerative changes. Soft tissues: Normal. No significant soft tissue swelling. Lymph nodes: Calcified right hilar nodes and/or mediastinal nodes and/or lung granulomas consistent with old granulomatous disease. Mild to moderate noncalcified aortopulmonary window adenopathy consistent with noncalcified granulomatous disease versus other reactive disease versus neoplastic process. CT/CT angio neck [id number] IMPRESSION: 1. Mild to moderate noncalcified aortopulmonary window adenopathy consistent with noncalcified granulomatous disease versus other reactive disease versus neoplastic process. 2. 50% stenosis in the left subclavian artery, 2.7 cm distal to its origin, just proximal to the left vertebral artery origin. The patient may be at risk for left subclavian steal. 3. Dominant right vertebral artery with patent left vertebral artery. 4. 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 5. Patent bilateral posterior communicating arteries. 6. Dominant left A1 segment supplies both anterior cerebral arteries with probable aplastic right A1 segment. 7. Reconstitution of a small cavernous right ICA from collaterals with patent supraclinoid, right M1 segment and right trifurcation arteries. REFERENCES: NASCET CRITERIA. The degree of internal carotid artery stenosis is based on NASCET criteria. Normal is no stenosis. Mild is less than 50% stenosis. Moderate is 50-69% stenosis. Severe is 70% to 99% stenosis. Total occlusion is no detectable patent lumen. Radiation Dose CTDIVOL = (mGy): DLP = 2187 (mGy-cm)
[2020-11-29] MEDS: iohexol 350 mg/mL 100 mL Btl IV (19:27)
[2020-11-29] MEDS: sodium chloride 0.9% 1,000 ML 999 ML IV (19:31)
[2020-11-29] MEDS: iodixanol 320 mg/mL 100mL Btl IV (19:38)
[2020-11-29 19:45] LABS: Lactate (Lactic Acid level) 2.1 mmol/L (0.5-2.2)
[2020-11-29 19:48] LABS: Troponin 5 2HR 6.38 ng/L (0-10)
[2020-11-29 19:56] LABS: Troponin 5 2HR Delta -0.62 ABS# (0-10)
--- NOTE | 2020-11-30 10:10 | DCPLANNER ---
Addendum entered by Mirella Virk 11/30/20 10:16: Patient returned manager case phone call, business case analyst informed patient that the referral for patient has been made to heart care for patient. Heart Care will call patient with appointment information. Original Note: molding manager had message to schedule a follow up appointment for patient with Dr. Matthews. molding manager called heart care, spoke with Larissa, gave clinic patients information. molding manager was told that patients information would be printed and given to physicians nurse for review and see where to place on the schedule. molding manager called [phone], unable to speak with patient at this time, a voicemail was left for patient to return manager case phone call.
--- NOTE | 2020-12-06 07:48 | DCPLANNER ---
Patient has a follow up appointment scheduled for , December 08, [address] at 9:[address] Matthews. Clinic will call patient with appointment information.
--- NOTE | 2021-01-05 13:38 | DCPLANNER ---
Patient had a follow up appointment scheduled with [facility] - patient did attend appointment.
== END 2020-11-29 21:23 | disposition home or self-care (01) ==
PROVIDERS: Family Medicine; Emergency Provider Emergency Medicine; PCP Family Medicine
DX: R07.9 Chest pain, unspecified (principal); J44.0 Chronic obstructive pulmonary disease with (acute) lower respiratory infection; J18.9 Pneumonia, unspecified organism; Z79.82 Long term (current) use of aspirin; I10 Essential (primary) hypertension; F17.210 Nicotine dependence, cigarettes, uncomplicated
CPT/HCPCS: 12345; 70491; 70498; 71045; 71275; 80053; 83605; 84484; 85025; 93005; 96360; 99283; 99284; J7030; Q9967

== ENCOUNTER 2020-12-01 10:36 | Emergency (ER) | payer MEDICAID, SELFPAY ==
[2020-12-01 10:52] VITALS: BP 144/86; PULSE 108; RESP 16; TEMP 36.5; O2SAT 95; BMI 24.5
[2020-12-01 11:02] VITALS: BP 109/73; PULSE 104; RESP 22; O2SAT 94
--- NOTE | 2020-12-01 11:16 | W.ED.GENADLT ---
HPI - General Adult General: Chief complaint: General Medical Stated complaint: High BP Time Seen by Provider: 12/01/20 10:54 History of Present Illness: HPI narrative: 4-year-old female who has been seen here several times recently she is complaining of some vague discomforts in her neck headache chest pain. We did a she had been seeing Dr. Puente this it evidently may go on for months. When I seen her in the emergency room we set up a outpatient stress test which was negative. We had started on isosorbide mononitrate. What is here the last time she is complain difficulty swallowing due to CT soft tissue of her neck and found significant arterial abnormalities we did a CT of the chest as well. That showed some hilar lymphadenopathy there is also question of pneumonia she was discharged home on doxycycline and Protonix and continued on isosorbide. She is supposed to follow-up with vascular surgery or cardiothoracic surgery to evaluate for the impingement at the origin of her carotids. He is currently still taking the isosorbide. This morning she reports having had blood pressures in the 180 systolic range he became alarmed and came to the emergency room on arrival here her blood pressure is actually very well controlled initial blood pressure 144/86 and a subsequent blood pressure 109/73. Is no focal neurologic deficits. Onset (ago): month(s) Associated symptoms: Deny chest pain, confusion, cough, diaphoresis, decreased appetite, dyspnea, fevers/chills, headache(s), malaise, nausea, rash, palpitations, seizures, short of breath, syncope or weakness Treatments prior to arrival: none Review of Systems Const: Denies: malaise or diaphoresis ENMT: Denies: throat pain, ear or mastoid pain, nasal discharge or nasal congestion Card: Denies: chest pain, palpitations or syncope Resp: Denies: dyspnea GI: Denies: nausea : Denies: flank pain, difficulty voiding, dysuria, urinary frequency or urinary urgency Skin/Breast: Denies: rash Neuro: Denies: headache(s) or confusion PFSH ED PFSH: Medical History Abdominal aortic aneurysm COPD (chronic obstructive pulmonary disease) Gastritis HTN (hypertension) PAD (peripheral artery disease) Sigmoid diverticulitis Surgical History History of hysterectomy Post PTCA Status post colonoscopy (10/11/20) 10 years Status post laparoscopic cholecystectomy (08/11/20) Social History Smoking and tobacco status: heavy tobacco smoker Alcohol intake: never Lives independently: Yes Household members: none Housing: House Physical Exam Const: COMMON NORMALS: no acute distress GENERAL APPEARANCE: cooperative and comfortable ORIENTATION/CONSCIOUSNESS: Yes awake, Yes oriented to person, Yes oriented to place and Yes oriented to time HENMT: COMMON NORMALS: normocephalic, atraumatic and hearing grossly normal bilaterally HEAD & SCALP: normocephalic and atraumatic Eye: COMMON NORMALS: Equal, round and reactive pupils present, EOMs intact bilaterally, conjunctivae normal and no scleral icterus CONJUNCTIVA: Yes conjunctivae normal PUPIL: Yes Equal, round and reactive pupils present Neck/C-Spine: COMMON NORMALS: full ROM, no lymphadenopathy, supple and no JVD Lymph: LYMPHATIC: no lymphadenopathy noted and no lymphedema noted Resp: COMMON NORMALS: normal respiratory effort, No retractions, No use of accessory muscles and clear to auscultation bilaterally AUSCULTATION: clear to auscultation bilaterally Cardio: COMMON NORMALS: no JVD, regular rate, regular rhythm and No murmurs present (Cardio) RATE: regular rate RHYTHM: regular rhythm GI: COMMON NORMALS: Soft to palpation and No hepatosplenomegaly present AUSCULTATION: Yes normoactive bowel sounds PALPATION: Yes Soft to palpation, No Tenderness to palpation present (GI), No Guarding due to palpation present (GI) and Yes No hepatosplenomegaly present Extremity: COMMON NORMALS: normal to inspection, capillary refill normal, no clubbing, cyanosis or edema, no calf tenderness and no pedal edema Neuro: SENSORIUM/ORIENTATION: Yes oriented to person, Yes oriented to place and Yes oriented to time Skin: COMMON NORMALS: no rashes or lesions noted GENERAL SKIN EXAM: no rashes or lesions noted Course Vital Signs: Vital signs: Vital Signs Temperature 97.7 F 12/01/20 10:52 Pulse Rate 106 H 12/01/20 12:00 Respiratory Rate 22 H 12/01/20 11:02 Blood Pressure 129/78 12/01/20 12:00 Pulse Oximetry 94 12/01/20 11:02 MDM - General Adult MDM Narrative: Medical decision making narrative: Long discussion with the patient about her findings recently with her visits to the emergency room of the importance of follow-up. She should check all of her blood pressures in the right arm. Concerned that with the isosorbide she may be getting her blood pressure too low to perfuse past the stenosis. We will decrease her amlodipine 2.5 p.o. daily. In addition to this she told us that she is taking lisinopril 10 mg daily she can continue that for the time being. Continue to monitor blood pressures critically important that she follow-up with her primary care doctor within the next week and keep the appointment made for her with Dr. Matthews. Discharge Plan Discharge Patient Disposition: Home Clinical Impression: HTN (hypertension), Carotid artery occlusion, Stenosis of left subclavian artery Condition: Stable Prescriptions: New amlodipine 5 mg tablet 2.5 mg PO DAILY Qty: 30 RF: 0 Discontinued isosorbide mononitrate 30 mg tablet extended release 24 hr 30 mg PO DAILY Qty: 30 RF: 0 No Action albuterol sulfate [Ventolin HFA] 90 mcg/actuation HFA aerosol inhaler 2 puff INHALATION Q6H PRN (Reason: Shortness Of Breath) RF: 0 pantoprazole [Protonix] 40 mg tablet,delayed release (DR/EC) 40 mg PO QAM 30 Days Qty: 30 RF: 3 multivitamin [Multiple Vitamins] Tablet 1 tab PO DAILY RF: 0 Vitamin C 1 tab PO DAILY RF: 0 aspirin [Aspir-81] 81 mg Tablet,Delayed Release (Dr/Ec) 81 mg PO DAILY RF: 0 tramadol 50 mg tablet 50 mg PO DAILY RF: 0 budesonide-formoterol [Symbicort] 80-4.5 mcg/actuation Hfa Aerosol Inhaler 2 puff INHALATION BID RF: 0 docusate sodium [Colace] 100 mg capsule 100 mg PO BID Qty: 30 RF: 0 Protonix 40 mg tablet,delayed release (DR/EC) 40 mg PO DAILY Qty: 60 RF: 0 doxycycline hyclate 100 mg capsule 100 mg PO BID 7 Days Qty: 14 RF: 0 Discharge Orders: Discharge ED (Routine); Ordered 12/01/20 Ordered By: Jossue Lozoya Referrals: Robert Ma MD [Primary Care Provider] - Discharge Diet: Usual diet Discharge Activity: Increase activity as tolerated Activity Restrictions/Additional Instructions: Stop the isosorbide mononitrate instead start amlodipine 5 mg daily follow-up with Dr. Ma within the next week to recheck blood pressure follow-up with Dr. Matthews as previously scheduled. Coding Level of Care Code ED Commercial Litigation Attorney for g Fwd Exam Comprehensive NIH stroke score NIHSS Level Of Consciousness - 1a: 0 Level Of Consciousness Questions - 1b: Both Correct Level Of Consciousness Commands - 1c: Both Correct Best Gaze - 2: Normal Visual [place] - 3: No Visual Loss Facial Palsy - 4: Normal Motor Arm Right - 5: No Drift Motor Arm Left - 5: No Drift Motor Leg Right - 6: No Drift Motor Leg Left - 6: No Drift Limb Ataxia - 7: Absent Sensory - 8: Normal Best Language - 9: No Aphasia Dysarthia - 10: Normal Extinction And Inattention - 11: 0 Score Total Score: 0
--- NOTE | 2020-12-01 11:47 | PC.NURSE ---
bilateral BP taken- R arm 129/78. L arm 111/77
[2020-12-01 12:00] VITALS: BP 129/78; PULSE 106
== END 2020-12-01 12:02 | disposition home or self-care (01) ==
PROVIDERS: Emergency Provider Family Medicine; PCP Family Medicine
DX: I10 Essential (primary) hypertension (principal); I65.29 Occlusion and stenosis of unspecified carotid artery; I70.8 Atherosclerosis of other arteries; Z79.82 Long term (current) use of aspirin; J44.9 Chronic obstructive pulmonary disease, unspecified; F17.210 Nicotine dependence, cigarettes, uncomplicated
CPT/HCPCS: 12345; 99282

== ENCOUNTER → 2020-12-12 14:08 | Outpatient (BNVA) | payer OTHER, SELFPAY | PROVIDERS: PCP Family Medicine; Visit Provider Thoracic Surgery (Cardiothoracic Vascular Surgery) | DX: Z11.59 Encounter for screening for other viral diseases (principal); R59.0 Localized enlarged lymph nodes | CPT/HCPCS: 87635 ==

== ENCOUNTER 2020-12-14 19:44 | Inpatient (IN) | payer MEDICAID, SELFPAY ==
[2020-12-13 13:07] VITALS: BMI 24.5
[2020-12-14] VITALS (23 sets, daily range): BP systolic 70–104; BP diastolic 42–75; PULSE 80–100; RESP 14–20; TEMP 36.2–37.1; O2SAT 90–100
[2020-12-14] MEDS: sodium chloride 0.9% 1,000 ML 30 ML IV (14:57)
[2020-12-14] MEDS: vancomycin 1,000 MG in sodium chloride 0.9% 250 ML 167 MG IV (15:05)
--- NOTE | 2020-12-14 15:08 | P.ANESASSM_ITS ---
Pre-Anesthetic Assessment Pre-Anesthetic Assessment: Height/Weight: Height 1.68 m Weight 68.946 kg Temp Pulse Resp BP Pulse Ox 97.2 F L 100 18 104/75 97 12/14/20 15:03 12/14/20 15:03 12/14/20 15:03 12/14/20 15:03 12/14/20 15:03 Preop Diagnosis: History of diverticulitis Proposed Procedure: Operation Date: 12/14/20 15:00 Proposed Procedures p [place] Mediastinoscopy(Left) - Zeferino Matthews MD Was Beta Farhana taken within 24 hours: N/A Last intake: Intake Last Liquid Date 12/13/20 Last Liquid Time 20:00 Last Solid Date 12/13/20 Last Solid Time 20:00 Social: Social History: Tobacco and No alcohol Exam: Pre-Anes Outpt Exam: alert, oriented x 3 and regular rate & rhythm Additional Exam Findings (including area of procedure): BBS decreased R>L, rhonchi Airway: Submandibular: WNL Cervical ROM: WNL MP: 2 Dentition: False Additional comments: Hoarseness Pulmonary: Pulmonary: COPD CV/HEM: CV/HEM: CAD, HTN and PVD Comments: Stress test neg 11/20 : : None reported Hepatic: Hepatic: None reported GI: GI: GERD Musc/skel: Comments: Chronic pain Neuropsych: Neuropsych: None reported Anesthetic Plan: ASA status: 3 Anesthesia: General Other: A.line Risk of > 500 ml blood loss (7ml/kg in children): No Meds/Allergies Current Medications: Current Medications Generic Name Dose Route Start Last Admin Trade Name Freq PRN Reason Stop Dose Admin Vancomycin HCl 1,0 00 mg/ 250 mls @ 250 mls /hr 12/14/20 14:19 12/14/20 15:05 Sodium Chloride IV 12/14/20 15:18 167 mls/hr 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 Administration Protocol Sodium Chloride 1,000 mls @ 30 ml s/hr 12/14/20 14:45 12/14/20 14:57 Sodium Chloride 0.9% IV 12/15/20 14:44 30 mls/hr .Q24H NILS Administration PFSH Anesthesia PFSH: Medical History Abdominal aortic aneurysm COPD (chronic obstructive pulmonary disease) Gastritis HTN (hypertension) PAD (peripheral artery disease) Sigmoid diverticulitis Surgical History History of hysterectomy Post PTCA Status post colonoscopy (10/11/20) 10 years Status post laparoscopic cholecystectomy (08/11/20) Family History Father Cancer lung Mother Diabetes Dementia Social History Smoking and tobacco status: heavy tobacco smoker Alcohol intake: never Lives independently: Yes Household members: none Housing: House Data Anesthesia CBC & Chem 7: 12/14/20 14:29 12/14/20 14:29 Cardiac Studies: No Data to Display
[2020-12-14 15:10] LABS: Basophils # 0.1 10^3/uL (0.0-0.1); Basophils % 1.4 %; Eosinophils # 0.2 10^3/uL (0.0-0.8); Eosinophils % 2.5 %; Hematocrit 45.2 % (37.0-47.0); Hemoglobin 15.1 g/dL (11.5-15.3); Lymphocytes # 2.9 10^3/uL (0.8-4.8); Lymphocytes % 32.3 %; Mean Corpuscular HGB Conc 33.4 g/dL (30.0-36.0); Mean Corpuscular Hemoglobin 31.3 pg (28.0-34.0); Mean Corpuscular Volume 93.6 fL (81-99); Monocytes # 0.5 10^3/uL (0.2-0.9); Monocytes % 5.9 %; Neutrophils # 5.21 10^3/uL (1.8-7.7); Neutrophils % 57.7 %; Nucleated Red Blood Cells % 0 %; Platelet Count 348 10^3/cmm (130-400); Red Blood Count 4.83 10^6/uL (4.1-5.3)
--- NOTE | 2020-12-14 15:21 | P.HPUD_ITS ---
Surgery/Procedure H&P Update DATE OF PROCEDURE: December 14, 2020 DATE H&P PERFORMED: 12/09/20 H&P UPDATE INFORMATION: I have reviewed H&P completed within last 30 days, I have examined patient prior to procedure and Changes to prior documentation as noted here CHANGES TO PREVIOUS DOCUMENTATION: We will also perform bronchoscopy at the time of this procedure for left-sided [place] procedure. Rationale carefully discussed with Ms. Leonard and her daughter. She is in agreement. Proper consents have been reviewed and signed. PREOP DIAGNOSIS: Mediastinal and AP window adenopathy with left vocal cord paralysis and jae PRIMARY INDICATION FOR PROCEDURE: Mediastinal adenopathy. Left vocal cord paralysis. No history of tobacco use. PLANNED PROCEDURE: Operation Date: 12/14/20 15:00 Proposed Procedures p [place] Mediastinoscopy(Left) - Zeferino Matthews MD
[2020-12-14 15:35] LABS: Alanine Aminotransferase 14 U/L (0-33); Albumin Level 4.2 g/dL (3.5-5.2); Alkaline Phosphatase 122 IU/L (35-105); Anion Gap 14.9 (5-19); Aspartate Amino Transferase 13 U/L (0-32); Blood Urea Nitrogen 16 mg/dL (6-20); Calcium 10.2 mg/dL (8.5-10.5); Carbon Dioxide 27 mmol/L (22-29); Chloride 100 mmol/L (98-107); Globulin 3.4 g/dL (1.3-4.6); Glomerular Filtration Rate 64.3 mL/min (90-130); Glucose 109 mg/dL (65-115); Osmolality Calculated 288 mOsm/kg (285-295); Potassium 3.9 mmol/L (3.5-5.1); Sodium 138 mmol/L (136-145); Total Bilirubin 0.4 mg/dL (0.15-1.2); Total Protein 7.6 g/dL (6.6-8.7)
[2020-12-14] MEDS: vancomycin 1,000 MG SDV 1000 MG IRRIGATION (16:33)
--- NOTE | 2020-12-14 17:38 | PTH.FRZRPT ---
Frozen Section Notes Specimen(s): Left vocal cord biopsy. Gross: The specimen is received fresh in a container labeled with the patient's name MR number and additionally labeled, vocal cord left biopsy for frozen section diagnoses and consists of 5 king-red fragments ranging from 0.1 to 0.2 cm with an aggregate measurement of 0.5 x 0.2 x 0.2 cm. The specimen is entirely submitted for frozen section diagnosis in cassette FS A1. Preliminary Impression: Vocal cord, left, biopsy for frozen section (FS A1): ?Invasive squamous cell carcinoma. - Specimen Information Pathologist: Nany Zapata Date: 12/14/20 Specimen reported at what time: 17:25 - Clinician Specimen collection time: 17:05 Clinician reported to: Zeferino Matthews
--- NOTE | 2020-12-14 17:43 | PM.OP ---
Operative Report Date of procedure: December 14, 2020 Pre-op Diagnosis: Mediastinal and AP window adenopathy with left vocal cord paralysis Post-op diagnosis: same Procedure Done: Left open paramedian mediastinotomy ([place] procedure) with biopsy of lymphoid material at AP window node Specimens removed/disposition: 1. Flexible diagnostic bronchoscopy 2. Aortopulmonary window node biopsy Surgeon: Zeferino Matthews Anesthesia: General Complications: None Findings: Frozen section analysis of a AP node material returned squamous cell carcinoma. Condition: stable Disposition: PACU Brief History: 60-year-old female referred to our service for surgical opinion and evaluation concerning AP window and subcarinal adenopathy definable CT scan as part of evaluation for hoarseness and left vocal cord paralysis as documented by Dr. Julio from our otolaryngology service. PET scan imaging was ordered but was up with delayed. Patient and family wish to proceed with plans for biopsy with concerns of malignancy given her long history of tobacco use. Details and risk of bronchoscopy and left-sided [place] procedure were carefully and frankly discussed. Proper consents have been reviewed and signed. Procedure: 1. Flexible diagnostic bronchoscopy Procedure: Ms. Leonard underwent general endotracheal anesthesia with an 8.0 endotracheal tube. With adequate anesthesia, flexible bronchoscope was inserted through the endotracheal tube. In a methodical fashion the trachea, sabrina, right main bronchus and associated lobar bronchi were inspected. In a similar fashion the left side was inspected. Secretions were cleared as needed to allow for adequate inspection. Secretions were light. Findings: Main sabrina and secondary sabrina were sharp. Branching anatomy was normal. There was no evidence for submucosal infiltration or extrinsic compression. Mucosa was not edematous or friable. No endobronchial lesions were identified. Once completed, the scope was withdrawn under direct visualization confirming cleared secretions and no substantial bleeding. Endoscopic photos were taken as required to document pathology. Ms. Leonard was then repositioned for planned left-sided [place] procedure. 2. Left paramedian mediastinotomy Ms. Leonard was secured in the supine position. The entire chest was sterilely prepped and draped. A left parasternal incision was made extending over the second and third ribs at the intercostal junction with the sternum. Dissection was continued down through the to the perichondrium of the ribs. The third rib was dissected free anteriorly and posteriorly at this junction. The rib was subsequently divided and a small section anteriorly was removed. The left internal mammary artery and vein were dissected free and clipped and divided and removed from the field. Sharp and blunt dissection was carried down through periaortic adipose tissue until the mass was encountered. It was aspirated several times and then multiple incisional biopsies were taken. These were sent to pathology for both frozen and permanent section. Initial frozen section interpretation is squamous cell carcinoma. Hemostasis was then confirmed using cautery and Surgicel. Once completed, retractors were removed. Sponge and needle count was correct. Wound was closed with 2-0 Vicryl suture in 2 layers and the skin was reapproximated in a subcuticular fashion utilizing 4-0 Monocryl suture. Sterile dressings were applied. Ms. Leonard has equal breath sounds bilaterally and was extubated and taken to the postoperative care unit where a chest x-ray is pending. I counseled with her daughter by phone at the completion of the procedure. She will continue postop recovery on the medical surgical irwin.
[2020-12-14] MEDS: HYDROmorphone 1 mg/mL INJ 1 mL 0.25 MG IVP (17:57)
--- NOTE | 2020-12-14 17:58 | XR_ITS ---
WS: [id number] Portable AP supine chest, 12/14/2020 Clinical Data: post-op Comparison: Portable chest, 11/29/2020. Findings: No nodules, masses or effusions are seen. The heart is normal. The pulmonary vascularity is not increased. No pneumonia or pneumothorax is seen. There are small surgical clips overlying the le ft hilum. Monitor leads are on the chest wall. XR/XR chest 1V 55092 Impression: Negative chest.
--- NOTE | 2020-12-14 18:08 | SUR.OPER ---
Pt A&O X4. Denies any pain at this time. Radiology at bedside.
[2020-12-14] MEDS: EPINEPHrine 1 mg/mL INJ 0.25 MG IM (18:26)
[2020-12-14] MEDS: sodium chloride 0.9% 500 ML 999 ML IV (18:35)
--- NOTE | 2020-12-14 18:41 | SUR.OPER ---
1824 Dr Cardoso notified of pt's vital signs.
--- NOTE | 2020-12-14 19:21 | ANE.PACU2 ---
Inpatient post-anesthesia follow up: Airway intact: Yes Vital signs: Temperature 97.8 F Pulse Rate 88 Respiratory Rate 16 Blood Pressure 87/60 Pulse Oximetry 98 Oxygen Delivery Me thod Oxymask Oxygen Flow Rate 6 Fraction of Inspir ed Oxygen Hydration adequate: Yes Nausea and vomiting: No Pain level: 1 Mental status: Baseline
[2020-12-14] MEDS: ketorolac 30 mg/mL INJ IVP (21:31)
[2020-12-14] MEDS: lactated ringers 1,000 ML 100 ML IV (21:44)
[2020-12-15] MEDS: ketorolac 30 mg/mL INJ IVP ×2 (01:02→09:06)
[2020-12-15 03:43] VITALS: BP 95/58; PULSE 85; RESP 17; TEMP 36.7; O2SAT 100
[2020-12-15] MEDS: levoFLOXacin 500 mg Tablet PO (05:23)
[2020-12-15] MEDS: pantoprazole DR 40 mg Tablet PO (05:23)
--- NOTE | 2020-12-15 06:01 | P.PN_ITS ---
Subjective Subjective: Interval history: Postop day #1 status post left sided [place] procedure. I did discuss the findings of squamous cell carcinoma by frozen section with Ms. Leonard this morning. She had uneventful night. We will plan to discharge to home with follow-up in our clinic next week. We will refer to oncology. She is generally scheduled for PET scan this Saturday. Vitals/I&O/Wt Last Vital Signs Temp 98.0 F 12/15/20 03:43 Pulse 85 12/15/20 03:43 Resp 17 12/15/20 03:43 BP 95/58 12/15/20 03:43 Pulse Ox 100 12/15/20 03:43 12/14/20 12/14/20 12/15/20 14:59 22:59 06:59 Intake Total 350 / 350 Output Total 550 / 560 Balance 340 / 340 -550 / -210 Weight last 48 hrs Weight 152 lb Physical Exam Chest: COMMONS NORMALS: normal inspection of the chest (Surgical dressing in place. Chest wall stable.) Resp: COMMON NORMALS: No retractions, No use of accessory muscles and clear to auscultation bilaterally AUSCULTATION: clear to auscultation bilaterally Cardio: COMMON NORMALS: regular rate, regular rhythm and S1 normal heart sound present RATE: regular rate RHYTHM: regular rhythm HEART SOUNDS: S1 normal heart sound present Extremity: COMMON NORMALS: no clubbing, cyanosis or edema Data : 12/14/20 14:29 12/14/20 14:29 A&P Assessment and plan (1) Mediastinal lymphadenopathy: Postop day #1 status post left-sided [place] procedure. Squamous cell carcinoma by frozen section from AP node biopsy Plan: Discharge to home with follow-up in our clinic in 1 week and referral to oncology. Status: Acute Attestations Medical Necessity Statement*: Mediastinal adenopathy with squamous cell carcinoma by frozen section Time Spent in Patient Care: less than 15 minutes Coding Level of Care Code Acute Senior Software Analyst for Aida Belcher Diagnoses Mediastinal lymphadenopathy R59.0
--- NOTE | 2020-12-15 06:06 | PM.DCS ---
Discharge Providers Date of Admission: 12/14/20 19:44 Date of Discharge: December 15, 2020 Attending Provider at Admission: Zeferino Matthews MD Attending Provider at Discharge: Zeferino Matthews MD Primary Care Provider: Abrahan Weathers MD Diagnoses at Discharge Discharge Diagnosis (1) Mediastinal lymphadenopathy: Status: Acute Reason for Visit Reason for Visit: Carotid stenosis and enlarged lymph nodes Hospital Course Hospital Course Ms. Leonard was electively admitted for planned left-sided [place] procedure. She had been referred to our service for AP window node and mediastinal adenopathy as discovered by CT scan of the chest as part of evaluation for shortness of breath and hoarseness. Otolaryngology evaluation revealed paralysis of the left vocal cord. She has a long history of tobacco use. Jay procedure revealed biopsies from AP node with frozen section analysis as squamous cell carcinoma. Final pathology is pending. Postop day, she has done well overnight. Pain has been under good control. Surgical dressings are clean and dry. Lungs are clear bilaterally. She will be discharged home today in stable condition. She will be scheduled to follow-up in my clinic in 1 week. She has tentatively scheduled a PET scan for this Saturday. Physical Exam Chest: COMMONS NORMALS: normal inspection of the chest (Small stable. Surgical dressings dry.) Resp: COMMON NORMALS: normal respiratory effort, No use of accessory muscles and clear to auscultation bilaterally AUSCULTATION: clear to auscultation bilaterally Cardio: COMMON NORMALS: regular rate, regular rhythm and S1 normal heart sound present RATE: regular rate RHYTHM: regular rhythm HEART SOUNDS: S1 normal heart sound present Extremity: COMMON NORMALS: no clubbing, cyanosis or edema Discharge Data Data Completed and Pending: Pending at discharge Category Date Time Status XR chest 1V 91236 Routine Exams 12/14/20 17:58 Taken ABO/Rh Type Routi ne Lab 12/14/20 14:29 Results Leukocyte Reduced RBC Routine Lab 12/14/20 14:29 Results Type and Screen R outine Lab 12/14/20 14:29 Results Pathology: Surgic al [PTH] Routine Pth 12/14/20 17:19 Ordered Labs from last 24 hours 12/14/20 12/14/20 12/14/20 14:29 14:29 14:29 WBC 9.0 RBC 4.83 Hgb 15.1 Hct 45.2 MCV 93.6 MCH 31.3 MCHC 33.4 RDW 12.0 L Plt Count 348 MPV 10.0 Neut % (Auto) 57.7 Lymph % (Auto) 32.3 Jackson % (Auto) 5.9 Eos % (Auto) 2.5 Baso % (Auto) 1.4 Neut # (Auto) 5.21 Lymph # (Auto) 2.9 Jackson # (Auto) 0.5 Eos # (Auto) 0.2 Baso # (Auto) 0.1 Nucleated RBC % (a uto) 0 Nucleated RBCs # 0.0 Sodium 138 Potassium 3.9 Chloride 100 Carbon Dioxide 27 Anion Gap 14.9 BUN 16 Creatinine 0.9 GFR Calculation 64.3 L Glucose 109 Calculated Osmolal ity 288 Calcium 10.2 Total Bilirubin 0.4 AST 13 ALT 14 Alkaline Phosphata se 122 H Total Protein 7.6 Albumin 4.2 Globulin 3.4 Blood Type O Positive Rho(D) Type Positive Antibody Screen Negative Crossmatch See Detail Vitals: Last Vital Signs Temp 98.0 F 12/15/20 03:43 Pulse 85 12/15/20 03:43 Resp 17 12/15/20 03:43 BP 95/58 12/15/20 03:43 Pulse Ox 100 12/15/20 03:43 Discharge Plan Discharge Condition: Stable Prescriptions: New oxycodone-acetaminophen 5-325 mg Tablet 1 tab PO Q6H PRN (Reason: Moderate Pain) Qty: 15 RF: 0 Continued albuterol sulfate [Ventolin HFA] 90 mcg/actuation HFA aerosol inhaler 2 puff INHALATION Q6H PRN (Reason: Shortness Of Breath) RF: 0 pantoprazole [Protonix] 40 mg tablet,delayed release (DR/EC) 40 mg PO QAM 30 Days Qty: 30 RF: 3 lisinopril 10 mg tablet 10 mg PO DAILY RF: 0 multivitamin [Multiple Vitamins] Tablet 1 tab PO DAILY RF: 0 Vitamin C 1 tab PO DAILY RF: 0 aspirin [Aspir-81] 81 mg Tablet,Delayed Release (Dr/Ec) 81 mg PO DAILY RF: 0 tramadol 50 mg tablet 50 mg PO DAILY RF: 0 budesonide-formoterol [Symbicort] 80-4.5 mcg/actuation Hfa Aerosol Inhaler 2 puff INHALATION BID RF: 0 amlodipine 5 mg tablet 10 mg PO DAILY RF: 0 Discharge Orders: Discharge Order (Routine); Ordered 12/15/20 Ordered By: Zeferino Matthews Referrals: Zeferino Matthews MD [Physician] - 1 week Discharge Diet: Usual diet Discharge Activity: Limit activity as instructed Activity Restrictions/Additional Instructions: Begin showers on Saturday, December 17. No swimming or tub baths x2 weeks May remove surgical bandage tomorrow or Saturday. No heavy lifting x2 weeks Report any increasing pain, shortness of breath, redness or swelling of incision. Discharge Attestations Time Spent in Discharge Care*: less than 30 min Specific Discharge Activities: educating patient, discussing with outpatient case manager/social workers/dc planners, documenting/other paperwork and evaluating patient/reviewing data Time Spent in Smoking Cessation: 3 to 10 minutes Status at Discharge: Cognitive status at discharge: cognitively intact, Behavioral status at discharge: cooperative, Functional status at discharge: independent ambulation Quality Metrics Clinical Quality Measures During this hospital stay, did patient experience: None Coding Level of Care Code Acute Drug Room Operator for [employer] Fwd Diagnoses Mediastinal lymphadenopathy R59.0
[2020-12-15 07:32] VITALS: BP 92/64; PULSE 87; RESP 18; TEMP 36.7; O2SAT 90
[2020-12-15] MEDS: multivitamin therapeutic Tablet 1 TAB PO (09:07)
[2020-12-15] MEDS: aspirin 81 mg EC Tablet PO (09:07)
[2020-12-15] MEDS: TRAMadol 50 mg Tablet PO (09:07)
[2020-12-15] MEDS: ascorbic acid 500 mg Tablet PO (09:07)
[2020-12-15 09:18] VITALS: PULSE 85; RESP 18; O2SAT 90
--- NOTE | 2020-12-15 10:28 | PC.NURSE ---
0945- ARTERIAL LINE REMOVED PER PROTOCOL. PRESSURE DRESSING APPLIED.
[2020-12-15 11:06] VITALS: BP 92/64; PULSE 85; RESP 18; TEMP 36.7; O2SAT 90
--- NOTE | 2020-12-15 11:21 | PC.CHAP ---
Pastoral Care Encounter/Spiritual Assessment Type of Contact [] Declined supervisor research kennel visit [] Patient/Family/Request visit [] Outpatient visit [] Follow-up visit [] Physician referral [] Code/Alert [x] Routine visit [] Staff referral [] Actively dying [] Patient sleeping [] Family support [] [] Out of room [] Palliative care [] [x] Receiving care in room [] Pre-surgical visit [] Trauma [] Long length of stay [] ICU visit [] Other: Relational/Emotional Strength [x] Patient feels connected with others/family/visitors/staff [] Distress [] Loneliness/isolation [] Abandonment Spirituality of Patient [x] Person of Donna [] Attends Lutheran of their Donna [x] Believes in Prayer [] Reads Bible or Druze materials [] There are Spiritual issues to be addressed Allergist/Md Interventions [x] Prayer [x] Active listening [x] Non-anxious presence [x] Spiritual/emotional support [] Crisis/trauma care [x] Spiritual counseling [] Bereavement support [] Provided bereavement packet [] Provided Bible/devotional materials [] Provided toy/stuffed animal, coloring book to patient or family member [] Provided Communion [] Anointing/[place] [] Salvation [x] Completed spiritual assessment [] Other: Impact on Illness or Injury [] Angry [] Fearful [x] Anxious [] Often cries [] Exhaustion [] Unable to work [] Unable to attend bahai [] Unable to walk/stand [] Unable to read [] Unable to drive [] Unable to eat/drink [] Unable to sleep [] Unable to be with family [] Patient intubated [] Other: Summary [id number] in addation blockage in 3 to 3 [place], dealing with Cancer, has a good attitude (hopeful) Time spent with patient 10 [email or web address]
--- NOTE | 2020-12-16 15:34 | PC.RESP ---
Smoking Cessation and Pulmonary Rehab packet sent to packet.
[2020-12-27 08:08] LABS: PD-L1 (Clone 22C3) by IHC BBPL See Report
== END 2020-12-15 11:30 | disposition home or self-care (01) | DRG 804 ==
LOC: MEDSURG 12-15 06:06
PROVIDERS: Admitting Provider Thoracic Surgery (Cardiothoracic Vascular Surgery); PCP Family Medicine; Visit Provider Thoracic Surgery (Cardiothoracic Vascular Surgery)
PROC: 07B70ZX Excision of Thorax Lymphatic, Open Approach, Diagnostic (ICD-10-PCS; principal; 2020-12-14 15:00)
PROC: 0BJ08ZZ Inspection of Tracheobronchial Tree, Via Natural or Artificial Opening Endoscopic (ICD-10-PCS; CPT 31622; 2020-12-14 15:00)
DX: R59.0 Localized enlarged lymph nodes (principal); J38.01 Paralysis of vocal cords and larynx, unilateral; I65.23 Occlusion and stenosis of bilateral carotid arteries; F17.210 Nicotine dependence, cigarettes, uncomplicated; J38.2 Nodules of vocal cords; Z87.01 Personal history of pneumonia (recurrent); I73.9 Peripheral vascular disease, unspecified; Z95.820 Peripheral vascular angioplasty status with implants and grafts; Z79.51 Long term (current) use of inhaled steroids; I71.4 Abdominal aortic aneurysm, without rupture; J44.9 Chronic obstructive pulmonary disease, unspecified; I10 Essential (primary) hypertension; Z79.82 Long term (current) use of aspirin; Z79.891 Long term (current) use of opiate analgesic
CPT/HCPCS: 12345; 36415; 71045; 80053; 85025; 86850; 86900; 86920; 88305; 88342; 96365; 96372; G0378; J0131; J0171; J1100; J1170; J1885; J2370; J2405; J2704; J2710; J3010; J3370; J3490; J7030; J7040; J7050; P9047

== ENCOUNTER 2020-12-27 14:03 | Outpatient (CLI) | payer MEDICAID, SELFPAY ==
--- NOTE | 2020-12-28 10:02 | ONC CON_ITS ---
Dr. Augustin New Patient Note Patient: Danisha Leonard Unit #: [id number]: [id number] Dicatated By: Mark Augustin M.D.Date of Visit: Dec 27, 2020 Onc MED New Patient/Consult Referring Physician: Dr. PIA MATTHEWS M.D. Chief Complaint: Metastatic squamous cell carcinoma. 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 As yet she has no documented primary malignancy. She has multiple medical illnesses including COPD, hypertension, peripheral arterial disease, and degenerative arthritis. She has a known abdominal aortic aneurysm. Since July 2020 she has had complaints of abdominal pain. These had persisted despite undergoing cholecystectomy in August. She was then thought to have gastritis and/or diverticulitis, though her colonoscopy in October was completely unremarkable. She then developed further symptoms of throat swelling, lightheadedness and chest pain, and she also developed hoarseness, for which she was seen in the emergency room on November 29, 2020. 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 There was marked/severe narrowing of the origin of the left vertebral artery due to large plaque. There was noted to be asymmetry of the vocal cords with small nodularity on the left. Tonsils were symmetrically enlarged. There was mediastinal adenopathy including a 2 cm node in the aortopulmonary window and a subcarinal lymph node measuring 1.5 cm. An enlarged right hilar lymph node measured 1.[address] angiogram of the chest showed no evidence of pulmonary embolus. There was noted to be patchy airspace opacity in the left lower lobe compatible with pneumonic infiltrate and there was mild diffuse interstitial and groundglass opacity in the lungs compatible with mild pneumonitis versus CHF. Also noted was a 1.3 cm precarinal lymph node, 1.5 cm left hilar lymph node, and 1.2 cm right hilar lymph node. With those findings she was referred to Dr. Leroy and she was confirmed by flexible laryngoscopy to have left vocal cord paralysis. She was then seen by Dr. Matthews and on December 14, 2020 she underwent left open paramedian mediastinotomy with biopsy of the AP window lymph node. Pathology showed metastatic squamous cell carcinoma which was p16 negative. A PD-L1 expression was requested, and that result is not yet available. She is seen now for further management. She has been feeling very poorly from a general standpoint. She has very limited activity. At no she is able to tolerate about 10 minutes of activity and then has to sit down and rest. Her ECOG score is 3. Her appetite is still okay. Her weight is stable. She has not had fever or night sweats. She says she has had hoarseness since April. She is not have difficulty swallowing. She has had episodes of swelling in her throat and lightheadedness. She also has had episodes of shooting pain across her upper chest radiating down into her arms. She says the pain feels like lightning going through her chest, and it the episodes tend to occur with activity. She has shortness of breath. She does not complain of cough. She currently has no GI or complaints. She has pain in her hips and knees. She has had low back pain, but that has not been bothering her recently. She does not complain of headache. She sometimes feels off balance. She occasionally has numbness in her right hand. She has no other focal neurologic symptoms. She is having significant anxiety and depression. Past Medical History: Her medical history includes abdominal aortic aneurysm, chronic obstructive pulmonary disease, degenerative arthritis, gastroesophageal reflux disease, history of pyelonephritis/sepsis, hypertension, and peripheral artery disease. Past Surgical History: Her surgical/procedural history includes excision of skin cancer from the right hand, bronchoscopy in 2020, left open paramedian mediastinotomy with mediastinal lymph node biopsy in 2020, colonoscopy in 2019, laparoscopic cholecystectomy in 2019, arterial stent placement to the right common iliac artery in 2014, and hysterectomy with bilateral salpingo-oophorectomy and bladder tie up in 2001. Medications: amLODIPine Besylate 1 (10 mg) Tablet Oral daily, Aspirin 81 1 (81 mg) Tablet, chewable Oral every am, Lisinopril 1 (10 mg) Tablet Oral daily, Pantoprazole Sodium 1 (40 mg) Tablet, enteric coated Oral daily, Vitamin C & D3/Tessa Hips 1 (500-1000-20 mg - Units - mg) Capsule Oral daily, Zinc 1 (50 mg) Capsule Oral daily Allergies: Adhesive, Clindamycin HCl, Egg, Penicillins, and Skin Glue. Social History: Ms. Leonard is . She has history of smoking up to 2 packs of cigarettes daily or more, beginning at age 10. She quit smoking in December 2020. She previously has had some alcohol use, but never heavy. She has had no alcohol use for at least the last 2 or 3 years. Family History: Father of lung cancer at age 80. Mother is still living at age 84. She has congestive heart failure. A brother and a sister are in good health. Review Of Symptoms: Constitutional - Her energy is poor. She has very limited activity. Appetite is still OK. Her weight is stable. No fever, night sweats, or hot flashes. ECOG score is 3, Eyes - She has had one recent episode of visual loss, ENMT - No sinus congestion/drainage. No mouth sores. She has had episodes of swelling in her throat or difficulty swallowing, Hematologic/Lymphatic - No abnormal bruising or bleeding, Respiratory - She has shortness of breath. No cough. No pleuritic pain or hemoptysis, Cardiovascular - She as been having episodes of pain in her upper chest and arms. No palpitations, Gastrointestinal - No nausea or vomiting. Heracid reflux is adequately managed with medication. No diarrhea or constipation. No blood in the stool or black stools, Genitourinary (F) - No dysuria or hematuria. No urinary frequency. No urgency or incontinence, Musculoskeletal - She has pain in her hips and knees. She has had low back pain, but that has not been bothering her recently, Integumentary - No skin rash, Neurologic - No headache. She has had lightheadness and she has had some difficulty with balance. She occasionally has numbness in her right hand. No other focal neurologic symptoms, Psychiatric - She has anxiety and depression. She has difficulty sleeping. Vital Signs: Performed on Dec 27, 2020 14:57: 5, 24.92, 1.79 sq.m, 66 in, 96 %, 94 /min, 16 /min, 119/62 mm(hg), 97.8 F (LOW), and 154.4 lbs (HIGH). Physical Examination: Constitutional - She appears somewhat weak generally, Eyes - Sclerae nonicteric. Conjunctivae clear, ENMT - No lesions noted in the oral cavity, Neck - No mass or thyromegaly, Hematologic/Lymphatic - No cervical, clavicular, or axillary adenopathy, Respiratory - Lungs show diminished air movement bilaterally. There are scattered rales present, Cardiovascular - Heart rhythm is regular. There is no murmur, gallop, or rub noted, Abdomen - Soft and non-tender. Liver and spleen are not enlarged. There is no abdominal mass or ascites noted and there is no inguinal adenopathy, Back/Spine - No spine or CVA tenderness noted, Extremities - No edema. She has palpable radial pulses bilaterally and palpable pedal pulses bilaterally, Integumentary - No rashes. No suspicious skin lesions noted, Neurologic - No focal neurologic deficits noted. Problem List: 1. 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 There is associated left vocal cord paralysis. A primary lesion has not yet been identified, but the pattern is most consistent with metastatic non-small cell lung cancer. 2. Hypertension. 3. There is CT evidence of carotid and vertebral artery stenosis. 4. She has history of peripheral arterial disease with previous stent to the right common iliac artery. 5. COPD. 6. GERD. 7. Degenerative arthritis. 8. Anxiety/depression. Problems Addressed with this Encounter and Plan: 1. 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 There is associated left vocal cord paralysis. A primary lesion has not yet been identified, but the pattern is most consistent with metastatic non-small cell lung cancer. Her management has been problematic due to lack of insurance coverage, which has delayed our ability to obtain a staging PET/CT. She has a Medicaid application in process, that apparently has been delayed. We discussed the fact that she does have confirmed squamous cell carcinoma, and that it is metastatic in the mediastinal lymph nodes and therefore inoperable. A primary lung cancer would be the most likely source and with disease localized to the lung/mediastinal lymph nodes the recommended treatment would be concurrent chemoradiation. The PET/CT, though, will be necessary for her further staging. As such, we will have our social services director check tomorrow on the status of her Medicaid application, and if her Medicaid approval does not appear to be imminent then I will look into getting financial assistance for the PET/CT. 2. She is having episodes of chest pain and lightheadedness. The symptoms would not predictably be associated with this extent of malignant disease, and I am concerned that they are more likely associated with the underlying vascular disease. I will discuss this with one of the cardiologists. In the meantime, she will be given a refill for oxycodone/APAP. Signed By: Mark Augustin M.D. <<Signature on File>>
== END 2020-12-27 14:04 | disposition home or self-care (01) ==
LOC: ONCMED 14:08
PROVIDERS: PCP Family Medicine; Visit Provider Internal Medicine Medical Oncology
DX: C77.1 Secondary and unspecified malignant neoplasm of intrathoracic lymph nodes (principal); C80.1 Malignant (primary) neoplasm, unspecified; J38.01 Paralysis of vocal cords and larynx, unilateral; R07.9 Chest pain, unspecified; R42 Dizziness and giddiness; I73.9 Peripheral vascular disease, unspecified; I10 Essential (primary) hypertension; Z87.891 Personal history of nicotine dependence; Z79.891 Long term (current) use of opiate analgesic
CPT/HCPCS: 99205

== ENCOUNTER 2021-01-04 06:24 | Outpatient (CLI) | payer MEDICAID, SELFPAY ==
--- NOTE | 2021-01-04 10:59 | N.ONRAD NP_ITS ---
Radiation Oncology Consultation Patient Name: Danisha Leonard Date of : 1960 Date of Service: 01/04/2021 Attending Physician: Maykel Alas M.D. Danisha Leonard was seen in consultation this morning at the request of Mark Augustin M.D. for consideration of thoracic radiotherapy in the management of her recently diagnosed non-small cell lung cancer. A CTA obtained on November 29, 2020 for evaluation of chest pain at the [facility] department demonstrated a left hilar lymph node measuring 1.5 cm, a right hilar lymph node measuring 1.2 cm, and a precarinal lymph node measuring 1.3 cm. She subsequently presented to [facility] M.[facility] in December with the complaints of hoarseness and dysphagia. A fiberoptic laryngoscopy revealed left vocal cord paralysis and a right vocal cord nodule A left open paramedian mediastinotomy was completed on December 14, 2020 with a biopsy of an aorto-pulmonary node. The pathology report (personally reviewed in [facility] and discussed with Nany Zapata M.D.) diagnosed a poorly differentiated carcinoma. A PET CT done on December 31, 2020 (directly visualized in [facility]) revealed hypermetabolic mediastinal lymph nodes -prevascular, subaortic, and subcarinal. A tumor profiling has been requested from [employer]. I discussed with Ms. Leonard the AJCC stage IIIA (TXN2) lung cancer corresponding to her disease. I also reviewed the National Comprehensive Cancer Network Guidelines for concurrent chemoradiotherapy in the management of locally advanced lung cancer established by the classic study RTOG 9410 comparing sequential versus concurrent chemoradiotherapy that demonstrated an overall survival advantage for the concurrent chemoradiotherapy regimen I anticipate a 6 week course of thoracic radiotherapy. A computed tomographic radiotherapy planning scan in the treatment position will be performed and co-registered to the patient's staging PET CT scan to identify the gross tumor volume. The potential toxicities of thoracic radiotherapy were reviewed. The patient has verbalized understanding would like to proceed as recommended. Signed by: Dr. Maykel Alas 02/08/2021 1:17:58 PM
== END 2021-01-04 06:25 | disposition home or self-care (01) ==
LOC: ONCMED 06:26
PROVIDERS: PCP Family Medicine; Visit Provider Radiology Radiation Oncology
DX: C34.90 Malignant neoplasm of unspecified part of unspecified bronchus or lung (principal); C77.1 Secondary and unspecified malignant neoplasm of intrathoracic lymph nodes
CPT/HCPCS: 99215

== ENCOUNTER → 2021-01-20 13:04 | Outpatient (BNVA) | payer MEDICAID, SELFPAY | PROVIDERS: PCP Family Medicine; Visit Provider Thoracic Surgery (Cardiothoracic Vascular Surgery) | DX: Z01.812 Encounter for preprocedural laboratory examination (principal); R59.0 Localized enlarged lymph nodes | CPT/HCPCS: 87635 ==

== ENCOUNTER 2021-01-24 09:28 | Outpatient (CLI) | payer MEDICAID, SELFPAY ==
[2021-01-24 08:59] VITALS: BP 123/61; BP 134/65; PULSE 77; PULSE 78; RESP 16; RESP 20; TEMP 37.3; TEMP 37.4; O2SAT 96; O2SAT 98; BMI 26.1
[2021-01-24 10:06] VITALS: BP 123/61; PULSE 78; RESP 16; TEMP 37.4; BMI 26.1
--- NOTE | 2021-01-24 10:22 | AMB.MCA ---
Patient Information [facility] COVID test results: SARS-CoV-2 Antigen (Rapid) Negative (Negative) 11/12/20 14:09 11/12/20 SARS-CoV-2 RNA (RT-PCR) Not detected (NOT DETECTED) 12/12/20 14:08 12/12/20 Nasal/Oral Coronavirus 2019 PCR Detected H 01/20/21 13:04 01/20/21 Criteria/Plan Inclusion/Exclusion Criteria weight >/= 40kg has immunosuppressive disease and age >/= 55 and has diabetes not requiring hospitalization Patient education patient/caregiver received/reviewed fact sheet, Emergency Use Authorization/unapproved drug status discussed with patient/caregiver, alternatives to this treatment discussed with patient/caregiver, risks and benefits of medication reviewed with patient/caregiver, patient/caregiver given opportunity for questions, which were answered and patient/caregiver consents to receiving Monoclonal Antibody Treatment Plan for treatment Meets criteria for Monoclonal Antibody infusion Ordering Monoclonal Antibody infusion for today
[2021-01-24 11:35] VITALS: BP 128/66; PULSE 75; RESP 20; TEMP 37.1; O2SAT 96
[2021-01-24 12:40] VITALS: BP 140/78; PULSE 75; RESP 18; TEMP 37.1; O2SAT 97
[2021-01-24 13:45] VITALS: BP 134/65; PULSE 77; RESP 20; TEMP 37.3; O2SAT 98
--- NOTE | 2021-02-08 15:47 | DCPLANNER ---
campaign marketing manager had message that patient received the BAM infusion - piano case maker called to check on patient to see how they were feeling after the infusion. campaign marketing manager unable to speak with patient at this time.
== END 2021-01-25 09:21 | disposition home or self-care (01) ==
LOC: OPS 09:29
PROVIDERS: PCP Family Medicine; Visit Provider Internal Medicine
DX: U07.1 COVID-19 (principal)
CPT/HCPCS: 96365; J7050

== ENCOUNTER 2021-02-06 06:37 | Day surgery (SDC) | payer MEDICAID, SELFPAY ==
[2021-02-03 13:33] VITALS: BMI 25.9
--- NOTE | 2021-02-06 | SCC_ITS ---
Procedure Done: Left subclavian Port-A-Cath placement 31.9 seconds of fluoroscopic guidance, for a cumulative dose of 4.26 mGy, was provided to Dr. Matthews by the radiology department. C-arm images of the chest were saved for the patient's permanent record. YO
--- NOTE | 2021-02-06 06:42 | SC_ITS ---
WS: [id number] INTRAOPERATIVE TECHNIQUE: 3 Spot fluoroscopic images for intraoperative purposes. FLUOROSCOPY TIME: 31.9 seconds CLINICAL INFORMATION: Port-A-Cath placement COMPARISON: None. FINDINGS: Left Port-A-Cath with tip in the mid SVC in good position. SC/C-arm [place] CVA [id number] IMPRESSION: Images obtained for intraoperative purposes.
[2021-02-06 06:56] VITALS: BP 139/70; PULSE 88; RESP 18; TEMP 36.7; O2SAT 98
[2021-02-06] MEDS: sodium chloride 0.9% 1,000 ML 30 ML IV (07:05)
[2021-02-06] MEDS: vancomycin 1,000 MG in sodium chloride 0.9% 250 ML 250 MG IV (07:05)
[2021-02-06 07:09] LABS: Basophils # 0.1 10^3/uL (0.0-0.1); Basophils % 1.4 %; Eosinophils # 0.2 10^3/uL (0.0-0.8); Eosinophils % 3.1 %; Hematocrit 40.7 % (37.0-47.0); Hemoglobin 13.5 g/dL (11.5-15.3); Lymphocytes # 1.7 10^3/uL (0.8-4.8); Lymphocytes % 21.7 %; Mean Corpuscular HGB Conc 33.2 g/dL (30.0-36.0); Mean Corpuscular Hemoglobin 30.5 pg (28.0-34.0); Mean Corpuscular Volume 92.1 fL (81-99); Mean Platelet Volume 9.8 fL (7.4-10.4); Monocytes # 0.5 10^3/uL (0.2-0.9); Monocytes % 6.2 %; Neutrophils # 5.17 10^3/uL (1.8-7.7); Neutrophils % 67.2 %; Nucleated Red Blood Cells % 0 %; Platelet Count 353 10^3/cmm (130-400); Red Blood Count 4.42 10^6/uL (4.1-5.3); Red Cell Distribution Width 11.9 % (12.1-15.1); White Blood Count 7.7 10^3/uL (4.0-10.0)
[2021-02-06 07:23] LABS: Blood Urine Trace (Negative); Glucose Urine UA Norm (Normal); Ketones Urine 1+ (Negative); Protein Urine Neg (Negative); Urine Appearance Clear (CLEAR); Urine Color Yellow (Yellow); pH Urine 5 (5-7)
[2021-02-06 07:24] LABS: Add Urine Microscopic? YES; Bilirubin Urine 1+ (Negative); Leukocyte Esterase Urine Negative (Negative); Nitrate Urine Negative (Negative); Squamous Epithelial Cell Urine RARE /hpf (0-5); Urobilinogen Urine 1 mg/dL (Negative); WBC Urine 0-4 /hpf (0-5)
[2021-02-06 07:25] LABS: Add Urine Culture? No; Bacteria Urine TRACE /hpf; Mucus Urine 1+ /hpf
--- NOTE | 2021-02-06 07:49 | P.ANESASSM_ITS ---
Pre-Anesthetic Assessment Pre-Anesthetic Assessment: Height/Weight: Height 1.68 m Weight 73.028 kg Temp Pulse Resp BP Pulse Ox 98.1 F 88 18 139/70 98 02/06/21 06:56 02/06/21 06:56 02/06/21 06:56 02/06/21 06:56 02/06/21 06:56 Preop Diagnosis: Carcinoma Proposed Procedure: Operation Date: 02/06/21 08:20 Proposed Procedures p Portacath Insertion(Not Applicable) - Zeferino Matthews MD Was Beta Farhana taken within 24 hours: N/A Last intake: Intake Last Liquid Date 02/06/21 Last Liquid Time 05:00 Last Solid Date 02/05/21 Last Solid Time 20:00 Social: Social History: Tobacco and No alcohol Exam: Pre-Anes Outpt Exam: alert, oriented x 3 and regular rate & rhythm Additional Exam Findings (including area of procedure): rhonchi Airway: Submandibular: WNL Cervical ROM: WNL MP: 2 Dentition: False Additional comments: Hoarseness Pulmonary: Pulmonary: COPD CV/HEM: CV/HEM: Angina (Stable), CAD, HTN and PVD Comments: AAA GI: GI: GERD Anesthetic Plan: ASA status: 3 Anesthesia: MAC Risk of > 500 ml blood loss (7ml/kg in children): No Meds/Allergies Current Medications: Current Medications Generic Name Dose Route Start Last Admin Trade Name Freq PRN Reason Stop Dose Admin Sodium Chloride 1,000 mls @ 30 ml s/hr 02/06/21 06:45 02/06/21 07:05 Sodium Chloride 0.9% IV 02/07/21 06:44 30 mls/hr .Q24H NILS Administration PFSH Anesthesia PFSH: Medical History Abdominal aortic aneurysm COPD (chronic obstructive pulmonary disease) Gastritis HTN (hypertension) PAD (peripheral artery disease) Sigmoid diverticulitis Surgical History History of hysterectomy Post PTCA Status post colonoscopy (10/11/20) 10 years Status post laparoscopic cholecystectomy (08/11/20) Family History Father Cancer lung Mother Diabetes Dementia Social History Smoking and tobacco status: heavy tobacco smoker Quit status (tobacco): has quit using tobacco Year quit tobacco: [id number] Alcohol intake: never Lives independently: Yes Household members: none Housing: House Data Anesthesia CBC & Chem 7: 02/06/21 07:01 Other Labs: Laboratory Results - last 48 hr 02/06/21 02/06/21 06:47 07:01 WBC 7.7 RBC 4.42 Hgb 13.5 Hct 40.7 MCV 92.1 MCH 30.5 MCHC 33.2 RDW 11.9 L Plt Count 353 MPV 9.8 Neut % (Auto) 67.2 Lymph % (Auto) 21.7 Dillon % (Auto) 6.2 Eos % (Auto) 3.1 Baso % (Auto) 1.4 Neut # (Auto) 5.17 Lymph # (Auto) 1.7 Dillon # (Auto) 0.5 Eos # (Auto) 0.2 Baso # (Auto) 0.1 Nucleated RBC % (auto) 0 Nucleated RBCs # 0.0 Urine Color Yellow Urine Appearance Clear Urine pH 5 Ur Specific [place] 1.020 Urine Protein Neg Urine Glucose (UA) Norm Urine Ketones 1+ H Urine Blood Trace H Urine Nitrate Negative Urine Bilirubin 1+ H Urine Urobilinogen 1 H Ur Leukocyte Esterase Negative Urine RBC None Urine WBC 0-4 H Ur Squamous Epith Cells Rare Amorphous Sediment Not Reportable Urine Bacteria Trace Urine Mucus 1+ Cardiac Studies: No Data to Display
[2021-02-06 08:11] LABS: Anion Gap 18.3 (5-19); Calcium 9.8 mg/dL (8.5-10.5); Glucose 113 mg/dL (65-115)
[2021-02-06 08:19] LABS: Osmolality Calculated 297 mOsm/kg (285-295); Potassium 4.3 mmol/L (3.5-5.1); Sodium 142 mmol/L (136-145)
[2021-02-06 08:20] LABS: Blood Urea Nitrogen 20 mg/dL (6-20); Carbon Dioxide 26 mmol/L (22-29); Chloride 102 mmol/L (98-107)
[2021-02-06 08:21] LABS: Glomerular Filtration Rate 64.3 mL/min (90-130)
--- NOTE | 2021-02-06 08:26 | PM.HP ---
Providers/Chief Complaint Primary Care Provider: Abrahan Weathers MD Chief Complaint: portacath insertion History of Present Illness Danisha Leonard is a 60 year old female who underwent prior left paramedian mediastinotomy for AP window adenopathy. Pathology returned squamous carcinoma. Presumptive primary is lung though no skuhi mass identified. This procedure was performed on December 14. She been evaluated by Dr. Augustin and Dr. Alas from oncology service. In preparation for continued therapy, Port-A-Cath placement has been recommended. This procedure was delayed due to recent Covid infection for which she has recovered from without sequelae. She is still within the 90-day window from her infection. Review of Systems Const: Denies: fever(s), chills, change in appetite, change in weight, fatigue or night sweats Eyes: Denies: change in vision or blurry vision ENMT: Denies: odynophagia or hoarseness Card: Reports: dyspnea on exertion; Denies: chest pain, palpitations, irregular heart rhythm or edema Resp: Denies: dyspnea or productive cough GI: Denies: abdominal pain, nausea, vomiting, dysphagia, heartburn or change in bowel habits : Denies: dysuria, urinary frequency, urinary urgency or urinary hesitancy Musc: Denies: extremity pain or extremity swelling Skin/Breast: Denies: rash Neuro: Denies: headache(s), numbness in extremities, weakness in extremities or sensory changes Psych: Denies: anxiety, depression or change in appetite Endo: Denies: polyuria, polydipsia or cold intolerance Deric/Lymph: Denies: easy bruising, easy bleeding, petechiae or enlarged lymph nodes Medications/Allergies Home Medications Medication Instructions Recorded Confirmed Last Taken Type Vitamin C 1 tab PO DAILY 07/04/20 02/06/21 02/04/21 History multivitamin [Multiple Vitamins] 1 tab PO DAILY 07/04/20 02/06/21 02/05/21 History aspirin [Aspir-81] 81 mg PO DAILY 07/12/20 02/06/21 01/30/21 History budesonide-formoterol [Symbicort] 2 puff INHALATION BID 08/10/20 02/06/21 01/23/21 History pantoprazole 40 mg tablet,delayed 40 mg PO QAM 30 Days #30 tab 08/26/20 02/06/21 02/05/21 Rx release albuterol sulfate 90 mcg/actuation 2 puff INHALATION Q6H PRN 09/27/20 02/06/21 01/30/21 History aerosol inhaler lisinopril 10 mg tablet 10 mg PO DAILY 12/07/20 02/06/21 02/05/21 History amlodipine 10 mg PO DAILY 12/13/20 02/06/21 02/06/21 05:00 History oxycodone-acetaminophen 1 tab PO Q6H PRN #15 tab 12/15/20 02/06/21 02/06/21 Rx zinc 50 mg PO DAILY 02/03/21 02/06/21 02/05/21 History Allergies Allergy/AdvReac Type Severity Reaction Status Date / Time adhesive Allergy ALGY-Hives Verified 02/06/21 06:50 clindamycin Allergy ALGY-Hives Verified 02/06/21 06:50 egg Allergy ADR-Vomitin Verified 02/06/21 06:50 g Penicillins Allergy ALGY-Hives Verified 02/06/21 06:50 skin glue Allergy ALGY-Bliste Uncoded 02/03/21 13:26 r PFSH Acute PFSH: Medical History Abdominal aortic aneurysm COPD (chronic obstructive pulmonary disease) Gastritis HTN (hypertension) PAD (peripheral artery disease) Sigmoid diverticulitis Surgical History History of hysterectomy Post PTCA Status post colonoscopy (10/11/20) 10 years Status post laparoscopic cholecystectomy (08/11/20) Family History Father Cancer lung Mother Diabetes Dementia Social History Smoking and tobacco status: heavy tobacco smoker Quit status (tobacco): has quit using tobacco Year quit tobacco: [id number] Alcohol intake: never Lives independently: Yes Household members: none Housing: House Vitals/I&O/Wt Last Vital Signs Temp 98.1 F 02/06/21 06:56 Pulse 88 02/06/21 06:56 Resp 18 02/06/21 06:56 BP 139/70 02/06/21 06:56 Pulse Ox 98 02/06/21 06:56 Physical Exam Const: COMMON NORMALS: patient oriented x3 and alert ORIENTATION/CONSCIOUSNESS: Yes oriented to person, Yes oriented to place and Yes oriented to time HENMT: COMMON NORMALS: normocephalic HEAD & SCALP: normocephalic Neck/C-Spine: COMMON NORMALS: full ROM, supple, no JVD and No carotid bruits GENERAL: Yes trachea midline CERVICAL SPINE: Yes cervical ROM normal Chest: COMMONS NORMALS: normal inspection of the chest (Her paramedian incision is healing well. There is some mild hypoesthesia l) and normal palpation of entire chest wall Resp: COMMON NORMALS: normal respiratory effort, No use of accessory muscles, clear to auscultation bilaterally and percussion normal EFFORT & INSPECTION: Yes able to speak in complete sentences and Yes symmetric chest movement AUSCULTATION: clear to auscultation bilaterally PERCUSSION: percussion normal Cardio: COMMON NORMALS: no JVD, regular rate, regular rhythm, S1 normal heart sound present, S2 normal heart sound present, No gallops present (Cardio), No murmurs present (Cardio), No rub (Cardio) and Peripheral pulses 2+ throughout JUGULAR VENOUS DISTENTION: no JVD RATE: regular rate RHYTHM: regular rhythm HEART SOUNDS: S1 normal heart sound present and S2 normal heart sound present PERIPHERAL PULSES: Peripheral pulses 2+ throughout Neuro: COMMON NORMALS: patient oriented x3, no focal motor deficits and no sensory deficits noted SENSORIUM/ORIENTATION: Yes alert, Yes oriented to person, Yes oriented to place and Yes oriented to time GAIT: Yes Normal gait present Data : 02/06/21 07:01 02/06/21 07:01 A&P Assessment and plan (1) Squamous cell carcinoma of lung: We will plan for Port-A-Cath placement today. Details and risk of procedure were carefully discussed, including potential for major bleeding, pneumothorax requiring chest tube, infection requiring need to remove the device, pain after procedure, need for follow-up, malfunction of the device requiring revision. She and her wish to proceed. Status: Acute Attestations Medical Necessity Statement*: Squamous cell carcinoma with planned chemotherapy. Coding Level of Care Code Acute [facility]er for [facility] Diagnoses Squamous cell carcinoma of lung C34.90
[2021-02-06] MEDS: vancomycin 1,000 MG SDV 1000 MG IRRIGATION (09:04)
[2021-02-06] MEDS: lidocaine 1% INJ 20 mL SUBCUT (09:04)
[2021-02-06] MEDS: heparin, porcine 1,000 unit/mL INJ 10 mL 10000 UNIT IRRIGATION (09:18)
--- NOTE | 2021-02-06 09:47 | PM.OP ---
Operative Report Date of procedure: February 06, 2021 Pre-op Diagnosis: Squamous cell carcinoma of lung Post-op diagnosis: same Procedure Done: Left subclavian Port-A-Cath placement Pathology: none sent Surgeon: Zeferino Matthews Anesthesia: MAC and Local Complications: None: Chest x-ray pending Disposition: PACU Brief History: Ms. Leonard is a 60-year-old female who is been previously diagnosed with squamous cell carcinoma, presumably from a long following a left-sided Wadley procedure for adenopathy. Actual primary is not certain as if there are no discrete pulmonary parenchymal lesions. She has been evaluated by our oncology service and Port-A-Cath is recommended for continued therapy. Rationale for this was carefully discussed. Details the risk were also reviewed proper consents have been signed. Procedure: Ms. Leonard was taken to the operating room and placed on the OR table in supine position. Appropriate sedation and relaxation were provided by our anesthesia colleagues. Her entire upper chest and neck was sterilely prepped and draped. 1% lidocaine was infiltrated for local anesthesia. The patient was then placed in Trendelenburg position. Utilizing modified Seldinger technique, the left subclavian vein was engaged with needle and aspirated blood. A guidewire was then placed into position. Position was confirmed by fluoroscopy. Needle was withdrawn. The patient was then placed in the supine position. A #15 scalpel blade was used to incise the skin at the exit point from the guidewire and continued laterally and inferiorly. Utilizing cautery for meticulous hemostasis, a subcutaneous pocket was then created to allow for placement of the Port-A-Cath reservoir. Antibiotic-soaked sponge was then placed in the subcutaneous pocket. Port-A-Cath tubing was measured to the appropriate length and then cut. It was then connected to the Port-A-Cath reservoir, secured, and the entire system was flushed with heparin solution. The dilator, followed by tear-a-way sheath, were placed over the guidewire. The guidewire and dilator were removed intact. The Port-A-Cath vascular tubing was then placed through the sheath, which was then removed. The entire system was interrogated by fluoroscopy throughout the procedure. Moreno needle was placed through the Port-A-Cath diaphragm, easily aspirated blood, and flushed with heparin lock solution. The Port-A-Cath reservoir was then secured to the floor of the subcutaneous pocket with suture. The pocket was then carefully irrigated with antibiotic solution. Hemostasis was confirmed. The wound was then closed in 2 layers of 3-0 Vicryl suture subcutaneously. The skin was reapproximated carefully in a subcuticular manner with 4-0 Monocryl suture. A sterile dressing was applied followed by a compressive dressing. At the completion of the procedure there are equal breath sounds bilaterally. Vital signs remained stable. The patient was then transported to PACU. Chest x-ray is pending. We counseled with her brother at the completion of the procedure.
[2021-02-06 09:54] VITALS: BP 81/57; PULSE 81; RESP 18; TEMP 36.6; O2SAT 93
[2021-02-06 10:00] VITALS: BP 119/54; PULSE 80; RESP 16; O2SAT 93
--- NOTE | 2021-02-06 10:00 | XRR_ITS ---
PROCEDURE INFORMATION: Exam: XR Chest Exam date and time: 02/06/2021 10:07 AM Age: 60 years old Clinical indication: Device placement; Other: Cabg; Prior surgery; Surgery date: Post-operative (0-2 days); Additional info: Post op cabg TECHNIQUE: Imaging protocol: XR of the chest Views: Frontal portable upright view of the chest. COMPARISON: CR XR chest 1V [id number] 12/14/2020 6:09 PM FINDINGS: Tubes, catheters and devices: EKG leads are present overlying the chest. The left subclavian venous portacatheter tip is in the cavoatrial junction. Lungs: Mild left lateral basilar subsegmental atelectasis. The lungs are otherwise clear bilaterally. The pulmonary vasculature is normal. Pleural spaces: No pleural effusion. No pneumothorax. Heart/Mediastinum: The heart is normal in size and contour. Mediastinum: Stable. Bones/joints: Right lateral vertebral body marginal osteophytes are noted at multiple thoracic spinal levels. XR/XR chest 1V portable [id number] IMPRESSION: 1. Mild left lateral basilar subsegmental atelectasis. 2. Otherwise, no acute cardiopulmonary abnormality identified.
[2021-02-06 10:05] VITALS: BP 128/84; PULSE 83; RESP 17; TEMP 36.6; O2SAT 94
[2021-02-06 10:10] VITALS: BP 105/52; PULSE 81; RESP 15; TEMP 36.6; O2SAT 94
[2021-02-06 10:25] VITALS: BP 106/49; PULSE 86; RESP 16; TEMP 36.6; O2SAT 94
--- NOTE | 2021-02-06 12:24 | ANE.PACU2 ---
Inpatient post-anesthesia follow up: Airway intact: Yes Vital signs: Temperature 98 F Pulse Rate 86 Respiratory Rate 16 Blood Pressure 106/49 Pulse Oximetry 94 Oxygen Delivery Me thod Room Air Oxygen Flow Rate Fraction of Inspir ed Oxygen Hydration adequate: Yes Nausea and vomiting: No Pain level: 1 Mental status: Baseline
== END 2021-02-06 10:45 | disposition home or self-care (01) ==
PROVIDERS: PCP Family Medicine; Visit Provider Thoracic Surgery (Cardiothoracic Vascular Surgery)
PROC: (CPT 36561; principal; 2021-02-06 08:20)
DX: C34.90 Malignant neoplasm of unspecified part of unspecified bronchus or lung (principal); Z79.82 Long term (current) use of aspirin; I10 Essential (primary) hypertension; F17.210 Nicotine dependence, cigarettes, uncomplicated; J44.9 Chronic obstructive pulmonary disease, unspecified; I25.10 Atherosclerotic heart disease of native coronary artery without angina pectoris; K21.9 Gastro-esophageal reflux disease without esophagitis
CPT/HCPCS: 36561; 36415; 71045; 76000; 77001; 80048; 81001; 85025; 96365; C1788; J1644; J2250; J2370; J2405; J2704; J3010; J3370; J3490; J7030; J7050

== ENCOUNTER 2021-02-28 05:35 | Outpatient (RCR) | payer MEDICAID, SELFPAY ==
--- NOTE | 2021-02-09 | CT_ITS ---
Radiation Therapy Planning CT images; total exam DLP: 631.39 mGy-cm MTDD
--- NOTE | 2021-02-13 13:42 | ONCRAD EPV_ITS ---
Radiation Oncology Follow-Up Note Patient Name: Danisha Leonard Date of : 1960 Date of Service: 02/13/2021 Attending Physician: Maykel Alas M.D. Danisha Leonard is a 60 year-old white female diagnosed with a clinical stage IIIA (TXN2) poorly differentiated carcinoma of the lung. [place] Genomic Prevalence Score from [employer] identified a 98% likelihood of lung adenocarcinoma. The patient has received 2 Gy of a prescribed 60 [place] with an intensity modulated radiotherapy plan utilizing a step and shoot treatment technique. She has been prescribed carboplatin (AUC 2) and paclitaxel (50 mg/m???) weekly during therapy. Upon review of systems, she denied pulmonary symptoms. On physical examination, the patient weighed 160 lbs. Her temperature was 99.4 ???F with a blood pressure of 115/68 mmHg. The pulse was 78 bpm and her respiratory rate was 16. Oxygen saturation while breathing room air was 96%. There was no erythema within the treatment daniel. Continue thoracic radiotherapy as prescribed. Signed by: Dr. Maykel Alas 02/13/2021 1:41:07 PM
[2021-02-13 13:44] LABS: Basophils # 0.1 10^3/uL (0.0-0.1); Basophils % 1.4 %; Eosinophils # 0.2 10^3/uL (0.0-0.8); Eosinophils % 2.9 %; Hematocrit 37.6 % (37.0-47.0); Hemoglobin 12.5 g/dL (11.5-15.3); Lymphocytes # 2.8 10^3/uL (0.8-4.8); Lymphocytes % 39.4 %; Mean Corpuscular HGB Conc 33.2 g/dL (30.0-36.0); Mean Corpuscular Hemoglobin 31.1 pg (28.0-34.0); Mean Corpuscular Volume 93.5 fL (81-99); Mean Platelet Volume 10.2 fL (7.4-10.4); Monocytes # 0.5 10^3/uL (0.2-0.9); Neutrophils # 3.51 10^3/uL (1.8-7.7); Nucleated Red Blood Cells % 0 %; Platelet Count 349 10^3/cmm (130-400); Red Blood Count 4.02 10^6/uL (4.1-5.3); White Blood Count 7.2 10^3/uL (4.0-10.0)
[2021-02-13 14:09] LABS: Alanine Aminotransferase 21 U/L (0-33); Albumin Level 4.1 g/dL (3.5-5.2); Alkaline Phosphatase 108 IU/L (35-105); Anion Gap 13.2 (5-19); Aspartate Amino Transferase 14 U/L (0-32); Blood Urea Nitrogen 22 mg/dL (6-20); Calcium 9.3 mg/dL (8.5-10.5); Carbon Dioxide 28 mmol/L (22-29); Chloride 98 mmol/L (98-107); Globulin 3.3 g/dL (1.3-4.6); Glomerular Filtration Rate 102.7 mL/min (90-130); Glucose 83 mg/dL (65-115); Osmolality Calculated 282 mOsm/kg (285-295); Potassium 4.2 mmol/L (3.5-5.1); Sodium 135 mmol/L (136-145); Total Bilirubin 0.2 mg/dL (0.15-1.2); Total Protein 7.4 g/dL (6.6-8.7)
[2021-02-14] MEDS: palonosetron 0.25 mg/5 mL SDV IVP (12:10)
[2021-02-14] MEDS: sodium chloride 0.9% 250 ML 75 ML IV (12:10)
[2021-02-14] MEDS: famotidine 20 mg/2 mL INJ IVP (12:11)
[2021-02-14] MEDS: diphenhydrAMINE 50 mg/mL SDV 1mL 25 MG IVP (12:13)
--- NOTE | 2021-02-21 13:40 | ONCRAD TMN_ITS ---
Radiation Oncology Treatment Management Note Patient Name: Danisha Leonard Date of : 1960 Date of Service: 02/21/2021 Attending Physician: Maykel Alas M.D. Danisha Leonard is a 60 year-old white female diagnosed with a clinical stage IIIA (TXN2) poorly differentiated carcinoma of the lung. [place] Genomic Prevalence Score from [employer] identified a 98% likelihood of lung adenocarcinoma. The patient has received 14 Gy of a prescribed 60 [place] with an intensity modulated radiotherapy plan utilizing a step and shoot treatment technique. She has been prescribed carboplatin (AUC 2) and paclitaxel (50 mg/m???) weekly during therapy. Upon review of systems, she denied pulmonary symptoms. On physical examination, the patient weighed 159 lbs. Her temperature was 98.7 ???F with a blood pressure of 115/53 mmHg. The pulse was 90 bpm and her respiratory rate was 20. Oxygen saturation while breathing room air was 97%. There was no erythema within the treatment daniel. Bronchial breath sounds were auscultated. Continue thoracic radiotherapy as planned. Signed by: Dr. Maykel Alas 02/21/2021 1:39:02 PM
[2021-02-21 14:17] LABS: Basophils # 0.1 10^3/uL (0.0-0.1); Eosinophils # 0.2 10^3/uL (0.0-0.8); Eosinophils % 2.6 %; Hemoglobin 11.3 g/dL (11.5-15.3); Lymphocytes # 1.4 10^3/uL (0.8-4.8); Lymphocytes % 25.1 %; Mean Corpuscular HGB Conc 33.2 g/dL (30.0-36.0); Mean Corpuscular Hemoglobin 31.1 pg (28.0-34.0); Mean Corpuscular Volume 93.7 fL (81-99); Mean Platelet Volume 10.1 fL (7.4-10.4); Monocytes # 0.5 10^3/uL (0.2-0.9); Monocytes % 8.2 %; Neutrophils # 3.57 10^3/uL (1.8-7.7); Neutrophils % 62.4 %; Nucleated Red Blood Cells % 0 %; Platelet Count 316 10^3/cmm (130-400); Red Blood Count 3.63 10^6/uL (4.1-5.3); Red Cell Distribution Width 11.8 % (12.1-15.1); White Blood Count 5.7 10^3/uL (4.0-10.0)
[2021-02-21 14:30] LABS: Alanine Aminotransferase 17 U/L (0-33); Albumin Level 3.8 g/dL (3.5-5.2); Alkaline Phosphatase 104 IU/L (35-105); Anion Gap 11.8 (5-19); Aspartate Amino Transferase 11 U/L (0-32); Blood Urea Nitrogen 15 mg/dL (6-20); Calcium 8.8 mg/dL (8.5-10.5); Carbon Dioxide 26 mmol/L (22-29); Chloride 100 mmol/L (98-107); Glomerular Filtration Rate 102.7 mL/min (90-130); Glucose 98 mg/dL (65-115); Osmolality Calculated 279 mOsm/kg (285-295); Potassium 3.8 mmol/L (3.5-5.1); Sodium 134 mmol/L (136-145); Total Bilirubin 0.3 mg/dL (0.15-1.2); Total Protein 6.8 g/dL (6.6-8.7)
[2021-02-22] MEDS: palonosetron 0.25 mg/5 mL SDV IVP (14:28)
[2021-02-22] MEDS: sodium chloride 0.9% 250 ML 75 ML IV (14:28)
[2021-02-22] MEDS: famotidine 20 mg/2 mL INJ IVP (14:30)
[2021-02-22] MEDS: diphenhydrAMINE 50 mg/mL SDV 1mL 25 MG IVP (14:33)
[2021-02-28] MEDS: sodium chloride 0.9% 1,000 ML 999 ML IV (09:45)
[2021-02-28 10:07] LABS: Basophils # 0.1 10^3/uL (0.0-0.1); Basophils % 1.6 %; Eosinophils # 0.1 10^3/uL (0.0-0.8); Eosinophils % 2.6 %; Hematocrit 34.5 % (37.0-47.0); Hemoglobin 11.4 g/dL (11.5-15.3); Lymphocytes # 0.7 10^3/uL (0.8-4.8); Lymphocytes % 22.1 %; Mean Corpuscular Volume 93.8 fL (81-99); Monocytes # 0.2 10^3/uL (0.2-0.9); Monocytes % 7.1 %; Neutrophils # 2.05 10^3/uL (1.8-7.7); Neutrophils % 65.6 %; Nucleated Red Blood Cells % 0 %; Platelet Count 317 10^3/cmm (130-400); Red Blood Count 3.68 10^6/uL (4.1-5.3); Red Cell Distribution Width 11.9 % (12.1-15.1); White Blood Count 3.1 10^3/uL (4.0-10.0)
[2021-02-28 10:22] LABS: Alanine Aminotransferase 25 U/L (0-33); Alkaline Phosphatase 96 IU/L (35-105); Aspartate Amino Transferase 14 U/L (0-32); Blood Urea Nitrogen 19 mg/dL (6-20); Calcium 9.5 mg/dL (8.5-10.5); Carbon Dioxide 26 mmol/L (22-29); Chloride 98 mmol/L (98-107); Glomerular Filtration Rate 102.7 mL/min (90-130); Glucose 113 mg/dL (65-115); Osmolality Calculated 283 mOsm/kg (285-295); Sodium 135 mmol/L (136-145); Total Bilirubin 0.6 mg/dL (0.15-1.2)
--- NOTE | 2021-02-28 10:40 | ONCRAD TMN_ITS ---
Radiation Oncology Treatment Management Note Patient Name: Danisha Leonard Date of : 1960 Date of Service: 02/28/2021 Attending Physician: Maykel Alas M.D. Danisha Leonard is a 60 year-old white female diagnosed with a clinical stage IIIA (TXN2) poorly differentiated carcinoma of the lung. [place] Genomic Prevalence Score from [employer] identified a 98% likelihood of lung adenocarcinoma. The patient has received 24 Gy of a prescribed 60 [place] with an intensity modulated radiotherapy plan utilizing a step and shoot treatment technique. She has been prescribed carboplatin (AUC 2) and paclitaxel (50 mg/m???) weekly during therapy. Upon review of systems, she reported odynophagia. On physical examination, the patient weighed 159 lbs. Her temperature was 98.1 ???F with a blood pressure of 120/76 mmHg. The pulse was 120 bpm and her respiratory rate was 18. Oxygen saturation while breathing room air was 99%. There was no erythema within the treatment daniel. Bronchial breath sounds were auscultated. Continue thoracic radiotherapy as prescribed. I will prescribe Oxycodone elixir for odynophagia. Signed by: Dr. Maykel Alas 02/28/2021 10:38:54 AM
--- NOTE | 2021-03-05 22:28 | ONC FU_ITS ---
[facility] Patient Note Patient: Danisha Leonard Unit #: [id number]: 1960 Dictated By: Janessa TavarezDate of Visit: Feb 22, 2021 Onc MED Follow-Up/Prog Note Chief Complaint: Metastatic squamous cell carcinoma. 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 As yet she has no documented primary malignancy. She has multiple medical illnesses including COPD, hypertension, peripheral arterial disease, and degenerative arthritis. She has a known abdominal aortic aneurysm. Since July 2020 she has had complaints of abdominal pain. These had persisted despite undergoing cholecystectomy in August. She was then thought to have gastritis and/or diverticulitis, though her colonoscopy in October was completely unremarkable. She then developed further symptoms of throat swelling, lightheadedness and chest pain, and she also developed hoarseness, for which she was seen in the emergency room on November 29, 2020. 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 There was marked/severe narrowing of the origin of the left vertebral artery due to large plaque. There was noted to be asymmetry of the vocal cords with small nodularity on the left. Tonsils were symmetrically enlarged. There was mediastinal adenopathy including a 2 cm node in the aortopulmonary window and a subcarinal lymph node measuring 1.5 cm. An enlarged right hilar lymph node measured 1.[address] angiogram of the chest showed no evidence of pulmonary embolus. There was noted to be patchy airspace opacity in the left lower lobe compatible with pneumonic infiltrate and there was mild diffuse interstitial and groundglass opacity in the lungs compatible with mild pneumonitis versus CHF. Also noted was a 1.3 cm precarinal lymph node, 1.5 cm left hilar lymph node, and 1.2 cm right hilar lymph node. With those findings she was referred to Dr. Leroy and she was confirmed by flexible laryngoscopy to have left vocal cord paralysis. She was then seen by Dr. Matthews and on December 14, 2020 she underwent left open paramedian mediastinotomy with biopsy of the AP window lymph node. Pathology showed metastatic squamous cell carcinoma which was p16 negative. Ms. Leonard was referred to Dr. Augustin for further plan of care consideration of chemotherapy on December. She required further testing to complete her workup. Ms. Leonard underwent PET CT imaging on 12/31/2020 with [facility]. There is no significant FDG activity in the left glottis to indicate a site of primary malignancy. There are several FDG positive mediastinal nodes, having a high probability of representing malignancy. A superior prevascular node measures 1.0 cm with an SUV of 5.8. Other nodes are present in the left prevascular, subaortic and subcarinal territories; the subaortic node has an SUV of 7.0. There were no significant incidental PET findings. There were no findings to indicate osseous metastatic disease. Impression 1 multiple FDG positive mediastinal lymph nodes, consistent with malignancy. 2 postsurgical changes in the left parasternal territory. 3. Unremarkable FDG uptake in the glottis; specifically, there are no findings to indicate a primary malignancy site . Ms. Leonard also had Caris testing on the biopsy from December 14, 2020. It did report PD-L1 (22 C3) by IHC was +1+, 95%. ER BB 2 (HER-2/aaron) by IHC was negative. K-brandon result was pathogenic variant exon 2 p.G13D; exon 27 p.Q. 1188: NF1 pathogenic variant exon 39 p. (further details are unreadable on current copy of Caris report); T p53 likely pathogenic variant by sequencing of the DNA tumor exon 7 p.M246L. The MSI was reported as stable mismatch repair was proficient; NTRK 1-2-3 fusion not detected. Tumor mutational burden was low, 8 mut/MB; ALK mutation not detected/RNA tumor fusion not detected. BRAF, BRCA 1 and 2 mutation not detected EGFR mutation not detected, ER BB 2 mutation not detected-for further details please see the [facility]is report. She also saw Dr. Alas in radiation oncology for consideration of thoracic radiotherapy and management of the non-small cell lung cancer. Dr. Alas note indicated that he discussed with Ms. Leonard that AJCC stage IIIa disease (TxN2) and the NCCN guidelines for concurrent chemo radiotherapy in the management of locally advanced lung cancer established by the classic study RTOG 9410. She was offered combined chemo radiation therapy. Is anticipated that she will receive a 6-week course of thoracic radiotherapy. With the combined therapy, the chemotherapy portion was prescribed with weekly carboplatin AUC of 2 and Taxol. Ms. Leonard is here today for her first week of chemotherapy with carboplatin AUC of 2 and weekly Taxol. She has no new concerns today. She denies any fever or chills. She is had no known Covid symptoms or recent exposure. She denies any pending test. She states her breathing is about the same it certainly does not seem to be any worse. She states her appetite is fair. Her energy is poor. 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 She hopes to get back to that after treatment. She denies any new concerns. She denies any new pain. She denies diarrhea or constipation. She denies any nausea or vomiting. She has no pre-existing neuropathy symptoms that she is complains about. She states that she has had a slight headache off and on. She states she did take her steroids premeds and they make me feel little loopy . She states that she needs to be seen in cardiology because she has a history of peripheral artery disease and has had multiple stents. She has had some intermittent chest pain but states is stable and has been there for quite some time. She does concerned because she has not had cardiac follow-up in some time. Her ECOG is 2. Past Medical History: Abdominal aortic aneurysm Chronic obstructive pulmonary disease Degenerative arthritis Gastroesophageal reflux disease History of pyelonephritis/sepsis Hypertension Peripheral artery disease Covid 19 in 2020 Past Surgical History: Excision of skin cancer from the right hand Left subclavian Gwxg-m-Most-Dr Matthews in 2020 Bronchoscopy in 2020 Left open paramedian mediastinotomy with mediastinal lymph node biopsy in 2020 Colonoscopy in 2019 Laparoscopic cholecystectomy in 2019 Arterial stent placement to the right common iliac artery in 2014 Hysterectomy with bilateral salpingo-oophorectomy and bladder tie up in 2001 Allergies: Adhesive, Clindamycin HCl, Egg, Penicillins, and Skin Glue. Medications: amLODIPine Besylate 1 (10 mg) Tablet Oral daily Aspirin 81 1 (81 mg) Tablet, chewable Oral every am DULoxetine HCl 1 Tablet (of 20 mg) Tablet Oral daily Lisinopril 1 (10 mg) Tablet Oral daily Pantoprazole Sodium 1 (40 mg) Tablet, enteric coated Oral daily Vitamin C & D3/Tessa Hips 1 (500-1000-20 mg - Units - mg) Capsule Oral daily Zinc 1 (50 mg) Capsule Oral daily Family History: Ms. Leonard's father is : lung cancer. Father of lung cancer at age 80. Mother is still living at age 84. She has congestive heart failure. A brother and a sister are in good health. Social History: Ms. Leonard is single. Ms. Leonard quit smoking less than one year ago but had smoked for 51 years. She is a former drinker. She has history of smoking up to 2 packs of cigarettes daily or more, beginning at age 10. She quit smoking in December 2020. She previously has had some alcohol use, but never heavy. She has had no alcohol use for at least the last 2 or 3 years. Review Of Symptoms: Constitutional Denies fevers, chills, night sweats, excessive fatigue or weight loss. Allergic/Immunologic No reactions. Eyes Denies significant visual changes. No diplopia. No amaurosis. ENMT Denies changes in hearing, sore throat, mouth sores, difficulty or changes in swallowing ability, and/or sinus drainage. Hematologic/Lymphatic Denies easy bruising or bleeding. The patient denies any tender or palpable lymph nodes. Breasts no concerns Respiratory Denies dyspnea on exertion, chest pain, cough or hemoptysis. Denies orthopnea. Cardiovascular see above Gastrointestinal Denies persistent nausea and has not had vomiting, diarrhea, GI bleeding, or constipation. Denies change in bowel habits and/or stool color, no heartburn or early satiety. Genitourinary (F) No hematuria, hesitancy, incontinence, vaginal bleeding, discharge or other problems with urination. Musculoskeletal Denies joint pain, swelling or redness. No decreased range of motion. Integumentary Denies chronic rashes, inflammation, ulcerations or skin changes. Neurologic Denies headache, blurred vision, and no areas of focal weakness or numbness. Normal gait. No sensory problems. Psychiatric Denies insomnia, depression, meena or mood swings. Vital Signs: Performed on Feb 22, 2021 13:17 Height - 66.00 in Weight - 157.4 lbs (LOW) BSA - 1.81 sq.m BMI - 25.41 Temperature - 98.0 F (LOW) Pulse - 108 /min (HIGH) Respiration - 19 /min BP - 121/71 mm(hg) O2 Sat - 96 % Pain - 0,2 - Ambulatory/capable of all self-care, unable to perform any work activities. Up and about more than 50% of waking hours. (ECOG) Physical Examination: Constitutional Alert, oriented, no acute distress. Skin pink, warm and dry. Head Normocephalic; atraumatic. Eyes Conjunctivae and sclerae are clear and without icterus. Pupils are reactive and equal. ENMT No oral exudates, ulcers, masses, thrush or mucositis. Oropharynx clear. Tongue normal. Respiratory Lungs are clear to auscultation without rhonchi or wheezing. Cardiovascular Regular rate and rhythm of heart without murmurs,clicks, gallops or rubs. Chest left subclavian venous access device insertion site is healing well. Abdomen Non-tender, non-distended, no masses or ascites. Good bowel sounds noted in all quads. No guarding or rebound tenderness. No pulsatile masses. Back/Spine Non-tender to palpation. Extremities No visible deformities, no cyanosis, clubbing or edema. Musculoskeletal No tenderness or swelling, normal range of motion without obvious weakness. Integumentary No rashes or lesions. Neurologic No sensory or motor deficits, normal cerebellar function, normal gait. Psychiatric Alert and oriented times three. Coherent speech. Verbalizes understanding of our discussions today. Laboratory:Test performed on Feb 28, 2021 13:08 Creatinine 0.6 mg/dL Cr Clearance (Est) 117.24 mL/min Test performed on Feb 13, 2021 12:15 Sodium 135 mmol/L Potassium 4.2 mmol/L Chloride 98 mmol/L CO2 28 mmol/L Anion Gap 13.2 BUN 22 mg/dL eGFR 102.7 mL/min Glucose 83 mg/dL Osmolality - Calculated 282 mOsm/kg Calcium 9.3 mg/dL Protein, Total 7.4 g/dL Albumin 4.1 g/dL Globulin 3.3 g/dL Bilirubin, Total 0.2 mg/dL ALT (SGPT) 21 U/L AST (SGOT) 14 U/L Alkaline Phosphatase 108 IU/L WBC 7.2 10 3/uL RBC 4.02 10 6/uL HGB 12.5 g/dL HCT 37.6 % MCV 93.5 fL MCH 31.1 pg MCHC 33.2 g/dL RDW 12.0 % Platelet Count 349 10 3/cmm MPV 10.2 fL Neutrophils 3.51 10 3/uL Lymphocytes 2.8 10 3/uL Monocytes 0.5 10 3/uL Eosinophils 0.2 10 3/uL Basophils 0.1 10 3/uL Neutrophil % 49.0 % Lymphocyte % 39.4 % Monocyte % 7.0 % Eosinophil % 2.9 % Basophils % 1.4 % NRBC % 0 % Impression: 1. 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 There is associated left vocal cord paralysis. A primary lesion has not yet been identified, but the pattern is most consistent with metastatic non-small cell lung cancer. 2. Hypertension. 3. There is CT evidence of carotid and vertebral artery stenosis. 4. She has history of peripheral arterial disease with previous stent to the right common iliac artery. 5. COPD. 6. GERD. 7. Degenerative arthritis. 8. Anxiety/depression. 9. She did have placement of a left subclavian PowerPort per Dr. Matthews on 02/06/2021. Plan: PROBLEMS ADDRESSED TODAY 1. 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 There is associated left vocal cord paralysis. A primary lesion has not yet been identified, but the pattern is most consistent with metastatic non-small cell lung cancer. Her initial management had been problematic due to lack of insurance coverage, which delayed our ability to obtain a staging PET/CT. Ms. Leonard eventually underwent PET CT imaging on 12/31/2020 with [facility]. There is no significant FDG activity in the left glottis to indicate a site of primary malignancy. There are several FDG positive mediastinal nodes, having a high probability of representing malignancy. A superior prevascular node measures 1.0 cm with an SUV of 5.8. Other nodes are present in the left prevascular, subaortic and subcarinal territories; the subaortic node has an SUV of 7.0. There were no significant incidental PET findings. There were no findings to indicate osseous metastatic disease. Impression 1 multiple FDG positive mediastinal lymph nodes, consistent with malignancy. 2 postsurgical changes in the left parasternal territory. 3. Unremarkable FDG uptake in the glottis; specifically, there are no findings to indicate a primary malignancy site . Ms. Leonard also had Caris testing on the biopsy from December 14, 2020. It did report PD-L1 (22 C3) by IHC was +1+, 95%. ER BB 2 (HER-2/aaron) by IHC was negative. K-brandon result was pathogenic variant exon 2 p.G13D; exon 27 p.Q. 1188: NF1 pathogenic variant exon 39 p. (further details are unreadable on current copy of Caris report); T p53 likely pathogenic variant by sequencing of the DNA tumor exon 7 p.M246L. The MSI was reported as stable mismatch repair was proficient; NTRK 1-2-3 fusion not detected. Tumor mutational burden was low, 8 mut/MB; ALK mutation not detected/RNA tumor fusion not detected. BRAF, BRCA 1 and 2 mutation not detected EGFR mutation not detected, ERBB 2 mutation not detected-for further details please see the Caris report. Dr Augustin discussed with Ms Leonard the fact that she does have confirmed squamous cell carcinoma, and that it is metastatic in the mediastinal lymph nodes and therefore inoperable. A primary lung cancer would be the most likely source and with disease localized to the lung/mediastinal lymph nodes the recommended treatment would be concurrent chemoradiation. She is scheduled to begin her first treatment with combined chemoradiation. The chemotherapy treatment plan is weekly carboplatin AUC of 2 andTaxol. A. Proceed with week 1 carboplatin AUC of 2 Taxol. B. Steroid compliance confirmed. C. She may have Compazine and lorazepam as needed for antiemetics at home. D. Labs from February 21, 2021 were reviewed in detail and discussed with Ms. Leonard and a copy was given to her. WBC 5.7, hemoglobin 11.3, platelets 316,000 ANC is 3570. Potassium 3.8 creatinine 0.6 random glucose 98 LFTs are normal. Her calcium is 8.8. Sodium is 134. E. The patient was informed of chemotherapy plan and specific drugs were discussed. We also discussed how chemotherapy works and identified common side effects including alopecia; myelosuppression-including neutropenia, anemia, thrombocytopenia; peripheral neuropathy; fatigue; nausea; diarrhea; constipation; bleeding or bruising; skin changes; mouth sores; drug hypersensitivity/allergic reactions or anaphylaxis and extravasation. They have also been informed how to contact the clinic with side effects or symptoms, including but not limited to fever greater than 100.4???, chills, sore throat, bleeding or bruising that is not explained or mouth sores, cough, nasal discharge, diarrhea, constipation, nausea and/or vomiting not relieved with medications on hand at home, as well as any other concern or question they may have. Our hours are 8:00 a.m. to 4:30 p.m. on Saturday through and 8-12:00 on Saturday. However, someone is environmental health inspector 24 hours per day and they have been advised to contact the [facility] at if it is after hours. We have also discussed potential long-term side effects of chemotherapy including secondary cancers, infertility, pulmonary complications, cardiac complications, and again peripheral neuropathy. We have discussed that they certainly need to let us know before taking any antioxidants or herbal or further dietary supplements, as we are unsure of how these agents react with chemotherapy and we request that they avoid these products for now. They were informed that it is okay to take multivitamins at normal doses. They verbally state that they understand to take all medications as directed by their healthcare provider unless otherwise indicated. They also verbalized understanding to leave the pressure dressing on the intravenous administration site for at least two hours after treatment. Instructions for oral care with baking soda and salt water rinses as well as a guide for use of [id number]-dipffar medication were provided with the treatment plan. They have been given a written patient treatment plan, of which a copy is in the chart, as well as specific drug information. Ms Leonard had no questions and verbalized understanding. She is willing to proceed with chemotherapy at this time. 2. She is having persistent episodes of chest pain and lightheadedness. A. The symptoms would not predictably be associated with this extent of malignant disease, and Dr Augustin has voiced concerned that they are more likely associated with the underlying vascular disease. B. She was seen in the emergency room on November 29, 2020. 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 There was marked/severe narrowing of the origin of the left vertebral artery due to large plaque. C. We will get her referred to [facility] cardiology for follow-up of the CT findings on 11/29/2020. 3. Follow-up plan A. She will be seen weekly for chemotherapy monitoring. Her current plan is weekly for approximately 6 weeks. B. She will have weekly CBC CMP prior to her chemotherapy. C. Mrs. Leonard was instructed to contact us in the interim should questions or problems arise. D. If she has persistent concerns with headaches. She may need further imaging of her head. She does have arterial stent placement in the right common iliac artery. Not sure that will impact her ability to have an MRI of her head that would need to be noted on the referral. E. 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 F. We will plan to remind her to take her steroid premedications prior to her chemotherapy only call with her reminder call. G. 65 minutes was spent in review of patient's records and plan of care prior to her visit as well as engaging [id number] with Ms Leonard in regards to education of her current plan of care, side effect of medication and management as well as answering questions regarding her disease and plan of care; and post visit documentation. Signed By: Janessa Tavarez-, AOCNP Mark Augustin MD <<Signature on File>>
== END 2021-02-28 08:30 | disposition home or self-care (01) ==
LOC: ONCMED 05:35
PROVIDERS: Nurse Practitioner; PCP Family Medicine; Visit Provider Internal Medicine Medical Oncology
DX: Z51.0 Encounter for antineoplastic radiation therapy (principal); Z51.11 Encounter for antineoplastic chemotherapy; C34.90 Malignant neoplasm of unspecified part of unspecified bronchus or lung; C77.1 Secondary and unspecified malignant neoplasm of intrathoracic lymph nodes; I10 Essential (primary) hypertension; I65.29 Occlusion and stenosis of unspecified carotid artery; I65.09 Occlusion and stenosis of unspecified vertebral artery; I73.9 Peripheral vascular disease, unspecified; R07.9 Chest pain, unspecified; R42 Dizziness and giddiness; R51.9 Headache, unspecified; Z51.81 Encounter for therapeutic drug level monitoring; Z79.899 Other long term (current) drug therapy; Z79.52 Long term (current) use of systemic steroids; Z87.891 Personal history of nicotine dependence
CPT/HCPCS: 36591; 77300; 77301; 77334; 77336; 77338; 77386; 77470; 80053; 85025; 96367; 96375; 96413; 96417; 99215; J1100; J1200; J2469; J3490; J7030; J7040; J7050; J9045; J9267; Q9967

== ENCOUNTER 2021-02-28 08:31 | Outpatient (CLI) | payer MEDICAID, SELFPAY ==
--- NOTE | 2021-02-28 13:29 | PFTS_ITS ---
Date of Study:02/28/21 Date of Dictation: 02/28/2021 MECHANICS: Postbronchodilator forced vital capacity (FVC) is reduced. Postbronchodilator forced expiratory volume in one second (FEV1) is moderately reduced 58%. FEV1/FVC is reduced. There is significant response to bronchodilators. FLOW VOLUME LOOP: Sloping of expiratory limb suggestive of airway obstruction . LUNG VOLUMES: Not measured DIFFUSING CAPACITY FOR CARBON MONOXIDE: Not measured . INTERPRETATION: The spirometry suggestive of moderate obstructive ventilatory defect. There is significant response to bronchodilators. Please correlate clinically. MTDD
== END 2021-02-28 08:32 | disposition home or self-care (01) ==
PROVIDERS: PCP Family Medicine; Visit Provider Family Medicine
DX: J44.9 Chronic obstructive pulmonary disease, unspecified (principal)
CPT/HCPCS: 94060; J7611

== ENCOUNTER 2021-03-01 06:10 | Outpatient (RCR) | payer MEDICAID, SELFPAY ==
[2021-03-01] MEDS: sodium chloride 0.9% 250 ML 75 ML IV (13:15)
[2021-03-01] MEDS: palonosetron 0.25 mg/5 mL SDV IV (13:15)
[2021-03-01] MEDS: famotidine 20 mg/2 mL INJ IVP (13:16)
[2021-03-01] MEDS: diphenhydrAMINE 50 mg/mL SDV 1mL 25 MG IV (13:18)
--- NOTE | 2021-03-13 23:34 | ONC FU_ITS ---
[facility] Patient Note Patient: Danisha Leonard Unit #: [id number]: 1960 Dictated By: Janessa TavarezDate of Visit: Mar 01, 2021 Onc MED Follow-Up/Prog Note Chief Complaint: Metastatic squamous cell carcinoma. 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 As yet she has no documented primary malignancy. She has multiple medical illnesses including COPD, hypertension, peripheral arterial disease, and degenerative arthritis. She has a known abdominal aortic aneurysm. Since July 2020 she has had complaints of abdominal pain. These had persisted despite undergoing cholecystectomy in August. She was then thought to have gastritis and/or diverticulitis, though her colonoscopy in October was completely unremarkable. She then developed further symptoms of throat swelling, lightheadedness and chest pain, and she also developed hoarseness, for which she was seen in the emergency room on November 29, 2020. 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 There was marked/severe narrowing of the origin of the left vertebral artery due to large plaque. There was noted to be asymmetry of the vocal cords with small nodularity on the left. Tonsils were symmetrically enlarged. There was mediastinal adenopathy including a 2 cm node in the aortopulmonary window and a subcarinal lymph node measuring 1.5 cm. An enlarged right hilar lymph node measured 1.[address] angiogram of the chest showed no evidence of pulmonary embolus. There was noted to be patchy airspace opacity in the left lower lobe compatible with pneumonic infiltrate and there was mild diffuse interstitial and groundglass opacity in the lungs compatible with mild pneumonitis versus CHF. Also noted was a 1.3 cm precarinal lymph node, 1.5 cm left hilar lymph node, and 1.2 cm right hilar lymph node. With those findings she was referred to Dr. Leroy and she was confirmed by flexible laryngoscopy to have left vocal cord paralysis. She was then seen by Dr. Matthews and on December 14, 2020 she underwent left open paramedian mediastinotomy with biopsy of the AP window lymph node. Pathology showed metastatic squamous cell carcinoma which was p16 negative. Ms. Leonard was referred to Dr. Augustin for further plan of care consideration of chemotherapy on December. She required further testing to complete her workup. Ms. Leonard underwent PET CT imaging on 12/31/2020 with [facility]. There is no significant FDG activity in the left glottis to indicate a site of primary malignancy. There are several FDG positive mediastinal nodes, having a high probability of representing malignancy. A superior prevascular node measures 1.0 cm with an SUV of 5.8. Other nodes are present in the left prevascular, subaortic and subcarinal territories; the subaortic node has an SUV of 7.0. There were no significant incidental PET findings. There were no findings to indicate osseous metastatic disease. Impression 1 multiple FDG positive mediastinal lymph nodes, consistent with malignancy. 2 postsurgical changes in the left parasternal territory. 3. Unremarkable FDG uptake in the glottis; specifically, there are no findings to indicate a primary malignancy site . Ms. Leonard also had Caris testing on the biopsy from December 14, 2020. It did report PD-L1 (22 C3) by IHC was +1+, 95%. ER BB 2 (HER-2/aaron) by IHC was negative. K-brandon result was pathogenic variant exon 2 p.G13D; exon 27 p.Q. 1188: NF1 pathogenic variant exon 39 p. (further details are unreadable on current copy of [facility] report); T p53 likely pathogenic variant by sequencing of the DNA tumor exon 7 p.M246L. The MSI was reported as stable mismatch repair was proficient; NTRK 1-2-3 fusion not detected. Tumor mutational burden was low, 8 mut/MB; ALK mutation not detected/RNA tumor fusion not detected. BRAF, BRCA 1 and 2 mutation not detected EGFR mutation not detected, ER BB 2 mutation not detected-for further details please see the [facility] report. She also saw Dr. Alas in radiation oncology for consideration of thoracic radiotherapy and management of the non-small cell lung cancer. Dr. Alas note indicated that he discussed with Ms. Leonard that AJCC stage IIIa disease (TxN2) and the NCCN guidelines for concurrent chemo radiotherapy in the management of locally advanced lung cancer established by the classic study RTOG 9410. She was offered combined chemo radiation therapy. Is anticipated that she will receive a 6-week course of thoracic radiotherapy. With the combined therapy, the chemotherapy portion was prescribed with weekly carboplatin AUC of 2 and Taxol. Ms. Leonard is here today for her third week of chemotherapy with carboplatin AUC of 2 and weekly Taxol. She began weekly carboplatin and Taxol on February 14, 2021. She has no new concerns today. She denies any fever or chills. She has had no known Covid symptoms or recent exposure. She has had persistent chest discomfort which she describes as a tightness heaviness fullness with intermittent sharp discomfort as well. She states that she has been having some lightheadedness off and on. She has a history of peripheral artery disease and carotid artery disease. She has not seen a trash collector truck driver in some time per her report. She was evaluated by pulmonary function test on February 28. The interpretation by Dr. Huff was the spirometry was suggestive of moderate obstructive ventilatory defect. There is significant response to the bronchodilators. Her FEV1 is moderately reduced 58%. She continues with radiation therapy. Her ANC from February 28, 2021 is 2050. We discussed at length that she may be too low for treatment next week. They would like to wait and treat her today. She has not had any signs or symptoms of infection or neutropenia. She states her appetite is good and overall she still feels good. Her ECOG is 2. Past Medical History: Abdominal aortic aneurysm Chronic obstructive pulmonary disease Degenerative arthritis Gastroesophageal reflux disease History of pyelonephritis/sepsis Hypertension Peripheral artery disease Covid 19 in 2020 Past Surgical History: Excision of skin cancer from the right hand Left subclavian Euio-l-Kdsz-Dr Matthews in 2020 Bronchoscopy in 2020 Left open paramedian mediastinotomy with mediastinal lymph node biopsy in 2020 Colonoscopy in 2019 Laparoscopic cholecystectomy in 2019 Arterial stent placement to the right common iliac artery in 2014 Hysterectomy with bilateral salpingo-oophorectomy and bladder tie up in 2001 Allergies: Adhesive, Clindamycin HCl, Egg, Penicillins, and Skin Glue. Medications: amLODIPine Besylate 1 (10 mg) Tablet Oral daily Aspirin 81 1 (81 mg) Tablet, chewable Oral every am DULoxetine HCl 1 Tablet (of 20 mg) Tablet Oral daily Lisinopril 1 (10 mg) Tablet Oral daily Pantoprazole Sodium 1 (40 mg) Tablet, enteric coated Oral daily Vitamin C & D3/Tessa Hips 1 (500-1000-20 mg - Units - mg) Capsule Oral daily Zinc 1 (50 mg) Capsule Oral daily Family History: Ms. Leonard's father is : lung cancer. Father of lung cancer at age 80. Mother is still living at age 84. She has congestive heart failure. A brother and a sister are in good health. Social History: Ms. Leonard is single. Ms. Leonard quit smoking less than one year ago but had smoked for 51 years. She is a former drinker. She has history of smoking up to 2 packs of cigarettes daily or more, beginning at age 10. She quit smoking in December 2020. She previously has had some alcohol use, but never heavy. She has had no alcohol use for at least the last 2 or 3 years. Vital Signs: Performed on Mar 01, 2021 13:15 Height - 66.00 in Temperature - 98.5 F Pulse - 101 /min (HIGH) Respiration - 16 /min BP - 125/71 mm(hg) O2 Sat - 94 % (LOW) Pain - 0 Fatigue - 0,1 - No physically strenuous activity, but ambulatory and able to carry out light or sedentary work (e.g. office work, light house work). (ECOG) Physical Examination: Constitutional Alert, oriented, no acute distress. Skin pink, warm and dry. Head Normocephalic; atraumatic. Eyes Conjunctivae and sclerae are clear and without icterus. Pupils are reactive and equal. ENMT No oral exudates, ulcers, masses, thrush or mucositis. Oropharynx clear. Tongue normal. Respiratory Lungs are clear to auscultation without rhonchi or wheezing. Cardiovascular Regular rate and rhythm of heart without murmurs,clicks, gallops or rubs. Chest left subclavian venous access device insertion site is healing well. Abdomen Non-tender, non-distended, no masses or ascites. Good bowel sounds noted in all quads. No guarding or rebound tenderness. No pulsatile masses. Back/Spine Non-tender to palpation. Extremities No visible deformities, no cyanosis, clubbing or edema. Musculoskeletal No tenderness or swelling, normal range of motion without obvious weakness. Integumentary No rashes or lesions. Neurologic No sensory or motor deficits, normal cerebellar function, normal gait. Psychiatric Alert and oriented times three. Coherent speech. Verbalizes understanding of our discussions today. Laboratory:Test performed on Mar 08, 2021 09:19 Sodium 137 mmol/L Potassium 3.8 mmol/L Chloride 104 mmol/L CO2 24 mmol/L Anion Gap 12.8 BUN 19 mg/dL Creatinine 0.7 mg/dL Cr Clearance (Est) 100.4900 mL/min eGFR 85.9 mL/min Glucose 140 mg/dL Osmolality - Calculated 289 mOsm/kg Calcium 8.2 mg/dL Protein, Total 5.4 g/dL Albumin 3.1 g/dL Globulin 2.3 g/dL Bilirubin, Total 0.5 mg/dL ALT (SGPT) 23 U/L AST (SGOT) 12 U/L Alkaline Phosphatase 86 IU/L Test performed on Mar 08, 2021 09:10 WBC 2.1 10 3/uL RBC 3.34 10 6/uL HGB 10.4 g/dL HCT 31.6 % MCV 94.6 fL MCH 31.1 pg MCHC 32.9 g/dL RDW 12.4 % Platelet Count 229 10 3/cmm MPV 10.1 fL Neutrophils 1.28 10 3/uL Lymphocytes 0.5 10 3/uL Monocytes 0.3 10 3/uL Eosinophils 0.0 10 3/uL Basophils 0.0 10 3/uL Neutrophil % 60.7 % Lymphocyte % 21.3 % Monocyte % 12.8 % Eosinophil % 1.9 % Basophils % 1.9 % NRBC % 0 % Test performed on Feb 28, 2021 00:00 Manual Diff DUP ORDER Impression: 1. 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 There is associated left vocal cord paralysis. A primary lesion has not yet been identified, but the pattern is most consistent with metastatic non-small cell lung cancer. 2. Hypertension. 3. There is CT evidence of carotid and vertebral artery stenosis. 4. She has history of peripheral arterial disease with previous stent to the right common iliac artery. 5. COPD. 6. GERD. 7. Degenerative arthritis. 8. Anxiety/depression. 9. She did have placement of a left subclavian PowerPort per Dr. Matthews on 02/06/2021. Plan: PROBLEMS ADDRESSED TODAY 1. 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 There is associated left vocal cord paralysis. A primary lesion has not yet been identified, but the pattern is most consistent with metastatic non-small cell lung cancer. Her initial management had been problematic due to lack of insurance coverage, which delayed our ability to obtain a staging PET/CT. Ms. Leonard eventually underwent PET CT imaging on 12/31/2020 with [facility]. There is no significant FDG activity in the left glottis to indicate a site of primary malignancy. There are several FDG positive mediastinal nodes, having a high probability of representing malignancy. A superior prevascular node measures 1.0 cm with an SUV of 5.8. Other nodes are present in the left prevascular, subaortic and subcarinal territories; the subaortic node has an SUV of 7.0. There were no significant incidental PET findings. There were no findings to indicate osseous metastatic disease. Impression 1 multiple FDG positive mediastinal lymph nodes, consistent with malignancy. 2 postsurgical changes in the left parasternal territory. 3. Unremarkable FDG uptake in the glottis; specifically, there are no findings to indicate a primary malignancy site . Ms. Leonard also had Caris testing on the biopsy from December 14, 2020. It did report PD-L1 (22 C3) by IHC was +1+, 95%. ER BB 2 (HER-2/aaron) by IHC was negative. K-brandon result was pathogenic variant exon 2 p.G13D; exon 27 p.Q. 1188: NF1 pathogenic variant exon 39 p. (further details are unreadable on current copy of [facility] report); T p53 likely pathogenic variant by sequencing of the DNA tumor exon 7 p.M246L. The MSI was reported as stable mismatch repair was proficient; NTRK 1-2-3 fusion not detected. Tumor mutational burden was low, 8 mut/MB; ALK mutation not detected/RNA tumor fusion not detected. BRAF, BRCA 1 and 2 mutation not detected EGFR mutation not detected, ERBB 2 mutation not detected-for further details please see the [facility] report. Dr Augustin discussed with Ms Leonard the fact that she does have confirmed squamous cell carcinoma, and that it is metastatic in the mediastinal lymph nodes and therefore inoperable. A primary lung cancer would be the most likely source and with disease localized to the lung/mediastinal lymph nodes the recommended treatment would be concurrent chemoradiation. She is scheduled to begin her first treatment with combined chemoradiation. The chemotherapy treatment plan is weekly carboplatin AUC of 2 andTaxol. A. Proceed with week 3 carboplatin AUC of 2 Taxol. B. Steroid compliance confirmed. C. She may have Compazine and lorazepam as needed for antiemetics at home. D. Labs from February 28, 2021 were reviewed in detail and discussed with Ms. Leonard and a copy was given to her. WBC 3.1, hemoglobin 11.4, platelets 3 17,000, ANC is 0. Creatinine 0.6 random glucose 113 LFTs are normal. 2. She is having persistent episodes of chest pain and lightheadedness. A. The symptoms would not predictably be associated with this extent of malignant disease, and Dr Augustin has voiced concerned that they are more likely associated with the underlying vascular disease. B. She was seen in the emergency room on November 29, 2020. 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 There was marked/severe narrowing of the origin of the left vertebral artery due to large plaque. C. We will get her referred to [facility] cardiology for follow-up of the CT findings on 11/29/2020. 3. Follow-up plan A. She will be seen weekly for chemotherapy monitoring. Her current plan is weekly for approximately 6 weeks. B. She will have weekly CBC CMP prior to her chemotherapy. C. Mrs. Leonard was instructed to contact us in the interim should questions or problems arise. D. If she has persistent concerns with headaches. She may need further imaging of her head. She does have arterial stent placement in the right common iliac artery. Not sure that will impact her ability to have an MRI of her head that would need to be noted on the referral. E. She Hs PFTs on February 28, 2021 at request of her armhole feller handstitching machine. See report above. F. We will plan to remind her to take her steroid premedications prior to her chemotherapy only call with her reminder call. G. Monthly port flush at minimum for port maintenance Signed By: Janessa Tavarez- Mark Augustin MD <<Signature on File>>
== END 2021-03-01 23:59 | disposition home or self-care (01) ==
LOC: ONCMED 06:10
PROVIDERS: PCP Family Medicine; Visit Provider Nurse Practitioner
DX: Z51.11 Encounter for antineoplastic chemotherapy (principal); Z51.0 Encounter for antineoplastic radiation therapy; C34.90 Malignant neoplasm of unspecified part of unspecified bronchus or lung; C77.1 Secondary and unspecified malignant neoplasm of intrathoracic lymph nodes; J38.01 Paralysis of vocal cords and larynx, unilateral; R13.10 Dysphagia, unspecified; R07.9 Chest pain, unspecified; R42 Dizziness and giddiness; I10 Essential (primary) hypertension; I65.23 Occlusion and stenosis of bilateral carotid arteries; Z79.899 Other long term (current) drug therapy; Z87.891 Personal history of nicotine dependence; Z79.52 Long term (current) use of systemic steroids
CPT/HCPCS: 77386; 96360; 96367; 96375; 96413; 96417; 99214; J1100; J1200; J2469; J3490; J7030; J7050; J9045; J9267

== ENCOUNTER → 2021-03-18 10:35 | Day surgery (SDC) | payer MEDICAID, SELFPAY ==
[2021-03-18 10:37] VITALS: BMI 24.5
[2021-03-18 10:49] VITALS: BP 125/85; PULSE 87; RESP 18; TEMP 36.3; O2SAT 99
== END ==
PROVIDERS: PCP Family Medicine; Visit Provider Nurse Practitioner
DX: D70.9 Neutropenia, unspecified (principal)
CPT/HCPCS: 96372; J1442

== ENCOUNTER 2021-03-24 05:49 | Outpatient (RCR) | payer MEDICAID, SELFPAY ==
--- NOTE | 2021-03-07 13:39 | ONCRAD EPV_ITS ---
Radiation Oncology Follow-Up Note Patient Name: Danisha Leonard Date of : 1960 Date of Service: 03/07/2021 Attending Physician: Maykel Alas M.D. Danisha Leonard is a 60 year-old white female diagnosed with a clinical stage IIIA (TXN2) poorly differentiated carcinoma of the lung. [place] Genomic Prevalence Score from [employer] identified a 98% likelihood of lung adenocarcinoma. The patient has received 34 Gy of a prescribed 60 [place] with an intensity modulated radiotherapy plan utilizing a step and shoot treatment technique. She has been prescribed carboplatin (AUC 2) and paclitaxel (50 mg/m???) weekly during therapy. Upon review of systems, she reported persistent nausea. On physical examination, the patient weighed 155 lbs. Her temperature was 97.9 ???F with a blood pressure of 102/57 mmHg. The pulse was 91 bpm and her respiratory rate was 20. Oxygen saturation while breathing room air was 99%. There was no erythema within the treatment daniel. Bronchial breath sounds were auscultated. Continue thoracic radiotherapy as planned. I will prescribe Zofran prn. Signed by: Dr. Maykel Alas 03/07/2021 1:37:29 PM
[2021-03-07] MEDS: sodium chloride 0.9% 500 ML IV (13:50)
[2021-03-08] MEDS: sodium chloride 0.9% 500 ML IV (09:46)
[2021-03-08 10:07] LABS: Basophils % 1.9 %; Eosinophils % 1.9 %; Hematocrit 31.6 % (37.0-47.0); Hemoglobin 10.4 g/dL (11.5-15.3); Lymphocytes # 0.5 10^3/uL (0.8-4.8); Lymphocytes % 21.3 %; Mean Corpuscular HGB Conc 32.9 g/dL (30.0-36.0); Mean Corpuscular Hemoglobin 31.1 pg (28.0-34.0); Mean Corpuscular Volume 94.6 fL (81-99); Mean Platelet Volume 10.1 fL (7.4-10.4); Monocytes # 0.3 10^3/uL (0.2-0.9); Monocytes % 12.8 %; Neutrophils # 1.28 10^3/uL (1.8-7.7); Neutrophils % 60.7 %; Nucleated Red Blood Cells % 0 %; Platelet Count 229 10^3/cmm (130-400); Red Blood Count 3.34 10^6/uL (4.1-5.3); Red Cell Distribution Width 12.4 % (12.1-15.1); White Blood Count 2.1 10^3/uL (4.0-10.0)
[2021-03-08] MEDS: famotidine 20 mg/2 mL INJ IVP (10:10)
[2021-03-08] MEDS: ondansetron 2 mg/ML SDV 2 mL 8 MG IV (10:15)
[2021-03-08 10:33] LABS: Alanine Aminotransferase 15 U/L (0-33); Albumin Level 2.2 g/dL (3.5-5.2); Alkaline Phosphatase 62 IU/L (35-105); Anion Gap 11.2 (5-19); Aspartate Amino Transferase 9 U/L (0-32); Blood Urea Nitrogen 12 mg/dL (6-20); Carbon Dioxide 16 mmol/L (22-29); Chloride 115 mmol/L (98-107); Globulin 1.7 g/dL (1.3-4.6); Glomerular Filtration Rate 163.9 mL/min (90-130); Glucose 92 mg/dL (65-115); Osmolality Calculated 289 mOsm/kg (285-295); Sodium 140 mmol/L (136-145); Total Bilirubin 0.4 mg/dL (0.15-1.2); Total Protein 3.9 g/dL (6.6-8.7)
[2021-03-08 10:54] LABS: Calcium 5.4 mg/dL (8.5-10.5); Potassium 2.2 mmol/L (3.5-5.1)
[2021-03-08 12:09] LABS: Alanine Aminotransferase 23 U/L (0-33); Albumin Level 3.1 g/dL (3.5-5.2); Alkaline Phosphatase 86 IU/L (35-105); Anion Gap 12.8 (5-19); Aspartate Amino Transferase 12 U/L (0-32); Blood Urea Nitrogen 19 mg/dL (6-20); Calcium 8.2 mg/dL (8.5-10.5); Carbon Dioxide 24 mmol/L (22-29); Chloride 104 mmol/L (98-107); Globulin 2.3 g/dL (1.3-4.6); Glomerular Filtration Rate 85.9 mL/min (90-130); Glucose 140 mg/dL (65-115); Osmolality Calculated 289 mOsm/kg (285-295); Potassium 3.8 mmol/L (3.5-5.1); Sodium 137 mmol/L (136-145); Total Bilirubin 0.5 mg/dL (0.15-1.2); Total Protein 5.4 g/dL (6.6-8.7)
--- NOTE | 2021-03-14 13:35 | ONCRAD TMN_ITS ---
Radiation Oncology Treatment Management Note Patient Name: Danisha Leonard Date of : 1960 Date of Service: 03/14/2021 Attending Physician: Maykel Alas M.D. Danisha Leonard is a 60 year-old white female diagnosed with a clinical stage IIIA (TXN2) poorly differentiated carcinoma of the lung. [place] Genomic Prevalence Score from [employer] identified a 98% likelihood of lung adenocarcinoma. The patient has received 44 Gy of a prescribed 60 [place] with an intensity modulated radiotherapy plan utilizing a step and shoot treatment technique. She has been prescribed carboplatin (AUC 2) and paclitaxel (50 mg/m???) weekly during therapy. Upon review of systems, she denied any pulmonary changes. On physical examination, the patient weighed 156 lbs. Her temperature was 98 ???F with a blood pressure of 111/68 mmHg. The pulse was 91 bpm and her respiratory rate was 20. Oxygen saturation while breathing room air was 98%. There was mild erythema within the treatment daniel. Bronchial breath sounds were auscultated. Continue thoracic radiotherapy as prescribed. Signed by: Dr. Maykel Alas 03/14/2021 1:34:04 PM
[2021-03-15 14:04] LABS: Basophils # 0.1 10^3/uL (0.0-0.1); Basophils % 2.1 %; Eosinophils # 0.1 10^3/uL (0.0-0.8); Eosinophils % 2.5 %; Hematocrit 31.8 % (37.0-47.0); Hemoglobin 10.5 g/dL (11.5-15.3); Lymphocytes # 0.5 10^3/uL (0.8-4.8); Mean Corpuscular Hemoglobin 31.5 pg (28.0-34.0); Mean Corpuscular Volume 95.5 fL (81-99); Mean Platelet Volume 9.5 fL (7.4-10.4); Monocytes # 0.4 10^3/uL (0.2-0.9); Monocytes % 15.2 %; Neutrophils # 1.44 10^3/uL (1.8-7.7); Neutrophils % 60.8 %; Nucleated Red Blood Cells % 0 %; Platelet Count 192 10^3/cmm (130-400); Red Blood Count 3.33 10^6/uL (4.1-5.3); White Blood Count 2.4 10^3/uL (4.0-10.0)
[2021-03-15 14:31] LABS: Alanine Aminotransferase 18 U/L (0-33); Albumin Level 3.4 g/dL (3.5-5.2); Alkaline Phosphatase 102 IU/L (35-105); Aspartate Amino Transferase 12 U/L (0-32); Blood Urea Nitrogen 15 mg/dL (6-20); Calcium 8.3 mg/dL (8.5-10.5); Carbon Dioxide 27 mmol/L (22-29); Chloride 103 mmol/L (98-107); Globulin 2.6 g/dL (1.3-4.6); Glomerular Filtration Rate 85.9 mL/min (90-130); Glucose 89 mg/dL (65-115); Osmolality Calculated 286 mOsm/kg (285-295); Sodium 138 mmol/L (136-145); Total Bilirubin 0.2 mg/dL (0.15-1.2)
[2021-03-16] MEDS: sodium chloride 0.9% 500 ML 999 ML IV (13:50)
[2021-03-16] MEDS: famotidine 20 mg/2 mL INJ IVP (13:50)
[2021-03-16] MEDS: diphenhydrAMINE 50 mg/mL SDV 1mL 25 MG IV (13:53)
[2021-03-16] MEDS: palonosetron 0.25 mg/5 mL SDV IV (13:57)
--- NOTE | 2021-03-21 13:42 | ONCRAD TMN_ITS ---
Radiation Oncology Treatment Management Note Patient Name: Danisha Leonard Date of : 1960 Date of Service: 03/21/2021 Attending Physician: Maykel Alas M.D. Danisha Leonard is a 60 year-old white female diagnosed with a clinical stage IIIA (TXN2) poorly differentiated carcinoma of the lung. [place] Genomic Prevalence Score from [employer] identified a 98% likelihood of lung adenocarcinoma. The patient has received 54 Gy of a prescribed 60 Strat[place] with an intensity modulated radiotherapy plan utilizing a step and shoot treatment technique. She has been prescribed carboplatin (AUC 2) and paclitaxel (50 mg/m???) weekly during therapy. Upon review of systems, she denied any pulmonary complaints. On physical examination, the patient weighed 154 lbs. Her temperature was 97.5 ???F with a blood pressure of 116/65 mmHg. The pulse was 106 bpm and her respiratory rate was 22. Oxygen saturation while breathing room air was 98%. There was mild erythema within the treatment daniel. Bronchial breath sounds were present. Continue thoracic radiotherapy as planned. Signed by: Dr. Maykel Alas 03/21/2021 1:40:56 PM
[2021-03-21 14:32] LABS: Basophils # 0.1 10^3/uL (0.0-0.1); Eosinophils # 0.1 10^3/uL (0.0-0.8); Eosinophils % 2.8 %; Hematocrit 33.9 % (37.0-47.0); Hemoglobin 11.2 g/dL (11.5-15.3); Lymphocytes # 0.4 10^3/uL (0.8-4.8); Lymphocytes % 16.9 %; Mean Corpuscular Volume 93.9 fL (81-99); Mean Platelet Volume 10.7 fL (7.4-10.4); Monocytes # 0.2 10^3/uL (0.2-0.9); Monocytes % 8.3 %; Neutrophils # 1.77 10^3/uL (1.8-7.7); Neutrophils % 69.6 %; Nucleated Red Blood Cells % 0 %; Platelet Count 190 10^3/cmm (130-400); Red Blood Count 3.61 10^6/uL (4.1-5.3); Red Cell Distribution Width 13.2 % (12.1-15.1); White Blood Count 2.5 10^3/uL (4.0-10.0)
[2021-03-21 14:48] LABS: Free T4 Free Thyroxine 1.24 ng/dL (0.82-1.77); T3 Free 3.4 PG/ML (2.0-4.4); Thyroid Stimulating Hormone 1.57 uIU/mL (0.27-4.20)
[2021-03-21 15:21] LABS: Alanine Aminotransferase 20 U/L (0-33); Albumin Level 3.6 g/dL (3.5-5.2); Alkaline Phosphatase 114 IU/L (35-105); Anion Gap 16.6 (5-19); Aspartate Amino Transferase 16 U/L (0-32); Blood Urea Nitrogen 23 mg/dL (6-20); Calcium 8.5 mg/dL (8.5-10.5); Carbon Dioxide 24 mmol/L (22-29); Chloride 99 mmol/L (98-107); Globulin 2.5 g/dL (1.3-4.6); Glomerular Filtration Rate 73.7 mL/min (90-130); Glucose 134 mg/dL (65-115); Osmolality Calculated 288 mOsm/kg (285-295); Potassium 3.6 mmol/L (3.5-5.1); Sodium 136 mmol/L (136-145); Total Bilirubin 0.5 mg/dL (0.15-1.2); Total Protein 6.1 g/dL (6.6-8.7)
[2021-03-21 15:42] LABS: Slide Review Slide Review Perform
[2021-03-22] MEDS: sodium chloride 0.9% 250 ML 75 ML IV (14:15)
[2021-03-22] MEDS: palonosetron 0.25 mg/5 mL SDV IV (14:15)
[2021-03-22] MEDS: famotidine 20 mg/2 mL INJ IVP (14:18)
[2021-03-22] MEDS: diphenhydrAMINE 50 mg/mL SDV 1mL 25 MG IV (14:20)
[2021-03-22] MEDS: dexamethasone 10 mg/mL INJ IV (14:30)
--- NOTE | 2021-03-31 14:29 | ONC FU_ITS ---
[facility] Patient Note Patient: Danisha Leonard Unit #: [id number]: 1960 Dictated By: Janessa TavarezDate of Visit: Mar 16, 2021 Onc MED Follow-Up/Prog Note Chief Complaint: Metastatic squamous cell carcinoma. 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 As yet she has no documented primary malignancy. She has multiple medical illnesses including COPD, hypertension, peripheral arterial disease, and degenerative arthritis. She has a known abdominal aortic aneurysm. Since July 2020 she has had complaints of abdominal pain. These had persisted despite undergoing cholecystectomy in August. She was then thought to have gastritis and/or diverticulitis, though her colonoscopy in October was completely unremarkable. She then developed further symptoms of throat swelling, lightheadedness and chest pain, and she also developed hoarseness, for which she was seen in the emergency room on November 29, 2020. 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 There was marked/severe narrowing of the origin of the left vertebral artery due to large plaque. There was noted to be asymmetry of the vocal cords with small nodularity on the left. Tonsils were symmetrically enlarged. There was mediastinal adenopathy including a 2 cm node in the aortopulmonary window and a subcarinal lymph node measuring 1.5 cm. An enlarged right hilar lymph node measured 1.[address] angiogram of the chest showed no evidence of pulmonary embolus. There was noted to be patchy airspace opacity in the left lower lobe compatible with pneumonic infiltrate and there was mild diffuse interstitial and groundglass opacity in the lungs compatible with mild pneumonitis versus CHF. Also noted was a 1.3 cm precarinal lymph node, 1.5 cm left hilar lymph node, and 1.2 cm right hilar lymph node. With those findings she was referred to Dr. Leroy and she was confirmed by flexible laryngoscopy to have left vocal cord paralysis. She was then seen by Dr. Matthews and on December 14, 2020 she underwent left open paramedian mediastinotomy with biopsy of the AP window lymph node. Pathology showed metastatic squamous cell carcinoma which was p16 negative. Ms. Leonard was referred to Dr. Augustin for further plan of care consideration of chemotherapy on December. She required further testing to complete her workup. Ms. Leonard underwent PET CT imaging on 12/31/2020 with [facility]. There is no significant FDG activity in the left glottis to indicate a site of primary malignancy. There are several FDG positive mediastinal nodes, having a high probability of representing malignancy. A superior prevascular node measures 1.0 cm with an SUV of 5.8. Other nodes are present in the left prevascular, subaortic and subcarinal territories; the subaortic node has an SUV of 7.0. There were no significant incidental PET findings. There were no findings to indicate osseous metastatic disease. Impression 1 multiple FDG positive mediastinal lymph nodes, consistent with malignancy. 2 postsurgical changes in the left parasternal territory. 3. Unremarkable FDG uptake in the glottis; specifically, there are no findings to indicate a primary malignancy site . Ms. Leonard also had Caris testing on the biopsy from December 14, 2020. It did report PD-L1 (22 C3) by IHC was +1+, 95%. ER BB 2 (HER-2/aaron) by IHC was negative. K-brandon result was pathogenic variant exon 2 p.G13D; exon 27 p.Q. 1188: NF1 pathogenic variant exon 39 p. (further details are unreadable on current copy of Caris report); T p53 likely pathogenic variant by sequencing of the DNA tumor exon 7 p.M246L. The MSI was reported as stable mismatch repair was proficient; NTRK 1-2-3 fusion not detected. Tumor mutational burden was low, 8 mut/MB; ALK mutation not detected/RNA tumor fusion not detected. BRAF, BRCA 1 and 2 mutation not detected EGFR mutation not detected, ER BB 2 mutation not detected-for further details please see the [facility] report. She also saw Dr. Alas in radiation oncology for consideration of thoracic radiotherapy and management of the non-small cell lung cancer. Dr. Alas note indicated that he discussed with Ms. Leonard that AJCC stage IIIa disease (TxN2) and the NCCN guidelines for concurrent chemo radiotherapy in the management of locally advanced lung cancer established by the classic study RTOG 9410. She was offered combined chemo radiation therapy. Is anticipated that she will receive a 6-week course of thoracic radiotherapy. With the combined therapy, the chemotherapy portion was prescribed with weekly carboplatin AUC of 2 and Taxol. Ms. Leonard is here today for her fourth week of chemotherapy with carboplatin AUC of 2 and weekly Taxol. She began weekly carboplatin and Taxol on February 14, 2021. Her last dose was on March 01, 2021. She has missed the last 2 weeks due 2 neutropenia her ANC on her scheduled week 4 was 1300. She was also feeling puny . She was having a significant decline in performance status and was having trouble eating and drinking. She required hydration daily for multiple days and also required antiemetics. She states over the weekend she has started feeling better and has been eating better. She denies any fever or chills. She is had no signs or symptoms of infection. She states she is tired but is feeling better. She denies any further nausea at the time. She denies headaches or vision changes. She states that she is feeling better overall. She has had no diarrhea or constipation. She denies any neuropathy symptoms at present. She states that she has had some palpitations off and on but that is not unusual for her. She does have an appointment with cardiology coming up. Her ECOG is 1. Past Medical History: Abdominal aortic aneurysm Chronic obstructive pulmonary disease Degenerative arthritis Gastroesophageal reflux disease History of pyelonephritis/sepsis Hypertension Peripheral artery disease Covid 19 in 2020 Past Surgical History: Excision of skin cancer from the right hand Left subclavian Utdn-m-Mmde-Dr Matthews in 2020 Bronchoscopy in 2020 Left open paramedian mediastinotomy with mediastinal lymph node biopsy in 2020 Colonoscopy in 2019 Laparoscopic cholecystectomy in 2019 Arterial stent placement to the right common iliac artery in 2014 Hysterectomy with bilateral salpingo-oophorectomy and bladder tie up in 2001 Allergies: Adhesive, Clindamycin HCl, Egg, Penicillins, and Skin Glue. Medications: Aspirin 81 1 (81 mg) Tablet, chewable Oral every am DULoxetine HCl 1 Tablet (of 20 mg) Tablet Oral daily Pantoprazole Sodium 1 (40 mg) Tablet, enteric coated Oral daily Vitamin C & D3/Tessa Hips 1 (500-1000-20 mg - Units - mg) Capsule Oral daily Zinc 1 (50 mg) Capsule Oral daily Family History: Ms. Leonard's father is : lung cancer. Father of lung cancer at age 80. Mother is still living at age 84. She has congestive heart failure. A brother and a sister are in good health. Social History: Ms. Leonard is single. Ms. Leoanrd quit smoking less than one year ago but had smoked for 51 years. She is a former drinker. She has history of smoking up to 2 packs of cigarettes daily or more, beginning at age 10. She quit smoking in December 2020. She previously has had some alcohol use, but never heavy. She has had no alcohol use for at least the last 2 or 3 years. Review Of Symptoms: ^see above] Vital Signs: Performed on Mar 16, 2021 12:57 Height - 66.00 in Weight - 155.2 lbs (LOW) BSA - 1.80 sq.m BMI - 25.05 Temperature - 97.5 F (LOW) Pulse - 123 /min (HIGH) Respiration - 18 /min BP - 111/69 mm(hg) O2 Sat - 95 % (LOW) Pain - 0,2 - Ambulatory/capable of all self-care, unable to perform any work activities. Up and about more than 50% of waking hours. (ECOG) Physical Examination: Constitutional Alert, oriented, no acute distress. Skin pink, warm and dry. Head Normocephalic; atraumatic. Eyes Conjunctivae and sclerae are clear and without icterus. Pupils are reactive and equal. Respiratory Lungs are clear to auscultation without rhonchi or wheezing. Cardiovascular Regular rate and rhythm of heart without murmurs,clicks, gallops or rubs. Chest left subclavian venous access device insertion site is unremarkable. Back/Spine Non-tender to palpation. Extremities No visible deformities, no cyanosis, clubbing or edema. Musculoskeletal No tenderness or swelling, normal range of motion without obvious weakness. Integumentary No rashes or lesions. Neurologic No sensory or motor deficits, normal cerebellar function, normal gait. Psychiatric Alert and oriented times three. Coherent speech. Verbalizes understanding of our discussions today. Laboratory:see flow sheet and comments in plan Impression: 1. 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 There is associated left vocal cord paralysis. A primary lesion has not yet been identified, but the pattern is most consistent with metastatic non-small cell lung cancer. 2. Hypertension. 3. There is CT evidence of carotid and vertebral artery stenosis. 4. She has history of peripheral arterial disease with previous stent to the right common iliac artery. 5. COPD. 6. GERD. 7. Degenerative arthritis. 8. Anxiety/depression. 9. She did have placement of a left subclavian PowerPort per Dr. Matthews on 02/06/2021. Plan: PROBLEMS ADDRESSED TODAY 1. 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 There is associated left vocal cord paralysis. A primary lesion has not yet been identified, but the pattern is most consistent with metastatic non-small cell lung cancer. Her initial management had been problematic due to lack of insurance coverage, which delayed our ability to obtain a staging PET/CT. Ms. Leonard eventually underwent PET CT imaging on 12/31/2020 with [facility]. There is no significant FDG activity in the left glottis to indicate a site of primary malignancy. There are several FDG positive mediastinal nodes, having a high probability of representing malignancy. A superior prevascular node measures 1.0 cm with an SUV of 5.8. Other nodes are present in the left prevascular, subaortic and subcarinal territories; the subaortic node has an SUV of 7.0. There were no significant incidental PET findings. There were no findings to indicate osseous metastatic disease. Impression 1 multiple FDG positive mediastinal lymph nodes, consistent with malignancy. 2 postsurgical changes in the left parasternal territory. 3. Unremarkable FDG uptake in the glottis; specifically, there are no findings to indicate a primary malignancy site . Ms. Leonard also had Caris testing on the biopsy from December 14, 2020. It did report PD-L1 (22 C3) by IHC was +1+, 95%. ER BB 2 (HER-2/aaron) by IHC was negative. K-brandon result was pathogenic variant exon 2 p.G13D; exon 27 p.Q. 1188: NF1 pathogenic variant exon 39 p. (further details are unreadable on current copy of Caris report); T p53 likely pathogenic variant by sequencing of the DNA tumor exon 7 p.M246L. The MSI was reported as stable mismatch repair was proficient; NTRK 1-2-3 fusion not detected. Tumor mutational burden was low, 8 mut/MB; ALK mutation not detected/RNA tumor fusion not detected. BRAF, BRCA 1 and 2 mutation not detected EGFR mutation not detected, ERBB 2 mutation not detected-for further details please see the Caris report. Dr Augustin discussed with Ms Leonard the fact that she does have confirmed squamous cell carcinoma, and that it is metastatic in the mediastinal lymph nodes and therefore inoperable. A primary lung cancer would be the most likely source and with disease localized to the lung/mediastinal lymph nodes the recommended treatment would be concurrent chemoradiation. She began her first treatment with combined chemoradiation with weekly carboplatin AUC of 2 and Taxol on 02/14/2021. A. Proceed with week 4 carboplatin/ Taxo-which is 2 weeks delayed due to neutropenia and poor performance status. B. Steroid compliance confirmed. C. She may have Compazine and lorazepam as needed for antiemetics at home. D. Labs from March 15, 2021 were reviewed in detail and discussed with Ms. Leonard and a copy was given to her. WBC 2.4, hemoglobin 10.5, platelets 192,000, ANC is 1440. Potassium 4.0 random glucose 89 creatinine 0.7 and LFTs are normal. E. She will require support with Neupogen for 2 to 3 days post chemotherapy as she has a ANC today of 1440. It is necessary to support her with growth factor to keep her on track for her concurrent chemoradiation therapy plan. 2. She is having persistent episodes of palpitations and lightheadedness. A. The symptoms would not predictably be associated with this extent of malignant disease, and Dr Augustin has voiced concerned that they are more likely associated with the underlying vascular disease. B. She was seen in the emergency room on November 29, 2020. 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 There was marked/severe narrowing of the origin of the left vertebral artery due to large plaque. C. We will get her referred to [facility] cardiology for follow-up of the CT findings on 11/29/2020 D. I have requested an echocardiogram for evaluation of her cardiac function due to her history of HTN and underlying CAD. Brent. I brisae requested a Holter monitor for evaluation of palpitations. 3. Follow-up plan A. She will be seen weekly for chemotherapy monitoring. Her current plan is weekly for approximately 6 weeks in total. B. She will have weekly CBC CMP prior to her chemotherapy. C. Ms. Leonard was instructed to contact us in the interim should questions or problems arise. D. If she has persistent concerns with headaches. She may need further imaging of her head. She does have arterial stent placement in the right common iliac artery. Not sure that will impact her ability to have an MRI of her head that would need to be noted on the referral. E. 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 See report above. F. We will plan to remind her to take her steroid premedications prior to her chemotherapy only call with her reminder call. G. Monthly port flush at minimum for port maintenance Signed By: Vernon TavarezNShahbaz-, AOCNP Mark Augustin MD <<Signature on File>>
--- NOTE | 2021-04-08 21:09 | ONC FU_ITS ---
[facility] Patient Note Patient: Danisha Leonard Unit #: [id number]: 1960 Dictated By: Janessa TavarezDate of Visit: Mar 22, 2021 Onc MED Follow-Up/Prog Note Chief Complaint: Metastatic squamous cell carcinoma. 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 As yet she has no documented primary malignancy. She has multiple medical illnesses including COPD, hypertension, peripheral arterial disease, and degenerative arthritis. She has a known abdominal aortic aneurysm. Since July 2020 she has had complaints of abdominal pain. These had persisted despite undergoing cholecystectomy in August. She was then thought to have gastritis and/or diverticulitis, though her colonoscopy in October was completely unremarkable. She then developed further symptoms of throat swelling, lightheadedness and chest pain, and she also developed hoarseness, for which she was seen in the emergency room on November 29, 2020. 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 There was marked/severe narrowing of the origin of the left vertebral artery due to large plaque. There was noted to be asymmetry of the vocal cords with small nodularity on the left. Tonsils were symmetrically enlarged. There was mediastinal adenopathy including a 2 cm node in the aortopulmonary window and a subcarinal lymph node measuring 1.5 cm. An enlarged right hilar lymph node measured 1.[address] angiogram of the chest showed no evidence of pulmonary embolus. There was noted to be patchy airspace opacity in the left lower lobe compatible with pneumonic infiltrate and there was mild diffuse interstitial and groundglass opacity in the lungs compatible with mild pneumonitis versus CHF. Also noted was a 1.3 cm precarinal lymph node, 1.5 cm left hilar lymph node, and 1.2 cm right hilar lymph node. With those findings she was referred to Dr. Leroy and she was confirmed by flexible laryngoscopy to have left vocal cord paralysis. She was then seen by Dr. Matthews and on December 14, 2020 she underwent left open paramedian mediastinotomy with biopsy of the AP window lymph node. Pathology showed metastatic squamous cell carcinoma which was p16 negative. Ms. Leonard was referred to Dr. Augustin for further plan of care consideration of chemotherapy on December. She required further testing to complete her workup. Ms. Leonard underwent PET CT imaging on 12/31/2020 with [facility]. There is no significant FDG activity in the left glottis to indicate a site of primary malignancy. There are several FDG positive mediastinal nodes, having a high probability of representing malignancy. A superior prevascular node measures 1.0 cm with an SUV of 5.8. Other nodes are present in the left prevascular, subaortic and subcarinal territories; the subaortic node has an SUV of 7.0. There were no significant incidental PET findings. There were no findings to indicate osseous metastatic disease. Impression 1 multiple FDG positive mediastinal lymph nodes, consistent with malignancy. 2 postsurgical changes in the left parasternal territory. 3. Unremarkable FDG uptake in the glottis; specifically, there are no findings to indicate a primary malignancy site . Ms. Leonard also had Caris testing on the biopsy from December 14, 2020. It did report PD-L1 (22 C3) by IHC was +1+, 95%. ER BB 2 (HER-2/aaron) by IHC was negative. K-brandon result was pathogenic variant exon 2 p.G13D; exon 27 p.Q. 1188: NF1 pathogenic variant exon 39 p. (further details are unreadable on current copy of Caris report); T p53 likely pathogenic variant by sequencing of the DNA tumor exon 7 p.M246L. The MSI was reported as stable mismatch repair was proficient; NTRK 1-2-3 fusion not detected. Tumor mutational burden was low, 8 mut/MB; ALK mutation not detected/RNA tumor fusion not detected. BRAF, BRCA 1 and 2 mutation not detected EGFR mutation not detected, ER BB 2 mutation not detected-for further details please see the Caris report. She also saw Dr. Alas in radiation oncology for consideration of thoracic radiotherapy and management of the non-small cell lung cancer. Dr. Alas note indicated that he discussed with Ms. Leonard that AJCC stage IIIa disease (TxN2) and the NCCN guidelines for concurrent chemo radiotherapy in the management of locally advanced lung cancer established by the classic study RTOG 9410. She was offered combined chemo radiation therapy. Is anticipated that she will receive a 6-week course of thoracic radiotherapy. With the combined therapy, the chemotherapy portion was prescribed with weekly carboplatin AUC of 2 and Taxol. Ms. Leonard is here today for her fifth week of chemotherapy with carboplatin AUC of 2 and weekly Taxol. She began weekly carboplatin and Taxol on February 14, 2021. Her last dose was on March 16, 2021. She has missed 2 weeks between March 01, 2021 and March 16, 2021 due to neutropenia. Her ANC on her scheduled week 4 was 1300. She was also feeling bad.. She was having a significant decline in performance status and was having trouble eating and drinking. She required hydration daily for multiple days and also required antiemetics. With the break and slight dose reduction in the Carboplatin, she has been feeling better. She has also had intermitttent growth factor support with Neupogen. This has allowed her to stay on treatment. Ms. Leonard is here today for follow-up. She is feeling better overall. She states she is eating some better and her energy is slowly getting better. She has no new concerns today. She denies any pain. She denies any mouth sores, sore throat or difficulty swallowing. She has had no nausea or vomiting. She denies any diarrhea or constipation. She denies any peripheral neuropathy. She denies any fever or chills. Her ECOG is 1. Past Medical History: Abdominal aortic aneurysm Chronic obstructive pulmonary disease Degenerative arthritis Gastroesophageal reflux disease History of pyelonephritis/sepsis Hypertension Peripheral artery disease Covid 19 in 2020 Past Surgical History: Excision of skin cancer from the right hand Left subclavian [id number]-[id number]-Dr Matthews in 2020 Bronchoscopy in 2020 Left open paramedian mediastinotomy with mediastinal lymph node biopsy in 2020 Colonoscopy in 2019 Laparoscopic cholecystectomy in 2019 Arterial stent placement to the right common iliac artery in 2014 Hysterectomy with bilateral salpingo-oophorectomy and bladder tie up in 2001 Allergies: Adhesive, Clindamycin HCl, Egg, Penicillins, and Skin Glue. Medications: Aspirin 81 1 (81 mg) Tablet, chewable Oral every am DULoxetine HCl 1 Tablet (of 20 mg) Tablet Oral daily Pantoprazole Sodium 1 (40 mg) Tablet, enteric coated Oral daily Vitamin C & D3/Tessa Hips 1 (500-1000-20 mg - Units - mg) Capsule Oral daily Zinc 1 (50 mg) Capsule Oral daily Family History: Ms. Leonard's father is : lung cancer. Father of lung cancer at age 80. Mother is still living at age 84. She has congestive heart failure. A brother and a sister are in good health. Social History: Ms. Leonard is single. Ms. Leonard quit smoking less than one year ago but had smoked for 51 years. She is a former drinker. She has history of smoking up to 2 packs of cigarettes daily or more, beginning at age 10. She quit smoking in December 2020. She previously has had some alcohol use, but never heavy. She has had no alcohol use for at least the last 2 or 3 years. Review Of Symptoms: see above Vital Signs: Performed on Mar 22, 2021 12:58 Height - 66.00 in Weight - 156.4 lbs (HIGH) BSA - 1.80 sq.m BMI - 25.24 Temperature - 98.1 F (LOW) Pulse - 120 /min (HIGH) Respiration - 18 /min BP - 89/61 mm(hg) (LOW) O2 Sat - 100 % Pain - 0 Fatigue - 9,1 - No physically strenuous activity, but ambulatory and able to carry out light or sedentary work (e.g. office work, light house work). (ECOG) Physical Examination: Constitutional Alert, oriented, no acute distress. Skin pink, warm and dry. Head Normocephalic; atraumatic. Eyes Conjunctivae and sclerae are clear and without icterus. Pupils are reactive and equal. ENMT No oral exudates, ulcers, masses, thrush or mucositis. Oropharynx clear. Tongue normal. Respiratory Lungs are clear to auscultation without rhonchi or wheezing. Cardiovascular Regular rate and rhythm of heart without murmurs,clicks, gallops or rubs. Chest left subclavian venous access device insertion site is unremarkable. Abdomen Non-tender, non-distended, no masses or ascites. Good bowel sounds noted in all quads. No guarding or rebound tenderness. No pulsatile masses. Back/Spine Non-tender to palpation. Extremities No visible deformities, no cyanosis, clubbing or edema. Musculoskeletal No tenderness or swelling, normal range of motion without obvious weakness. Integumentary No rashes or lesions. Neurologic No sensory or motor deficits, normal cerebellar function, normal gait. Psychiatric Alert and oriented times three. Coherent speech. Verbalizes understanding of our discussions today. Laboratory:Test performed on Mar 21, 2021 13:43 Creatinine 0.8 mg/dL Cr Clearance (Est) 87.93 mL/min Impression: 1. 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 There is associated left vocal cord paralysis. A primary lesion has not yet been identified, but the pattern is most consistent with metastatic non-small cell lung cancer. 2. Hypertension. 3. There is CT evidence of carotid and vertebral artery stenosis. 4. She has history of peripheral arterial disease with previous stent to the right common iliac artery. 5. COPD. 6. GERD. 7. Degenerative arthritis. 8. Anxiety/depression. 9. She did have placement of a left subclavian PowerPort per Dr. Matthews on 02/06/2021. Plan: PROBLEMS ADDRESSED TODAY 1. 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 There is associated left vocal cord paralysis. A primary lesion has not yet been identified, but the pattern is most consistent with metastatic non-small cell lung cancer. Her initial management had been problematic due to lack of insurance coverage, which delayed our ability to obtain a staging PET/CT. Ms. Leonard eventually underwent PET CT imaging on 12/31/2020 with [facility]. There is no significant FDG activity in the left glottis to indicate a site of primary malignancy. There are several FDG positive mediastinal nodes, having a high probability of representing malignancy. A superior prevascular node measures 1.0 cm with an SUV of 5.8. Other nodes are present in the left prevascular, subaortic and subcarinal territories; the subaortic node has an SUV of 7.0. There were no significant incidental PET findings. There were no findings to indicate osseous metastatic disease. Impression 1 multiple FDG positive mediastinal lymph nodes, consistent with malignancy. 2 postsurgical changes in the left parasternal territory. 3. Unremarkable FDG uptake in the glottis; specifically, there are no findings to indicate a primary malignancy site . Ms. Leonard also had Caris testing on the biopsy from December 14, 2020. It did report PD-L1 (22 C3) by IHC was +1+, 95%. ER BB 2 (HER-2/aaron) by IHC was negative. K-brandon result was pathogenic variant exon 2 p.G13D; exon 27 p.Q. 1188: NF1 pathogenic variant exon 39 p. (further details are unreadable on current copy of Caris report); T p53 likely pathogenic variant by sequencing of the DNA tumor exon 7 p.M246L. The MSI was reported as stable mismatch repair was proficient; NTRK 1-2-3 fusion not detected. Tumor mutational burden was low, 8 mut/MB; ALK mutation not detected/RNA tumor fusion not detected. BRAF, BRCA 1 and 2 mutation not detected EGFR mutation not detected, ERBB 2 mutation not detected-for further details please see the Caris report. Dr Augustin discussed with Ms Leonard the fact that she does have confirmed squamous cell carcinoma, and that it is metastatic in the mediastinal lymph nodes and therefore inoperable. A primary lung cancer would be the most likely source and with disease localized to the lung/mediastinal lymph nodes the recommended treatment would be concurrent chemoradiation. She began her first treatment with combined chemoradiation with weekly carboplatin AUC of 2 and Taxol on 02/14/2021. A. Proceed with week 5 carboplatin/ Taxol. She did miss a treatment betwen March 01, 2021 and March 16, 2021 B. Steroid compliance confirmed. C. She may have Compazine and lorazepam as needed for antiemetics at home. D. Labs from March 21, 2021 were reviewed in detail and discussed with Ms. Leonard and a copy was given to her. WBC 2.5, hemoglobin 11.2, platelets 190,000 ANC is 1770. Potassium 3.6 creatinine 0.8 LFTs are normal TSH is 1.57. Her weight is stable at 156. E. She will require support with Neupogen for 2 to 3 days post chemotherapy as she has a ANC today of 1770. It is necessary to support her with growth factor to keep her on track for her concurrent chemoradiation therapy plan. 2. She is having persistent episodes of palpitations and lightheadedness. A. The symptoms would not predictably be associated with this extent of malignant disease, and Dr Augustin has voiced concerned that they are more likely associated with the underlying vascular disease. B. She was seen in the emergency room on November 29, 2020. 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 There was marked/severe narrowing of the origin of the left vertebral artery due to large plaque. C. We have requested referral to [facility] cardiology for follow-up of the CT findings on 11/29/2020 D. I have requested an echocardiogram for evaluation of her cardiac function due to her history of HTN and underlying CAD. E. I have requested a Holter monitor for evaluation of palpitations. 3. Follow-up plan A. She will be seen back 3-4 weeks after completion of her radiation therapy which is planned for later this week. Today will be her last planned concurrent chemotherapy treatment. B. She have followup CBC CMP prior to her visit. C. Ms. Leonard was instructed to contact us in the interim should questions or problems arise. D. Monthly port flush at minimum for port maintenance Signed By: Janessa Tavarez-, [facility] Mark Augustin MD <<Signature on File>>
== END 2021-03-31 23:59 | disposition home or self-care (01) ==
LOC: ONCMED 05:49
PROVIDERS: Nurse Practitioner; Absent Provider Radiology Radiation Oncology; PCP Family Medicine; Visit Provider Internal Medicine Medical Oncology
DX: Z51.0 Encounter for antineoplastic radiation therapy (principal); Z51.11 Encounter for antineoplastic chemotherapy; C34.90 Malignant neoplasm of unspecified part of unspecified bronchus or lung; C77.1 Secondary and unspecified malignant neoplasm of intrathoracic lymph nodes; J44.9 Chronic obstructive pulmonary disease, unspecified; I10 Essential (primary) hypertension; I73.9 Peripheral vascular disease, unspecified; M19.90 Unspecified osteoarthritis, unspecified site; F41.9 Anxiety disorder, unspecified; F32.9 Major depressive disorder, single episode, unspecified; Z79.899 Other long term (current) drug therapy
CPT/HCPCS: 36591; 77014; 77336; 77386; 77427; 80053; 84439; 84443; 84481; 85025; 96360; 96361; 96365; 96367; 96372; 96375; 96413; 96417; 99214; J1100; J1200; J1442; J2405; J2469; J3490; J7030; J7040; J7050; J9045; J9267

== ENCOUNTER 2021-03-24 10:17 | Outpatient (CLI) | payer MEDICAID, SELFPAY ==
--- NOTE | 2021-03-24 10:15 | USCV_ITS ---
Danisha Leonard Age: 60 Gender: F : 1960 Exam Date: 03/24/2021 10:48 Ordering Phys: Diane Olivo MD ([email or web address]) Technologist: Colleen Kovacs [place] [facility] [place]: Disorder of arteries Risk Factors: Former smoker Previous Vascular Surgery: RIGHT LEFT Waveform Velocity (cm/s) Velocity (cm/s) Waveform Triphasic 117.8 Iliac Mid 132.2 Triphasic Triphasic 132.1 Iliac Distal 156.8 Triphasic Triphasic 55.9 LEAD REFINER 118.6 Triphasic Triphasic 74.6 SFA Prox 85.4 Triphasic Triphasic SFA Mid Triphasic 62.8 110.3 Triphasic 76.1 SFA Dist 99.4 Triphasic Biphasic 34.8 POP 42.1 Triphasic Biphasic 49.3 EDGE BASTER 70.6 Triphasic Biphasic DPA 34.2 Biphasic 0.8 MICHELLE 0.9 FINDINGS See measurements listed above. Prior MICHELLE exam on 11-08-2014. Slightly diminished resting ABIs bilaterally Abnormal Doppler waveforms in the infrapopliteal vessels bilaterally CONCLUSIONS Features of mild peripheral artery disease bilaterally mostly involving the infrapopliteal vessels Dr Diane Olivo MD [facility] (Electronically Signed) Final Date: 24 March 2021 17:12 S
== END 2021-03-24 10:18 | disposition home or self-care (01) ==
LOC: RAD 10:28
PROVIDERS: PCP Family Medicine; Visit Provider Internal Medicine Cardiovascular Disease
DX: I77.9 Disorder of arteries and arterioles, unspecified (principal)
CPT/HCPCS: 93925

== ENCOUNTER 2021-04-03 10:35 | Emergency (ER) | payer MEDICAID, SELFPAY ==
[2021-04-03 10:50] VITALS: PULSE 92; RESP 18; TEMP 36.2; O2SAT 96; BMI 24.5
--- NOTE | 2021-04-03 12:21 | ECG_ITS ---
[facility] Test Date: 2021-04-03 Pat Name: Danisha Leonard Department: Room: Gender: Female Key Holder: : [id number] Requested By: Zeferino Badillo Order Number: [id number] Riley MD: Javier Nagy M.D. Measurements Intervals [place] Rate: 93 P: 68 TX: 138 QRS: 59 QRSD: 84 T: 68 QT: 345 QTc: 431 Interpretive Statements SINUS RHYTHM Compared to ECG 11/29/2020 18:46:02 No significant changes Electronically Signed On 04-05-2021 7:59:12 CDT by Javier Nagy M.D. [id number]
--- NOTE | 2021-04-03 12:48 | XRR_ITS ---
PROCEDURE INFORMATION: Exam: XR Chest Exam date and time: 04/03/2021 1:01 PM Age: 60 years old Clinical indication: Smoker's cough; Chest pain; Type not specified; Patient HX: HX of lung cancer TECHNIQUE: Imaging protocol: XR of the chest. Views: 1 view. COMPARISON: CR XR chest 1V portable [id number] 02/06/2021 10:05 AM FINDINGS: Tubes, catheters and devices: Stable left Mediport catheter. Lungs: Stable hyperaerated lungs consistent with deep inspiratory effort vs reactive airway disease vs mild COPD . Pleural spaces: Unremarkable. No pleural effusion. No pneumothorax. Heart/Mediastinum: Unremarkable. No cardiomegaly. Bones/joints: Mild thoracic spondylosis. XR/XR chest 1V portable [id number] IMPRESSION: 1. Stable left Mediport catheter. 2. Stable hyperaerated lungs consistent with deep inspiratory effort vs reactive airway disease vs mild COPD .
--- NOTE | 2021-04-03 12:55 | ED_ITS ---
HPI - Chest Pain General: Chief Complaint: Chest Pain Stated Complaint: CP Time Seen by Provider: 04/03/21 12:47 Source: patient, family and RN notes reviewed Limitations: no limitations History of Present Illness: HPI narrative: This patient is a 60-year-old female with a history of lung cancer the presents to the emergency department with 3 days worth of intermittent chest pain and back pain. Patient currently is on liquid oxycodone because she cannot swallow. Patient is getting chemotherapy. Patient states this pain is waxing and waning but states over the past day having significant pain around her right shoulder blade. She states she developed an area of a rash there and is concerning. Patient does take chronically metoprolol nitroglycerin and the pain medicines for her chest pain and blood pressure issues. EKG performed in triage is normal sinus rhythm with a heart rate of 93. On exam area on her right shoulder blade looks like it is eruption of shingles. Will do medical evaluation treat as needed. complaint: chest pain Onset (ago): day(s) (5) Timing of current episode: constant Severity: moderate Quality: sharp Associated symptoms: Reports abdominal pain; Deny dyspnea, fever(s), nausea, palpitations or vomiting Review of Systems General: Reports: 10 or more systems reviewed and unremarkable except in HPI and below Const: Denies: fever(s) Eyes: Denies: change in vision or blurry vision ENMT: Denies: throat pain, hoarseness or mouth pain Card: Reports: chest pain; Denies: palpitations Resp: Denies: dyspnea GI: Reports: abdominal pain; Denies: nausea or vomiting : Denies: flank pain, difficulty voiding, dysuria, urinary frequency, urinary urgency or urinary hesitancy Musc: Reports: back pain; Denies: neck pain, extremity pain, extremity swelling, joint pain, joint swelling, joint redness, joint warmth or limited range of motion Skin/Breast: Reports: rash; Denies: pruritus, erythema or skin tenderness Neuro: Denies: headache(s), numbness in extremities or weakness in extremities Psych: Denies: anxiety or depression [facility] ED PFSH: Medical History Abdominal aortic aneurysm COPD (chronic obstructive pulmonary disease) COVID-19 Degenerative arthritis Gastritis GERD (gastroesophageal reflux disease) HTN (hypertension) PAD (peripheral artery disease) Port-A-Cath in place Pyelonephritis Sigmoid diverticulitis Surgical History History of bronchoscopy History of hysterectomy History of PTCA Post PTCA Status post colonoscopy (10/11/20) 10 years Status post laparoscopic cholecystectomy (08/11/20) Family History Father Cancer lung Lung disease CAD (coronary artery disease) Stroke Mother Diabetes Dementia CAD (coronary artery disease) Grandfather Cancer Denies family history of Clotting disorder Chronic kidney disease (CKD) Suicide Anesthesia complication Bleeding disorder Social History Smoking and tobacco status: former smoker Quit status (tobacco): has quit using tobacco Year quit tobacco: [id number] Alcohol intake: former Lives independently: Yes Household members: none Housing: House Physical Exam Const: COMMON NORMALS: no acute distress, average body habitus, patient oriented x3, no limitations, healthy appearing, alert and well nourished HENMT: COMMON NORMALS: normocephalic, atraumatic, hearing grossly normal bilaterally, external ears normal, EAC's normal, TM's normal bilaterally, Normal external nose present, Normal nasal mucous membranes and turbinates present, [address] oral mucous membranes, oropharynx normal, dentition normal and gingiva normal HEAD & SCALP: normocephalic and atraumatic NOSE: Normal external nose present and Normal nasal mucous membranes and turbinates present EXTERNAL EAR: Yes external ears normal EXTERNAL AUDITORY CANAL: EAC's normal TYMPANIC MEMBRANE: TM's normal bilaterally Neck/C-Spine: COMMON NORMALS: full ROM, no lymphadenopathy, supple, no meningeal signs, no JVD, Thyroid normal and No carotid bruits THYROID: Thyroid normal Chest: COMMONS NORMALS: normal inspection of the chest, normal palpation of entire chest wall, normal inspection of the breasts and normal palpation of the breasts Breast/axilla inspection: Yes normal inspection of the breasts BREAST/AXILLA PALPATION: Yes normal palpation of the breasts Resp: COMMON NORMALS: normal respiratory effort, No retractions, No use of accessory muscles, clear to auscultation bilaterally and percussion normal AUSCULTATION: clear to auscultation bilaterally PERCUSSION: percussion normal Cardio: COMMON NORMALS: no JVD, regular rate, regular rhythm, S1 normal heart sound present, S2 normal heart sound present, No gallops present (Cardio), No clicks present (Cardio), No murmurs present (Cardio), No rub (Cardio) and Per ipheral pulses 2+ throughout RATE: regular rate RHYTHM: regular rhythm HEART SOUNDS: S1 normal heart sound present and S2 normal heart sound present PERIPHERAL PULSES: Peripheral pulses 2+ throughout GI: COMMON NORMALS: Normal to inspection, nondistended, normoactive bowel sounds present, Soft to palpation, non-tender, No hepatosplenomegaly present, no masses and no bruits PALPATION: Yes Soft to palpation and Yes No hepatosplenomegaly present : COMMON NORMALS: Yes no CVA tenderness, Yes normal external appearance, Yes normal appearance of the vagina, Yes normal appearance of the cervix, Yes normal bimanual exam, Yes No adnexal tenderness and Yes no masses BLADDER/KIDNEY EXAM: Yes no CVA tenderness BIMANUAL EXAM - VAGINA & UTERUS: Yes normal bimanual exam Back/Pelvis: COMMON NORMALS: no CVA tenderness, thoracic and lumbar spine normal to inspection, no thoracic nor lumbar tenderness, thoraco-lumbar ROM normal and straight leg raise negative bilaterally Extremity: COMMON NORMALS: normal to inspection, full ROM, capillary refill normal, no joint enlargement, no clubbing, cyanosis or edema, no calf tenderness and no pedal edema Neuro: COMMON NORMALS: patient oriented x3 SENSORIUM/ORIENTATION: Yes alert MENINGEAL SIGNS: Yes no meningeal signs Skin: SKIN IMAGES (FEMALE): 1. Rash consistent with shingles Course Reevaluation(s): Reevaluation #1: Patient is requesting to be discharged home. Patient has no acute findings cardiac ball. Patient does appear to have eruption of shingles. Patient be started on acyclovir and prednisone. Patient is to continue all of her home medications. Patient will need to follow-up with primary care physician or pain management discuss any changes to her narcotic pain management regiment. Patient discharged per her request Time: 17:05 Vital Signs: Vital signs: Vital Signs Temperature 97.1 F L 04/03/21 10:50 Pulse Rate 87 04/03/21 13:42 Respiratory Rate 18 04/03/21 10:50 Pulse Oximetry 96 04/03/21 10:50 MDM - Chest Pain MDM Narrative: Medical decision making narrative: Atypical type chest pain symptoms. Chronic pain chemotherapy related to lung cancer. Patient does have an eruption of shingles. Patient is on oxycodone. We will continue all of her home medications will be started on prednisone and acyclovir follow-up with PCP for any further evaluation. Differential Diagnosis: Cardiac arrest differential diagnosis: Likely acute respiratory failure, acute myocardial infarction, cardiac arrest and sudden cardiac Medical Records: Attestation: I reviewed the patient's medical records. Lab Data: Attestation: I reviewed the patient's lab results. Labs: Lab Results 04/03/21 04/03/21 04/03/21 Range/Units 13:42 13:42 13:42 WBC 2.4 L (4.0-10.0) 10^3/ uL RBC 2.92 L (4.1-5.3) 10^6/u L Hgb 9.3 L (11.5-15.3) g/dL Hct 28.2 L (37.0-47.0) % MCV 96.6 (81-99) fL MCH 31.8 (28.0-34.0) pg MCHC 33.0 (30.0-36.0) g/dL RDW 14.4 (12.1-15.1) % Plt Count 355 (130-400) 10^3/c mm MPV 10.2 (7.4-10.4) fL Neut % (Auto) 66.6 % Lymph % (Auto) 15.3 % [place] % (Auto) 14.9 % Eos % (Auto) 0.8 % Baso % (Auto) 1.2 % Neut # (Auto) 1.61 L (1.8-7.7) 10^3/u L Lymph # (Auto) 0.4 L (0.8-4.8) 10^3/u L Hernando # (Auto) 0.4 (0.2-0.9) 10^3/u L Eos # (Auto) 0.0 (0.0-0.8) 10^3/u L Baso # (Auto) 0.0 (0.0-0.1) 10^3/u L Nucleated RBC % (a uto) 0 % Nucleated RBCs # 0.0 /100WBC PT 12.30 (12.1-14.9) SECO NDS INR 0.89 (0.8-1.2) APTT 24.4 (23.9-36.7) SECO NDS D-Dimer 1.45 H (0-0.59) ug/mIFE U Sodium 141 (136-145) mmol/L Potassium 4.0 (3.5-5.1) mmol/L Chloride 103 (98-107) mmol/L Carbon Dioxide 28 (22-29) mmol/L Anion Gap 14.0 (5-19) BUN 14 (6-20) mg/dL Creatinine 0.5 (0.5-0.9) mg/dL GFR Calculation 126.7 (90-130) mL/min Glucose 92 (65-115) mg/dL Calculated Osmolal ity 292 (285-295) mOsm/k g Calcium 8.8 (8.5-10.5) mg/dL Total Bilirubin 0.2 (0.15-1.2) mg/dL AST 15 (0-32) U/L ALT 24 (0-33) U/L Alkaline Phosphata se 99 (35-105) IU/L Troponin T Baselin e (0-10) ng/L Troponin T 120 Min corine (0-10) ng/L Delta Troponin T (0-10) ABS# NT-Pro-B Natriuret Pep 289 H (0-125) pg/mL Total Protein 6.0 L (6.6-8.7) g/dL Albumin 3.6 (3.5-5.2) g/dL Globulin 2.4 (1.3-4.6) g/dL Lipase 14 (13-60) U/L 04/03/21 04/03/21 Range/Units 13:42 13:45 WBC (4.0-10.0) 10^3/ uL RBC (4.1-5.3) 10^6/u L Hgb (11.5-15.3) g/dL Hct (37.0-47.0) % MCV (81-99) fL MCH (28.0-34.0) pg MCHC (30.0-36.0) g/dL RDW (12.1-15.1) % Plt Count (130-400) 10^3/c mm MPV (7.4-10.4) fL Neut % (Auto) % Lymph % (Auto) % Hern[place] % (Auto) % Eos % (Auto) % Baso % (Auto) % Neut # (Auto) (1.8-7.7) 10^3/u L Lymph # (Auto) (0.8-4.8) 10^3/u L [place] # (Auto) (0.2-0.9) 10^3/u L Eos # (Auto) (0.0-0.8) 10^3/u L Baso # (Auto) (0.0-0.1) 10^3/u L Nucleated RBC % (a uto) % Nucleated RBCs # /100WBC PT (12.1-14.9) SECO NDS INR (0.8-1.2) APTT (23.9-36.7) SECO NDS D-Dimer (0-0.59) ug/mIFE U Sodium (136-145) mmol/L Potassium (3.5-5.1) mmol/L Chloride (98-107) mmol/L Carbon Dioxide (22-29) mmol/L Anion Gap (5-19) BUN (6-20) mg/dL Creatinine (0.5-0.9) mg/dL GFR Calculation (90-130) mL/min Glucose (65-115) mg/dL Calculated Osmolal ity (285-295) mOsm/k g Calcium (8.5-10.5) mg/dL Total Bilirubin (0.15-1.2) mg/dL AST (0-32) U/L ALT (0-33) U/L Alkaline Phosphata se (35-105) IU/L Troponin T Baselin e 11 H (0-10) ng/L Troponin T 120 Min corine 9.32 (0-10) ng/L Delta Troponin T -1.68 L (0-10) ABS# NT-Pro-B Natriuret Pep (0-125) pg/mL Total Protein (6.6-8.7) g/dL Albumin (3.5-5.2) g/dL Globulin (1.3-4.6) g/dL Lipase (13-60) U/L Imaging Data^: CXR: Attestation: I personally reviewed and interpreted this imaging study as follows: Radiologist's impression: IMPRESSION: 1. Stable left Mediport catheter. 2. Stable hyperaerated lungs consistent with deep inspiratory effort vs reactive airway disease vs mild COPD . EKG Data^: EKG 1: Attestation: I personally reviewed and interpreted this EKG as follows: EKG interpretation date: 04/03/21 EKG interpretation time: 10:50 Interpretation: Normal sinus rhythm heart rate 93 EKG 2: Attestation: I personally reviewed and interpreted this EKG as follows: EKG interpretation date: 04/03/21 EKG interpretation time: 14:36 Prior EKG tracings: available for review Interpretation: Negative for acute findings. Normal EKG heart rate 76 Discharge Plan Discharge Patient Disposition: Home Clinical Impression: Atypical chest pain, Shingles Condition: Stable Prescriptions: New acyclovir 800 mg tablet 800 mg PO 5XD Qty: 30 RF: 0 prednisone 10 mg tablets,dose pack See Rx Instructions .ROUTE .COMPLEX Qty: 21 RF: 0 No Action pantoprazole [Protonix] 40 mg tablet,delayed release (DR/EC) 40 mg PO QAM 30 Days Qty: 30 RF: 3 lorazepam 1 mg tablet 0.5 - 1 mg PO Q4H PRN (Reason: Nausea) RF: 0 ondansetron HCl [Zofran] 4 mg tablet 4 mg PO Q8H PRN (Reason: Nausea) RF: 0 metoprolol tartrate 25 mg tablet 12.5 mg PO BID Qty: 30 RF: 5 multivitamin [Multiple Vitamins] Tablet 1 tab PO DAILY RF: 0 aspirin [Aspir-81] 81 mg Tablet,Delayed Release (Dr/Ec) 81 mg PO DAILY RF: 0 oxycodone-acetaminophen 5-325 mg Tablet 1 tab PO Q6H PRN (Reason: Moderate Pain) Qty: 15 RF: 0 zinc 50 mg Tablet 50 mg PO DAILY RF: 0 Discharge Orders: Discharge ED (Routine); Ordered 04/03/21 Ordered By: Jose Adler Referrals: Abrahan Weathers MD [Primary Care Provider] - Discharge Diet: Advance as tolerated Discharge Activity: Resume usual activity Patient Instructions: Opioid Safety Activity Restrictions/Additional Instructions: Patient is on oxycodone. We will continue all of her home medications will be started on prednisone and acyclovir follow-up with PCP for any further evaluation. Coding Level of Care Code ED Powder Expert for Chg Fwd Exam Comprehensive
[2021-04-03 13:42] VITALS: PULSE 87
[2021-04-03 13:59] LABS: Basophils % 1.2 %; Eosinophils % 0.8 %; Hematocrit 28.2 % (37.0-47.0); Hemoglobin 9.3 g/dL (11.5-15.3); Lymphocytes # 0.4 10^3/uL (0.8-4.8); Lymphocytes % 15.3 %; Mean Corpuscular Hemoglobin 31.8 pg (28.0-34.0); Mean Corpuscular Volume 96.6 fL (81-99); Mean Platelet Volume 10.2 fL (7.4-10.4); Monocytes # 0.4 10^3/uL (0.2-0.9); Monocytes % 14.9 %; Neutrophils # 1.61 10^3/uL (1.8-7.7); Neutrophils % 66.6 %; Nucleated Red Blood Cells % 0 %; Platelet Count 355 10^3/cmm (130-400); Red Blood Count 2.92 10^6/uL (4.1-5.3); Red Cell Distribution Width 14.4 % (12.1-15.1); White Blood Count 2.4 10^3/uL (4.0-10.0)
[2021-04-03 14:07] LABS: INR 0.89 (0.8-1.2)
[2021-04-03 14:08] LABS: Partial Thromboplastin Time 24.4 SECONDS (23.9-36.7)
[2021-04-03 14:11] LABS: D Dimer 1.45 ug/mIFEU (0-0.59)
[2021-04-03 14:24] LABS: Troponin(5th) Baseline 11 ng/L (0-10)
[2021-04-03 14:34] LABS: Alanine Aminotransferase 24 U/L (0-33); Albumin Level 3.6 g/dL (3.5-5.2); Alkaline Phosphatase 99 IU/L (35-105); Aspartate Amino Transferase 15 U/L (0-32); Blood Urea Nitrogen 14 mg/dL (6-20); Calcium 8.8 mg/dL (8.5-10.5); Carbon Dioxide 28 mmol/L (22-29); Chloride 103 mmol/L (98-107); Globulin 2.4 g/dL (1.3-4.6); Glomerular Filtration Rate 126.7 mL/min (90-130); Glucose 92 mg/dL (65-115); Lipase 14 U/L (13-60); NT Pro B Type Natriuretic Pept 289 pg/mL (0-125); Osmolality Calculated 292 mOsm/kg (285-295); Sodium 141 mmol/L (136-145); Total Bilirubin 0.2 mg/dL (0.15-1.2)
--- NOTE | 2021-04-03 14:48 | ECG_ITS ---
[facility] Test Date: 2021-04-03 Pat Name: Danisha Leonard Department: Room: Gender: Female Distribution Superintendent: : 1960 Requested By: Jose Adler Order Number: [id number] Riley MD: Javier Nagy M.D. Measurements Intervals [place] Rate: 76 P: 67 [place]: 153 QRS: 57 QRSD: 80 T: 58 QT: 379 QTc: 429 Interpretive Statements SINUS RHYTHM Compared to ECG 04/03/2021 10:50:48 No significant changes Electronically Signed On 04-05-2021 8:07:29 CDT by Javier Nagy M.D. [email or web address]
[2021-04-03 16:48] LABS: Troponin 5 2HR 9.32 ng/L (0-10)
[2021-04-03 16:49] LABS: Troponin 5 2HR Delta -1.68 ABS# (0-10)
[2021-04-03 17:14] VITALS: PULSE 85; RESP 18; O2SAT 98
== END 2021-04-03 17:23 | disposition home or self-care (01) ==
PROVIDERS: Nurse Practitioner Family; Emergency Provider Emergency Medicine; PCP Family Medicine
DX: R07.89 Other chest pain (principal); B02.9 Zoster without complications; Z79.82 Long term (current) use of aspirin; J44.9 Chronic obstructive pulmonary disease, unspecified; I10 Essential (primary) hypertension; Z87.891 Personal history of nicotine dependence
CPT/HCPCS: 71045; 80053; 83690; 83880; 84484; 85025; 85378; 85610; 85730; 93005; 99284

== ENCOUNTER 2021-04-11 12:28 | Outpatient (CLI) | payer MEDICAID, SELFPAY ==
[2021-04-11 13:17] LABS: Basophils # 0.1 10^3/uL (0.0-0.1); Eosinophils % 0.6 %; Hematocrit 34.5 % (37.0-47.0); Hemoglobin 11.4 g/dL (11.5-15.3); Lymphocytes # 0.8 10^3/uL (0.8-4.8); Mean Corpuscular Hemoglobin 32.4 pg (28.0-34.0); Mean Platelet Volume 9.6 fL (7.4-10.4); Monocytes # 0.5 10^3/uL (0.2-0.9); Monocytes % 13.5 %; Neutrophils # 2.09 10^3/uL (1.8-7.7); Nucleated Red Blood Cells % 0 %; Platelet Count 337 10^3/cmm (130-400); Red Blood Count 3.52 10^6/uL (4.1-5.3); Red Cell Distribution Width 15.9 % (12.1-15.1); White Blood Count 3.5 10^3/uL (4.0-10.0)
[2021-04-11 13:46] LABS: INR 0.89 (0.8-1.2)
[2021-04-11 13:48] LABS: Anion Gap 13.4 (5-19); Blood Urea Nitrogen 18 mg/dL (6-20); Calcium 8.9 mg/dL (8.5-10.5); Carbon Dioxide 29 mmol/L (22-29); Chloride 99 mmol/L (98-107); Glomerular Filtration Rate 85.9 mL/min (90-130); Glucose 95 mg/dL (65-115); Osmolality Calculated 286 mOsm/kg (285-295); Potassium 4.4 mmol/L (3.5-5.1); Sodium 137 mmol/L (136-145)
== END 2021-04-11 12:29 | disposition home or self-care (01) ==
PROVIDERS: PCP Family Medicine; Visit Provider Internal Medicine Cardiovascular Disease
DX: J44.9 Chronic obstructive pulmonary disease, unspecified (principal); R06.00 Dyspnea, unspecified; R07.9 Chest pain, unspecified; R53.81 Other malaise; Z01.812 Encounter for preprocedural laboratory examination; I71.4 Abdominal aortic aneurysm, without rupture; I77.9 Disorder of arteries and arterioles, unspecified
CPT/HCPCS: 36415; 80048; 85025; 85610; 86850; 86900; 87635

== ENCOUNTER 2021-04-14 06:07 | Day surgery (SDC) | payer MEDICAID, SELFPAY ==
[2021-04-14] VITALS (27 sets, daily range): BP systolic 81–124; BP diastolic 53–83; PULSE 74–93; RESP 13–21; TEMP 36.8; O2SAT 89–97; BMI 24.8
--- NOTE | 2021-04-14 06:00 | XACV_ITS ---
Exam Room: [facility] Ht: 168 cm Wt: 70 kg BSA: 1.81 m2 Gender: Female : 1960 Any Known Allergies: Other Exam Priority: Routine Procedure(s): Procedure Description: Diagnostic procedure Procedure Description: Left Heart Catheterization Procedure Description: Left ventriculography Procedure Description: Peripheral Cath Diagnostic Procedure Procedure Description: Abdominal aortic angiography Procedure Description: Coronary Angiography Diagnostic Cath Status: Elective Diagnostic Findings * No disease noted in the Left Main, Left Anterior Descending, Right, or Circumflex coronary arteries. * Coronary angiography shows right dominance. * The left main is a medium caliber vessel. Mild to moderate eccentric diffuse calcified plaques were noted in this vessel. The distal segment was found to have around 30% narrowing.. * The left anterior descending artery was a medium caliber vessel which appears to taper off to his the LV apex. The proximal and the mid segment of the artery was found to have mild diffuse calcification. No significant stenotic lesions were noted. Mild diffuse intimal irregularities are noted of the distal artery. * The left circumflex artery is a medium caliber vessel. The proximal segment of the artery was found to have around 50% segmental narrowing. Mild diffuse intimal irregularities are noted in the obtuse marginal vessels.. * The right coronary artery is a medium caliber dominant vessel with mild to moderate diffuse calcification. No significant stenotic lesions were noted. Abdominal Diagnostic Findings Abdomen aortogram was performed by placing the pigtail catheter below the level of the renal artery in an AP view. Abdominal aorta was found to have moderate diffuse plaques. No significant stenosis was noted. Moderate stenosis was noted at the ostium of both common femoral arteries. Lower Extremity Diagnostic Findings Peripheral angiogram with runoff was performed by placing the pigtail catheter just above the bifurcation. The proximal segment of the right common iliac artery was found to be stented. There is around 30 to 40% diffuse in-stent narrowing in the segment. The external iliac, internal iliac, femoral, profunda femoral, popliteal and infrapopliteal vessels are visualized and were found to have no significant stenosis, bilaterally.. Conclusions This is a 60-year-old white female with history of extensive peripheral artery disease, presented with complaints of chest pain/shortness of breath. She had a myocardial perfusion imaging which was unremarkable. In view of the ongoing chest symptoms and multiple risk factors, in order to further evaluate her coronary status, a cardiac catheterization was recommended. Patient was found to have a very weak pulse in the right groin. She apparently had a stent placement in the right common iliac artery several years ago. A peripheral angiogram was performed to evaluate the peripheral arteries, specifically the right common iliac artery. She had an MICHELLE of 0.8 on the right side and 0.9 on the left side. The findings are as follows. Coronary angiogram revealed a 30% distal left main disease. Mild to moderate diffuse disease with coronary calcification all the 3 coronary arteries. Normal LV ejection fraction. LVEDP was 3 mmHg. Peripheral angiogram revealed patent stented segment of the proximal common iliac artery. 30 to 40% diffuse in-stent narrowing was noted. No significant stenosis in the femoral, popliteal and infrapopliteal vessels. Recommendations Based on the above angiographic findings, it was decided to optimize her medical treatment. Ventriculography Ejection Fraction: 55.0 % LV EDP: 3 mmHg Left Ventriculography Findings: * Gram was performed in the CARREON position. The LV cavity appears to be of normal size. The overall LV ejection fraction was around 55%. Pressures Phase:Rest AO : 81 / 48 ( 63 ) @ 6:20:00 AM 96 / 46 ( 66 ) @ 6:30:00 AM 133 / 51 ( 80 ) @ 6:31:00 AM 90 / 51 ( 70 ) @ 6:33:00 AM LV : 112 / -16 / 3 @ 6:28:00 AM 162 / -5 / 68 @ 6:29:00 AM Hemodynamic Data Phase:Rest AO : 81.0 / 48.0 ( 63.0 ) @ 6:20:00 AM 96.0 / 46.0 ( 66.0 ) @ 6:30:00 AM 133.0 / 51.0 ( 80.0 ) @ 6:31:00 AM 90.0 / 51.0 ( 70.0 ) @ 6:33:00 AM Clinical Evaluation EBL: 5mL-10mL Procedural Details Procedure Consent Obtained. Pre-Procedure Time Out. Identified patient by full name and date of as verbalized by the patient/guarantor. Does the consent match the physician's order: Yes. Accurate & Complete Informed Consent: Yes. Inpatient/Outpatient History & Physical on Chart: Yes. If H&P is completed, is and addenduem needed: No; If yes, is the addendum complete: N/A. Visualize and Verify Site with Patient/Guarantor: N/A. Relevant Radiology Images available: N/A. Pre-op teaching completed and patient verbalized understanding. The risks, benefits, and alternatives of sedation and/or procedure were discussed by physician. The patient agrees to continue. Procedure started. [facility] Clinical Fraility Score: 4: Vulnerable. Line Puller Indications: Suspected CAD. Chest Pain Symptom Assessment: Typical Angina Symptoms. Cardiovascular Instability: No. Correct patient, site and procedure confirmed by cath team. Physician arrived. Equipment: 6F - Femoral. Cardiac Cath Pack. ACIST Manifold Kit Model BT 2000. Heparinized Saline (2 units/mL), 1000 mL bag. Kit, Micropuncture. PERRLA. Strong, equal hand automatic spinning lathe setter bilaterally. Lungs clear x 5 lobes. IV Site on Arrival: 20 gauge in the right anticubital. IV Fluids: 0.9% NaCl at KVO. 0 mL infused prior to label stitcher. Pre Procedural Pulses: bilateral dorsalis pedis was Doppled. Pre Procedural Pulses: bilateral posterior tibial was Doppled. Oxygen started at 2liters/min via nasal canula. bilateral groins was prepped with chloroprep then draped in the usual sterile fashion. Baseline sample Acquired. HR: 76 BPM. Physician scrubbed in. Immediate Pre-Procedure Time Out. Correct Patient: Yes; Correct Procedure: Yes; Correct Site: Yes; Correct Patient Position: Yes; Correct Supplies: Yes; Dried Flammable Prep: Yes; Blood Products Available: N/A;. Lidocaine 1% infiltrated to the left groin. Arterial access obtained with micropuncture set. Multiple views taken of left coronary artery. Catheter removed over the standard wire. A 5 jamaican JL4 catheter in over wire. A CRD 5F JR4 Diagnostic Catheter was advanced over the wire and used for Right coronary angiography. Multiple views taken of right coronary artery. Catheter removed over the standard wire. A 5 jamaican Angled Pig catheter in over wire. EDP Sample taken: LV 112/-17,3; HR: 78 BPM; SpO2: 100%. LV gram performed in CARREON @ 10 mL/second for a total of 30 mL. EDP Sample taken: LV 162/-6,68; HR: 78 BPM; SpO2: 100%. Pullback taken: LV Off; AO Off; Mean: , Peak to Peak: , SEP: ; HR: 79 BPM; SpO2: 100%. Abdominal aortogram performed in AP @ 10 mL/sec for a total of 30 mL. Abdominal aortogram performed in AP @ 10 mL/sec for a total of 30 mL. Catheter removed over the standard wire. A Manual Compression was successful obtaining hemostatsis at the Left Femoral artery insertion site. Sheath(s) removed and manual pressure held until hemostasis was achieved. Sterile 4x4 and Op-site applied to the puncture site. No oozing or hematoma noted. Post sheath removal instructions were given and the patient verbalized understanding. Post Procedure: Pulses reassessed and unchanged. PERRLA. Strong, equal hand automatic spinning lathe setter bilaterally. No VTE prophylaxis required. Medication's Wasted: Lidocaine 1% = 4 mL. Medication's Wasted: Heparin = 4500 units. Contrast type used: Omnipaque 300 mgI/mL, 500 mL bottle. Post-op diagnosis: mild to moderate CAD, instent narrowing right iliac. Complications: none. Estimated blood loss: 5mL-10mL. Total IV fluids: 537 mL. Procedure completed. Patient transferred by bed to 1st floor. Vital chart was stopped. Access Site Site: Left Femoral artery Sheath Size: 5 Fr Hemostasis Method: Manual Compression Hemostasis Success: Successful Procedure Medications Start: 6:59 AM Stop: 6:59 AM Medication: 0.9% Saline Amount: 250 ml Route: I.V. bolus Start: 7:02 AM Stop: 7:02 AM Medication: Versed Amount: 1 mg Route: I.V. Start: 7:02 AM Stop: 7:02 AM Medication: Fentanyl Amount: 25 mcg Route: I.V. Start: 7:17 AM Stop: 7:17 AM Medication: Heparin Amount: 1500 units Route: I.V. Start: 7:29 AM Stop: 7:29 AM Medication: 0.9% Saline Amount: 250 ml Route: I.V. bolus I, the attending physician, have reviewed and verified all procedure medications. Yes, all medications given per verbal order History/Risk Factors Hypertension: Yes Dyslipidemia: No Peripheral Arterial Disease (PAD): Yes Myocardial Infarction (TX): No Obesity: No Renal Disease: No Prior Interventions PCI: No CABG: No Valve Surgery: No Report Signatures Finalized by Dr Diane Olivo MD [facility] on 04/14/2021 07:40 PM
[2021-04-14] MEDS: diphenhydrAMINE 50 mg Capsule PO (06:40)
--- NOTE | 2021-04-14 06:57 | W.PM.OPSUD ---
Surgery/Procedure H&P Update DATE OF PROCEDURE: April 14, 2021 DATE H&P PERFORMED: 03/21/21 H&P UPDATE INFORMATION: I have reviewed H&P completed within last 30 days, I have examined patient prior to procedure and No changes to prior documentation PREOP DIAGNOSIS: ashd/ExTExtensive vascular diseaseEnsive vascular diseasese PLANNED PROCEDURE: Operation Date: 04/14/21 07:00 Proposed Procedures p Cardiac Catheterization 02747 R07.89(Left) - Diane Oilvo MD PATIENT REASSESSED PRIOR TO SEDATION, WITH NO CHANGE NOTED: Yes PHYSICAL EXAM: alert, oriented x 3, clear to auscultation bilaterally and regular rate & rhythm AIRWAY EVAL/ANESTHESIA PLAN: normal airway, see other exam findings, ASA II, Monitored Anesthesia, Local Anesthesia, Risks, benefits & alternatives of sedation and/or procedure discussed and Patient agrees to continue as planned
--- NOTE | 2021-04-14 08:00 | PC.NURSE ---
Received pt from cardiac cath rn Pt is alert, oriented. Denies any pain. Right groin dressing is dry and intact. No hematoma, swelling or bleeding noted. Instructed pt o bedrest and activity restrictions on left leg. Pt verbalizes understanding. Call light handed to pt.
[2021-04-14] MEDS: multivitamin therapeutic Tablet 1 TAB PO (10:27)
[2021-04-14] MEDS: acyclovir 800 mg Tablet PO ×2 (10:27→13:13)
[2021-04-14] MEDS: predniSONE 10 mg Tablet PO (10:27)
[2021-04-14] MEDS: zinc gluconate 50 mg Tablet PO (10:28)
--- NOTE | 2021-04-14 12:10 | PC.CHAP ---
Pastoral Care Encounter/Spiritual Assessment Type of Contact [] Declined flight communications officer visit [] Patient/Family/Request visit [] Outpatient visit [] Follow-up visit [] Physician referral [] Code/Alert [xx] Routine visit [] Staff referral [] Actively dying [] Patient sleeping [] Family support [] [] Out of room [] Palliative care [] [] Receiving care in room [] Pre-surgical visit [] Trauma [] Long length of stay [] ICU visit [] Other: Relational/Emotional Strength [xx] Patient feels connected with others/family/visitors/staff [] Distress [] Loneliness/isolation [] Abandonment Spirituality of Patient [xx] Person of Donna [xx] Attends Yazdanism of their Donna [xx] Believes in Prayer [xx] Reads Bible or Lutheran materials [] There are Spiritual issues to be addressed Lumber Checker Interventions [xx] Prayer [xx] Active listening [xx] Non-anxious presence [] Spiritual/emotional support [] Crisis/trauma care [] Spiritual counseling [] Bereavement support [] Provided bereavement packet [xx] Provided Bible/devotional materials [] Provided toy/stuffed animal, coloring book to patient or family member [] Provided Communion [] Anointing/[place] [] Salvation [xx] Completed spiritual assessment [] Other: Impact on Illness or Injury [] Angry [] Fearful [] Anxious [] Often cries [] Exhaustion [] Unable to work [] Unable to attend buddhism [] Unable to walk/stand [] Unable to read [] Unable to drive [] Unable to eat/drink [] Unable to sleep [] Unable to be with family [] Patient intubated [] Other: Summary Patient accepted [employer]. Patient is more concerned about her children and grandchildren than about herself and requested prayer for them rather than herself. Time spent with patient 6 minutes
--- NOTE | 2021-04-14 13:00 | PC.NURSE ---
Ambulation Pt is up and to bathroom. she is mildly dizzy. No hematoma, swelling or bleeding upon ambulation. Post angiogram home care instructions discuss to pt. Pt verbalizes understanding.
--- NOTE | 2021-04-14 15:19 | PC.NURSE ---
[place]gar[place] to home with caregiver Instructed pt to follow-up with her blood draw as ordered next Saturday. Instructed pt to follow-up eith his pcp and shirt folder. Educated pt to stop her Metoprolol as discontinued med at discharge. TO check her BP at least twice a day. To sit-up slowly to prevent dizziness. Instructed if she develops worsening of symptoms to call 911, go to urgent care of come to ER. Pt verbalizes understanding and concerns are answered. Discharge packet provided to pt.
== END 2021-04-14 15:17 | disposition home or self-care (01) ==
LOC: CCL 06:09 → CSU 06:44
PROVIDERS: PCP Family Medicine; Visit Provider Internal Medicine Cardiovascular Disease
DX: I25.10 Atherosclerotic heart disease of native coronary artery without angina pectoris (principal); R07.89 Other chest pain; I77.9 Disorder of arteries and arterioles, unspecified; I10 Essential (primary) hypertension
CPT/HCPCS: 36415; 75625; 93452; C1769; C1887; C1894; J1644; J2250; J3010; J7030; J7512; J8499; Q0163; Q9967

== ENCOUNTER 2021-04-25 05:35 | Outpatient (RCR) | payer MEDICAID, SELFPAY ==
--- NOTE | 2021-04-21 11:35 | ONCRAD EPV_ITS ---
Radiation Oncology Follow-Up Note Patient Name: Danisha Leonard Date of : 1960 Date of Service: 04/21/2021 Attending Physician: Maykel Alas M.D. Danisha Leonard returned to my office this morning for a routinely scheduled follow-up appointment. She completed thoracic radiotherapy in March for the management of a clinical stage IIIA (TXN2) poorly differentiated carcinoma of the lung. [place] Genomic Prevalence Score from [employer] identified a 98% likelihood of lung adenocarcinoma. She was prescribed carboplatin (AUC 2) and paclitaxel (50 mg/m???) weekly during radiotherapy under the supervision of Mark Augustin M.D. On review of systems, she denied significant pulmonary symptoms and improvement with odynophagia. On physical examination, she weighed 151 lbs and her temperature was 98.7???F. Her blood pressure was 113/71 mmHg. The pulse was 95 bpm and the respiratory rate was 20 breaths per minute. Her oxygen saturation while breathing ambient air was 96%. Auscultation of the posterior lung daniel identified bronchial breath sounds. In summary, Ms. Leonard returned for a routine post-radiotherapy follow-up. I have ordered a CT of the chest & abdomen prior to her medical oncology appointment for evaluation concerning possible Durvalumab therapy. Signed by: Dr. Maykel Alas 04/21/2021 11:33:58 AM
[2021-04-25 13:35] LABS: Basophils # 0.1 10^3/uL (0.0-0.1); Basophils % 1.5 %; Eosinophils # 0.2 10^3/uL (0.0-0.8); Eosinophils % 2.8 %; Hematocrit 35.7 % (37.0-47.0); Hemoglobin 11.9 g/dL (11.5-15.3); Lymphocytes % 16.1 %; Mean Corpuscular HGB Conc 33.3 g/dL (30.0-36.0); Mean Corpuscular Hemoglobin 33.3 pg (28.0-34.0); Mean Platelet Volume 9.9 fL (7.4-10.4); Monocytes # 0.6 10^3/uL (0.2-0.9); Monocytes % 9.4 %; Neutrophils # 4.24 10^3/uL (1.8-7.7); Neutrophils % 69.7 %; Nucleated Red Blood Cells % 0 %; Platelet Count 256 10^3/cmm (130-400); Red Blood Count 3.57 10^6/uL (4.1-5.3); Red Cell Distribution Width 15.4 % (12.1-15.1); White Blood Count 6.1 10^3/uL (4.0-10.0)
[2021-04-25 14:02] LABS: Alanine Aminotransferase 17 U/L (0-33); Albumin Level 4.3 g/dL (3.5-5.2); Alkaline Phosphatase 99 IU/L (35-105); Anion Gap 16.8 (5-19); Aspartate Amino Transferase 12 U/L (0-32); Blood Urea Nitrogen 20 mg/dL (6-20); Calcium 9.2 mg/dL (8.5-10.5); Carbon Dioxide 24 mmol/L (22-29); Chloride 102 mmol/L (98-107); Globulin 2.4 g/dL (1.3-4.6); Glomerular Filtration Rate 126.7 mL/min (90-130); Glucose 97 mg/dL (65-115); Osmolality Calculated 291 mOsm/kg (285-295); Potassium 3.8 mmol/L (3.5-5.1); Sodium 139 mmol/L (136-145); Total Bilirubin 0.3 mg/dL (0.15-1.2); Total Protein 6.7 g/dL (6.6-8.7)
--- NOTE | 2021-04-29 12:25 | ONC FU_ITS ---
Dr. Augustin Patient Follow-Up Note Patient: Danisha Leonard Unit #: [id number]: 1960 Dicatated By: Mark Augustin M.D.Date of Visit:April 25, 2021 Onc Med Follow-up/Prog Note Chief Complaint: Metastatic squamous cell carcinoma. 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 As yet she has no documented primary malignancy. Since July 2020 she had complaints of abdominal pain which had persisted despite undergoing cholecystectomy in August. She was then thought to have gastritis and/or diverticulitis, though her colonoscopy in October was completely unremarkable. She then developed further symptoms of throat swelling, lightheadedness and chest pain, and she also developed hoarseness, for which she was seen in the emergency room on November 29, 2020. 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 There was marked/severe narrowing of the origin of the left vertebral artery due to large plaque. There was noted to be asymmetry of the vocal cords with small nodularity on the left. Tonsils were symmetrically enlarged. There was mediastinal adenopathy including a 2 cm node in the aortopulmonary window and a subcarinal lymph node measuring 1.5 cm. An enlarged right hilar lymph node measured 1.[address] angiogram of the chest showed no evidence of pulmonary embolus. There was noted to be patchy airspace opacity in the left lower lobe compatible with pneumonic infiltrate and there was mild diffuse interstitial and groundglass opacity in the lungs compatible with mild pneumonitis versus CHF. Also noted was a 1.3 cm precarinal lymph node, 1.5 cm left hilar lymph node, and 1.2 cm right hilar lymph node. She was referred to Dr. Leroy and she was confirmed by flexible laryngoscopy to have left vocal cord paralysis. She was then seen by Dr. Matthews and on December 14, 2020 she underwent left open paramedian mediastinotomy with biopsy of the AP window lymph node. Pathology showed metastatic squamous cell carcinoma which was p16 negative. On her next generation sequencing study, her PD-L1 expression was reported positive at 95%. There were no actionable mutations identified. I had seen her initially on 12/27/2020. Her staging PET/CT on 12/31/2020 showed several FDG positive mediastinal lymph nodes with high probability of malignancy, including a superior prevascular node measuring 1.0 cm with SUV 5.8. There were additional FDG avid nodes in the prevascular, subaortic, and subcarinal territories. There were no other areas of abnormal uptake on that study. In particular, there was no significant FDG activity in the left glottis to indicate a site of primary malignancy. With those findings, she had radiation oncology consultation with Dr. Alas, and she was recommended to undergo definitive radiation concurrently with weekly carboplatin/paclitaxel chemotherapy. Her other medical illnesses include COPD, hypertension, carotid and vertebral artery stenosis, peripheral arterial disease, GERD, and degenerative arthritis. She has a known abdominal aortic aneurysm, and she has anxiety/depression. She began smoking at age 10, and she smoked up to 2 packs of cigarettes daily. She quit smoking in December 2020. INTERIM HISTORY: She began her chemoradiation on 02/13/2021. Radiation was completed on 03/24/2021 to a total dose of 6000 cGy administered in 30 fractions. During that time she received a total of 5 weekly chemotherapy infusions of carboplatin/paclitaxel, her week 4 treatment having been delayed due to neutropenia. She has seen for a follow-up visit. Approximately 1 month ago she development of shingles in the right mid back/chest distribution, and she is still having significant pain associated with that. She also has very limited activity due to the pain and to fatigue and shortness of breath. Her ECOG score is 2. She has good appetite. She has no fever or night sweats. She has not had mouth sores and she says her throat is better, though she still has some hoarseness. She does not have much cough, but she is short of breath today and she has tightness in her chest. She has shooting pains associated with the shingles. She complains that she has been nauseated all the time since her treatment. Bowel function has been okay. She has been having some hesitancy with urination. She has no significant joint or bone pain. She does not complain of headache. She does have some lightheadedness. She was having problems dropping things with her left hand, but that has improved now. She has having some issues with anxiety. Medications: Acyclovir 1 Tablet (of 800 mg) Tablet Oral 5x/d for 14 days, Aspirin 81 1 (81 mg) Tablet, chewable Oral every am, DULoxetine HCl 1 Tablet (of 20 mg) Tablet Oral daily, Gabapentin (300 mg) Capsule Oral b.i.d., Pantoprazole Sodium 1 (40 mg) Tablet, enteric coated Oral daily, Ventolin HFA 2 Puff(s) (of 108 (90 Base) mcg/act) Aerosol, solution Inhalation daily, Vitamin C & D3/Tessa Hips 1 (500-1000-20 mg - Units - mg) Capsule Oral daily, Zinc 1 (50 mg) Capsule Oral daily Allergies: Adhesive, Clindamycin HCl, Egg, Penicillins, and Skin Glue. Vital Signs: Performed on April 25, 2021 15:03 Height - 66.00 in Weight - 152.2 lbs (HIGH) BSA - 1.78 sq.m BMI - 24.57 Temperature - 97.2 F (LOW) Pulse - 101 /min (HIGH) Respiration - 18 /min BP - 132/83 mm(hg) O2 Sat - 97 % Pain - 2 Fatigue - 0 Physical Examination: Constitutional - She appears somewhat weak generally, Eyes - Sclerae nonicteric. Conjunctivae clear, ENMT - No lesions noted in the oral cavity, Hematologic/Lymphatic - No cervical, clavicular, or axillary adenopathy, Respiratory - Lungs sound clear with diminished air movement bilaterally, Cardiovascular - Heart rhythm is regular. There is no murmur, gallop, or rub noted, Abdomen - Soft. Liver and spleen are not enlarged. There is no abdominal mass or ascites noted and there is no inguinal adenopathy, Extremities - No edema. She has palpable radial pulses bilaterally and palpable pedal pulses bilaterally, Integumentary - She has resolving herpes zoster eruption on the back in the right mid thoracic distribution, Neurologic - No focal neurologic deficits noted. Lab/Imaging: Test performed on April 25, 2021 12:50 Sodium 139 mmol/L Potassium 3.8 mmol/L Chloride 102 mmol/L CO2 24 mmol/L Anion Gap 16.8 BUN 20 mg/dL Creatinine 0.5 mg/dL Cr Clearance (Est) 140.6900 mL/min eGFR 126.7 mL/min Glucose 97 mg/dL Osmolality - Calculated 291 mOsm/kg Calcium 9.2 mg/dL Protein, Total 6.7 g/dL Albumin 4.3 g/dL Globulin 2.4 g/dL Bilirubin, Total 0.3 mg/dL ALT (SGPT) 17 U/L AST (SGOT) 12 U/L Alkaline Phosphatase 99 IU/L WBC 6.1 10 3/uL RBC 3.57 10 6/uL HGB 11.9 g/dL HCT 35.7 % MCV 100.0 fL MCH 33.3 pg MCHC 33.3 g/dL RDW 15.4 % Platelet Count 256 10 3/cmm MPV 9.9 fL Neutrophils 4.24 10 3/uL Lymphocytes 1.0 10 3/uL Monocytes 0.6 10 3/uL Eosinophils 0.2 10 3/uL Basophils 0.1 10 3/uL Neutrophil % 69.7 % Lymphocyte % 16.1 % Monocyte % 9.4 % Eosinophil % 2.8 % Basophils % 1.5 % NRBC % 0 % Problem List: 1. 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 There is associated left vocal cord paralysis. A primary lesion has not yet been identified, but the pattern is most consistent with metastatic non-small cell lung cancer. 2. Hypertension. 3. There is CT evidence of carotid and vertebral artery stenosis. 4. She has history of peripheral arterial disease with previous stent to the right common iliac artery. 5. COPD. 6. GERD. 7. Degenerative arthritis. 8. Anxiety/depression. Problems Addressed with this Encounter and Plan: 1. 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 There was associated left vocal cord paralysis. A definite primary lesion was not identified by clinical evaluation, which included PET/CT. The pattern was most consistent with metastatic non-small cell lung cancer. On her next generation sequencing study, the tumor was found to be positive for PD-L1 expression at 90%. There were no actionable mutations identified. With those findings, she underwent definitive radiation concurrently with weekly carboplatin/paclitaxel chemotherapy. She completed radiation on 03/24/2021 to a total dose of 6000 cGy administered in 30 fractions. During that time she completed a total of 5 weekly infusions of carboplatin/paclitaxel, her week for infusion having been delayed due to neutropenia. Overall, she tolerated the treatment well. At this point she is having some increase in shortness of breath, for which I will have her start prednisone 10 mg twice daily. She will be scheduled for restaging chest CT. Depending on the findings, she may be eligible then to begin maintenance immunotherapy with her durvalumab. In the meantime, I also will arrange for her to have a have a follow-up visit with her body trimmer upholsterer. 2. Her clinical course was complicated by development of herpes zoster in the right mid thoracic distribution. It does appear to be resolving, she does have some associated herpetic neuralgia. It is being managed symptomatically. 3. She has ongoing problems with anxiety. She will start citalopram at 10 mg daily. The dosage can be adjusted as necessary. Signed By: Mark Augustin M.D. <<Signature on File>>
== END 2021-05-01 23:59 | disposition home or self-care (01) ==
LOC: ONCMED 05:35
PROVIDERS: Absent Provider Radiology Radiation Oncology; PCP Family Medicine; Visit Provider Internal Medicine Medical Oncology
DX: C77.2 Secondary and unspecified malignant neoplasm of intra-abdominal lymph nodes (principal); J38.02 Paralysis of vocal cords and larynx, bilateral; I10 Essential (primary) hypertension; I65.23 Occlusion and stenosis of bilateral carotid arteries; I73.9 Peripheral vascular disease, unspecified; J44.9 Chronic obstructive pulmonary disease, unspecified; K21.9 Gastro-esophageal reflux disease without esophagitis; M19.90 Unspecified osteoarthritis, unspecified site; F41.9 Anxiety disorder, unspecified; F32.9 Major depressive disorder, single episode, unspecified; Z79.899 Other long term (current) drug therapy; Z92.3 Personal history of irradiation
CPT/HCPCS: 36591; 80053; 85025; 99024; 99215

== ENCOUNTER 2021-05-11 05:38 | Outpatient (RCR) | payer MEDICAID, SELFPAY ==
--- NOTE | 2021-05-09 08:54 | CT_ITS ---
WS: [id number] CT CHEST TECHNIQUE: Contrast enhanced CT of the chest with coronal and sagittal reformatted images. CLINICAL INFORMATION: LUNG CANCER COMPARISON: [facility] November 29, 2020 DLP: 702.[address] scans at [facility] use at least one of these dose optimization techniques: automat ed exposure control; mA and/or kV adjustment per patient size (includes targeted exams where dose is matched to clinical indication); or iterative reconstruction. FINDINGS: Chronic emphysematous changes. No acute pulmonary infiltrates. No focal pneumonia or pleural fluid. C alcified granulomas. Slightly atelectasis in the lingula. Normal thyroid gland. No mediastinal or hil ar lymphadenopathy. Aortic calcification. Coronary calcification. Diffuse fatty infiltration liver. Normal portal vein and splenic vein. Normal GE junction. Normal spl een. Adrenal glands are normal. CT/CT chest w con* [id number] IMPRESSION: 1. Mild chronic emphysematous changes. No acute pulmonary infiltrates. 2. No focal consolidation or pleural fluid. 3. No acute parenchymal infiltrates. 4. No mediastinal or hilar lymphadenopathy. 5. No other significant findings.
[2021-05-09] MEDS: iohexol 300 mg/mL 100 mL Btl IV (09:13)
--- NOTE | 2021-06-01 14:55 | ONC FU_ITS ---
[facility] Patient Note Patient: Danisha Leonard Unit #: [id number]: [id number] Dictated By: Janessa TavarezDate of Visit: May 11, 2021 Onc MED Follow-Up/Prog Note Chief Complaint: Metastatic squamous cell carcinoma. 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 As yet she has no documented primary malignancy. Since July 2020 she had complaints of abdominal pain which had persisted despite undergoing cholecystectomy in August. She was then thought to have gastritis and/or diverticulitis, though her colonoscopy in October was completely unremarkable. She then developed further symptoms of throat swelling, lightheadedness and chest pain, and she also developed hoarseness, for which she was seen in the emergency room on November 29, 2020. 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 There was marked/severe narrowing of the origin of the left vertebral artery due to large plaque. There was noted to be asymmetry of the vocal cords with small nodularity on the left. Tonsils were symmetrically enlarged. There was mediastinal adenopathy including a 2 cm node in the aortopulmonary window and a subcarinal lymph node measuring 1.5 cm. An enlarged right hilar lymph node measured 1.[address] angiogram of the chest showed no evidence of pulmonary embolus. There was noted to be patchy airspace opacity in the left lower lobe compatible with pneumonic infiltrate and there was mild diffuse interstitial and groundglass opacity in the lungs compatible with mild pneumonitis versus CHF. Also noted was a 1.3 cm precarinal lymph node, 1.5 cm left hilar lymph node, and 1.2 cm right hilar lymph node. She was referred to Dr. Leroy and she was confirmed by flexible laryngoscopy to have left vocal cord paralysis. She was then seen by Dr. Matthews and on December 14, 2020 she underwent left open paramedian mediastinotomy with biopsy of the AP window lymph node. Pathology showed metastatic squamous cell carcinoma which was p16 negative. On her next generation sequencing study, her PD-L1 expression was reported positive at 95%. There were no actionable mutations identified. Dr Uriarte had seen her initially on 12/27/2020. Her staging PET/CT on 12/31/2020 showed several FDG positive mediastinal lymph nodes with high probability of malignancy, including a superior prevascular node measuring 1.0 cm with SUV 5.8. There were additional FDG avid nodes in the prevascular, subaortic, and subcarinal territories. There were no other areas of abnormal uptake on that study. In particular, there was no significant FDG activity in the left glottis to indicate a site of primary malignancy. With those findings, she had radiation oncology consultation with Dr. Alas, and she was recommended to undergo definitive radiation concurrently with weekly carboplatin/paclitaxel chemotherapy. Her other medical illnesses include COPD, hypertension, carotid and vertebral artery stenosis, peripheral arterial disease, GERD, and degenerative arthritis. She has a known abdominal aortic aneurysm, and she has anxiety/depression. She began smoking at age 10, and she smoked up to 2 packs of cigarettes daily. She quit smoking in December 2020. INTERIM HISTORY: She began her chemoradiation on 02/13/2021. Radiation was completed on 03/24/2021 to a total dose of 6000 cGy administered in 30 fractions. During that time she received a total of 5 weekly chemotherapy infusions of carboplatin/paclitaxel, her week 4 treatment having been delayed due to neutropenia. She had follow-up with Dr. Uriarte in April 2020 at that time she reported that approximately 1 month prior, she had shingles in the right mid back/chest distribution, and she was still having significant pain associated with that. She was having increased anxiety as well. He did start her on citalopram 10 mg daily. He is also recommended follow-up CT of the chest to determine if she could proceed with maintenance immunotherapy with durvalumab. She did have CT of the chest with contrast on May 09, 2021. This reported mild chronic emphysematous changes. No acute pulmonary infiltrates. No focal consolidation or pleural fluid. No acute parenchymal infiltrates. No mediastinal or hilar lymphadenopathy and no other significant findings. Mrs. Leonard is here today for follow-up and consideration of starting durvalumab. She states overall she is feeling some better but still feels that she is having pain from the shingles. She states she thinks the rash is starting to return. She has not been on any antiviral medication in the last 10 days or so. She states that she is doing the prednisone 10 mg twice a day and her breathing is good with that. She states overall is better. She feels her anxiety is improved on the citalopram. She states she is eating good. She is had no fever or chills. She denies any diarrhea or constipation. She has a occasional productive cough but states this is normal for her. She states is nothing worse than her normal and nothing that she is concerned about. She denies any mouth sores. Her throat is improved overall. She states in general she is feeling better but the shingles are still bothering her. Her ECOG is 1. Past Medical History: Abdominal aortic aneurysm Chronic obstructive pulmonary disease Degenerative arthritis Gastroesophageal reflux disease History of pyelonephritis/sepsis Hypertension Peripheral artery disease Covid 19 in 2020 Past Surgical History: Excision of skin cancer from the right hand Left subclavian Gpfd-o-Ogem-Dr Matthews in 2020 Bronchoscopy in 2020 Left open paramedian mediastinotomy with mediastinal lymph node biopsy in 2020 Colonoscopy in 2019 Laparoscopic cholecystectomy in 2019 Arterial stent placement to the right common iliac artery in 2014 Hysterectomy with bilateral salpingo-oophorectomy and bladder tie up in 2001 Allergies: Adhesive, Clindamycin HCl, Egg, Penicillins, and Skin Glue. Medications: Acyclovir 1 Tablet (of 800 mg) Tablet Oral 5x/d for 14 days Aspirin 81 1 (81 mg) Tablet, chewable Oral every am DULoxetine HCl 1 Tablet (of 20 mg) Tablet Oral daily Gabapentin (300 mg) Capsule Oral b.i.d. Pantoprazole Sodium 1 (40 mg) Tablet, enteric coated Oral daily Ventolin HFA 2 Puff(s) (of 108 (90 Base) mcg/act) Aerosol, solution Inhalation daily Vitamin C & D3/Tessa Hips 1 (500-1000-20 mg - Units - mg) Capsule Oral daily Zinc 1 (50 mg) Capsule Oral daily Family History: Ms. Leonard's father is : lung cancer. Father of lung cancer at age 80. Mother is still living at age 84. She has congestive heart failure. A brother and a sister are in good health. Social History: Ms. Leonard is single. Ms. Leonard quit smoking less than one year ago but had smoked for 51 years. She is a former drinker. She has history of smoking up to 2 packs of cigarettes daily or more, beginning at age 10. She quit smoking in December 2020. She previously has had some alcohol use, but never heavy. She has had no alcohol use for at least the last 2 or 3 years. Review Of Symptoms: <See Above> Vital Signs: Performed on May 11, 2021 11:01 Height - 66.00 in Weight - 159 lbs (HIGH) BSA - 1.81 sq.m BMI - 25.66 Temperature - 98.0 F (LOW) Pulse - 88 /min Respiration - 18 /min BP - 121/70 mm(hg) O2 Sat - 97 % Pain - 1 Fatigue - 0,1 - No physically strenuous activity, but ambulatory and able to carry out light or sedentary work (e.g. office work, light house work). (ECOG) Physical Examination: Constitutional Alert, oriented, no acute distress. Skin pink, warm and dry. Head Normocephalic; atraumatic. Eyes Conjunctivae and sclerae are clear and without icterus. Pupils are reactive and equal. ENMT No oral exudates, ulcers, masses, thrush or mucositis. Oropharynx clear. Tongue normal. Respiratory Lungs are clear to auscultation without rhonchi or wheezing. Cardiovascular Regular rate and rhythm of heart without murmurs,clicks, gallops or rubs. Chest left subclavian venous access device insertion site is unremarkable. Abdomen Non-tender, non-distended, no masses or ascites. Good bowel sounds noted in all quads. No guarding or rebound tenderness. No pulsatile masses. Back/Spine Non-tender to palpation. Extremities No visible deformities, no cyanosis, clubbing or edema. Musculoskeletal No tenderness or swelling, normal range of motion without obvious weakness. Integumentary Red raised welt/blisterlike lesions in a linear fashion noted on her upper back. They seem to be healing some but other areas seem to be new . Neurologic No sensory or motor deficits, normal cerebellar function, normal gait. Psychiatric Alert and oriented times three. Coherent speech. Verbalizes understanding of our discussions today. Laboratory:Test performed on April 25, 2021 12:50 Sodium 139 mmol/L Potassium 3.8 mmol/L Chloride 102 mmol/L CO2 24 mmol/L Anion Gap 16.8 BUN 20 mg/dL Creatinine 0.5 mg/dL Cr Clearance (Est) 140.6900 mL/min eGFR 126.7 mL/min Glucose 97 mg/dL Osmolality - Calculated 291 mOsm/kg Calcium 9.2 mg/dL Protein, Total 6.7 g/dL Albumin 4.3 g/dL Globulin 2.4 g/dL Bilirubin, Total 0.3 mg/dL ALT (SGPT) 17 U/L AST (SGOT) 12 U/L Alkaline Phosphatase 99 IU/L WBC 6.1 10 3/uL RBC 3.57 10 6/uL HGB 11.9 g/dL HCT 35.7 % MCV 100.0 fL MCH 33.3 pg MCHC 33.3 g/dL RDW 15.4 % Platelet Count 256 10 3/cmm MPV 9.9 fL Neutrophils 4.24 10 3/uL Lymphocytes 1.0 10 3/uL Monocytes 0.6 10 3/uL Eosinophils 0.2 10 3/uL Basophils 0.1 10 3/uL Neutrophil % 69.7 % Lymphocyte % 16.1 % Monocyte % 9.4 % Eosinophil % 2.8 % Basophils % 1.5 % NRBC % 0 % Test performed on Mar 21, 2021 13:45 CBC Slide Review Slide Review Perform SLIDE REVIEW AGREES WITH AUTOMATED RESULTS Test performed on Mar 08, 2021 09:02 Manual Diff Cancelled via OM: Entered in error Impression: 1. 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 There is associated left vocal cord paralysis. A primary lesion has not yet been identified, but the pattern is most consistent with metastatic non-small cell lung cancer. 2. Hypertension. 3. There is CT evidence of carotid and vertebral artery stenosis. 4. She has history of peripheral arterial disease with previous stent to the right common iliac artery. 5. COPD. 6. GERD. 7. Degenerative arthritis. 8. Anxiety/depression. Plan/Problems Addressed at this Visit: 1. 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 There was associated left vocal cord paralysis. A definite primary lesion was not identified by clinical evaluation, which included PET/CT. The pattern was most consistent with metastatic non-small cell lung cancer. On her next generation sequencing study, the tumor was found to be positive for PD-L1 expression at 90%. There were no actionable mutations identified. With those findings, she underwent definitive radiation concurrently with weekly carboplatin/paclitaxel chemotherapy. She completed radiation on 03/24/2021 to a total dose of 6000 cGy administered in 30 fractions. During that time she completed a total of 5 weekly infusions of carboplatin/paclitaxel, her week for infusion having been delayed due to neutropenia. Overall, she tolerated the treatment well. At her followup in April 2021, she was having some increase in shortness of breath and Dr Uriarte did have her start prednisone 10 mg twice daily. She states this is improved her breathing a lot. She did have follow-up CT of the chest with contrast on May 09, 2021. There was mild chronic emphysematous changes but no acute pulmonary infiltrates no significant findings and no mediastinal or hilar lymphadenopathy. There were no acute parenchymal infiltrates and no focal consolidations or pleural fluid. We will plan to continue observation for now as she recovers from shingles however it appears she is having a new outbreak and that will need to be treated. B. In the interim we will proceed with a PA for durvalumab and see her back once that is obtained. C. She will need CBC CMP and TSH for baseline labs for the durvalumab. B. Mrs. Leonard was encouraged to contact us in interim should questions or problems arise. 2. Her clinical course was complicated by development of herpes zoster in the right mid thoracic distribution. It does appear to be recurring. A. We will start her on acyclovir 800 mg 5 times daily for 7 days. B. She will call us if this is not improving her symptoms. 3. She has ongoing problems with anxiety. A. She states this is controlled with citalopram at 10 mg daily. 4. Follow-up plan we will see her back after the PA for durvalumab is obtained to reassess to see if she is ready to start at that point. Hopefully her herpes zoster will be cleared by that time. Mrs. Leonard was encouraged to contact us in the interim should questions or problems arise. Signed By: Janessa Tavarez-HI, AOCNP Mark Uriarte MD <<Signature on File>>
== END 2021-05-31 23:59 | disposition home or self-care (01) ==
LOC: ONCMED 05:38
PROVIDERS: PCP Family Medicine; Visit Provider Nurse Practitioner
DX: C77.1 Secondary and unspecified malignant neoplasm of intrathoracic lymph nodes (principal); I10 Essential (primary) hypertension; I65.23 Occlusion and stenosis of bilateral carotid arteries; I65.09 Occlusion and stenosis of unspecified vertebral artery; J44.9 Chronic obstructive pulmonary disease, unspecified; K21.9 Gastro-esophageal reflux disease without esophagitis; M19.90 Unspecified osteoarthritis, unspecified site; F41.9 Anxiety disorder, unspecified; F32.9 Major depressive disorder, single episode, unspecified; Z79.899 Other long term (current) drug therapy; Z92.3 Personal history of irradiation
CPT/HCPCS: 71260; 99214; Q9967

== ENCOUNTER 2021-06-02 09:59 | Outpatient (CLI) | payer MEDICAID, SELFPAY ==
--- NOTE | 2021-06-02 10:02 | MM_ITS ---
WS: [id number] Bilateral screening digital mammogram, 06/02/2021 Clinical Data: SCREENING Comparison: 10/03/2007, 09/19/2007. Findings: The breast parenchymal pattern shows extreme density. No spiculated masses or clustered calcification s are seen. There are no secondary signs of carcinoma. There are benign calcifications in both breast s. MM/[id number] Impression: 1. Negative bilateral mammogram unchanged. 2. Recommend annual screening mammograms. BIRADS: 1-Negative FOLLOW UP: 1 Year Follow-up The CAD time checker was used.
== END 2021-06-02 10:00 | disposition home or self-care (01) ==
LOC: RADSHAW 10:00
PROVIDERS: PCP Family Medicine; Visit Provider Family Medicine
DX: Z12.31 Encounter for screening mammogram for malignant neoplasm of breast (principal)
CPT/HCPCS: 77067

== ENCOUNTER 2021-06-20 05:42 | Outpatient (RCR) | payer MEDICAID, SELFPAY ==
[2021-06-02 10:32] LABS: Basophils % 0.6 %; Eosinophils % 0.5 %; Hematocrit 37.4 % (37.0-47.0); Hemoglobin 12.1 g/dL (11.5-15.3); Lymphocytes # 0.6 10^3/uL (0.8-4.8); Lymphocytes % 8.9 %; Mean Corpuscular HGB Conc 32.4 g/dL (30.0-36.0); Mean Corpuscular Hemoglobin 33.8 pg (28.0-34.0); Mean Corpuscular Volume 104.5 fL (81-99); Mean Platelet Volume 9.9 fL (7.4-10.4); Monocytes # 0.4 10^3/uL (0.2-0.9); Monocytes % 5.9 %; Neutrophils # 5.48 10^3/uL (1.8-7.7); Nucleated Red Blood Cells % 0 %; Platelet Count 251 10^3/cmm (130-400); Red Blood Count 3.58 10^6/uL (4.1-5.3); Red Cell Distribution Width 12.8 % (12.1-15.1); White Blood Count 6.6 10^3/uL (4.0-10.0)
[2021-06-02 11:06] LABS: Alanine Aminotransferase 19 U/L (0-33); Albumin Level 3.8 g/dL (3.5-5.2); Alkaline Phosphatase 68 IU/L (35-105); Anion Gap 17.7 (5-19); Aspartate Amino Transferase 13 U/L (0-32); Blood Urea Nitrogen 17 mg/dL (6-20); Calcium 9.1 mg/dL (8.5-10.5); Carbon Dioxide 25 mmol/L (22-29); Chloride 98 mmol/L (98-107); Globulin 2.5 g/dL (1.3-4.6); Glomerular Filtration Rate 85.9 mL/min (90-130); Glucose 139 mg/dL (65-115); Osmolality Calculated 288 mOsm/kg (285-295); Potassium 3.7 mmol/L (3.5-5.1); Sodium 137 mmol/L (136-145); Total Bilirubin 0.2 mg/dL (0.15-1.2); Total Protein 6.3 g/dL (6.6-8.7)
[2021-06-06] MEDS: sodium chloride 0.9% 250 ML 75 ML IV (14:25)
--- NOTE | 2021-06-07 07:35 | ONC FU_ITS ---
Dr. Augustin Patient Follow-Up Note Patient: Danisha Leonard Unit #: [id number]: [id number] Dicatated By: Mark Augustin M.D.Date of Visit:Jun 06, 2021 Onc Med Follow-up/Prog Note Chief Complaint: Metastatic squamous cell carcinoma. 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 Since July 2020 she had complaints of abdominal pain which had persisted despite undergoing cholecystectomy in August. She was then thought to have gastritis and/or diverticulitis, though her colonoscopy in October was completely unremarkable. She then developed further symptoms of throat swelling, lightheadedness and chest pain, and she also developed hoarseness, for which she was seen in the emergency room on November 29, 2020. 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 There was marked/severe narrowing of the origin of the left vertebral artery due to large plaque. There was noted to be asymmetry of the vocal cords with small nodularity on the left. Tonsils were symmetrically enlarged. There was mediastinal adenopathy including a 2 cm node in the aortopulmonary window and a subcarinal lymph node measuring 1.5 cm. An enlarged right hilar lymph node measured 1.[address] angiogram of the chest showed no evidence of pulmonary embolus. There was noted to be patchy airspace opacity in the left lower lobe compatible with pneumonic infiltrate and there was mild diffuse interstitial and groundglass opacity in the lungs compatible with mild pneumonitis versus CHF. Also noted was a 1.3 cm precarinal lymph node, a 1.5 cm left hilar lymph node, and a 1.2 cm right hilar lymph node. She was referred to Dr. Leroy and she was confirmed by flexible laryngoscopy to have left vocal cord paralysis. She was then seen by Dr. Matthews and on December 14, 2020 she underwent left open paramedian mediastinotomy with biopsy of the AP window lymph node. Pathology showed metastatic squamous cell carcinoma which was p16 negative. On her next generation sequencing study, her PD-L1 expression was reported positive at 95%. There were no actionable mutations identified. I had seen her initially on 12/27/2020. Her staging PET/CT on 12/31/2020 showed several FDG positive mediastinal lymph nodes with high probability of malignancy, including a superior prevascular node measuring 1.0 cm with SUV 5.8. There were additional FDG avid nodes in the prevascular, subaortic, and subcarinal territories. There were no other areas of abnormal uptake on that study. In particular, there was no significant FDG activity in the left glottis to indicate a site of primary malignancy. With those findings, she had radiation oncology consultation with Dr. Alas, and she was recommended to undergo definitive radiation concurrently with weekly carboplatin/paclitaxel chemotherapy. Her other medical illnesses include COPD, hypertension, carotid and vertebral artery stenosis, peripheral arterial disease, GERD, and degenerative arthritis. She has a known abdominal aortic aneurysm, and she has anxiety/depression. She began smoking at age 10, and she smoked up to 2 packs of cigarettes daily. She quit smoking in December 2020. INTERIM HISTORY: She began her chemoradiation on 02/13/2021. Radiation was completed on 03/24/2021 to a total dose of 6000 cGy administered in 30 fractions. During that time she received a total of 5 weekly chemotherapy infusions of carboplatin/paclitaxel, her week 4 treatment having been delayed due to neutropenia. Her further management was complicated by herpes zoster in the right mid back/chest distribution with associated herpetic neuralgia. Her restaging chest CT on 05/09/2021 showed mild chronic emphysematous changes with no acute pulmonary infiltrates and with no pulmonary nodules identified. There was no residual mediastinal or hilar lymphadenopathy. In the absence of any evidence for other source of primary malignancy, her clinical presentation was most consistent with metastatic non-small cell lung cancer and with the apparent complete response to the chemoradiation, I felt that she was appropriate for maintenance immunotherapy, particularly with the high PD-L1 expression. She is seen now for initiation of her maintenance durvalumab. There has been some delay in getting her treatment started, but some of that has been at her request. She is feeling pretty good generally. Following her visit in April, she had started a low dosage of citalopram for anxiety/depression, and that has been helping significantly. She has also continue low-dose prednisone, and without she has had a very good appetite and she has gained weight. She says her energy is okay, she does have to stop and rest with activity. Her ECOG score is 1. She has not had fever. She sometimes has sweating at night. She was having sore throat, that is better now. She has some shortness of breath, but not as bad. She does not complain of cough and she has not been having chest pain. She has no GI/ complaints other than some abdominal bloating. She has no significant joint or bone pain. She does not complain of headache. She has no numbness/paresthesia or other focal neurologic symptoms. She continues to have some dizziness, though, and she also complains of memory loss. Medications: Acyclovir 1 Tablet (of 800 mg) Tablet Oral 5x/d for 14 days, Aspirin 81 1 (81 mg) Tablet, chewable Oral every am, DULoxetine HCl 1 Tablet (of 20 mg) Tablet Oral daily, Gabapentin (300 mg) Capsule Oral b.i.d., Pantoprazole Sodium 1 (40 mg) Tablet, enteric coated Oral daily, Ventolin HFA 2 Puff(s) (of 108 (90 Base) mcg/act) Aerosol, solution Inhalation daily, Vitamin C & D3/Tessa Hips 1 (500-1000-20 mg - Units - mg) Capsule Oral daily, Zinc 1 (50 mg) Capsule Oral daily Allergies: Adhesive, Clindamycin HCl, Egg, Penicillins, and Skin Glue. Vital Signs: Performed on Jun 06, 2021 16:20 Height - 66.00 in Temperature - 97.9 F (LOW) Pulse - 81 /min Respiration - 18 /min BP - 126/76 mm(hg) O2 Sat - 96 % Performed on Jun 06, 2021 13:34 Height - 66.00 in Weight - 172 lbs (HIGH) BSA - 1.88 sq.m BMI - 27.76 Temperature - 97.0 F (LOW) Pulse - 87 /min Respiration - 18 /min BP - 106/77 mm(hg) O2 Sat - 97 % Pain - 0 Fatigue - 3 Physical Examination: Constitutional - She looks pretty good generally, Eyes - Sclerae nonicteric. Conjunctivae clear, ENMT - No lesions noted in the oral cavity, Hematologic/Lymphatic - No cervical, clavicular, or axillary adenopathy, Respiratory - Lungs sound clear with diminished air movement bilaterally, Cardiovascular - Heart rhythm is regular. There is no murmur, gallop, or rub noted, Abdomen - Soft. Liver and spleen are not enlarged. There is no abdominal mass or ascites noted and there is no inguinal adenopathy, Extremities - No edema, Neurologic - No focal neurologic deficits noted. Lab/Imaging: Test performed on Jun 02, 2021 10:15 Sodium 137 mmol/L Potassium 3.7 mmol/L Chloride 98 mmol/L CO2 25 mmol/L Anion Gap 17.7 BUN 17 mg/dL Creatinine 0.7 mg/dL Cr Clearance (Est) 99.7400 mL/min eGFR 85.9 mL/min Glucose 139 mg/dL Osmolality - Calculated 288 mOsm/kg Calcium 9.1 mg/dL Protein, Total 6.3 g/dL Albumin 3.8 g/dL Globulin 2.5 g/dL Bilirubin, Total 0.2 mg/dL ALT (SGPT) 19 U/L AST (SGOT) 13 U/L Alkaline Phosphatase 68 IU/L WBC 6.6 10 3/uL RBC 3.58 10 6/uL HGB 12.1 g/dL HCT 37.4 % MCV 104.5 fL MCH 33.8 pg MCHC 32.4 g/dL RDW 12.8 % Platelet Count 251 10 3/cmm MPV 9.9 fL Neutrophils 5.48 10 3/uL Lymphocytes 0.6 10 3/uL Monocytes 0.4 10 3/uL Eosinophils 0.0 10 3/uL Basophils 0.0 10 3/uL Neutrophil % 83.0 % Lymphocyte % 8.9 % Monocyte % 5.9 % Eosinophil % 0.5 % Basophils % 0.6 % NRBC % 0 % Problem List: 1. 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 There is associated left vocal cord paralysis. A primary lesion has not yet been identified, but the pattern is most consistent with metastatic non-small cell lung cancer. 2. Hypertension. 3. There is CT evidence of carotid and vertebral artery stenosis. 4. She has history of peripheral arterial disease with previous stent to the right common iliac artery. 5. COPD. 6. GERD. 7. Degenerative arthritis. 8. Anxiety/depression. 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 There was associated left vocal cord paralysis. A definite primary lesion was not identified by clinical evaluation, which included PET/CT. The pattern was most consistent with metastatic non-small cell lung cancer. On her next generation sequencing study, the tumor was found to be positive for PD-L1 expression at 90%. There were no actionable mutations identified. With those findings, she underwent definitive radiation concurrently with weekly carboplatin/paclitaxel chemotherapy. She completed radiation on 03/24/2021 to a total dose of 6000 cGy administered in 30 fractions. During that time she completed a total of 5 weekly infusions of carboplatin/paclitaxel, her week for infusion having been delayed due to neutropenia. Overall, she tolerated the treatment well. Her restaging chest CT on 05/09/2021 showed no pulmonary nodules and no residual mediastinal or hilar lymphadenopathy, consistent with complete response to the treatment. As such, she was deemed eligible for maintenance immunotherapy. She will now begin her first cycle of durvalumab at 10 mg/kg by IV infusion every 2 weeks for duration of 1 year. I reviewed potential side effects including the risk for enteritis, pneumonitis, endocrinopathies, skin toxicity, liver and/or renal toxicity, as well as other possible immune mediated toxicities. I will have her decrease her prednisone dosage to 5 mg daily, and that can be further tapered as tolerated. She was scheduled to return for treatment in 2 weeks and for a follow-up visit in 4 weeks. In the meantime, she will be scheduled for a brain MRI, which had not been done with her initial evaluation. Signed By: Mark Augustin M.D. <<Signature on File>>
== END 2021-07-01 23:59 | disposition home or self-care (01) ==
LOC: ONCMED 05:42
PROVIDERS: PCP Family Medicine; Visit Provider Internal Medicine Medical Oncology
DX: Z51.12 Encounter for antineoplastic immunotherapy (principal); C34.90 Malignant neoplasm of unspecified part of unspecified bronchus or lung; C77.1 Secondary and unspecified malignant neoplasm of intrathoracic lymph nodes; J38.01 Paralysis of vocal cords and larynx, unilateral; I73.9 Peripheral vascular disease, unspecified; J44.9 Chronic obstructive pulmonary disease, unspecified; K21.9 Gastro-esophageal reflux disease without esophagitis; M19.90 Unspecified osteoarthritis, unspecified site; F41.9 Anxiety disorder, unspecified; F32.9 Major depressive disorder, single episode, unspecified; Z79.899 Other long term (current) drug therapy
CPT/HCPCS: 36415; 36591; 80053; 85025; 96413; 99215; J7050; J9173

== ENCOUNTER 2021-07-04 05:51 | Outpatient (RCR) | payer MEDICAID, SELFPAY ==
[2021-07-04 08:56] LABS: Basophils # 0.1 10^3/uL (0.0-0.1); Basophils % 1.2 %; Eosinophils # 0.4 10^3/uL (0.0-0.8); Eosinophils % 6.7 %; Hematocrit 38.1 % (37.0-47.0); Hemoglobin 12.5 g/dL (11.5-15.3); Lymphocytes # 0.9 10^3/uL (0.8-4.8); Lymphocytes % 14.5 %; Mean Corpuscular HGB Conc 32.8 g/dL (30.0-36.0); Mean Corpuscular Volume 103.5 fL (81-99); Mean Platelet Volume 9.8 fL (7.4-10.4); Monocytes # 0.5 10^3/uL (0.2-0.9); Monocytes % 8.8 %; Neutrophils # 4.09 10^3/uL (1.8-7.7); Nucleated Red Blood Cells % 0 %; Platelet Count 311 10^3/cmm (130-400); Red Blood Count 3.68 10^6/uL (4.1-5.3); Red Cell Distribution Width 12.3 % (12.1-15.1)
[2021-07-04 09:33] LABS: Alanine Aminotransferase 18 U/L (0-33); Albumin Level 3.9 g/dL (3.5-5.2); Alkaline Phosphatase 77 IU/L (35-105); Anion Gap 15.1 (5-19); Aspartate Amino Transferase 16 U/L (0-32); Blood Urea Nitrogen 19 mg/dL (6-20); Calcium 9.1 mg/dL (8.5-10.5); Carbon Dioxide 29 mmol/L (22-29); Chloride 102 mmol/L (98-107); Globulin 2.6 g/dL (1.3-4.6); Glomerular Filtration Rate 85.9 mL/min (90-130); Glucose 92 mg/dL (65-115); Osmolality Calculated 296 mOsm/kg (285-295); Potassium 4.1 mmol/L (3.5-5.1); Sodium 142 mmol/L (136-145); Thyroid Stimulating Hormone 2.77 uIU/mL (0.27-4.20); Total Bilirubin 0.2 mg/dL (0.15-1.2); Total Protein 6.5 g/dL (6.6-8.7)
--- NOTE | 2021-07-04 10:37 | ONC FU_ITS ---
Dr. Augustin Patient Follow-Up Note Patient: Danisha Leonard Unit #: [id number]: 1960 Dicatated By: Mark Augustin M.D.Date of Visit:Jul 04, 2021 Onc Med Follow-up/Prog Note Chief Complaint: Metastatic squamous cell carcinoma. 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 Since July 2020 she had complaints of abdominal pain which had persisted despite undergoing cholecystectomy in August. She was then thought to have gastritis and/or diverticulitis, though her colonoscopy in October was completely unremarkable. She then developed further symptoms of throat swelling, lightheadedness and chest pain, and she also developed hoarseness, for which she was seen in the emergency room on November 29, 2020. 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 There was marked/severe narrowing of the origin of the left vertebral artery due to large plaque. There was noted to be asymmetry of the vocal cords with small nodularity on the left. Tonsils were symmetrically enlarged. There was mediastinal adenopathy including a 2 cm node in the aortopulmonary window and a subcarinal lymph node measuring 1.5 cm. An enlarged right hilar lymph node measured 1.[address] angiogram of the chest showed no evidence of pulmonary embolus. There was noted to be patchy airspace opacity in the left lower lobe compatible with pneumonic infiltrate and there was mild diffuse interstitial and groundglass opacity in the lungs compatible with mild pneumonitis versus CHF. Also noted was a 1.3 cm precarinal lymph node, a 1.5 cm left hilar lymph node, and a 1.2 cm right hilar lymph node. She was referred to Dr. Leroy and she was confirmed by flexible laryngoscopy to have left vocal cord paralysis. She was then seen by Dr. Matthews and on December 14, 2020 she underwent left open paramedian mediastinotomy with biopsy of the AP window lymph node. Pathology showed metastatic squamous cell carcinoma which was p16 negative. On her next generation sequencing study, her PD-L1 expression was reported positive at 95%. There were no actionable mutations identified. I had seen her initially on 12/27/2020. Her staging PET/CT on 12/31/2020 showed several FDG positive mediastinal lymph nodes with high probability of malignancy, including a superior prevascular node measuring 1.0 cm with SUV 5.8. There were additional FDG avid nodes in the prevascular, subaortic, and subcarinal territories. There were no other areas of abnormal uptake on that study. In particular, there was no significant FDG activity in the left glottis to indicate a site of primary malignancy. With those findings, she had radiation oncology consultation with Dr. Alas, and she was recommended to undergo definitive radiation concurrently with weekly carboplatin/paclitaxel chemotherapy. She began her chemoradiation on 02/13/2021. Radiation was completed on 03/24/2021 to a total dose of 6000 cGy administered in 30 fractions. During that time she received a total of 5 weekly chemotherapy infusions of carboplatin/paclitaxel, her week 4 treatment having been delayed due to neutropenia. Her further management was complicated by herpes zoster in the right mid back/chest distribution with associated herpetic neuralgia. Her restaging chest CT on 05/09/2021 showed mild chronic emphysematous changes with no acute pulmonary infiltrates and with no pulmonary nodules identified. There was no residual mediastinal or hilar lymphadenopathy. In the absence of any evidence for other source of primary malignancy, her clinical presentation was most consistent with metastatic non-small cell lung cancer and with the apparent complete response to the chemoradiation, I felt that she was appropriate for maintenance immunotherapy, particularly with the high PD-L1 expression. There was some delay in getting her treatment started, but at least some of that was at her request. Her other medical illnesses include COPD, hypertension, carotid and vertebral artery stenosis, peripheral arterial disease, GERD, and degenerative arthritis. She has a known abdominal aortic aneurysm, and she has anxiety/depression. She began smoking at age 10, and she smoked up to 2 packs of cigarettes daily. She quit smoking in December 2020. INTERIM HISTORY: She began cycle 1 of maintenance durvalumab on 06/06/2021. She tolerated it without acute toxicity and she continued with cycle 2 on 06/20/2021. She is seen for a follow-up visit. She has not been feeling as good generally since reducing prednisone from 10 mg to 5 mg daily. She reports having increased fatigue and nausea, and she also has had some orthostatic lightheadedness. She is still doing light work and her ECOG score is 1. She has good appetite on the steroid. She also complains of having abdominal discomfort/bloating for about a month or so. She has not had fever or night sweats. She has not had sore mouth or throat. She has shortness of breath with activity and she sometimes gets choked when she eats. She does not complain of cough or chest pain. She has not had acid reflux symptoms and her bowel function has been okay. She has no complaints. She has no significant joint or bone pain. She does have some headache, which she attributes to allergies. She has no focal neurologic symptoms. Medications: Acyclovir 1 Tablet (of 800 mg) Tablet Oral 5x/d for 14 days, Aspirin 81 1 (81 mg) Tablet, chewable Oral every am, DULoxetine HCl 1 Tablet (of 20 mg) Tablet Oral daily, Gabapentin (300 mg) Capsule Oral b.i.d., Pantoprazole Sodium 1 (40 mg) Tablet, enteric coated Oral daily, Ventolin HFA 2 Puff(s) (of 108 (90 Base) mcg/act) Aerosol, solution Inhalation daily, Vitamin C & D3/Tessa Hips 1 (500-1000-20 mg - Units - mg) Capsule Oral daily, Zinc 1 (50 mg) Capsule Oral daily Allergies: Adhesive, Clindamycin HCl, Egg, Penicillins, and Skin Glue. Vital Signs: Performed on Jul 04, 2021 10:01 Height - 66.00 in Weight - 178.8 lbs (HIGH) BSA - 1.91 sq.m BMI - 28.86 Temperature - 97 F (LOW) Pulse - 92 /min Respiration - 18 /min BP - 127/72 mm(hg) O2 Sat - 96 % Pain - 0 Fatigue - 8 Physical Examination: Constitutional - She looks pretty good generally, Eyes - Sclerae nonicteric. Conjunctivae clear, ENMT - No lesions noted in the oral cavity, Hematologic/Lymphatic - No cervical, clavicular, or axillary adenopathy, Respiratory - Lungs sound clear with diminished air movement bilaterally, Cardiovascular - Heart rhythm is regular. There is no murmur, gallop, or rub noted, Abdomen - Mildly distended and firm. Liver and spleen are not enlarged. There is no abdominal mass or ascites noted and there is no inguinal adenopathy, Extremities - No edema, Neurologic - No focal neurologic deficits noted. Lab/Imaging: CBC shows hemoglobin 12.5 g, white blood cell count 6000, and platelet count 311,000. Comprehensive metabolic profile is unremarkable. TSH is normal 2.77 ???IU/mL. Problem List: 1. 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 There is associated left vocal cord paralysis. A primary lesion has not yet been identified, but the pattern is most consistent with metastatic non-small cell lung cancer. 2. Hypertension. 3. There is CT evidence of carotid and vertebral artery stenosis. 4. She has history of peripheral arterial disease with previous stent to the right common iliac artery. 5. COPD. 6. GERD. 7. Degenerative arthritis. 8. Anxiety/depression. 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 There was associated left vocal cord paralysis. A definite primary lesion was not identified by clinical evaluation, which included PET/CT. The pattern was most consistent with metastatic non-small cell lung cancer. On her next generation sequencing study, the tumor was found to be positive for PD-L1 expression at 90%. There were no actionable mutations identified. With those findings, she underwent definitive radiation concurrently with weekly carboplatin/paclitaxel chemotherapy. She completed radiation on 03/24/2021 to a total dose of 6000 cGy administered in 30 fractions. During that time she completed a total of 5 weekly infusions of carboplatin/paclitaxel, her week for infusion having been delayed due to neutropenia. Overall, she tolerated the treatment well. Her restaging chest CT on 05/09/2021 showed no pulmonary nodules and no residual mediastinal or hilar lymphadenopathy, consistent with complete response to the treatment. As such, she was deemed eligible for maintenance immunotherapy. She then began cycle 1 of maintenance durvalumab on 06/06/2021. She tolerated it without acute toxicity and she continued with cycle 2 on 06/20/2021. She is having some increased fatigue and she also reports having some nausea after reducing prednisone from 10 mg to 5 mg daily. Overall, though, she appears to be tolerating her treatment well and she otherwise has been stable clinically. She will continue with cycle 3 of maintenance durvalumab. The dosage remains the same. I will now have her start metoclopramide 10 mg 3 times daily AC and she will temporarily increase prednisone to 10 mg alternating with 5 mg daily. She returns for treatment in 2 weeks and for a follow-up visit in 4 weeks. Signed By: Mark Augustin M.D. <<Signature on File>>
--- NOTE | 2021-07-06 16:01 | PC.PHAR ---
DR RODRIGUEZ WOULD LIKE TO CHANGE LEESA TO FLAT DOSE DURVALUMAB AT HER NEXT SCHEDULED VISIT. I CHECKED WITH VIRGIE TO MAKE SURE PATIENT DOESN'T NEED NEW PA. WILL CHANGE HIS DOSE ON OR AROUND 08/01/21
== END 2021-07-09 23:59 | disposition home or self-care (01) ==
LOC: ONCMED 05:51
PROVIDERS: PCP Family Medicine; Visit Provider Internal Medicine Medical Oncology
DX: Z51.12 Encounter for antineoplastic immunotherapy (principal); C34.90 Malignant neoplasm of unspecified part of unspecified bronchus or lung; C77.1 Secondary and unspecified malignant neoplasm of intrathoracic lymph nodes; J38.01 Paralysis of vocal cords and larynx, unilateral; I10 Essential (primary) hypertension; I65.23 Occlusion and stenosis of bilateral carotid arteries; I65.03 Occlusion and stenosis of bilateral vertebral arteries; I73.9 Peripheral vascular disease, unspecified; J44.9 Chronic obstructive pulmonary disease, unspecified; K21.9 Gastro-esophageal reflux disease without esophagitis; M19.90 Unspecified osteoarthritis, unspecified site; F41.9 Anxiety disorder, unspecified; F32.9 Major depressive disorder, single episode, unspecified; Z79.899 Other long term (current) drug therapy
CPT/HCPCS: 36415; 80053; 84443; 85025; 96413; 99214; J7050; J9173

== ENCOUNTER 2021-07-10 09:11 | Outpatient (CLI) | payer MEDICAID, SELFPAY ==
--- NOTE | 2021-07-10 09:31 | USCV_ITS ---
Aisha Danisha Age: 60 Gender: F : 1960 Exam Date: 07/10/2021 09:53 Ordering Phys: Zeferino Matthews MD (Andy) ([email or web address] [place]) Technologist: ANDREW Exam Location: [facility] [place] Indication: OCCLUSION AND STENOSIS OF BILATERAL CAROTID ARTERIES Risk Factors: Previous Vascular Surgery: Right Brachial BP: / Left Brachial BP: / Right Left Velocity (cm/s) Spectral Plaque Velocity (cm/s) Spectral Plaque Syst/Diast Broadening Syst/Diast Broadening 72.30/ 19.10 Prox CCA 99.10 / 41.90 65.70/ 20.40 Mid CCA 102.50/ 34.20 48.00/ 12.50 Distal CCA 79.50 / 27.30 / Prox ICA 257.40/ 74.40 / Mid ICA 178.70/ 56.80 / Distal ICA 108.10/ 40.40 239.30 ECA 278.30 ICA/CCA 1.74 Antegrade Vertebral Retrograde 86.50/ 16.10 cm/s 65.70/ 9.20 cm/s Bi Subclavian Meigs 81.20 57.50 CONCLUSIONS Right ICA occlusion. Right CCA is patent. This could be further evaluated with CTA Left ICA stenosis 70-99%. Moderate atheromatous plaque left carotid bulb/ICA. Normal antegrade Doppler flow noted in the right vertebral artery. Retrograde Doppler flow noted in the left vertebral artery. Monophasic subclavian waveform suggestive of subclavian steal Castillo Maddox MD (Electronically Signed) Final Date: 10 July 2021 11:27 S
== END 2021-07-10 09:12 | disposition home or self-care (01) ==
LOC: RAD 09:15
PROVIDERS: PCP Family Medicine; Visit Provider Thoracic Surgery (Cardiothoracic Vascular Surgery)
DX: I65.23 Occlusion and stenosis of bilateral carotid arteries (principal)
CPT/HCPCS: 93880

== ENCOUNTER 2021-07-10 10:36 | Outpatient (CLI) | payer MEDICAID, SELFPAY ==
--- NOTE | 2021-07-10 10:39 | MR_ITS ---
WS: [id number] MRI HEAD WITH CONTRAST TECHNIQUE: Sagittal T1, T2 axial, T2 axial FLAIR, axial susceptibility weighted imaging, axial diffus ion weighted images, and coronal T2 images were obtained. Pre and post-T1 axial and post T1 coronal i mages. ADC and FSPGR images. CLINICAL INFORMATION: LUNG CANCER;WEAKNESS AND DIZZINESS COMPARISON: None. FINDINGS: No evidence of restricted diffusion to suggest acute ischemia. Ventricular system and basal cisterns are patent. Moderate small vessel changes. Moderate parenchymal volume loss. Chronic encephalomalacia involving the right parietal occipital junction and posterior temporal lobe with encephalomalacia an d gliosis. Normal posterior fossa. Loss of the right ICA flow void with high-grade stenosis or occlus ion. This can be further evaluated with CTA. Paranasal sinuses are well aerated. Mastoid air cells are well aerated. Normal optic chiasm and pituitary infundibulum. Normal cavernous sinuses and Meckel's cave. Mild to m oderate symmetric atrophy temporal lobes and hippocampal formations. No abnormal gadolinium enhanceme nt. No evidence of enhancing intracranial metastatic disease. Normal visualized dural venous sinuses. MR/MR head wo/w con [id number] IMPRESSION: 1. No evidence of restricted diffusion to suggest acute ischemia. 2. No evidence of enhancing intracranial metastatic disease. 3. High-grade stenosis/near occlusion right ICA at the skull base. This can be further evaluated with CTA head neck. 4. Moderate small vessel changes with moderate parenchymal volume loss. 5. 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
[2021-07-10] MEDS: gadobenate dimeglumine 20 mL vial IV (11:56)
== END 2021-07-10 10:37 | disposition home or self-care (01) ==
LOC: RADSHAW 10:38
PROVIDERS: PCP Family Medicine; Visit Provider Internal Medicine Medical Oncology
DX: C34.90 Malignant neoplasm of unspecified part of unspecified bronchus or lung (principal); R53.1 Weakness; R42 Dizziness and giddiness; I63.9 Cerebral infarction, unspecified; G93.89 Other specified disorders of brain; I65.21 Occlusion and stenosis of right carotid artery
CPT/HCPCS: 70553; A9577

== ENCOUNTER 2021-08-01 05:43 | Outpatient (RCR) | payer MEDICAID, SELFPAY ==
[2021-08-01 08:34] LABS: Basophils # 0.1 10^3/uL (0.0-0.1); Basophils % 0.9 %; Eosinophils # 0.3 10^3/uL (0.0-0.8); Eosinophils % 4.5 %; Hematocrit 37.5 % (37.0-47.0); Hemoglobin 12.6 g/dL (11.5-15.3); Lymphocytes # 0.6 10^3/uL (0.8-4.8); Lymphocytes % 7.5 %; Mean Corpuscular HGB Conc 33.6 g/dL (30.0-36.0); Mean Corpuscular Hemoglobin 34.1 pg (28.0-34.0); Mean Corpuscular Volume 101.4 fl (81-99); Mean Platelet Volume 9.7 fL (7.4-10.4); Monocytes # 0.8 10^3/uL (0.2-0.9); Neutrophils # 5.79 10^3/uL (1.8-7.7); Neutrophils % 76.2 %; Nucleated Red Blood Cells % 0 %; Platelet Count 358 10^3/cmm (130-400); Red Cell Distribution Width 12.1 % (12.1-15.1); White Blood Count 7.6 10^3/uL (4.0-10.0)
[2021-08-01 09:09] LABS: Alanine Aminotransferase 19 U/L (0-33); Albumin Level 3.7 g/dL (3.5-5.2); Alkaline Phosphatase 83 IU/L (35-105); Aspartate Amino Transferase 15 U/L (0-32); Blood Urea Nitrogen 20 mg/dL (6-20); Calcium 8.9 mg/dL (8.5-10.5); Carbon Dioxide 26 mmol/L (22-29); Chloride 97 mmol/L (98-107); Glomerular Filtration Rate 73.7 mL/min (90-130); Glucose 106 mg/dL (65-115); Osmolality Calculated 283 mOsm/kg (285-295); Sodium 135 mmol/L (136-145); Thyroid Stimulating Hormone 1.86 uIU/mL (0.27-4.20); Total Bilirubin 0.2 mg/dL (0.15-1.2); Total Protein 6.7 g/dL (6.6-8.7)
[2021-08-01 09:10] LABS: Anion Gap 16.2 (5-19); Potassium 4.2 mmol/L (3.5-5.1)
--- NOTE | 2021-08-02 06:17 | ONC FU_ITS ---
Dr. Augustin Patient Follow-Up Note Patient: Danisha Leonard Unit #: [id number]: 1960 Dicatated By: Mark Augustin M.D.Date of Visit:Aug 01, 2021 Onc Med Follow-up/Prog Note Chief Complaint: Metastatic squamous cell carcinoma. 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 Since July 2020 she had complaints of abdominal pain which had persisted despite undergoing cholecystectomy in August. She was then thought to have gastritis and/or diverticulitis, though her colonoscopy in October was completely unremarkable. She then developed further symptoms of throat swelling, lightheadedness and chest pain, and she also developed hoarseness, for which she was seen in the emergency room on November 29, 2020. 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 There was marked/severe narrowing of the origin of the left vertebral artery due to large plaque. There was noted to be asymmetry of the vocal cords with small nodularity on the left. Tonsils were symmetrically enlarged. There was mediastinal adenopathy including a 2 cm node in the aortopulmonary window and a subcarinal lymph node measuring 1.5 cm. An enlarged right hilar lymph node measured 1.[address] angiogram of the chest showed no evidence of pulmonary embolus. There was noted to be patchy airspace opacity in the left lower lobe compatible with pneumonic infiltrate and there was mild diffuse interstitial and groundglass opacity in the lungs compatible with mild pneumonitis versus CHF. Also noted was a 1.3 cm precarinal lymph node, a 1.5 cm left hilar lymph node, and a 1.2 cm right hilar lymph node. She was referred to Dr. Leroy and she was confirmed by flexible laryngoscopy to have left vocal cord paralysis. She was then seen by Dr. Matthews and on December 14, 2020 she underwent left open paramedian mediastinotomy with biopsy of the AP window lymph node. Pathology showed metastatic squamous cell carcinoma which was p16 negative. On her next generation sequencing study, her PD-L1 expression was reported positive at 95%. There were no actionable mutations identified. I had seen her initially on 12/27/2020. Her staging PET/CT on 12/31/2020 showed several FDG positive mediastinal lymph nodes with high probability of malignancy, including a superior prevascular node measuring 1.0 cm with SUV 5.8. There were additional FDG avid nodes in the prevascular, subaortic, and subcarinal territories. There were no other areas of abnormal uptake on that study. In particular, there was no significant FDG activity in the left glottis to indicate a site of primary malignancy. With those findings, she had radiation oncology consultation with Dr. Alas, and she was recommended to undergo definitive radiation concurrently with weekly carboplatin/paclitaxel chemotherapy. She began her chemoradiation on 02/13/2021. Radiation was completed on 03/24/2021 to a total dose of 6000 cGy administered in 30 fractions. During that time she received a total of 5 weekly chemotherapy infusions of carboplatin/paclitaxel, her week 4 treatment having been delayed due to neutropenia. Her further management was complicated by herpes zoster in the right mid back/chest distribution with associated herpetic neuralgia. Her restaging chest CT on 05/09/2021 showed mild chronic emphysematous changes with no acute pulmonary infiltrates and with no pulmonary nodules identified. There was no residual mediastinal or hilar lymphadenopathy. In the absence of any evidence for other source of primary malignancy, her clinical presentation was most consistent with metastatic non-small cell lung cancer and with the apparent complete response to the chemoradiation, I felt that she was appropriate for maintenance immunotherapy, particularly with the high PD-L1 expression. There was some delay in getting her treatment started, but at least some of that was at her request. Her other medical illnesses include COPD, hypertension, carotid and vertebral artery stenosis, peripheral arterial disease, GERD, and degenerative arthritis. She has a known abdominal aortic aneurysm, and she has anxiety/depression. She began smoking at age 10, and she smoked up to 2 packs of cigarettes daily. She quit smoking in December 2020. INTERIM HISTORY: She began cycle 1 of maintenance durvalumab on 06/06/2021. She tolerated it without acute toxicity and she then continued treatment at 2-week intervals. She completed her 4th cycle on 07/18/2021. She has not been feeling good. She reports having increased shortness of breath for the past 2 weeks, and she has had very limited activity. ECOG score is 2. She has good appetite. She has no fever or night sweats. She has had no mouth sores. In addition to the shortness of breath, she has had some wheezing. She does not have cough, though, and she does not complain of chest pain. She has been a little bit nauseated. She has no other GI or complaints. She has some generalized aching. She occasionally has headache in the frontal area. She continues to have some postherpetic neuralgia in the right side of the back. She has no other focal neurologic symptoms. Medications: Acyclovir 1 Tablet (of 800 mg) Tablet Oral 5x/d for 14 days, Aspirin 81 1 (81 mg) Tablet, chewable Oral every am, DULoxetine HCl 1 Tablet (of 20 mg) Tablet Oral daily, Gabapentin (300 mg) Capsule Oral b.i.d., Pantoprazole Sodium 1 (40 mg) Tablet, enteric coated Oral daily, Ventolin HFA 2 Puff(s) (of 108 (90 Base) mcg/act) Aerosol, solution Inhalation daily, Vitamin C & D3/Tessa Hips 1 (500-1000-20 mg - Units - mg) Capsule Oral daily, Zinc 1 (50 mg) Capsule Oral daily Allergies: Adhesive, Clindamycin HCl, Egg, Penicillins, and Skin Glue. Vital Signs: Performed on Aug 01, 2021 09:40 Height - 66.00 in Weight - 184.2 lbs (HIGH) BSA - 1.93 sq.m BMI - 29.73 Temperature - 98.3 F (LOW) Pulse - 111 /min (HIGH) Respiration - 18 /min BP - 103/61 mm(hg) O2 Sat - 96 % Pain - 4 Fatigue - 10 Physical Examination: Constitutional - She appears short of breath with effort., Eyes - Sclerae nonicteric. Conjunctivae clear, ENMT - No lesions noted in the oral cavity, Hematologic/Lymphatic - No cervical, clavicular, or axillary adenopathy, Respiratory - Lungs show slightly coarse breath sounds and diminished air movement bilaterally, Cardiovascular - Heart rhythm is regular. There is no murmur, gallop, or rub noted, Abdomen - Mildly distended. Liver and spleen are not enlarged. There is no abdominal mass or ascites noted and there is no inguinal adenopathy, Extremities - No edema, Neurologic - No focal neurologic deficits noted. Lab/Imaging: Test performed on Aug 01, 2021 08:17 Sodium 135 mmol/L TSH 1.86 uIU/mL Potassium 4.2 mmol/L Chloride 97 mmol/L CO2 26 mmol/L Anion Gap 16.2 BUN 20 mg/dL Creatinine 0.8 mg/dL Cr Clearance (Est) 98.1400 mL/min eGFR 73.7 mL/min Glucose 106 mg/dL Osmolality - Calculated 283 mOsm/kg Calcium 8.9 mg/dL Protein, Total 6.7 g/dL Albumin 3.7 g/dL Globulin 3.0 g/dL Bilirubin, Total 0.2 mg/dL ALT (SGPT) 19 U/L AST (SGOT) 15 U/L Alkaline Phosphatase 83 IU/L WBC 7.6 10 3/uL RBC 3.70 10 6/uL HGB 12.6 g/dL HCT 37.5 % MCV 101.4 fl MCH 34.1 pg MCHC 33.6 g/dL RDW 12.1 % Platelet Count 358 10 3/cmm MPV 9.7 fL Neutrophils 5.79 10 3/uL Lymphocytes 0.6 10 3/uL Monocytes 0.8 10 3/uL Eosinophils 0.3 10 3/uL Basophils 0.1 10 3/uL Neutrophil % 76.2 % Lymphocyte % 7.5 % Monocyte % 10.0 % Eosinophil % 4.5 % Basophils % 0.9 % NRBC % 0 % Problem List: 1. 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 There is associated left vocal cord paralysis. A primary lesion has not yet been identified, but the pattern is most consistent with metastatic non-small cell lung cancer. 2. Hypertension. 3. There is CT evidence of carotid and vertebral artery stenosis. 4. She has history of peripheral arterial disease with previous stent to the right common iliac artery. 5. COPD. 6. GERD. 7. Degenerative arthritis. 8. Anxiety/depression. 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 There was associated left vocal cord paralysis. A definite primary lesion was not identified by clinical evaluation, which included PET/CT. The pattern was most consistent with metastatic non-small cell lung cancer. On her next generation sequencing study, the tumor was found to be positive for PD-L1 expression at 90%. There were no actionable mutations identified. With those findings, she underwent definitive radiation concurrently with weekly carboplatin/paclitaxel chemotherapy. She completed radiation on 03/24/2021 to a total dose of 6000 cGy administered in 30 fractions. During that time she completed a total of 5 weekly infusions of carboplatin/paclitaxel, her week for infusion having been delayed due to neutropenia. Overall, she tolerated the treatment well. Her restaging chest CT on 05/09/2021 showed no pulmonary nodules and no residual mediastinal or hilar lymphadenopathy, consistent with complete response to the treatment. As such, she was deemed eligible for maintenance immunotherapy. She then began cycle 1 of maintenance durvalumab on 06/06/2021. She tolerated it without acute toxicity and she then continued treatment at 2-week intervals. She has now completed 4 cycles. She comes in now with increased shortness of breath, significant enough that it is affecting her activity tolerance. The cause is uncertain. It could just be due to underlying COPD. However, as a precaution, I am going to put her treatment on hold pending outcome of the CT pulmonary angiogram. In the meantime, she will increase prednisone back up to 10 mg daily. Signed By: Mark Augustin M.D. <<Signature on File>>
== END 2021-08-01 23:59 | disposition home or self-care (01) ==
LOC: ONCMED 05:43
PROVIDERS: PCP Family Medicine; Visit Provider Internal Medicine Medical Oncology
DX: Z51.12 Encounter for antineoplastic immunotherapy (principal); C34.90 Malignant neoplasm of unspecified part of unspecified bronchus or lung; C77.1 Secondary and unspecified malignant neoplasm of intrathoracic lymph nodes; Z79.899 Other long term (current) drug therapy
CPT/HCPCS: 36415; 80053; 84443; 85025; 96413; 99214; J7050; J9173

== ENCOUNTER 2021-08-10 08:02 | Outpatient (RCR) | payer MEDICAID, SELFPAY ==
--- NOTE | 2021-08-10 08:06 | CT_ITS ---
WS: [id number] CT CHEST ANGIOGRAPHY WITH REFORMATS HISTORY: LUNG CANCER, SHORTNESS OF BREATH TECHNIQUE: Contiguous axial images are obtained through the chest during arterial injection of intrav enous contrast. Images are reconstructed to evaluate the pulmonary arteries. MIP imaging also reviewe d. All CT scans at [facility] use at least one of these dose optimization techniques: automat ed exposure control; mA and/or kV adjustment per patient size (includes targeted exams where dose is matched to clinical indication); or iterative reconstruction. CONTRAST: Omnipaque 350; 95 mL IV. DLP: 787.87 mGycm COMPARISON: 05/09/2021 and 11/29/2020. Excellent opacification of the pulmonary artery. No filling defects within the pulmonary arterial sys tem. Pulmonary artery size is normal. Mild atherosclerosis of the aorta. No aortic dissection or aneu rysm. Mild atherosclerotic plaque. Heart is normal size. No RIGHT heart strain or effusion. Since the prior examination there are new bilateral subsegmental groundglass opacifications located w ithin the upper lobes. Curvilinear area of atelectasis at the lingula. Chronic emphysema. No pleural effusion. 9 mm RIGHT hilar lymph node. No suspicious adenopathy. Small hiatal hernia. Marked hepatic steatosis. Variable density within the liver. No mass or nodule. The adrenal glands ar e normal. Mild thoracic spondylitic changes. No bone destruction. CT/CT angio chest PE protcl [id number] IMPRESSION: 1. New subsegmental, minimal groundglass opacifications in the upper lobes kim aterally. Most likely representing mild pneumonitis. 2. No pulmonary embolism. 3. Chronic emphysema. 4. No thoracic adenopathy. 5. Severe hepatic steatosis.
[2021-08-10] MEDS: iohexol 350 mg/mL 100 mL Btl IV (08:25)
== END 2021-08-31 23:59 | disposition home or self-care (01) ==
LOC: RADWPI 08:02
PROVIDERS: PCP Family Medicine; Visit Provider Internal Medicine Medical Oncology
DX: C34.90 Malignant neoplasm of unspecified part of unspecified bronchus or lung (principal); J43.9 Emphysema, unspecified; K76.0 Fatty (change of) liver, not elsewhere classified
CPT/HCPCS: 71275; Q9967

== ENCOUNTER → 2021-09-01 13:49 | Outpatient (BNVA) | payer MEDICAID, SELFPAY | PROVIDERS: PCP Family Medicine; Visit Provider Internal Medicine Critical Care Medicine | DX: Z01.812 Encounter for preprocedural laboratory examination (principal); Z20.822 Contact with and (suspected) exposure to COVID-19 | CPT/HCPCS: 87635 ==

== ENCOUNTER 2021-09-05 07:51 | Day surgery (SDC) | payer MEDICAID, SELFPAY ==
[2021-09-01 11:03] VITALS: BMI 24.8
--- NOTE | 2021-09-05 | SCC_ITS ---
Procedure: Name of the procedure: Bronchoscopy with inspection of the airway, bronchoalveolar lavage, fluoroscopy guided transbronchial biopsies, and control of bleeding. 1.0 seconds of fluoroscopic guidance, for a cumulative dose of 9.21 mGy, was provided to Dr. Aquino by the radiology department. C-arm images of the chest were saved for the patient's permanent record. [facility]
--- NOTE | 2021-09-05 | XR_ITS ---
WS: [id number] XR chest 1V portable [id number] REASON FOR EXAM: POST BRONCHOSCOPY FINDINGS: There are some linear areas of atelectasis in the lung bases and in the mid left lung field in the up per and mid left lung field there are vague pulmonary opacities, likely small areas of hemorrhage rel ated to biopsy. There is no pneumothorax. There is no significant pleural fluid. XR/XR chest 1V portable [id number] IMPRESSION: Expected post bronchoscopic procedural findings. No significant hemorrhage or pneumothorax.
--- NOTE | 2021-09-05 08:04 | P.ANESASSM_ITS ---
Pre-Anesthetic Assessment Pre-Anesthetic Assessment: Height/Weight: Height 1.68 m Weight 69.853 kg Preop Diagnosis: Pneumonitis secondary to immunotherapy Proposed Procedure: Operation Date: 09/05/21 09:15 Proposed Procedures p Bronchoscopy WITH FLUOROSCOPIC TRANSBRONCHIAL BIOPSY(Not Applicable) - Davon Aquino MD Was Beta Farhana taken within 24 hours: N/A Was Clonidine taken within 24 hours: N/A Social: Social History: Tobacco (h/o smoking) and No alcohol Exam: Pre-Anes Outpt Exam: alert, oriented x 3 and regular rate & rhythm Additional Exam Findings (including area of procedure): rhonchi Airway: Submandibular: WNL Cervical ROM: WNL MP: 2 Dentition: False Additional comments: left vocal cord paralysis Pulmonary: Pulmonary: COPD and LIEBERMAN Comments: Pneumonia CV/HEM: CV/HEM: Angina (Stable), CAD, HTN and PVD Comments: Carotic dz, AAA Anesthetic Plan: ASA status: 3 Anesthesia: General Risk of > 500 ml b lood loss (7ml/kg in children): No PFSH Anesthesia PFSH: Medical History Abdominal aortic aneurysm Carotid stenosis, bilateral COPD (chronic obstructive pulmonary disease) COVID-19 Degenerative arthritis Gastritis GERD (gastroesophageal reflux disease) HTN (hypertension) PAD (peripheral artery disease) Port-A-Cath in place Pyelonephritis Sigmoid diverticulitis Surgical History History of bronchoscopy History of hysterectomy History of PTCA Post PTCA Status post colonoscopy (10/11/20) 10 years Status post laparoscopic cholecystectomy (08/11/20) Family History Father Cancer lung Lung disease CAD (coronary artery disease) Stroke Mother Diabetes Dementia CAD (coronary artery disease) Grandfather Cancer Denies family history of Clotting disorder Chronic kidney disease (CKD) Suicide Anesthesia complication Bleeding disorder Social History Quit status (tobacco): has quit using tobacco Year quit tobacco: Dec 2020 Former quit date comment: Hx of 2 PPD x 45 Years Second hand smoke exposure: No Smoking risk assessment/counseling performed?: No Alcohol intake: former Counseling given: No Counseling given: No Lives independently: Yes Household members: none Housing: House Current gender identity: Female Data Anesthesia Cardiac Studies: No Data to Display
--- NOTE | 2021-09-05 08:24 | SC_ITS ---
WS: [id number] HISTORY: Bronchoscopy EXAMINATION: AP chest during bronchoscopy. FINDINGS: With the bronchoscope in the left mainstem bronchus a cannula cannula was extended peripher ally into the left lung, superiorly, laterally, and inferiorly. SC/C-arm FL for Bronchoscopy IMPRESSION: Bronchoscopic procedure as above.
[2021-09-05 08:36] VITALS: BP 119/89; PULSE 94; RESP 18; TEMP 36.1; O2SAT 96
[2021-09-05] MEDS: sodium chloride 0.9% 1,000 ML 30 ML IV (08:54)
--- NOTE | 2021-09-05 09:06 | W.PM.OPSUD ---
Surgery/Procedure H&P Update DATE OF PROCEDURE: September 05, 2021 DATE H&P PERFORMED: 08/24/21 H&P UPDATE INFORMATION: I have reviewed H&P completed within last 30 days, I have examined patient prior to procedure and No changes to prior documentation PREOP DIAGNOSIS: Pneumonitis secondary to immunotherapy PLANNED PROCEDURE: Bronchoscopy, fluoroscopic transbronchial biopsies Operational biopsies.Date: 09/05/21 09:15 Proposed Procedures p Bronchoscopy WITH FLUOROSCOPIC TRANSBRONCHIAL BIOPSY(Not Applicable) - Davon Aquino MD
[2021-09-05] MEDS: lidocaine 1% INJ 20 mL XX (10:02)
[2021-09-05 10:06] VITALS: BP 97/81; PULSE 83; RESP 16; TEMP 36.2; O2SAT 100
[2021-09-05 10:15] VITALS: BP 97/64; PULSE 83; RESP 15; TEMP 36.1; O2SAT 91
[2021-09-05 10:28] LABS: Apprearance, Bronch Wash Clear (CLEAR); Color, Bronc Wash Colorless
[2021-09-05 10:29] VITALS: BP 75/54; PULSE 85; RESP 18; TEMP 36.5; O2SAT 93
[2021-09-05 10:29] LABS: Bronch Source Left Upper Lobe
--- NOTE | 2021-09-05 10:37 | ANE.PACU2 ---
Inpatient post-anesthesia follow up: Airway intact: Yes Vital signs: Temperature 97.7 F Pulse Rate 85 Respiratory Rate 18 Blood Pressure 75/54 Pulse Oximetry 93 Oxygen Delivery Me thod Room Air Oxygen Flow Rate 5 Fraction of Inspir ed Oxygen Hydration adequate: Yes Nausea and vomiting: No Pain level: 2 Mental status: Baseline
[2021-09-05 10:45] VITALS: BP 88/74; PULSE 65; RESP 18; O2SAT 94
--- NOTE | 2021-09-05 10:59 | P.OP_ITS ---
Operative Report Date of procedure: September 05, 2021 Pre-op Diagnosis: Pneumonitis secondary to immunotherapy Post-op diagnosis: same Brief History: This is a 60-year-old lady coming in for bronchoscopic evaluation for suspicion for drug-induced pneumonitis Procedure: Name of the procedure: Bronchoscopy with inspection of the airway, bronchoalveolar lavage, fluoroscopy guided transbronchial biopsies, and control of bleeding. Indication: Suspicion for drug-induced pneumonitis Anesthesia: General anesthesia. Local anesthesia: The vocal cords, sabrina and the right and left mainstem bron chi were anesthetized with 1% lidocaine, 6 mL. Description of the procedure: The procedure was explained to the patient and the consent was obtained. The patient was brought to the OR. The patient underwent laryngeal mask airway placement for general anesthesia. Following induction of general anesthesia, the bronchoscope was advanced through the LMA. The vocal cords appeared normal. The vocal cords were anesthetized with 1% lidocaine, 3 mL. The upper and lower trachea appeared to be normal. The sabrina was sharp. The sabrina, the right and left mainstem bronchi are anesthetized with 1% lidocaine. In a systematic manner bilateral bronchial tree was then examined. The bronchoscope was advanced into the left mainstem bronchus. The left upper lobe, lingula and left lower lobe bronchi were examined up to the third subsegmental level and no abnormalities were identified. The bronchoscope was then introduced into the right mainstem bronchus. The right upper lobe, right middle lobe and right lower lobe bronchi were examined up to the third subsegmental level and no abnormalities were identified. There was airway mild mucus throughout the lung. Bronchoalveolar lavage was performed from the anterior segment of the left upper lobe. 60 mL of saline was instilled, fluid return was 20 mL. The fluid was clear. Transbronchial biopsies were performed from the left upper lobe. 3 samples were obtained. Samples: 1. Bronchoalveolar lavage specimen was sent for cell count and differential, Gram stain and culture, fungal stain and culture, PCP PCR. 2. The transbronchial biopsies are sent for histopathology. Complications: There was no immediate complications. Chest x-ray: No pneumothorax.
[2021-09-05 11:18] LABS: WBC Within 10% 10
[2021-09-05 11:35] LABS: Total Cells Counted Bronch 200
== END 2021-09-05 11:27 | disposition home or self-care (01) ==
PROVIDERS: PCP Family Medicine; Visit Provider Internal Medicine Critical Care Medicine
PROC: 0BJ08ZZ Inspection of Tracheobronchial Tree, Via Natural or Artificial Opening Endoscopic (ICD-10-PCS; CPT 31622; principal; 2021-09-05 09:05)
DX: J18.9 Pneumonia, unspecified organism (principal); D84.821 Immunodeficiency due to drugs; J44.9 Chronic obstructive pulmonary disease, unspecified; I10 Essential (primary) hypertension; K21.9 Gastro-esophageal reflux disease without esophagitis; I25.10 Atherosclerotic heart disease of native coronary artery without angina pectoris; Z79.899 Other long term (current) drug therapy; Z87.891 Personal history of nicotine dependence; Z86.16 Personal history of COVID-19; Z82.49 Family history of ischemic heart disease and other diseases of the circulatory system; Z83.3 Family history of diabetes mellitus; Z82.3 Family history of stroke
CPT/HCPCS: 31624; 31625; 71045; 76000; 80500; 87070; 87102; 87205; 87206; 87798; 88305; 89050; 96360; 96361; J2704; J3010; J7030

== ENCOUNTER 2021-09-12 06:42 | Outpatient (RCR) | payer MEDICAID, SELFPAY ==
[2021-09-12 08:41] LABS: Basophils % 0.8 %; Eosinophils # 0.1 10^3/uL (0.0-0.8); Eosinophils % 3.4 %; Hematocrit 40.4 % (37.0-47.0); Hemoglobin 13.1 g/dL (11.5-15.3); Lymphocytes % 26.7 %; Mean Corpuscular HGB Conc 32.4 g/dL (30.0-36.0); Mean Corpuscular Hemoglobin 32.3 pg (28.0-34.0); Mean Corpuscular Volume 99.5 fl (81-99); Monocytes # 0.4 10^3/uL (0.2-0.9); Monocytes % 10.4 %; Neutrophils # 2.07 10^3/uL (1.8-7.7); Neutrophils % 58.1 %; Nucleated Red Blood Cells % 0 %; Platelet Count 276 10^3/cmm (130-400); Red Blood Count 4.06 10^6/uL (4.1-5.3); Red Cell Distribution Width 12.2 % (12.1-15.1); White Blood Count 3.6 10^3/uL (4.0-10.0)
[2021-09-12 09:23] LABS: Alanine Aminotransferase 38 U/L (0-33); Alkaline Phosphatase 81 IU/L (35-105); Aspartate Amino Transferase 23 U/L (0-32); Blood Urea Nitrogen 16 mg/dL (6-20); Calcium 9.8 mg/dL (8.5-10.5); Carbon Dioxide 27 mmol/L (22-29); Chloride 101 mmol/L (98-107); Globulin 2.6 g/dL (1.3-4.6); Glomerular Filtration Rate 73.7 mL/min (90-130); Glucose 111 mg/dL (65-115); Osmolality Calculated 290 mOsm/kg (285-295); Sodium 139 mmol/L (136-145); Total Bilirubin 0.2 mg/dL (0.15-1.2); Total Protein 6.6 g/dL (6.6-8.7)
--- NOTE | 2021-09-17 21:28 | ONC FU_ITS ---
[facility] Patient Note Patient: Danisha Leonard Unit #: [id number]: [id number] Dictated By: Janessa TavarezDate of Visit: Sep 12, 2021 Onc MED Follow-Up/Prog Note Chief Complaint: Metastatic squamous cell carcinoma. 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 Since July 2020 she had complaints of abdominal pain which had persisted despite undergoing cholecystectomy in August. She was then thought to have gastritis and/or diverticulitis, though her colonoscopy in October was completely unremarkable. She then developed further symptoms of throat swelling, lightheadedness and chest pain, and she also developed hoarseness, for which she was seen in the emergency room on November 29, 2020. 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 There was marked/severe narrowing of the origin of the left vertebral artery due to large plaque. There was noted to be asymmetry of the vocal cords with small nodularity on the left. Tonsils were symmetrically enlarged. There was mediastinal adenopathy including a 2 cm node in the aortopulmonary window and a subcarinal lymph node measuring 1.5 cm. An enlarged right hilar lymph node measured 1.[address] angiogram of the chest showed no evidence of pulmonary embolus. There was noted to be patchy airspace opacity in the left lower lobe compatible with pneumonic infiltrate and there was mild diffuse interstitial and groundglass opacity in the lungs compatible with mild pneumonitis versus CHF. Also noted was a 1.3 cm precarinal lymph node, a 1.5 cm left hilar lymph node, and a 1.2 cm right hilar lymph node. She was referred to Dr. Leroy and she was confirmed by flexible laryngoscopy to have left vocal cord paralysis. She was then seen by Dr. Matthews and on December 14, 2020 she underwent left open paramedian mediastinotomy with biopsy of the AP window lymph node. Pathology showed metastatic squamous cell carcinoma which was p16 negative. On her next generation sequencing study, her PD-L1 expression was reported positive at 95%. There were no actionable mutations identified. Dr Augustin had seen her initially on 12/27/2020. Her staging PET/CT on 12/31/2020 showed several FDG positive mediastinal lymph nodes with high probability of malignancy, including a superior prevascular node measuring 1.0 cm with SUV 5.8. There were additional FDG avid nodes in the prevascular, subaortic, and subcarinal territories. There were no other areas of abnormal uptake on that study. In particular, there was no significant FDG activity in the left glottis to indicate a site of primary malignancy. With those findings, she had radiation oncology consultation with Dr. Alas, and she was recommended to undergo definitive radiation concurrently with weekly carboplatin/paclitaxel chemotherapy. She began her chemoradiation on 02/13/2021. Radiation was completed on 03/24/2021 to a total dose of 6000 cGy administered in 30 fractions. During that time she received a total of 5 weekly chemotherapy infusions of carboplatin/paclitaxel, her week 4 treatment having been delayed due to neutropenia. Her further management was complicated by herpes zoster in the right mid back/chest distribution with associated herpetic neuralgia. Her restaging chest CT on 05/09/2021 showed mild chronic emphysematous changes with no acute pulmonary infiltrates and with no pulmonary nodules identified. There was no residual mediastinal or hilar lymphadenopathy. In the absence of any evidence for other source of primary malignancy, her clinical presentation was most consistent with metastatic non-small cell lung cancer and with the apparent complete response to the chemoradiation, it was felt that she was appropriate for maintenance immunotherapy, particularly with the high PD-L1 expression. There was some delay in getting her treatment started, but at least some of that was at her request. Her other medical illnesses include COPD, hypertension, carotid and vertebral artery stenosis, peripheral arterial disease, GERD, and degenerative arthritis. She has a known abdominal aortic aneurysm, and she has anxiety/depression. She began smoking at age 10, and she smoked up to 2 packs of cigarettes daily. She quit smoking in December 2020. INTERIM HISTORY: She began cycle 1 of maintenance durvalumab on 06/06/2021. She tolerated it without acute toxicity and she then continued treatment at 2-week intervals. She completed her 4th cycle on 07/18/2021. Ms. Leonard was last seen for follow-up on August 01, 2021. She did have a CT chest angiogram on August 10, 2021 which reported new subsegmental, minimal groundglass opacifications in the upper lobes bilaterally most likely representing mild pneumonitis. It was noted that she had chronic emphysema, no pulmonary embolism and no thoracic adenopathy. Her treatment has been placed on hold and she has been on steroid therapy with her current dose of 10 mg daily. She is here today for follow-up. She states she recently had a biopsy of the left upper lobe lung per Dr. Aquino on 09/05/2021. The pathology report confirms a left upper lobe lung transbronchial biopsy which reported benign respiratory epithelium and pulmonary alveoli no malignancy identified. Her treatment remains on hold. She states that she is still having shortness of breath and it seems to be worse over the last couple of days. She states that she is a prednisone 10 mg daily. She states that she has had nausea since April . She states the steroids seem to help some but did not completely relieve it. It does not sound as if she has tried any of her antiemetics. Is hard to determine if she is actually having some gastritis symptoms but sounds a fist it could be possible. She is currently taking pantoprazole 40 mg daily. She states she is also had some vision changes but attributes this to the blockage in my neck . She states she is seeing her PCP later today for discussion on what to do about the blockage. She states she is eating because she knows she has to she does not have much of an appetite. She denies any pain. She denies any hemoptysis. She states that her bowels and bladder are normal for her. She denies any lower extremity edema or signs of any congestive heart failure symptoms. She denies any neuropathy her ECOG is 1. It is noted that she had an MRI of the head on 07/10/2021 with and without contrast that reported no evidence of restricted diffusion to suggest acute ischemia and there is no evidence of enhancing intracranial metastatic disease. There was a high-grade stenosis near occlusion in the right ICA at the skull base moderate small vessel changes with moderate parenchymal volume loss chronic right parietal occipital and posterior temporal infarct with encephalomalacia and gliosis. Past Medical History: Abdominal aortic aneurysm Chronic obstructive pulmonary disease Degenerative arthritis Gastroesophageal reflux disease History of pyelonephritis/sepsis Hypertension Peripheral artery disease Covid 19 in 2020 Past Surgical History: Excision of skin cancer from the right hand Left subclavian Kbxj-c-Ipsu-Dr Matthews in 2020 Bronchoscopy in 2020 Left open paramedian mediastinotomy with mediastinal lymph node biopsy in 2020 Colonoscopy in 2019 Laparoscopic cholecystectomy in 2019 Arterial stent placement to the right common iliac artery in 2014 Hysterectomy with bilateral salpingo-oophorectomy and bladder tie up in 2001 Allergies: Adhesive, Clindamycin HCl, Egg, Penicillins, and Skin Glue. Medications: Acyclovir 1 Tablet (of 800 mg) Tablet Oral 5x/d for 14 days Aspirin 81 1 (81 mg) Tablet, chewable Oral every am Citalopram Hydrobromide 1 Tablet (of 10 mg) Oral daily DULoxetine HCl 1 Tablet (of 20 mg) Tablet Oral daily Gabapentin (300 mg) Capsule Oral b.i.d. Pantoprazole Sodium 1 (40 mg) Tablet, enteric coated Oral daily Ventolin HFA 2 Puff(s) (of 108 (90 Base) mcg/act) Aerosol, solution Inhalation daily Vitamin C & D3/Tessa Hips 1 (500-1000-20 mg - Units - mg) Capsule Oral daily Zinc 1 (50 mg) Capsule Oral daily Family History: Ms. Leonard's father is : lung cancer. Father of lung cancer at age 80. Mother is still living at age 84. She has congestive heart failure. A brother and a sister are in good health. Social History: Ms. Leonard is single. Ms. Leonard quit smoking less than one year ago but had smoked for 51 years. She is a former drinker. She has history of smoking up to 2 packs of cigarettes daily or more, beginning at age 10. She quit smoking in December 2020. She previously has had some alcohol use, but never heavy. She has had no alcohol use for at least the last 2 or 3 years. Review Of Symptoms: <See Above> Vital Signs: Performed on Sep 12, 2021 09:38 Height - 66.00 in Weight - 193.3 lbs (HIGH) BSA - 1.97 sq.m BMI - 31.20 (HIGH) Temperature - 97 F (LOW) Pulse - 102 /min (HIGH) Respiration - 18 /min BP - 117/74 mm(hg) O2 Sat - 96 % Pain - 4 Fatigue - 10,1 - No physically strenuous activity, but ambulatory and able to carry out light or sedentary work (e.g. office work, light house work). (ECOG) Physical Examination: Constitutional Alert, oriented, no acute distress. Skin pink, warm and dry. Head Normocephalic; atraumatic. Eyes Conjunctivae and sclerae are clear and without icterus. Pupils are reactive and equal. Respiratory Lungs are clear to auscultation without rhonchi or wheezing. Cardiovascular Regular rate and rhythm of heart without murmurs,clicks, gallops or rubs. Chest left subclavian venous access device insertion site is unremarkable. Abdomen Non-tender, non-distended, no masses or ascites. Good bowel sounds noted in all quads. No guarding or rebound tenderness. No pulsatile masses. Back/Spine Non-tender to palpation. Extremities No visible deformities, no cyanosis, clubbing or edema. Musculoskeletal No tenderness or swelling, normal range of motion without obvious weakness. Neurologic No sensory or motor deficits, normal cerebellar function, normal gait. Psychiatric Alert and oriented times three. Coherent speech. Verbalizes understanding of our discussions today. Laboratory:Test performed on Sep 12, 2021 08:14 Sodium 139 mmol/L Potassium 4.0 mmol/L Chloride 101 mmol/L CO2 27 mmol/L Anion Gap 15.0 BUN 16 mg/dL Creatinine 0.8 mg/dL Cr Clearance (Est) 98.1400 mL/min eGFR 73.7 mL/min Glucose 111 mg/dL Osmolality - Calculated 290 mOsm/kg Calcium 9.8 mg/dL Protein, Total 6.6 g/dL Albumin 4.0 g/dL Globulin 2.6 g/dL Bilirubin, Total 0.2 mg/dL ALT (SGPT) 38 U/L AST (SGOT) 23 U/L Alkaline Phosphatase 81 IU/L WBC 3.6 10 3/uL RBC 4.06 10 6/uL HGB 13.1 g/dL HCT 40.4 % MCV 99.5 fl MCH 32.3 pg MCHC 32.4 g/dL RDW 12.2 % Platelet Count 276 10 3/cmm MPV 10.0 fL Neutrophils 2.07 10 3/uL Lymphocytes 1.0 10 3/uL Monocytes 0.4 10 3/uL Eosinophils 0.1 10 3/uL Basophils 0.0 10 3/uL Neutrophil % 58.1 % Lymphocyte % 26.7 % Monocyte % 10.4 % Eosinophil % 3.4 % Basophils % 0.8 % NRBC % 0 % Test performed on Aug 01, 2021 08:17 TSH 1.86 uIU/mL Test performed on Mar 21, 2021 13:45 CBC Slide Review Slide Review Perform SLIDE REVIEW AGREES WITH AUTOMATED RESULTS Impression: 1. 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 There is associated left vocal cord paralysis. A primary lesion has not yet been identified, but the pattern is most consistent with metastatic non-small cell lung cancer. 2. Hypertension. 3. There is CT evidence of carotid and vertebral artery stenosis. 4. She has history of peripheral arterial disease with previous stent to the right common iliac artery. 5. COPD. 6. GERD. 7. Degenerative arthritis. 8. Anxiety/depression. Plan/Problems Addressed at this Visit: 1. 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 There was associated left vocal cord paralysis. A definite primary lesion was not identified by clinical evaluation, which included PET/CT. The pattern was most consistent with metastatic non-small cell lung cancer. On her next generation sequencing study, the tumor was found to be positive for PD-L1 expression at 90%. There were no actionable mutations identified. With those findings, she underwent definitive radiation concurrently with weekly carboplatin/paclitaxel chemotherapy. She completed radiation on 03/24/2021 to a total dose of 6000 cGy administered in 30 fractions. During that time she completed a total of 5 weekly infusions of carboplatin/paclitaxel, her week for infusion having been delayed due to neutropenia. Overall, she tolerated the treatment well. Her restaging chest CT on 05/09/2021 showed no pulmonary nodules and no residual mediastinal or hilar lymphadenopathy, consistent with complete response to the treatment. As such, she was deemed eligible for maintenance immunotherapy. She then began cycle 1 of maintenance durvalumab on 06/06/2021. She tolerated it without acute toxicity and she then continued treatment at 2-week intervals. She has completed 4 cycles with her last cycle being July 18, 2021. She was found to have mild pneumonitis and was placed on steroid therapy and has not yet been able to have significant improvement or wean off the steroids. She is currently at 10 mg daily and continues to experience worsening shortness of breath over the last couple of days. A. Increase prednisone to 15 mg daily with food for 7 to 10 days depending on how her symptoms respond. B. She states she does have a nebulizer at home and she can certainly try this as well. C. I encouraged her to use Mucinex 600 to 1200 mg twice daily as she states she feels that there is some congestion there but she just cannot cough it up . D. Reviewed her pathology from her recent left upper lobe transbronchial biopsy which was negative for malignancy. E. Today's labs reviewed in detail discussed with Ms. Leonard and a copy was given to her. WBC 3.6, hemoglobin 13.1, platelets 276,000, ANC is 2070. Potassium 4.0 random glucose 111 creatinine 0.8 and her ALT is 38 AST is 23 alk phos is 81. Her weight is up from 184 on 832020-193.3 today. F. We will plan to see her back in 1 to 2 weeks for follow-up with her increase steroids to see if we can start tapering her again. G. Ms. Leonard is instructed to contact us in interim should questions or problems arise. 2. Persistent unexplained nausea A. She is encouraged to try her antiemetics at home with Compazine or Zofran. B. I did call in a scopolamine patch to her local pharmacy to have her try that if the oral antiemetics do not work. I did advise her not to touch the actual mediation or get it in her eye, as it can cause blurry vision as well. C. She will continue on the pantoprazole at 40 mg daily for now. Signed By: Janessa Tavarez-, CNP Mark Augustin MD <<Signature on File>>
== END 2021-10-01 23:59 | disposition home or self-care (01) ==
LOC: ONCMED 06:42
PROVIDERS: PCP Family Medicine; Visit Provider Nurse Practitioner
DX: C80.1 Malignant (primary) neoplasm, unspecified (principal); C77.2 Secondary and unspecified malignant neoplasm of intra-abdominal lymph nodes; I10 Essential (primary) hypertension; I65.23 Occlusion and stenosis of bilateral carotid arteries; I65.03 Occlusion and stenosis of bilateral vertebral arteries; I73.9 Peripheral vascular disease, unspecified; J44.9 Chronic obstructive pulmonary disease, unspecified; K21.9 Gastro-esophageal reflux disease without esophagitis; M19.90 Unspecified osteoarthritis, unspecified site; F41.9 Anxiety disorder, unspecified; F32.9 Major depressive disorder, single episode, unspecified; Z79.899 Other long term (current) drug therapy; Z79.52 Long term (current) use of systemic steroids
CPT/HCPCS: 36591; 80053; 85025; 99214

== ENCOUNTER 2021-10-05 06:39 | Outpatient (RCR) | payer MEDICAID, SELFPAY ==
[2021-10-05 08:52] LABS: Basophils # 0.1 10^3/uL (0.0-0.1); Basophils % 1.4 %; Eosinophils # 0.1 10^3/uL (0.0-0.8); Eosinophils % 3.1 %; Hemoglobin 12.5 g/dL (11.5-15.3); Lymphocytes # 1.1 10^3/uL (0.8-4.8); Lymphocytes % 26.1 %; Mean Corpuscular HGB Conc 32.9 g/dL (30.0-36.0); Mean Corpuscular Hemoglobin 32.6 pg (28.0-34.0); Mean Corpuscular Volume 99.2 fl (81-99); Monocytes # 0.5 10^3/uL (0.2-0.9); Neutrophils # 2.45 10^3/uL (1.8-7.7); Neutrophils % 57.5 %; Nucleated Red Blood Cells % 0 %; Platelet Count 293 10^3/cmm (130-400); Red Blood Count 3.83 10^6/uL (4.1-5.3); Red Cell Distribution Width 12.6 % (12.1-15.1); White Blood Count 4.3 10^3/uL (4.0-10.0)
[2021-10-05 09:15] LABS: Alanine Aminotransferase 49 U/L (0-33); Alkaline Phosphatase 69 IU/L (35-105); Anion Gap 14.9 (5-19); Aspartate Amino Transferase 36 U/L (0-32); Blood Urea Nitrogen 15 mg/dL (6-20); Calcium 9.3 mg/dL (8.5-10.5); Carbon Dioxide 26 mmol/L (22-29); Chloride 104 mmol/L (98-107); Globulin 2.4 g/dL (1.3-4.6); Glomerular Filtration Rate 102.7 mL/min (90-130); Glucose 98 mg/dL (65-115); Osmolality Calculated 293 mOsm/kg (285-295); Potassium 3.9 mmol/L (3.5-5.1); Sodium 141 mmol/L (136-145); Thyroid Stimulating Hormone 3.42 uIU/mL (0.27-4.20); Total Bilirubin 0.2 mg/dL (0.15-1.2); Total Protein 6.4 g/dL (6.6-8.7)
[2021-10-05 10:17] LABS: Estmated Average Glucose 120; Hemoglobin A1C 5.8 % (4.0-6.0)
--- NOTE | 2021-10-05 19:24 | ONC FU_ITS ---
Dr. Augustin Patient Follow-Up Note Patient: Danisha Leonard Unit #: [id number]: 1960 Dicatated By: Mark Augustin M.D.Date of Visit:Oct 05, 2021 Onc Med Follow-up/Prog Note Chief Complaint: Metastatic squamous cell carcinoma. 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 Since July 2020 she had complaints of abdominal pain which had persisted despite undergoing cholecystectomy in August. She was then thought to have gastritis and/or diverticulitis, though her colonoscopy in October was completely unremarkable. She then developed further symptoms of throat swelling, lightheadedness and chest pain, and she also developed hoarseness, for which she was seen in the emergency room on November 29, 2020. 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 There was marked/severe narrowing of the origin of the left vertebral artery due to large plaque. There was noted to be asymmetry of the vocal cords with small nodularity on the left. Tonsils were symmetrically enlarged. There was mediastinal adenopathy including a 2 cm node in the aortopulmonary window and a subcarinal lymph node measuring 1.5 cm. An enlarged right hilar lymph node measured 1.[address] angiogram of the chest showed no evidence of pulmonary embolus. There was noted to be patchy airspace opacity in the left lower lobe compatible with pneumonic infiltrate and there was mild diffuse interstitial and groundglass opacity in the lungs compatible with mild pneumonitis versus CHF. Also noted was a 1.3 cm precarinal lymph node, a 1.5 cm left hilar lymph node, and a 1.2 cm right hilar lymph node. She was referred to Dr. Leroy and she was confirmed by flexible laryngoscopy to have left vocal cord paralysis. She was then seen by Dr. Matthews and on December 14, 2020 she underwent left open paramedian mediastinotomy with biopsy of the AP window lymph node. Pathology showed metastatic squamous cell carcinoma which was p16 negative. On her next generation sequencing study, her PD-L1 expression was reported positive at 95%. There were no actionable mutations identified. I had seen her initially on 12/27/2020. Her staging PET/CT on 12/31/2020 showed several FDG positive mediastinal lymph nodes with high probability of malignancy, including a superior prevascular node measuring 1.0 cm with SUV 5.8. There were additional FDG avid nodes in the prevascular, subaortic, and subcarinal territories. There were no other areas of abnormal uptake on that study. In particular, there was no significant FDG activity in the left glottis to indicate a site of primary malignancy. With those findings, she had radiation oncology consultation with Dr. Alas, and she was recommended to undergo definitive radiation concurrently with weekly carboplatin/paclitaxel chemotherapy. She began her chemoradiation on 02/13/2021. Radiation was completed on 03/24/2021 to a total dose of 6000 cGy administered in 30 fractions. During that time she received a total of 5 weekly chemotherapy infusions of carboplatin/paclitaxel, her week 4 treatment having been delayed due to neutropenia. Her further management was complicated by herpes zoster in the right mid back/chest distribution with associated herpetic neuralgia. Her restaging chest CT on 05/09/2021 showed mild chronic emphysematous changes with no acute pulmonary infiltrates and with no pulmonary nodules identified. There was no residual mediastinal or hilar lymphadenopathy. In the absence of any evidence for other source of primary malignancy, her clinical presentation was most consistent with metastatic non-small cell lung cancer and with the apparent complete response to the chemoradiation, I felt that she was appropriate for maintenance immunotherapy, particularly with the high PD-L1 expression. There was some delay in getting her treatment started, but at least some of that was at her request. Her other medical illnesses include COPD, hypertension, carotid and vertebral artery stenosis, peripheral arterial disease, GERD, and degenerative arthritis. She has a known abdominal aortic aneurysm, and she has anxiety/depression. She began smoking at age 10, and she smoked up to 2 packs of cigarettes daily. She quit smoking in December 2020. INTERIM HISTORY: She began cycle 1 of maintenance durvalumab on 06/06/2021. She tolerated it without acute toxicity and she then continued treatment at 2-week intervals. She completed her 4th cycle on 07/18/2021. At her follow-up visit on 08/01/2021 she presented with increased shortness of breath and declining activity tolerance. Her treatment was put on hold and she began on steroid therapy. Her CT pulmonary angiogram showed new subsegmental minimal groundglass opacifications of the upper lobes bilaterally, most likely representing mild pneumonitis. With that finding she was referred to Dr. Aquino. On 09/05/2021 she underwent bronchoscopy with fluoroscopy guided transbronchial lung biopsies. Pathology showed LV related parenchyma with a single nonnecrotizing granuloma, respiratory bronchiolitis, and mild hyalinized interstitial fibrosis. There were no definite features of acute lung injury, acute inflammation, or neoplasm. Overall, the findings were felt to be most consistent with smoking-related changes. She is seen for a follow-up visit. She continues to complain that she has trouble breathing. She gets out of breath just walking to the car. She is still able to do light work at home. ECOG score is one. Her appetite is good. She has not had fever or night sweats. She has had ongoing problems with her right eye vision, and she has been seeing Dr. Matthews in regard to carotid stenosis as her head MRI in July had shown high-grade stenosis/near occlusion of the right ICA at the skull base. She has not had sore mouth or throat. She does not complain of cough, and she has not been having chest pain. She currently has no GI or complaints. She has some joint pain, mainly in her hips and knees. She has had some headache in the frontal area and she also complains of dizziness. She has no numbness/paresthesia or other focal neurologic symptoms. Medications: Acyclovir 1 Tablet (of 800 mg) Tablet Oral 5x/d for 14 days, Aspirin 81 1 (81 mg) Tablet, chewable Oral every am, Citalopram Hydrobromide 1 Tablet (of 10 mg) Oral daily, DULoxetine HCl 1 Tablet (of 20 mg) Tablet Oral daily, Gabapentin (300 mg) Capsule Oral b.i.d., Pantoprazole Sodium 1 (40 mg) Tablet, enteric coated Oral daily, Ventolin HFA 2 Puff(s) (of 108 (90 Base) mcg/act) Aerosol, solution Inhalation daily, Vitamin C & D3/Tessa Hips 1 (500-1000-20 mg - Units - mg) Capsule Oral daily, Zinc 1 (50 mg) Capsule Oral daily Allergies: Adhesive, Clindamycin HCl, Egg, Penicillins, and Skin Glue. Vital Signs: Performed on Oct 05, 2021 08:46 Height - 66.00 in Weight - 199 lbs (HIGH) BSA - 2.00 sq.m BMI - 32.12 (HIGH) Temperature - 98.1 F (LOW) Pulse - 90 /min Respiration - 18 /min BP - 139/82 mm(hg) O2 Sat - 96 % Pain - 0 Fatigue - 0 Physical Examination: Constitutional - She appears short of breath with effort, Eyes - Sclerae nonicteric. Conjunctivae clear, ENMT - No lesions noted in the oral cavity, Hematologic/Lymphatic - No cervical, clavicular, or axillary adenopathy, Respiratory - Lungs show diminished air movement bilaterally. There is no wheezing, Cardiovascular - Heart rhythm is regular. There is no murmur, gallop, or rub noted, Abdomen - Mildly distended. Liver and spleen are not enlarged. There is no abdominal mass or ascites noted and there is no inguinal adenopathy, Extremities - No edema, Neurologic - No focal neurologic deficits noted. Lab/Imaging: Test performed on Oct 05, 2021 08:22 Sodium 141 mmol/L TSH 3.42 uIU/mL Potassium 3.9 mmol/L Chloride 104 mmol/L Est Avg Glucose (eAG) 120 mg/dL CO2 26 mmol/L Anion Gap 14.9 BUN 15 mg/dL Creatinine 0.6 mg/dL Cr Clearance (Est) 145.6400 mL/min eGFR 102.7 mL/min Glucose 98 mg/dL Osmolality - Calculated 293 mOsm/kg Calcium 9.3 mg/dL Protein, Total 6.4 g/dL Albumin 4.0 g/dL Globulin 2.4 g/dL Bilirubin, Total 0.2 mg/dL ALT (SGPT) 49 U/L AST (SGOT) 36 U/L Alkaline Phosphatase 69 IU/L Hemoglobin A1C % 5.8 % WBC 4.3 10 3/uL RBC 3.83 10 6/uL HGB 12.5 g/dL HCT 38.0 % MCV 99.2 fl MCH 32.6 pg MCHC 32.9 g/dL RDW 12.6 % Platelet Count 293 10 3/cmm MPV 10.0 fL Neutrophils 2.45 10 3/uL Lymphocytes 1.1 10 3/uL Monocytes 0.5 10 3/uL Eosinophils 0.1 10 3/uL Basophils 0.1 10 3/uL Neutrophil % 57.5 % Lymphocyte % 26.1 % Monocyte % 11.0 % Eosinophil % 3.1 % Basophils % 1.4 % NRBC % 0 % Problem List: 1. 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 There is associated left vocal cord paralysis. A primary lesion has not yet been identified, but the pattern is most consistent with metastatic non-small cell lung cancer. 2. Hypertension. 3. There is CT evidence of carotid and vertebral artery stenosis. 4. She has history of peripheral arterial disease with previous stent to the right common iliac artery. 5. COPD. 6. GERD. 7. Degenerative arthritis. 8. Anxiety/depression. 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 There was associated left vocal cord paralysis. A definite primary lesion was not identified by clinical evaluation, which included PET/CT. The pattern was most consistent with metastatic non-small cell lung cancer. On her next generation sequencing study, the tumor was found to be positive for PD-L1 expression at 90%. There were no actionable mutations identified. With those findings, she underwent definitive radiation concurrently with weekly carboplatin/paclitaxel chemotherapy. She completed radiation on 03/24/2021 to a total dose of 6000 cGy administered in 30 fractions. During that time she completed a total of 5 weekly infusions of carboplatin/paclitaxel, her week for infusion having been delayed due to neutropenia. Overall, she tolerated the treatment well. Her restaging chest CT on 05/09/2021 showed no pulmonary nodules and no residual mediastinal or hilar lymphadenopathy, consistent with complete response to the treatment. As such, she was deemed eligible for maintenance immunotherapy. She then began cycle 1 of maintenance durvalumab on 06/06/2021. She tolerated it without acute toxicity and she then continued treatment at 2-week intervals. She completed her 4th cycle of treatment on 07/18/2021. As of her follow-up visit on 08/01/2021, her treatment was put on hold due to increased shortness of breath and declining activity tolerance. A subsequent CT pulmonary angiogram showed bilateral upper lobe opacities consistent with mild pneumonitis. She has since then been on steroid therapy, and she has been following with Dr. Aquino. At this point she continues to have significant shortness of breath, and she has been tapering her prednisone dosage. She remains on observation for the lung cancer. She will be scheduled for a follow-up visit with a repeat chest CT in 1 month. In the meantime, I am going to temporarily increase her prednisone to 10 mg twice daily for 3 days then back to 10 mg daily, as I am still suspicious that at least some of the pneumonitis is treatment related. Signed By: Mark Augustin M.D. <<Signature on File>>
== END 2021-10-31 23:59 | disposition home or self-care (01) ==
LOC: ONCMED 06:39
PROVIDERS: PCP Family Medicine; Visit Provider Internal Medicine Medical Oncology
DX: Z08 Encounter for follow-up examination after completed treatment for malignant neoplasm (principal); Z85.118 Personal history of other malignant neoplasm of bronchus and lung; I10 Essential (primary) hypertension; I65.23 Occlusion and stenosis of bilateral carotid arteries; I65.03 Occlusion and stenosis of bilateral vertebral arteries; I73.9 Peripheral vascular disease, unspecified; J44.9 Chronic obstructive pulmonary disease, unspecified; K21.9 Gastro-esophageal reflux disease without esophagitis; M19.90 Unspecified osteoarthritis, unspecified site; F41.9 Anxiety disorder, unspecified; F32.9 Major depressive disorder, single episode, unspecified; Z79.899 Other long term (current) drug therapy; Z92.21 Personal history of antineoplastic chemotherapy
CPT/HCPCS: 36591; 80053; 83036; 84443; 85025; 99214

== ENCOUNTER 2021-11-07 12:59 | Emergency (ER) | payer MEDICAID, SELFPAY ==
[2021-11-07 13:21] VITALS: BP 127/72; PULSE 112; RESP 24; TEMP 36.9; O2SAT 95; BMI 30.9
[2021-11-07 15:22] VITALS: BP 106/77; PULSE 99; RESP 24; TEMP 36.9; O2SAT 96
[2021-11-07 15:40] LABS: Add Urine Microscopic? NO; Charge for UA Resulting for Rev
--- NOTE | 2021-11-07 15:40 | CTR_ITS ---
PROCEDURE INFORMATION: Exam: CT Abdomen And Pelvis With Contrast Exam date and time: 11/07/2021 3:40 PM Age: 61 years old Clinical indication: Other: Diarrhea; Abdominal pain; Localized; Lower; Prior surgery; Surgery type: Gb, bladder, hyst, stents; Additional info: Eval lower abd pain TECHNIQUE: Imaging protocol: Computed tomography of the abdomen and pelvis with contrast. Total images: 241 Radiation optimization: All CT scans at this facility use at least one of these dose optimization techniques: automated exposure control; mA and/or kV adjustment per patient size (includes targeted exams where dose is matched to clinical indication); or iterative reconstruction. Contrast material: OMNI 300; Contrast volume: 95 ml; Contrast route: INTRAVENOUS (IV); COMPARISON: CT abdomen pelvis w con* [id number] 07/12/2020 3:38 PM RADIATION DOSE METRICS: Total DLP (mGy-cm): 1708.88 FINDINGS: Lungs: Limited assessment of the lung bases fails to reveal evidence for active cardiopulmonary process. Liver: Markedly advanced diffuse fatty infiltration liver. There are several subtle structures in both the right and left hepatic lobes with ill-defined margins that have the appearance of slight enhancement. The largest structure right hepatic lobe measuring approximately 15 mm in diameter. Ill-defined ambiguous margins. The structures have similar CT attenuation appearance as an ill-defined focus of focal fatty sparing near the fay hepatis. It is possible the structures represent pockets of focal fatty sparing. Concern remains for potential metastasis. These were not visualized on the prior examination of 07/12/2020, 07/04/2020, or 2018. Consideration might might be given to follow-up unenhanced and enhanced computed tomography of the abdomen in 3-6 months versus nonemergent/nonurgent MRI of the liver for further characterization and assessment. Marked hepatomegaly. Gallbladder and bile ducts: Status post cholecystectomy. Pancreas: Pancreas is unremarkable. No visible pancreatic ductal ectasia. Spleen: Spleen unremarkable. Adrenal glands: Adrenal glands unremarkable. Kidneys and ureters: No hydronephrosis or perinephric fluid bilaterally. No visible nephrolithiasis or visible ureterolithiasis. Small 9 mm hypoattenuating structure equator right kidney that does not have simple cyst characteristics that was not visualized on the prior exam of 07/12/2020. Would recommend follow-up nonurgent/nonemergent ultrasound of the kidneys for further characterization and assessment. Stomach and bowel: Examination reveals acute uncomplicated proximal sigmoid diverticulitis. Focal mucosal inflammatory response. Mild pericolonic fat inflammatory stranding period no visible diverticular abscess or extraluminal gas. Nonobstructive bowel pattern. No visible adynamic or reactive ileus. Appendix: The appendix is visualized and appears noninflamed. Intraperitoneal space: No visible pneumoperitoneum or intraperitoneal ascites. Vasculature: Portal vein patent. The abdominal aorta is nonaneurysmal. Advanced arterial sclerotic disease. Lymph nodes: Unremarkable. No visible enlarged lymph nodes. Urinary bladder: Urinary bladder unremarkable. Reproductive: Status post hysterectomy. Bones/joints: No visible active or acute osseous pathology. Soft tissues: Unremarkable. CT/CT abdomen pelvis w con* [id number] IMPRESSION: 1. Examination reveals acute uncomplicated proximal sigmoid diverticulitis. 2. Numerous ill-defined nodular appearing structures of the hepatic parenchyma as detailed in text above. It is possible the structures represent pockets of focal fatty sparing. Concern remains for potential metastasis. Follow-up considerations are discussed in text above. 3. Small 9 mm hypoattenuating structure equator right kidney that does not have simple cyst characteristics that was not visualized on the prior exam of 07/12/2020. Would recommend follow-up nonurgent/nonemergent ultrasound of the kidneys for further characterization and assessment. 4. New markedly advanced diffuse fatty infiltration liver. 5. Marked hepatomegaly. COMMENTS: Consistent with the [employer] [employer]'s Incidental Findings Committee white paper (J Am Walter Radiol 2018): Any incidental renal lesion less than 1 cm or classified as too small to characterize, or any incidental cystic renal lesion characterized as simple-appearing, is likely benign. No follow-up imaging is recommended for these lesions per consensus recommendations based on imaging criteria.
[2021-11-07 15:53] LABS: Bilirubin Urine Neg (Negative); Blood Urine Neg (Negative); Glucose Urine UA Norm (Normal); Ketones Urine Negative (Negative); Leukocyte Esterase Urine Negative (Negative); Nitrate Urine Negative (Negative); Protein Urine Neg (Negative); Urine Appearance Clear (CLEAR); Urine Color Yellow (Yellow); Urobilinogen Urine Norm (Negative); pH Urine 5 (5-7)
[2021-11-07 15:58] LABS: Basophils # 0.1 10^3/uL (0.0-0.1); Basophils % 0.7 %; Eosinophils % 0.4 %; Hematocrit 41.5 % (37.0-47.0); Hemoglobin 13.9 g/dL (11.5-15.3); Lymphocytes # 0.8 10^3/uL (0.8-4.8); Mean Corpuscular HGB Conc 33.5 g/dL (30.0-36.0); Mean Corpuscular Hemoglobin 32.5 pg (28.0-34.0); Mean Platelet Volume 9.9 fL (7.4-10.4); Monocytes # 0.5 10^3/uL (0.2-0.9); Monocytes % 6.3 %; Neutrophils # 7.06 10^3/uL (1.8-7.7); Neutrophils % 83.1 %; Nucleated Red Blood Cells % 0 %; Platelet Count 324 10^3/cmm (130-400); Red Blood Count 4.28 10^6/uL (4.1-5.3); Red Cell Distribution Width 12.9 % (12.1-15.1); White Blood Count 8.5 10^3/uL (4.0-10.0)
[2021-11-07] MEDS: iohexol 300 mg/mL 100 mL Btl IV (15:58)
[2021-11-07 16:33] LABS: Alanine Aminotransferase 31 U/L (0-33); Albumin Level 4.3 g/dL (3.5-5.2); Alkaline Phosphatase 82 IU/L (35-105); Aspartate Amino Transferase 20 U/L (0-32); Blood Urea Nitrogen 12 mg/dL (6-20); Calcium 8.9 mg/dL (8.5-10.5); Carbon Dioxide 22 mmol/L (22-29); Chloride 98 mmol/L (98-107); Globulin 3.2 g/dL (1.3-4.6); Glomerular Filtration Rate 50.8 mL/min (90-130); Glucose 114 mg/dL (65-115); Osmolality Calculated 283 mOsm/kg (285-295); Sodium 136 mmol/L (136-145); Total Bilirubin 0.6 mg/dL (0.15-1.2); Total Protein 7.5 g/dL (6.6-8.7)
--- NOTE | 2021-11-07 16:59 | XRR_ITS ---
PROCEDURE INFORMATION: Exam: XR Chest Exam date and time: 11/07/2021 4:59 PM Age: 61 years old Clinical indication: Other: Low abd pain; Additional info: Abdominal pain TECHNIQUE: Imaging protocol: XR of the chest. Views: 2 views. Total images: 2 COMPARISON: CR XR chest 1V portable [id number] 09/05/2021 10:06 AM FINDINGS: Tubes, catheters and devices: Left Infusaport hand catheter. Lungs: No visible active interstitial or alveolar airspace disease. Rare calcified granuloma of antecedent disease. Pleural spaces: Unremarkable. No pleural effusion. No pneumothorax. Heart/Mediastinum: Cardiac structures and configuration with arteriosclerosis. Bones/joints: Unremarkable. XR/XR chest 2V* [id number] IMPRESSION: Nonacute.
[2021-11-07] MEDS: levoFLOXacin 750 mg Tablet PO (17:13)
[2021-11-07] MEDS: metroNIDAZOLE 500 MG Tablet PO (17:14)
--- NOTE | 2021-11-07 17:38 | W.ED.GENADLT ---
HPI - General Adult General: Chief complaint: Abdominal Pain Stated complaint: LOW ABD PAIN Time Seen by Provider: 11/07/21 15:20 History of Present Illness: HPI narrative: Patient is a 61-year-old female with history of lung cancer currently remission, UTI, diverticulitis presenting to the emergency room for evaluation of lower abdominal pain x3 days. Says that since then, she has had worsening lower abdominal pain. Denies any fever/chills, melena/hematochezia, urinary symptoms, history kidney stones, other prior abdominal surgery. She was supposed to follow-up with Dr. Augustin today for evaluation of her cancer but came to the ED for lower abd pain. Onset:3 days ago Duration:3 days Location:home Severity:moderate Review of Systems Narrative: Constitutional: No fever, no chills. HEENT: No vision changes CV: No chest pain, no palpitations PULM: no cough, no dyspnea. GI: +lower abdominal pain, no N/V/D. : No dysuria MSKEL: No muscle pain SKIN: No new rashes, no lesions. NEURO: No headache, no focal weakness. HEME: No visible bruises PSYCH: Normal mood PFSH ED PFSH: Medical History Abdominal aortic aneurysm Carotid stenosis, bilateral COPD (chronic obstructive pulmonary disease) COVID-19 Degenerative arthritis Gastritis GERD (gastroesophageal reflux disease) HTN (hypertension) PAD (peripheral artery disease) Port-A-Cath in place Pyelonephritis Sigmoid diverticulitis Surgical History History of bronchoscopy History of hysterectomy History of PTCA Post PTCA Status post colonoscopy (10/11/20) 10 years Status post laparoscopic cholecystectomy (08/11/20) Family History Father Cancer lung Lung disease CAD (coronary artery disease) Stroke Mother Diabetes Dementia CAD (coronary artery disease) Grandfather Cancer Denies family history of Clotting disorder Chronic kidney disease (CKD) Suicide Anesthesia complication Bleeding disorder Social History Quit status (tobacco): has quit using tobacco Year quit tobacco: Dec 2020 Former quit date comment: Hx of 2 PPD x 45 Years Second hand smoke exposure: No Smoking risk assessment/counseling performed?: No Alcohol intake: former Counseling given: No Counseling given: No Lives independently: Yes Household members: none Housing: House Current gender identity: Female Physical Exam Narrative: EXAM NARRATIVE: Head: Atraumatic Eyes: PERRL, conjunctiva without injection ENT: Mucous membrane moist NECK: Supple, ROM intact LUNGS: LCTAB, no crackles/rhonchi CV: RRR ABDOMEN: Soft, +mild lower TTP. NO guarding rebound, guarding, rigidity. No CVA tenderness to percussion. Neg Rosales/Neg McBurney's point tenderness, no suprabupic tenderness to palpation. EXTREMITY: Normal ROM SKIN: No rash or erythema NEURO: Awake and alert, no focal motor deficits PSYCH: Normal mood and affect Course Vital Signs: Vital signs: Vital Signs Temperature 98.5 F 11/07/21 15:22 Pulse Rate 78 11/07/21 17:41 Respiratory Rate 24 H 11/07/21 15:22 Blood Pressure 106/77 11/07/21 15:22 Pulse Oximetry 97 11/07/21 17:41 MDM - General Adult MDM Narrative: Medical decision making narrative: Patient is a 61-year-old female history of diverticulitis, UTI presenting to the emergency room for evaluation of lower abdominal pain. On exam, patient has mild tenderness palpation lower abdomen. No guarding no rebound tenderness. Afebrile currently. Hemodynamically stable. Work-up showed no leukocytosis today. CT abdomen pelvis showed diverticulitis and possible hepatomegaly that is new compared to prior suggestive of possible cancer. Patient is also noted to have kidney lesion. Incidental findings of hepatomegaly and R sided kidney lesion discussed extensively with patient. Patient received a copy of the CT report with the documented findings. Patient is instructed to follow up urgently with specialists. She is able to tolerate p.o. without any difficulty. Patient continues to be stable, in no acute distress and not complaining of significant pain. Becaues the patient has allergies to penicillin, patient will be started on cefdinir and metronidazole. Patient also has an appointment with Dr. Augustin tomorrow morning for followup cancer evaluation. I have instructed patient to follow-up with Dr. Hendrix.n Rx cefdinir 300mg BID x 7 days , metronidazole 500mg TID x 7 days Disposition: Discharge. Patient counseled regarding diagnostic impression, treatment plan. Patient given ED strict return precautions to return for continuation, worsening, or development of new symptoms. Instructed to f/u w/ PCP regarding symptoms today. Patient verbalized understanding. Lab Data: Labs: Lab Results 11/07/21 11/07/21 11/07/21 15:27 15:37 15:37 WBC 8.5 10^3/uL 10^3/ uL (4.0-10.0) RBC 4.28 10^6/uL 10^6 /uL (4.1-5.3) Hgb 13.9 g/dL g/dL (11.5-15.3) Hct 41.5 % % (37.0-47.0) MCV 97.0 fl fl (81-99) MCH 32.5 pg pg (28.0-34.0) MCHC 33.5 g/dL g/dL (30.0-36.0) RDW 12.9 % % (12.1-15.1) Plt Count 324 10^3/cmm 10^3 /cmm (130-400) MPV 9.9 fL fL (7.4-10.4) Neut % (Auto) 83.1 % % Lymph % (Auto) 9.0 % % [place] % (Auto) 6.3 % % Eos % (Auto) 0.4 % % Baso % (Auto) 0.7 % % Neut # (Auto) 7.06 10^3/uL 10^3 /uL (1.8-7.7) Lymph # (Auto) 0.8 10^3/uL 10^3/ uL (0.8-4.8) [place] # (Auto) 0.5 10^3/uL 10^3/ uL (0.2-0.9) Eos # (Auto) 0.0 10^3/uL 10^3/ uL (0.0-0.8) Baso # (Auto) 0.1 10^3/uL 10^3/ uL (0.0-0.1) Nucleated RBC % (a uto) 0 % % Nucleated RBCs # 0.0 /100WBC /100W BC Sodium 136 mmol/L mmol/L (136-145) Potassium 4.0 mmol/L mmol/L (3.5-5.1) Chloride 98 mmol/L mmol/L (98-107) Carbon Dioxide 22 mmol/L mmol/L (22-29) Anion Gap 20.0 H (5-19) BUN 12 mg/dL mg/dL (6-20) Creatinine 1.1 mg/dL H mg/dL (0.5-0.9) GFR Calculation 50.8 mL/min L mL/ min (90-130) Glucose 114 mg/dL mg/dL (65-115) Calculated Osmolal ity 283 mOsm/kg L mOs m/kg (285-295) Calcium 8.9 mg/dL mg/dL (8.5-10.5) Total Bilirubin 0.6 mg/dL mg/dL (0.15-1.2) AST 20 U/L U/L (0-32) ALT 31 U/L U/L (0-33) Alkaline Phosphata se 82 IU/L IU/L (35-105) Total Protein 7.5 g/dL g/dL (6.6-8.7) Albumin 4.3 g/dL g/dL (3.5-5.2) Globulin 3.2 g/dL g/dL (1.3-4.6) Urine Color Yellow (Yellow) Urine Appearance Clear (CLEAR) Urine pH 5 (5-7) Ur Specific Gravit y 1.010 (1.005-1.030) Urine Protein Neg (Negative) Urine Glucose (UA) Norm (Normal) Urine Ketones Negative (Negative) Urine Blood Neg (Negative) Urine Nitrate Negative (Negative) Urine Bilirubin Neg (Negative) Urine Urobilinogen Norm mg/dL mg/dL (Negative) Ur Leukocyte Andra ase Negative (Negative) Imaging Data^: Other Imaging: Radiologist's impression: [address] [id number] ReportSigned Patient: Danisha Leonard LUnit #: [id number]: 2Acct#:[id number]/Sex: 61 / FADM Date: 11/07/21Loc: ERRoom/Bed:Attending Dr: Ordering Provider/Ordering MD: Damon Rodgers MD Date of Service: 11/07/21 Procedure(s): XR chest 2V* [id number] Accession Number(s): [id number] Report Number: [id number] PROCEDURE INFORMATION: Exam: XR Chest Exam date and time: 11/07/2021 4:59 PM Age: 61 years old Clinical indication: Other: Low abd pain; Additional info: Abdominal pain TECHNIQUE: Imaging protocol: XR of the chest. Views: 2 views. Total images: 2 COMPARISON: CR XR chest 1V portable [id number] 09/05/2021 10:06 AM FINDINGS: Tubes, catheters and devices: Left Infusaport hand catheter. Lungs: No visible active interstitial or alveolar airspace disease. Rare calcified granuloma of antecedent disease. Pleural spaces: Unremarkable. No pleural effusion. No pneumothorax. Heart/Mediastinum: Cardiac structures and configuration with arteriosclerosis. Bones/joints: Unremarkable. XR/XR chest 2V* [id number] IMPRESSION: Nonacute. Dictated By:Pina Moore By:Pina Moore Date/Time:11/07/21 1730DD/ [address] [id number] Scan ReportSigned with Addenda Patient: Danisha Leonard LUnit #: [id number]: 1960cct#:[id number]/Sex: 61 / FADM Date: 11/07/21Loc: ERRoom/Bed:Attending Dr: Ordering Provider/Ordering MD: Damon Rodgers MD Date of Service: 11/07/21 Procedure(s): CT abdomen pelvis w con* [id number] Accession Number(s): [id number] Report Number: [id number]/CT abdomen pelvis w con* [id number] THIS REPORT CONTAINS FINDINGS THAT MAY BE CRITICAL TO PATIENT CARE. The findings were verbally communicated via telephone conference with DAMON RODGERS at 4:49 PM BANKING SERVICES ADVISOR on 11/07/2021. The findings were acknowledged and understood. Addendum Dictated By: Tony MooreAddendum Signed By: Pina Moore Date/Time:11/07/21 1656Addendum Cosigned By: PROCEDURE INFORMATION: Exam: CT Abdomen And Pelvis With Contrast Exam date and time: 11/07/2021 3:40 PM Age: 61 years old Clinical indication: Other: Diarrhea; Abdominal pain; Localized; Lower; Prior surgery; Surgery type: Gb, bladder, hyst, stents; Additional info: Eval lower abd pain TECHNIQUE: Imaging protocol: Computed tomography of the abdomen and pelvis with contrast. Total images: 241 Radiation optimization: All CT scans at this facility use at least one of these dose optimization techniques: automated exposure control; mA and/or kV adjustment per patient size (includes targeted exams where dose is matched to clinical indication); or iterative reconstruction. Contrast material: OMNI 300; Contrast volume: 95 ml; Contrast route: INTRAVENOUS (IV); COMPARISON: CT abdomen pelvis w con* [id number] 07/12/2020 3:38 PM RADIATION DOSE METRICS: Total DLP (mGy-cm): 1708.88 FINDINGS: Lungs: Limited assessment of the lung bases fails to reveal evidence for active cardiopulmonary process. Liver: Markedly advanced diffuse fatty infiltration liver. There are several subtle structures in both the right and left hepatic lobes with ill-defined margins that have the appearance of slight enhancement. The largest structure right hepatic lobe measuring approximately 15 mm in diameter. Ill-defined ambiguous margins. The structures have similar CT attenuation appearance as an ill-defined focus of focal fatty sparing near the fay hepatis. It is possible the structures represent pockets of focal fatty sparing. Concern remains for potential metastasis. These were not visualized on the prior examination of 07/12/2020, 07/04/2020, or 2018. Consideration might might be given to follow-up unenhanced and enhanced computed tomography of the abdomen in 3-6 months versus nonemergent/nonurgent MRI of the liver for further characterization and assessment. Marked hepatomegaly. Gallbladder and bile ducts: Status post cholecystectomy. Pancreas: Pancreas is unremarkable. No visible pancreatic ductal ectasia. Spleen: Spleen unremarkable. Adrenal glands: Adrenal glands unremarkable. Kidneys and ureters: No hydronephrosis or perinephric fluid bilaterally. No visible nephrolithiasis or visible ureterolithiasis. Small 9 mm hypoattenuating structure equator right kidney that does not have simple cyst characteristics that was not visualized on the prior exam of 07/12/2020. Would recommend follow-up nonurgent/nonemergent ultrasound of the kidneys for further characterization and assessment. Stomach and bowel: Examination reveals acute uncomplicated proximal sigmoid diverticulitis. Focal mucosal inflammatory response. Mild pericolonic fat inflammatory stranding period no visible diverticular abscess or extraluminal gas. Nonobstructive bowel pattern. No visible adynamic or reactive ileus. Appendix: The appendix is visualized and appears noninflamed. Intraperitoneal space: No visible pneumoperitoneum or intraperitoneal ascites. Vasculature: Portal vein patent. The abdominal aorta is nonaneurysmal. Advanced arterial sclerotic disease. Lymph nodes: Unremarkable. No visible enlarged lymph nodes. Urinary bladder: Urinary bladder unremarkable. Reproductive: Status post hysterectomy. Bones/joints: No visible active or acute osseous pathology. Soft tissues: Unremarkable. CT/CT abdomen pelvis w con* [id number] IMPRESSION: 1. Examination reveals acute uncomplicated proximal sigmoid diverticulitis. 2. Numerous ill-defined nodular appearing structures of the hepatic parenchyma as detailed in text above. It is possible the structures represent pockets of focal fatty sparing. Concern remains for potential metastasis. Follow-up considerations are discussed in text above. 3. Small 9 mm hypoattenuating structure equator right kidney that does not have simple cyst characteristics that was not visualized on the prior exam of 07/12/2020. Would recommend follow-up nonurgent/nonemergent ultrasound of the kidneys for further characterization and assessment. 4. New markedly advanced diffuse fatty infiltration liver. 5. Marked hepatomegaly. COMMENTS: Consistent with the [employer] [employer]'s Incidental Findings Committee white paper (J Am Walter Radiol 2018): Any incidental renal lesion less than 1 cm or classified as too small to characterize, or any incidental cystic renal lesion characterized as simple-appearing, is likely benign. No follow-up imaging is recommended for these lesions per consensus recommendations based on imaging criteria. Dictated By:Pina Moore By:Pina Moore Date/Time:11/07/21 1655DD/ 1540 Discharge Plan Discharge Patient Disposition: Home Clinical Impression: Hepatomegaly, Diverticulitis, Kidney lesion Condition: Stable Prescriptions: New Zofran 4 mg tablet 4 mg PO TID PRN (Reason: nausea and vomiting) 4 Days Qty: 12 RF: 0 metronidazole 500 mg tablet 500 mg PO Q8H 7 Days Qty: 21 RF: 0 cefdinir 300 mg capsule 300 mg PO BID 7 Days Qty: 14 RF: 0 No Action tramadol 50 mg tablet 50 mg PO TID PRN (Reason: Pain) RF: 0 Anoro Ellipta 62.5-25 mcg/actuation blister with device 1 inh inhalation DAILY 30 Days Qty: 60 RF: 4 metoclopramide HCl 10 mg tablet 10 mg PO TIDWMEAL RF: 0 Stool Softener 50 mg capsule 50 mg PO DAILY RF: 0 albuterol sulfate 90 mcg/actuation HFA aerosol inhaler 2 puff inhalation QID PRN (Reason: shortness of breath or wheezing) 30 Days Qty: 8.5 RF: 4 Lumigan 0.01 % drops 1 drp ophthalmic (eye) DAILY RF: 0 gabapentin 300 mg capsule 300 mg PO BID RF: 0 ipratropium-albuterol 0.5 mg-3 mg(2.5 mg base)/3 mL solution for nebulization 3 ml inhalation Q4H PRN (Reason: wheezing) Qty: 180 RF: 3 multivitamin [Multiple Vitamins] Tablet 1 tab PO DAILY RF: 0 aspirin [Aspir-81] 81 mg Tablet,Delayed Release (Dr/Ec) 81 mg PO DAILY RF: 0 zinc 50 mg Tablet 50 mg PO DAILY RF: 0 pantoprazole [Protonix] 40 mg Tablet,Delayed Release (Dr/Ec) 40 mg PO DAILY RF: 0 prednisone 10 mg tablet 10 mg PO DAILY RF: 0 milk thistle 140 mg Capsule 140 mg PO BID RF: 0 ascorbic acid (vitamin C) [Vitamin C] 1,000 mg Tablet 500 mg PO DAILY RF: 0 cholecalciferol (vitamin D3) [Vitamin D3] 10 mcg (400 unit) Capsule 10 mcg PO DAILY RF: 0 Discharge Orders: Discharge ED (Routine); Ordered 11/07/21 Ordered By: Damon Rodgers Referrals: Abrahan Weathers MD [Primary Care Provider] - Discharge Diet: Advance as tolerated Discharge Activity: Resume usual activity Patient Instructions: Diverticulitis (ED) Activity Restrictions/Additional Instructions: Please come back if you have any worsening abdominal pain, fever or chills, nausea or vomiting, diarrhea, blood in the stool, inability hold down liquid or solids, or any new concerning complaints. Our disability case manager will have you follow-up with Dr. Augustin in the next few days. You would be expected to have a phone call with our disability case manager who will put you on the schedule. Here's your CT report: [employer] [facility].[place], [place] [address]FM Scan ReportSigned with Addenda Patient: Danisha Leonard #: [id number]: [id number]#:[id number]/Sex: 61 / FADM Date: 11/07/21Loc: ERRoom/Bed:Attending Dr: Ordering Provider/Ordering MD: Damon Rodgers MD Date of Service: 11/07/21 Procedure(s): CT abdomen pelvis w con* [id number] Accession Number(s): [id number] Report Number: [id number]/CT abdomen pelvis w con* [id number] THIS REPORT CONTAINS FINDINGS THAT MAY BE CRITICAL TO PATIENT CARE. The findings were verbally communicated via telephone conference with DAMON RODGERS at 4:49 PM BANKING SERVICES ADVISOR on 11/07/2021. The findings were acknowledged and understood. Addendum Dictated By: Tony MooreAddendum Signed By: Pina Moore Date/Time:11/07/21 1656Addendum Cosigned By: PROCEDURE INFORMATION: Exam: CT Abdomen And Pelvis With Contrast Exam date and time: 11/07/2021 3:40 PM Age: 61 years old Clinical indication: Other: Diarrhea; Abdominal pain; Localized; Lower; Prior surgery; Surgery type: Gb, bladder, hyst, stents; Additional info: Eval lower abd pain TECHNIQUE: Imaging protocol: Computed tomography of the abdomen and pelvis with contrast. Total images: 241 Radiation optimization: All CT scans at this facility use at least one of these dose optimization techniques: automated exposure control; mA and/or kV adjustment per patient size (includes targeted exams where dose is matched to clinical indication); or iterative reconstruction. Contrast material: OMNI 300; Contrast volume: 95 ml; Contrast route: INTRAVENOUS (IV); COMPARISON: CT abdomen pelvis w con* [id number] 07/12/2020 3:38 PM RADIATION DOSE METRICS: Total DLP (mGy-cm): 1708.88 FINDINGS: Lungs: Limited assessment of the lung bases fails to reveal evidence for active cardiopulmonary process. Liver: Markedly advanced diffuse fatty infiltration liver. There are several subtle structures in both the right and left hepatic lobes with ill-defined margins that have the appearance of slight enhancement. The largest structure right hepatic lobe measuring approximately 15 mm in diameter. Ill-defined ambiguous margins. The structures have similar CT attenuation appearance as an ill-defined focus of focal fatty sparing near the fay hepatis. It is possible the structures represent pockets of focal fatty sparing. Concern remains for potential metastasis. These were not visualized on the prior examination of 07/12/2020, 07/04/2020, or 2018. Consideration might might be given to follow-up unenhanced and enhanced computed tomography of the abdomen in 3-6 months versus nonemergent/nonurgent MRI of the liver for further characterization and assessment. Marked hepatomegaly. Gallbladder and bile ducts: Status post cholecystectomy. Pancreas: Pancreas is unremarkable. No visible pancreatic ductal ectasia. Spleen: Spleen unremarkable. Adrenal glands: Adrenal glands unremarkable. Kidneys and ureters: No hydronephrosis or perinephric fluid bilaterally. No visible nephrolithiasis or visible ureterolithiasis. Small 9 mm hypoattenuating structure equator right kidney that does not have simple cyst characteristics that was not visualized on the prior exam of 07/12/2020. Would recommend follow-up nonurgent/nonemergent ultrasound of the kidneys for further characterization and assessment. Stomach and bowel: Examination reveals acute uncomplicated proximal sigmoid diverticulitis. Focal mucosal inflammatory response. Mild pericolonic fat inflammatory stranding period no visible diverticular abscess or extraluminal gas. Nonobstructive bowel pattern. No visible adynamic or reactive ileus. Appendix: The appendix is visualized and appears noninflamed. Intraperitoneal space: No visible pneumoperitoneum or intraperitoneal ascites. Vasculature: Portal vein patent. The abdominal aorta is nonaneurysmal. Advanced arterial sclerotic disease. Lymph nodes: Unremarkable. No visible enlarged lymph nodes. Urinary bladder: Urinary bladder unremarkable. Reproductive: Status post hysterectomy. Bones/joints: No visible active or acute osseous pathology. Soft tissues: Unremarkable. CT/CT abdomen pelvis w con* [id number] IMPRESSION: 1. Examination reveals acute uncomplicated proximal sigmoid diverticulitis. 2. Numerous ill-defined nodular appearing structures of the hepatic parenchyma as detailed in text above. It is possible the structures represent pockets of focal fatty sparing. Concern remains for potential metastasis. Follow-up considerations are discussed in text above. 3. Small 9 mm hypoattenuating structure equator right kidney that does not have simple cyst characteristics that was not visualized on the prior exam of 07/12/2020. Would recommend follow-up nonurgent/nonemergent ultrasound of the kidneys for further characterization and assessment. 4. New markedly advanced diffuse fatty infiltration liver. 5. Marked hepatomegaly. COMMENTS: Consistent with the [place] [employer]'s Incidental Findings Committee white paper (J Am Walter Radiol 2018): Any incidental renal lesion less than 1 cm or classified as too small to characterize, or any incidental cystic renal lesion characterized as simple-appearing, is likely benign. No follow-up imaging is recommended for these lesions per consensus recommendations based on imaging criteria. Dictated By:Pina Moore By:Pina Moore Date/Time:11/07/21 1655DD/ 1540 Coding Level of Care Code ED Home Therapy Teacher for Aida Belcher
[2021-11-07 17:41] VITALS: PULSE 78; O2SAT 97
--- NOTE | 2021-11-09 10:30 | DCPLANNER ---
restaurant culinary manager had message to schedule a follow up appointment for patient with Dr. Augustin. restaurant culinary manager called Tania, community recreation coordinator[facility]. restaurant culinary manager gave clinic patients information. restaurant culinary manager was told patients information would be printed and reviewed, clinic will call patient with appointment information.
--- NOTE | 2021-11-28 08:43 | DCPLANNER ---
Patient had a follow up appointment scheduled for 11.09.21 at cancer treatment - patient did attend appointment.
== END 2021-11-07 17:43 | disposition home or self-care (01) ==
PROVIDERS: Physician Assistant; Emergency Provider Emergency Medicine; PCP Family Medicine
DX: R16.0 Hepatomegaly, not elsewhere classified (principal); K57.92 Diverticulitis of intestine, part unspecified, without perforation or abscess without bleeding; N28.9 Disorder of kidney and ureter, unspecified; Z79.82 Long term (current) use of aspirin; J44.9 Chronic obstructive pulmonary disease, unspecified; I10 Essential (primary) hypertension; Z87.891 Personal history of nicotine dependence
CPT/HCPCS: 71046; 74177; 80053; 81003; 85025; 99283; Q9967

== ENCOUNTER 2021-11-09 07:58 | Outpatient (RCR) | payer MEDICAID, SELFPAY ==
--- NOTE | 2021-11-09 17:39 | ONC FU_ITS ---
Dr. Augustin Patient Follow-Up Note Patient: Danisha Leonard Unit #: [id number]: 1960 Dicatated By: Mark Augustin M.D.Date of Visit:Nov 09, 2021 Onc Med Follow-up/Prog Note Chief Complaint: Metastatic squamous cell carcinoma. 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 Since July 2020 she had complaints of abdominal pain which had persisted despite undergoing cholecystectomy in August. She was then thought to have gastritis and/or diverticulitis, though her colonoscopy in October 2020 was completely unremarkable. She then developed further symptoms of throat swelling, lightheadedness and chest pain, and she also developed hoarseness, for which she was seen in the emergency room on November 29, 2020. 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 There was marked/severe narrowing of the origin of the left vertebral artery due to large plaque. There was noted to be asymmetry of the vocal cords with small nodularity on the left. Tonsils were symmetrically enlarged. There was mediastinal adenopathy including a 2 cm node in the aortopulmonary window and a subcarinal lymph node measuring 1.5 cm. An enlarged right hilar lymph node measured 1.[address] angiogram of the chest showed no evidence of pulmonary embolus. There was noted to be patchy airspace opacity in the left lower lobe compatible with pneumonic infiltrate and there was mild diffuse interstitial and groundglass opacity in the lungs compatible with mild pneumonitis versus CHF. Also noted was a 1.3 cm precarinal lymph node, a 1.5 cm left hilar lymph node, and a 1.2 cm right hilar lymph node. She was referred to Dr. Leroy and she was confirmed by flexible laryngoscopy to have left vocal cord paralysis. She was then seen by Dr. Matthews and on December 14, 2020 she underwent left open paramedian mediastinotomy with biopsy of the AP window lymph node. Pathology showed metastatic squamous cell carcinoma which was p16 negative. On her next generation sequencing study, her PD-L1 expression was reported positive at 95%. There were no actionable mutations identified. I had seen her initially on 12/27/2020. Her staging PET/CT on 12/31/2020 showed several FDG positive mediastinal lymph nodes with high probability of malignancy, including a superior prevascular node measuring 1.0 cm with SUV 5.8. There were additional FDG avid nodes in the prevascular, subaortic, and subcarinal territories. There were no other areas of abnormal uptake on that study. In particular, there was no significant FDG activity in the left glottis to indicate a site of primary malignancy. With those findings, she had radiation oncology consultation with Dr. Alas, and she was recommended to undergo definitive radiation concurrently with weekly carboplatin/paclitaxel chemotherapy. She began her chemoradiation on 02/13/2021. Radiation was completed on 03/24/2021 to a total dose of 6000 cGy administered in 30 fractions. During that time she received a total of 5 weekly chemotherapy infusions of carboplatin/paclitaxel, her week 4 treatment having been delayed due to neutropenia. Her further management was complicated by herpes zoster in the right mid back/chest distribution with associated herpetic neuralgia. Her restaging chest CT on 05/09/2021 showed mild chronic emphysematous changes with no acute pulmonary infiltrates and with no pulmonary nodules identified. There was no residual mediastinal or hilar lymphadenopathy. In the absence of any evidence for other source of primary malignancy, her clinical presentation was most consistent with metastatic non-small cell lung cancer and with the apparent complete response to the chemoradiation, I felt that she was appropriate for maintenance immunotherapy, particularly with the high PD-L1 expression. There was some delay in getting her treatment started, but at least some of that was at her request. Her other medical illnesses include COPD, hypertension, carotid and vertebral artery stenosis, peripheral arterial disease, GERD, and degenerative arthritis. She has a known abdominal aortic aneurysm, and she has anxiety/depression. She began smoking at age 10, and she smoked up to 2 packs of cigarettes daily. She quit smoking in December 2020. INTERIM HISTORY: She began cycle 1 of maintenance durvalumab on 06/06/2021. She tolerated it without acute toxicity and she then continued treatment at 2-week intervals. She completed her 4th cycle on 07/18/2021. At her follow-up visit on 08/01/2021 she presented with increased shortness of breath and declining activity tolerance. Her treatment was put on hold and she began on steroid therapy. Her CT pulmonary angiogram showed new subsegmental minimal groundglass opacifications of the upper lobes bilaterally, most likely representing mild pneumonitis. With that finding she was referred to Dr. Aquino. On 09/05/2021 she underwent bronchoscopy with fluoroscopy guided transbronchial lung biopsies. Pathology showed LV related parenchyma with a single nonnecrotizing granuloma, respiratory bronchiolitis, and mild hyalinized interstitial fibrosis. There were no definite features of acute lung injury, acute inflammation, or neoplasm. Overall, the findings were felt to be most consistent with smoking-related changes. As of her follow-up visit on 10/05/2021 she continued to have significant shortness of breath. In the absence of any evidence of progression of the squamous cell cancer she continued expectant management. On 11/07/2021 she presented to the emergency room with lower abdominal pain. Her chest x-ray showed no acute findings. Her CT abdomen/pelvis showed findings of acute uncomplicated proximal sigmoid diverticulitis. Also noted was hepatomegaly with markedly advanced diffuse fatty infiltration of the liver. Several subtle structures in both right and left hepatic lobes with ill-defined margins appear to show slight enhancement. These measured up to 15 mm in diameter. As they were new compared to prior studies, metastatic lesions were suspected. A 9 mm hypoattenuating lesion was noted in the right kidney. It did not have the characteristics of simple cyst and as it also was a new finding, follow-up was recommended. She was given empiric antibiotic coverage with metronidazole and cefdinir for the diverticulitis. She is seen for a follow-up visit. She continues to have some pain in the lower abdominal area, but it is getting better. Her main complaint is that she feels wore out and exhausted and she continues to complain that he is short of breath with any activity. She is still able to do some light housework. ECOG score is 1. Her appetite has been down a little. She had low-grade fever with her ER visit, maximum 100.3 degrees. She has occasional sweating at night. She has not had sore mouth or throat. She does not complain of cough, and she has not been having chest pain. She has not been having any nausea. Bowel function has been pretty good with a stool softener. She has no complaints. She does complain that she hurts all over. She has been taking tramadol. She does not complain of headache or dizziness. She has no numbness/paresthesia or other neuropathy symptoms, but she does have restless leg symptoms at night. Medications: Acyclovir 1 Tablet (of 800 mg) Tablet Oral 5x/d for 14 days, Aspirin 81 1 (81 mg) Tablet, chewable Oral every am, Cefdinir 1 Capsule (of 300 mg) Oral b.i.d. for 7 days, Citalopram Hydrobromide 1 Tablet (of 10 mg) Oral daily, DULoxetine HCl 1 Tablet (of 20 mg) Tablet Oral daily, Flagyl (500 mg) Tablet Oral Take as Directed, Gabapentin (300 mg) Capsule Oral b.i.d., Ondansetron 1 Tablet (of 4 mg) Tablet Dispersable Oral t.i.d. PRN, Pantoprazole Sodium 1 (40 mg) Tablet, enteric coated Oral daily, traMADol HCl 1 Tablet (of 50 mg) Oral t.i.d., Ventolin HFA 2 Puff(s) (of 108 (90 Base) mcg/act) Aerosol, solution Inhalation daily, Vitamin C & D3/Tessa Hips 1 (500-1000-20 mg - Units - mg) Capsule Oral daily, Zinc 1 (50 mg) Capsule Oral daily Allergies: Adhesive, Clindamycin HCl, Egg, Penicillins, and Skin Glue. Vital Signs: Performed on Nov 09, 2021 08:16 Height - 66.00 in Weight - 194.2 lbs (LOW) BSA - 1.98 sq.m BMI - 31.34 (HIGH) Temperature - 96.8 F (LOW) Pulse - 104 /min (HIGH) Respiration - 18 /min BP - 129/76 mm(hg) O2 Sat - 97 % Pain - 4 Fatigue - 9 Physical Examination: Constitutional - She appears somewhat weak generally, Eyes - Sclerae nonicteric. Conjunctivae clear, ENMT - No lesions noted in the oral cavity, Hematologic/Lymphatic - No cervical, clavicular, or axillary adenopathy, Respiratory - Lungs sound clear with diminished air movement bilaterally, Cardiovascular - Heart rhythm is regular. There is a mild tachycardia. There is no murmur, gallop, or rub noted, Abdomen - Mildly distended. Liver and spleen are not enlarged. There is no abdominal mass or ascites noted and there is no inguinal adenopathy, Extremities - No edema, Neurologic - No focal neurologic deficits noted. Lab/Imaging: Lab studies from 11/07/2021 included CBC showing hemoglobin 13.9 g, white blood cell count 8500, and platelet count 324,000. Comprehensive metabolic profile showed some decline in renal function with BUN 12 and creatinine 1.1 mg/dL. The bilirubin and liver enzymes were normal. Problem List: 1. 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 There is associated left vocal cord paralysis. A primary lesion has not yet been identified, but the pattern is most consistent with metastatic non-small cell lung cancer. 2. Hypertension. 3. There is CT evidence of carotid and vertebral artery stenosis. 4. She has history of peripheral arterial disease with previous stent to the right common iliac artery. 5. COPD. 6. GERD. 7. Degenerative arthritis. 8. Anxiety/depression. Problems Addressed with this Encounter and Plan: 1. 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 There was associated left vocal cord paralysis. A definite primary lesion was not identified by clinical evaluation, which included PET/CT. The pattern was most consistent with metastatic non-small cell lung cancer. On her next generation sequencing study, the tumor was found to be positive for PD-L1 expression at 90%. There were no actionable mutations identified. With those findings, she underwent definitive radiation concurrently with weekly carboplatin/paclitaxel chemotherapy. She completed radiation on 03/24/2021 to a total dose of 6000 cGy administered in 30 fractions. During that time she completed a total of 5 weekly infusions of carboplatin/paclitaxel, her week for infusion having been delayed due to neutropenia. Overall, she tolerated the treatment well. Her restaging chest CT on 05/09/2021 showed no pulmonary nodules and no residual mediastinal or hilar lymphadenopathy, consistent with complete response to the treatment. As such, she was deemed eligible for maintenance immunotherapy. She then began cycle 1 of maintenance durvalumab on 06/06/2021. She tolerated it without acute toxicity and she then continued treatment at 2-week intervals. She completed her 4th cycle of treatment on 07/18/2021. As of her follow-up visit on 08/01/2021, her treatment was put on hold due to increased shortness of breath and declining activity tolerance. A subsequent CT pulmonary angiogram showed bilateral upper lobe opacities consistent with mild pneumonitis. She then began on steroid therapy with prednisone. During subsequent follow-up the prednisone dosage was tapered to 10 mg daily. Overall, there has been no significant improvement in those symptoms, she continues to have shortness of breath with any effort and she has very limited activity tolerance. With those complaints, she will be scheduled for another CT pulmonary angiogram, and she will have further evaluation as indicated. In the meantime, I am going to have her increase prednisone to 10 mg twice daily. 2. Her CT scans have shown evidence of severe fatty infiltration of the liver. The current study showed several lesions in both hepatic lobes which show slight enhancement, and as they were new compared to prior studies they were felt to be suspicious for metastatic lesions. This will require close monitoring. Depending on the findings on her CT pulmonary angiogram, I may schedule her for further evaluation with PET/CT. There is also a new lesion in the right kidney which requires monitoring. 3. She has lower abdominal pain with evidence on her recent CT scan of proximal sigmoid diverticulitis. She will continue her empiric antibiotic coverage as prescribed. Signed By: Mark Augustin M.D. <<Signature on File>>
== END 2021-12-01 23:59 | disposition home or self-care (01) ==
LOC: ONCMED 07:58
PROVIDERS: PCP Family Medicine; Visit Provider Internal Medicine Medical Oncology
DX: C34.11 Malignant neoplasm of upper lobe, right bronchus or lung (principal); C34.12 Malignant neoplasm of upper lobe, left bronchus or lung; C77.1 Secondary and unspecified malignant neoplasm of intrathoracic lymph nodes; J38.01 Paralysis of vocal cords and larynx, unilateral; I10 Essential (primary) hypertension; J44.9 Chronic obstructive pulmonary disease, unspecified; K21.9 Gastro-esophageal reflux disease without esophagitis; M19.90 Unspecified osteoarthritis, unspecified site; F41.9 Anxiety disorder, unspecified; F32.9 Major depressive disorder, single episode, unspecified; I65.29 Occlusion and stenosis of unspecified carotid artery; I65.09 Occlusion and stenosis of unspecified vertebral artery; Z86.79 Personal history of other diseases of the circulatory system; Z79.899 Other long term (current) drug therapy; Z79.52 Long term (current) use of systemic steroids; Z79.2 Long term (current) use of antibiotics
CPT/HCPCS: 99214; 99215

== ENCOUNTER 2021-12-05 11:14 | Outpatient (CLI) | payer MEDICAID, SELFPAY ==
--- NOTE | 2021-12-05 | CT_ITS ---
WS: [id number] CTA OF THE CHEST WITH PULMONARY EMBOLISM PROTOCOL TECHNIQUE: High-resolution contrast enhanced CTA of the chest with coronal and sagittal reformatted i mages with pulmonary embolism protocol. MIP images are also reviewed. CLINICAL INFORMATION: LUNG CANCER, SOB COMPARISON: CT August 10, 2021 DLP: 731.[address] scans at [facility] use at least one of these dose optimization techniques: automated e xposure control; mA and/or kV adjustment per patient size (includes targeted exams where dose is matc hed to clinical indication); or iterative reconstruction. FINDINGS: Moderate chronic emphysematous changes. No acute pulmonary infiltrates today. No focal pneumonia or pleural fluid. Normal caliber thoracic ao rta. Aortic calcification. Coronary calcification. No mediastinal or hilar lymphadenopathy. Diffuse fatty infiltration liver. Cholecystectomy clips. Normal GE junction. Adrenal glands are lala l. Normal caliber upper abdominal aorta. Hypertrophic changes thoracic spine. Proximal main pulmonary arteries are normal. Normal segmental and subsegmental pulmonary arteries. No evidence of pulmonary embolus. No axillary lymphadenopathy. CT/CT angio chest PE protcl [id number] IMPRESSION: 1. Proximal main pulmonary arteries are normal. No evidence of pulmonary embol us. 2. Both lungs are well aerated. No acute pulmonary infiltrates today. 3. Moderate chronic emphysematous changes. 4. Diffuse fatty infiltration of the liver. 5. Prior cholecystectomy clips.
== END 2021-12-05 11:15 | disposition home or self-care (01) ==
PROVIDERS: PCP Family Medicine; Visit Provider Internal Medicine Medical Oncology
DX: C34.90 Malignant neoplasm of unspecified part of unspecified bronchus or lung (principal); R06.02 Shortness of breath; K76.0 Fatty (change of) liver, not elsewhere classified
CPT/HCPCS: 71275; Q9967

== ENCOUNTER 2021-12-15 06:00 | Outpatient (RCR) | payer MEDICAID, SELFPAY | END 2022-01-01 23:59 | disposition home or self-care (01) | LOC: ONCMED 06:00 | PROVIDERS: PCP Family Medicine; Visit Provider Internal Medicine Medical Oncology | DX: Z45.2 Encounter for adjustment and management of vascular access device (principal) | CPT/HCPCS: 96523 ==

== ENCOUNTER 2021-12-15 10:05 | Outpatient (CLI) | payer MEDICAID, SELFPAY ==
--- NOTE | 2021-12-15 10:13 | USCV_ITS ---
LeonardDanisha Age: 61 Gender: F : 1960 Exam Date: 12/15/2021 10:17 Ordering Phys: Zeferino Matthews MD (Andy) [email or web address] [place] Technologist: [place] Location[place] [facility] [place] [facility] [place] Indication: OCCLUSION AND STENOSIS OF BILATERAL CAROTID ARTERIES Risk Factors: Previous Vascular Surgery: Right Brachial BP: / Left Brachial BP: / Right Left Velocity (cm/s) Spectral Plaque Velocity (cm/s) Spectral Plaque Syst/Diast Broadening Syst/Diast Broadening 48.10/ 11.30 Prox CCA 78.30 / 30.30 45.40/ 12.40 Mid CCA 74.20 / 31.10 32.50/ 9.10 Distal CCA 82.70 / 20.90 / Prox ICA 235.80/ 45.90 / Mid ICA 144.00/ 31.50 / Distal ICA 84.50 / 24.50 183.40 ECA 310.70 ICA/CCA 3.38 Antegrade Vertebral Retrograde 89.70/ 17.70 cm/s 80.20/ 9.20 cm/s Tri Subclavian Iron 122.2 103.9 0 0 FINDINGS No changes since 07/10/21 CONCLUSIONS No changes since 07/10/21 Occlusion Right ICA. This is likely chronic and could be further evaluated with CTA. Left ICA stenosis 70-99%. Moderate atheromatous plaque left carotid bulb/ICA. Normal antegrade Doppler flow noted in the right vertebral artery. Retrograde flow in the left vertebral artery with monophasic subclavian compatible with subclavian steal Castillo Maddox MD (Electronically Signed) Final Date: 15 December 2021 13:20 S
== END 2021-12-15 10:06 | disposition home or self-care (01) ==
LOC: RAD 10:07
PROVIDERS: PCP Family Medicine; Visit Provider Thoracic Surgery (Cardiothoracic Vascular Surgery)
DX: I65.23 Occlusion and stenosis of bilateral carotid arteries (principal)
CPT/HCPCS: 93880

== ENCOUNTER 2022-01-10 06:23 | Outpatient (RCR) | payer MEDICAID, SELFPAY ==
[2022-01-09] MEDS: alteplase 1 mg/mL SDV 2 mL 2 MG INTRACATH (14:25)
[2022-01-09 14:58] LABS: Basophils % 0.7 %; Eosinophils % 0.2 %; Lymphocytes # 0.6 10^3/uL (0.8-4.8); Mean Corpuscular HGB Conc 33.3 g/dL (30.0-36.0); Mean Corpuscular Hemoglobin 32.6 pg (28.0-34.0); Mean Corpuscular Volume 97.7 fl (81-99); Mean Platelet Volume 9.6 fL (7.4-10.4); Monocytes # 0.2 10^3/uL (0.2-0.9); Monocytes % 3.2 %; Neutrophils # 4.85 10^3/uL (1.8-7.7); Neutrophils % 84.8 %; Nucleated Red Blood Cells % 0 %; Platelet Count 261 10^3/cmm (130-400); Red Cell Distribution Width 12.3 % (12.1-15.1); White Blood Count 5.7 10^3/uL (4.0-10.0)
[2022-01-09 15:37] LABS: Alanine Aminotransferase 32 U/L (0-33); Albumin Level 4.3 g/dL (3.5-5.2); Alkaline Phosphatase 64 IU/L (35-105); Anion Gap 18.4 (5-19); Aspartate Amino Transferase 21 U/L (0-32); Blood Urea Nitrogen 17 mg/dL (6-20); Calcium 9.7 mg/dL (8.5-10.5); Carbon Dioxide 23 mmol/L (22-29); Chloride 98 mmol/L (98-107); Globulin 2.4 g/dL (1.3-4.6); Glomerular Filtration Rate 64.1 mL/min (90-130); Glucose 138 mg/dL (65-115); Osmolality Calculated 284 mOsm/kg (285-295); Potassium 4.4 mmol/L (3.5-5.1); Sodium 135 mmol/L (136-145); Total Bilirubin 0.4 mg/dL (0.15-1.2); Total Protein 6.7 g/dL (6.6-8.7)
--- NOTE | 2022-01-10 17:59 | ONC FU_ITS ---
Dr. Augustin Patient Follow-Up Note Patient: Danisha Leonard Unit #: [id number]: 1960 Dicatated By: Mark Augustin M.D.Date of Visit:Jan 10, 2022 Onc Med Follow-up/Prog Note Chief Complaint: Metastatic squamous cell carcinoma. 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 Since July 2020 she had complaints of abdominal pain which had persisted despite undergoing cholecystectomy in August. She was then thought to have gastritis and/or diverticulitis, though her colonoscopy in October 2020 was completely unremarkable. She then developed further symptoms of throat swelling, lightheadedness and chest pain, and she also developed hoarseness, for which she was seen in the emergency room on November 29, 2020. 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 There was marked/severe narrowing of the origin of the left vertebral artery due to large plaque. There was noted to be asymmetry of the vocal cords with small nodularity on the left. Tonsils were symmetrically enlarged. There was mediastinal adenopathy including a 2 cm node in the aortopulmonary window and a subcarinal lymph node measuring 1.5 cm. An enlarged right hilar lymph node measured 1.[address] angiogram of the chest showed no evidence of pulmonary embolus. There was noted to be patchy airspace opacity in the left lower lobe compatible with pneumonic infiltrate and there was mild diffuse interstitial and groundglass opacity in the lungs compatible with mild pneumonitis versus CHF. Also noted was a 1.3 cm precarinal lymph node, a 1.5 cm left hilar lymph node, and a 1.2 cm right hilar lymph node. She was referred to Dr. Leroy and she was confirmed by flexible laryngoscopy to have left vocal cord paralysis. She was then seen by Dr. Matthews and on December 14, 2020 she underwent left open paramedian mediastinotomy with biopsy of the AP window lymph node. Pathology showed metastatic squamous cell carcinoma which was p16 negative. On her next generation sequencing study, her PD-L1 expression was reported positive at 95%. There were no actionable mutations identified. I had seen her initially on 12/27/2020. Her staging PET/CT on 12/31/2020 showed several FDG positive mediastinal lymph nodes with high probability of malignancy, including a superior prevascular node measuring 1.0 cm with SUV 5.8. There were additional FDG avid nodes in the prevascular, subaortic, and subcarinal territories. There were no other areas of abnormal uptake on that study. In particular, there was no significant FDG activity in the left glottis to indicate a site of primary malignancy. With those findings, she had radiation oncology consultation with Dr. Alas, and she was recommended to undergo definitive radiation concurrently with weekly carboplatin/paclitaxel chemotherapy. She began her chemoradiation on 02/13/2021. Radiation was completed on 03/24/2021 to a total dose of 6000 cGy administered in 30 fractions. During that time she received a total of 5 weekly chemotherapy infusions of carboplatin/paclitaxel, her week 4 treatment having been delayed due to neutropenia. Her further management was complicated by herpes zoster in the right mid back/chest distribution with associated herpetic neuralgia. Her restaging chest CT on 05/09/2021 showed mild chronic emphysematous changes with no acute pulmonary infiltrates and with no pulmonary nodules identified. There was no residual mediastinal or hilar lymphadenopathy. In the absence of any evidence for other source of primary malignancy, her clinical presentation was most consistent with metastatic non-small cell lung cancer and with the apparent complete response to the chemoradiation, I felt that she was appropriate for maintenance immunotherapy, particularly with the high PD-L1 expression. There was some delay in getting her treatment started, but at least some of that was at her request. Her other medical illnesses include COPD, hypertension, carotid and vertebral artery stenosis, peripheral arterial disease, GERD, and degenerative arthritis. She has a known abdominal aortic aneurysm, and she has anxiety/depression. She began smoking at age 10, and she smoked up to 2 packs of cigarettes daily. She quit smoking in December 2020. INTERIM HISTORY: She began cycle 1 of maintenance durvalumab on 06/06/2021. She tolerated it without acute toxicity and she then continued treatment at 2-week intervals. She completed her 4th cycle on 07/18/2021. At her follow-up visit on 08/01/2021 she presented with increased shortness of breath and declining activity tolerance. Her treatment was put on hold and she began on steroid therapy. Her CT pulmonary angiogram showed new subsegmental minimal groundglass opacifications of the upper lobes bilaterally, most likely representing mild pneumonitis. With that finding she was referred to Dr. Aquino. On 09/05/2021 she underwent bronchoscopy with fluoroscopy guided transbronchial lung biopsies. Pathology showed LV related parenchyma with a single nonnecrotizing granuloma, respiratory bronchiolitis, and mild hyalinized interstitial fibrosis. There were no definite features of acute lung injury, acute inflammation, or neoplasm. Overall, the findings were felt to be most consistent with smoking-related changes. As of her follow-up visit on 10/05/2021 she continued to have significant shortness of breath. In the absence of any evidence of progression of the squamous cell cancer she continued expectant management. On 11/07/2021 she presented to the emergency room with lower abdominal pain. Her chest x-ray showed no acute findings. Her CT abdomen/pelvis showed findings of acute uncomplicated proximal sigmoid diverticulitis. Also noted was hepatomegaly with markedly advanced diffuse fatty infiltration of the liver. Several subtle structures in both right and left hepatic lobes with ill-defined margins appear to show slight enhancement. These measured up to 15 mm in diameter. As they were new compared to prior studies, metastatic lesions were suspected. A 9 mm hypoattenuating lesion was noted in the right kidney. It did not have the characteristics of simple cyst and as it also was a new finding, follow-up was recommended. She was given empiric antibiotic coverage with metronidazole and cefdinir for the diverticulitis. A repeat CT pulmonary angiogram on 12/05/2021 showed no evidence of pulmonary embolism. There were no acute pulmonary infiltrates identified. There were moderate chronic emphysematous changes and there was diffuse fatty infiltration of the liver. There was no reference made to the right renal lesion. Carotid duplex on 12/15/2021 showed occlusion of the right ICA and 70 to 99% left ICA stenosis. There was no change compared to the previous study from July 2021. She is seen for a follow-up visit. She has continued taking prednisone 20 mg daily. She complains that she is exhausted and that she is short of breath with any activity. She is still able to do housework. ECOG score is 1. She has good appetite. She has not had fever. For least the past 3 weeks she has been having a lot of sweating, both during the daytime and at night. She has not had sore mouth or throat. She does not complain of cough, and she has not been having chest pain. She has no GI or complaints. She has a lot of arthritis. Her most significant pain is in the back and hips. She also has migraine headaches, and she is now starting treatment with venlafaxine under the direction of Dr. Morales. Medications: Acyclovir 1 Tablet (of 800 mg) Tablet Oral 5x/d for 14 days, Aspirin 81 1 (81 mg) Tablet, chewable Oral every am, Cefdinir 1 Capsule (of 300 mg) Oral b.i.d. for 7 days, Citalopram Hydrobromide 1 Tablet (of 10 mg) Oral daily, DULoxetine HCl 1 Tablet (of 20 mg) Tablet Oral daily, Flagyl (500 mg) Tablet Oral Take as Directed, Gabapentin (300 mg) Capsule Oral b.i.d., Ondansetron 1 Tablet (of 4 mg) Tablet Dispersable Oral t.i.d. PRN, Pantoprazole Sodium 1 (40 mg) Tablet, enteric coated Oral daily, traMADol HCl 1 Tablet (of 50 mg) Oral t.i.d., Ventolin HFA 2 Puff(s) (of 108 (90 Base) mcg/act) Aerosol, solution Inhalation daily, Vitamin C & D3/Tessa Hips 1 (500-1000-20 mg - Units - mg) Capsule Oral daily, Zinc 1 (50 mg) Capsule Oral daily Allergies: Adhesive, Clindamycin HCl, Egg, Penicillins, and Skin Glue. Vital Signs: Performed on Jan 10, 2022 11:38 Height - 66.00 in Weight - 196.2 lbs (HIGH) BSA - 1.98 sq.m BMI - 31.67 (HIGH) Temperature - 97.4 F (LOW) Pulse - 103 /min (HIGH) Respiration - 20 /min BP - 138/97 mm(hg) O2 Sat - 95 % (LOW) Pain - 0 Fatigue - 8 Physical Examination: Constitutional - She looks pretty good generally, but she does appear short of breath with effort, Eyes - Sclerae nonicteric. Conjunctivae clear, ENMT - No lesions noted in the oral cavity, Hematologic/Lymphatic - No cervical, clavicular, or axillary adenopathy, Respiratory - Lungs sound clear with diminished air movement bilaterally, Cardiovascular - Heart rhythm is regular. There is a mild tachycardia. There is no murmur, gallop, or rub noted, Abdomen - Mildly distended. Liver and spleen are not enlarged. There is no abdominal mass or ascites noted and there is no inguinal adenopathy, Extremities - No edema, Neurologic - No focal neurologic deficits noted. Lab/Imaging: CBC shows hemoglobin 14.0 g, white blood cell count 5700, and platelet count 261,000. Comprehensive metabolic profile shows normal renal function with BUN 17 and creatinine 0.9 mg/dL. Bilirubin and liver enzymes are normal. Problem List: 1. 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 There is associated left vocal cord paralysis. A primary lesion has not yet been identified, but the pattern is most consistent with metastatic non-small cell lung cancer. 2. Hypertension. 3. There is CT evidence of carotid and vertebral artery stenosis. 4. She has history of peripheral arterial disease with previous stent to the right common iliac artery. 5. COPD. 6. GERD. 7. Degenerative arthritis. 8. Anxiety/depression. Problems Addressed with this Encounter and Plan: 1. 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 There was associated left vocal cord paralysis. A definite primary lesion was not identified by clinical evaluation, which included PET/CT. The pattern was most consistent with metastatic non-small cell lung cancer. On her next generation sequencing study, the tumor was found to be positive for PD-L1 expression at 90%. There were no actionable mutations identified. With those findings, she underwent definitive radiation concurrently with weekly carboplatin/paclitaxel chemotherapy. She completed radiation on 03/24/2021 to a total dose of 6000 cGy administered in 30 fractions. During that time she completed a total of 5 weekly infusions of carboplatin/paclitaxel, her week for infusion having been delayed due to neutropenia. Overall, she tolerated the treatment well. Her restaging chest CT on 05/09/2021 showed no pulmonary nodules and no residual mediastinal or hilar lymphadenopathy, consistent with complete response to the treatment. As such, she was deemed eligible for maintenance immunotherapy. She then began cycle 1 of maintenance durvalumab on 06/06/2021. She tolerated it without acute toxicity and she then continued treatment at 2-week intervals. She completed her 4th cycle of treatment on 07/18/2021. As of her follow-up visit on 08/01/2021, her treatment was put on hold due to increased shortness of breath and declining activity tolerance. A subsequent CT pulmonary angiogram showed bilateral upper lobe opacities consistent with mild pneumonitis. She then began on steroid therapy with prednisone. During followup the dosage was tapered to 10 mg daily, but as of November 2021 it was increased back up to 20 mg daily. Since then she has continued to complain of shortness of breath with any activity as well as severe exhaustion. I am not entirely certain of the cause for this. There were no acute findings on her repeat CT pulmonary angiogram on 12/05/2021. As there has been no evidence for recurrence/progression of the squamous cell carcinoma, she will continue on observation/symptomatic management. In the meantime, with no apparent symptomatic improvement on the higher dosage of prednisone, it will be reduced back to 10 mg daily. I will discuss her further management with Dr. Aquino when he is available. 2. Her CT scans had shown evidence of severe fatty infiltration of the liver. Her abdominal CT in November showed several lesions in both hepatic lobes which showed slight enhancement, and as they were new compared to prior studies they were felt to be suspicious for metastatic lesions. No discrete hepatic lesions were reported on the December CT pulmonary angiogram. Signed By: Mark Augustin M.D. <<Signature on File>>
== END 2022-01-29 23:59 | disposition home or self-care (01) ==
LOC: ONCMED 06:23
PROVIDERS: PCP Family Medicine; Visit Provider Internal Medicine Medical Oncology
DX: C34.01 Malignant neoplasm of right main bronchus (principal); C78.02 Secondary malignant neoplasm of left lung; C77.1 Secondary and unspecified malignant neoplasm of intrathoracic lymph nodes; J38.01 Paralysis of vocal cords and larynx, unilateral; I10 Essential (primary) hypertension; I65.23 Occlusion and stenosis of bilateral carotid arteries; I65.03 Occlusion and stenosis of bilateral vertebral arteries; I73.9 Peripheral vascular disease, unspecified; J44.9 Chronic obstructive pulmonary disease, unspecified; K21.9 Gastro-esophageal reflux disease without esophagitis; M19.90 Unspecified osteoarthritis, unspecified site; F32.9 Major depressive disorder, single episode, unspecified; F41.9 Anxiety disorder, unspecified; Z92.3 Personal history of irradiation; Z92.21 Personal history of antineoplastic chemotherapy; Z79.899 Other long term (current) drug therapy
CPT/HCPCS: 36593; 80053; 85025; 99205; 99214; J2997

== ENCOUNTER → 2022-02-06 15:57 | Outpatient (BNVA) | payer MEDICAID, SELFPAY | PROVIDERS: PCP Family Medicine; Visit Provider Internal Medicine Critical Care Medicine | DX: J44.9 Chronic obstructive pulmonary disease, unspecified (principal); J18.9 Pneumonia, unspecified organism; C34.90 Malignant neoplasm of unspecified part of unspecified bronchus or lung; Z87.891 Personal history of nicotine dependence | CPT/HCPCS: 99214 ==

== ENCOUNTER 2022-02-06 16:51 | Outpatient (CLI) | payer MEDICAID, SELFPAY ==
--- NOTE | 2022-02-06 17:22 | XR_ITS ---
WS: [id number] Chest 2 views, 02/06/2022 Clinical Data: Shortness of breath Comparison: PA and lateral chest, 11/07/2021. Findings: No nodules, masses or effusions are seen. The heart is normal. The pulmonary vascularity is not increased. No pneumonia or pneumothorax is seen. The left infusion catheter remains in the same position. XR/XR chest 2V* [id number] Impression: Negative chest.
[2022-02-08 15:13] LABS: Alternaria Alternata (M6) Ige <0.10 kU/L; Alternaria Class 0; Bermuda Class 0; Bermuda Grass (G2) Ige <0.10 kU/L; Cat Dander (E1) Ige 0.64 kU/L; Cat Dander Class 1; Common Ragweed (Short) (W1) Ig <0.10 kU/L; D. Farinae Class 3; Dermatophagoides Class 0/1; Dog Dander (E5) Ige 3.78 kU/L; Dog Dander Class 3; Elm (T8) Ige <0.10 kU/L; Elm Class 0; English Plantain (W9) Ige <0.10 kU/L; English Plantain Class 0; House Dust (Greer) (H1) Ige 3.97 kU/L; House Dust (Hollister- Stier) 2.03 kU/L; House Dust Class 2; House Dust Class 3; Immunoglobulin E 636 kU/L (<OR=114); Immunoglobulin E 653 kU/L (<OR=114); Johnson Grass (G10) Ige <0.10 kU/L; Johnson Grass Cl 0; June Grass Class 0; June Grass(Kentucky Blue) (G8) <0.10 kU/L; Lamb'S Quarters (Goose Foot) <0.10 kU/L; Lamb'S Quarters Class 0; Maple (Box Elder) (T1) Ige <0.10 kU/L; Maple Class 0; Meadow Fescue (G4) Ige <0.10 kU/L; Meadow Fescue Class 0; Mucor Racemosus Class 0; Oak (T7) Ige <0.10 kU/L; Oak Class 0; Orchard Grass (Cocksfoot) (G3) <0.10 kU/L; Penicillium Class 0; Penicillium Notatum (M1) Ige <0.10 kU/L; Perennial Rye Grass (G5) Ige <0.10 kU/L; Perennial Rye Grass Class 0; Ragweeed Class 0; Rough Marsh Elder (W16) Ige <0.10 kU/L; Rough Marsh Elder Class 0; Sweet Vernal Class 0; Sweet Vernal Grass (G1) Ige <0.10 kU/L; Timothy Grass (G6) Ige <0.10 kU/L; Timothy Grass Class 0
[2022-02-12 18:51] LABS: Aspergillus Fumigatus, Igg Ab, 33.8 mg/L (<=102)
== END 2022-02-06 16:52 | disposition home or self-care (01) ==
LOC: RAD 16:52
PROVIDERS: PCP Family Medicine; Visit Provider Internal Medicine Critical Care Medicine
DX: R06.02 Shortness of breath; R06.00 Dyspnea, unspecified
CPT/HCPCS: 71046; 82785; 86003

== ENCOUNTER 2022-02-22 09:30 | Outpatient (CLI) | payer MEDICAID, SELFPAY ==
--- NOTE | 2022-02-22 11:00 | MR_ITS ---
WS: [id number] MRA ANGIOGRAPHY [place] HISTORY: G43.711 - Chronic migraine without aura, intractable, blurred vision. COMPARISON: Carotid ultrasound 12/15/2021. TECHNIQUE: 3-D MR angiography is performed of the lower [place]. All images are reviewed including source images. Small caliber distal LEFT vertebral artery. The RIGHT vertebral artery is dominant. Both arteries are patent. Normal size basilar artery. Posterior cerebral arteries are both present and small caliber. Posterior communicating arteries are both present with the LEFT being slightly greater in size than t he RIGHT. RIGHT intracranial carotid artery through the skull base is completely occluded. Flow is reidentified but there is a very small caliber lumen through the cavernous portion of the ICA. The supraclinoid R IGHT ICA does not demonstrate any flow. There is filling of the RIGHT MCA via patent RIGHT posterior communicating artery and RIGHT A1 segment. Very small caliber but patent RIGHT M1 and M2 segments. Pa ucity of vessels in the distal M3 and M4 segments. LEFT intracranial ICA is widely patent. No thrombu s or occlusion. RIGHT M1, M2, M3, and M4 segments are normal caliber. Anterior cerebral arteries are both patent. Hypoplastic but patent RIGHT A1 segment. No aneurysms are identified. MR/MR angio head wo con [id number] IMPRESSION: 1. Occluded RIGHT ICA in the petrous segment with attempt at reconstitution [place]. 2. RIGHT middle cerebral artery is small caliber with flow via the patent RIGH T posterior communicating artery and RIGHT hypoplastic A1 segment. 3. Normal LEFT ICA.
--- NOTE | 2022-02-22 11:15 | MR_ITS ---
WS: [id number] MRI BRAIN WITHOUT CONTRAST HISTORY: G43.711 - Chronic migraine without aura, intractable, blurry vision right eye. COMPARISON: 07/10/2021 TECHNIQUE: Diffusion imaging, multiplanar T1, T2 and FLAIR imaging obtained. No evidence for acute infarct or hemorrhage. Strat[place]-white matter differentiation is normal. Moderate atrophy and small vessel ischemic changes. Again noted is the chronic area of encephalomalac ia involving the RIGHT parietal occipital junction and a small portion of the temporal lobe. There is a small amount of surrounding gliosis. These findings were present on the prior study without signif icant progression. Very slight ex vacuole dilatation of the RIGHT lateral ventricle due to volume loss in the RIGHT brai n. No inferior displacement of cerebellar tonsils. The sella turcica and pituitary gland are unremarkabl e. Visualized optic nerves are similar in size and signal intensity. Again noted is a loss of the normal flow void in the RIGHT ICA. Very small caliber or completely occl uded intracranial RIGHT ICA. Similar to the prior study. Paranasal sinuses: Very minimal mucoperiosteal thickening in the maxillary and ethmoid sinuses. No ai r-fluid levels. Mastoid air cells: Normal. Calvarium and scalp: Intact. MR/MR head wo con* [id number] IMPRESSION: 1. No acute intracranial hemorrhage or infarct. 2. Again noted is the chronic RIGHT parieto-occipital and posterior RIGHT temp oral lobe infarct with encephalomalacia and gliosis. No progression. 3. Mild chronic microvascular ischemic type changes otherwise. 4. Suspect completely occluded or extremely small caliber RIGHT ICA. This was previously described and not an acute finding. Recent carotid ultrasound demons trated an occluded RIGHT ICA.
== END 2022-02-22 09:31 | disposition home or self-care (01) ==
LOC: RAD 09:31
PROVIDERS: PCP Family Medicine; Visit Provider Specialist
DX: G43.711 Chronic migraine without aura, intractable, with status migrainosus (principal); I63.89 Other cerebral infarction; I67.82 Cerebral ischemia; G93.89 Other specified disorders of brain; I65.21 Occlusion and stenosis of right carotid artery
CPT/HCPCS: 70544; 70551

== ENCOUNTER 2022-03-06 08:32 | Outpatient (CLI) | payer MEDICAID, SELFPAY ==
[2022-03-06 08:56] LABS: Basophils % 0.6 %; Eosinophils # 0.2 10^3/uL (0.0-0.8); Eosinophils % 2.4 %; Hematocrit 40.3 % (37.0-47.0); Hemoglobin 13.2 g/dL (11.5-15.3); Lymphocytes # 0.9 10^3/uL (0.8-4.8); Lymphocytes % 13.4 %; Mean Corpuscular HGB Conc 32.8 g/dL (30.0-36.0); Mean Corpuscular Hemoglobin 32.5 pg (28.0-34.0); Mean Corpuscular Volume 99.3 fl (81-99); Mean Platelet Volume 9.8 fL (7.4-10.4); Monocytes # 0.4 10^3/uL (0.2-0.9); Monocytes % 6.4 %; Neutrophils # 5.05 10^3/uL (1.8-7.7); Neutrophils % 76.7 %; Nucleated Red Blood Cells % 0 %; Platelet Count 297 10^3/cmm (130-400); Red Blood Count 4.06 10^6/uL (4.1-5.3); Red Cell Distribution Width 12.6 % (12.1-15.1); White Blood Count 6.6 10^3/uL (4.0-10.0)
[2022-03-06 09:12] LABS: Alanine Aminotransferase 16 U/L (0-33); Alkaline Phosphatase 87 IU/L (35-105); Anion Gap 16.2 (5-19); Aspartate Amino Transferase 13 U/L (0-32); Blood Urea Nitrogen 21 mg/dL (6-20); Calcium 9.8 mg/dL (8.5-10.5); Carbon Dioxide 24 mmol/L (22-29); Chloride 103 mmol/L (98-107); Globulin 2.2 g/dL (1.3-4.6); Glomerular Filtration Rate 56.7 mL/min (90-130); Glucose 133 mg/dL (65-115); Osmolality Calculated 293 mOsm/kg (285-295); Potassium 4.2 mmol/L (3.5-5.1); Sodium 139 mmol/L (136-145); Total Bilirubin 0.2 mg/dL (0.15-1.2); Total Protein 6.2 g/dL (6.6-8.7)
--- NOTE | 2022-03-06 11:05 | XR_ITS ---
WS: [id number] XR lumbar spine 2-3V* [id number] REASON FOR EXAM: LOW BACK PAIN FINDINGS: No significant rotatory scoliosis on the AP Mild straightening of the upper lumbar lordosis on the lateral. Mild chronic superior endplate compression deformities L1-L3. No focal vertebral body lesion. Right i liac artery stent. Compared to the examination of 12/21/2014 there is been further narrowing of the L2-L3 disc space with increasing anterior osteophyte formation. No spondylolysis. 5 mm of anterolisthesis of L4 in relation to L3. 4 mm of anterolisthesis of L3 in relation to L2. The se findings are relatively stable compared to the previous examination. XR/XR lumbar spine 2-3V* [id number] IMPRESSION: Multilevel degenerative disc disease with interval change as above.
--- NOTE | 2022-03-12 08:38 | ONC FU_ITS ---
[facility] Progress Note Patient: Danisha Leonard Unit #: [id number]: [id number] Dicatated By: Viji Pierre N.P.Date of Visit:Mar 06, 2022 Onc MED Follow-up/Prog Note Chief Complaint: Metastatic squamous cell carcinoma. 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 Since July 2020 she had complaints of abdominal pain which had persisted despite undergoing cholecystectomy in August. She was then thought to have gastritis and/or diverticulitis, though her colonoscopy in October 2020 was completely unremarkable. She then developed further symptoms of throat swelling, lightheadedness and chest pain, and she also developed hoarseness, for which she was seen in the emergency room on November 29, 2020. 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 There was marked/severe narrowing of the origin of the left vertebral artery due to large plaque. There was noted to be asymmetry of the vocal cords with small nodularity on the left. Tonsils were symmetrically enlarged. There was mediastinal adenopathy including a 2 cm node in the aortopulmonary window and a subcarinal lymph node measuring 1.5 cm. An enlarged right hilar lymph node measured 1.[address] angiogram of the chest showed no evidence of pulmonary embolus. There was noted to be patchy airspace opacity in the left lower lobe compatible with pneumonic infiltrate and there was mild diffuse interstitial and groundglass opacity in the lungs compatible with mild pneumonitis versus CHF. Also noted was a 1.3 cm precarinal lymph node, a 1.5 cm left hilar lymph node, and a 1.2 cm right hilar lymph node. She was referred to Dr. Leroy and she was confirmed by flexible laryngoscopy to have left vocal cord paralysis. She was then seen by Dr. Matthews and on December 14, 2020 she underwent left open paramedian mediastinotomy with biopsy of the AP window lymph node. Pathology showed metastatic squamous cell carcinoma which was p16 negative. On her next generation sequencing study, her PD-L1 expression was reported positive at 95%. There were no actionable mutations identified. I had seen her initially on 12/27/2020. Her staging PET/CT on 12/31/2020 showed several FDG positive mediastinal lymph nodes with high probability of malignancy, including a superior prevascular node measuring 1.0 cm with SUV 5.8. There were additional FDG avid nodes in the prevascular, subaortic, and subcarinal territories. There were no other areas of abnormal uptake on that study. In particular, there was no significant FDG activity in the left glottis to indicate a site of primary malignancy. With those findings, she had radiation oncology consultation with Dr. Alas, and she was recommended to undergo definitive radiation concurrently with weekly carboplatin/paclitaxel chemotherapy. She began her chemoradiation on 02/13/2021. Radiation was completed on 03/24/2021 to a total dose of 6000 cGy administered in 30 fractions. During that time she received a total of 5 weekly chemotherapy infusions of carboplatin/paclitaxel, her week 4 treatment having been delayed due to neutropenia. Her further management was complicated by herpes zoster in the right mid back/chest distribution with associated herpetic neuralgia. Her restaging chest CT on 05/09/2021 showed mild chronic emphysematous changes with no acute pulmonary infiltrates and with no pulmonary nodules identified. There was no residual mediastinal or hilar lymphadenopathy. In the absence of any evidence for other source of primary malignancy, her clinical presentation was most consistent with metastatic non-small cell lung cancer and with the apparent complete response to the chemoradiation, I felt that she was appropriate for maintenance immunotherapy, particularly with the high PD-L1 expression. There was some delay in getting her treatment started, but at least some of that was at her request. Her other medical illnesses include COPD, hypertension, carotid and vertebral artery stenosis, peripheral arterial disease, GERD, and degenerative arthritis. She has a known abdominal aortic aneurysm, and she has anxiety/depression. She began smoking at age 10, and she smoked up to 2 packs of cigarettes daily. She quit smoking in December 2020. INTERIM HISTORY: She began cycle 1 of maintenance durvalumab on 06/06/2021. She tolerated it without acute toxicity and she then continued treatment at 2-week intervals. She completed her 4th cycle on 07/18/2021. At her follow-up visit on 08/01/2021 she presented with increased shortness of breath and declining activity tolerance. Her treatment was put on hold and she began on steroid therapy. Her CT pulmonary angiogram showed new subsegmental minimal groundglass opacifications of the upper lobes bilaterally, most likely representing mild pneumonitis. With that finding she was referred to Dr. Aquino. On 09/05/2021 she underwent bronchoscopy with fluoroscopy guided transbronchial lung biopsies. Pathology showed LV related parenchyma with a single nonnecrotizing granuloma, respiratory bronchiolitis, and mild hyalinized interstitial fibrosis. There were no definite features of acute lung injury, acute inflammation, or neoplasm. Overall, the findings were felt to be most consistent with smoking-related changes. As of her follow-up visit on 10/05/2021 she continued to have significant shortness of breath. In the absence of any evidence of progression of the squamous cell cancer she continued expectant management. On 11/07/2021 she presented to the emergency room with lower abdominal pain. Her chest x-ray showed no acute findings. Her CT abdomen/pelvis showed findings of acute uncomplicated proximal sigmoid diverticulitis. Also noted was hepatomegaly with markedly advanced diffuse fatty infiltration of the liver. Several subtle structures in both right and left hepatic lobes with ill-defined margins appear to show slight enhancement. These measured up to 15 mm in diameter. As they were new compared to prior studies, metastatic lesions were suspected. A 9 mm hypoattenuating lesion was noted in the right kidney. It did not have the characteristics of simple cyst and as it also was a new finding, follow-up was recommended. She was given empiric antibiotic coverage with metronidazole and cefdinir for the diverticulitis. A repeat CT pulmonary angiogram on 12/05/2021 showed no evidence of pulmonary embolism. There were no acute pulmonary infiltrates identified. There were moderate chronic emphysematous changes and there was diffuse fatty infiltration of the liver. There was no reference made to the right renal lesion. Carotid duplex on 12/15/2021 showed occlusion of the right ICA and 70 to 99% left ICA stenosis. There was no change compared to the previous study from July 2021. Patient presents today for a follow-up visit. She complains of severe fatigue. Her appetite has been good. She denies fever or chills. Has occasional night sweats. No sinus drainage or sore throat. She becomes short of breath with activity. No GI or problems. She is complaining of severe lower back pain that radiates into both hips. She has headache today although she does have a history of migraine headaches. No dizziness. Review Of Symptoms:Review of Systems is not available for this patient. Past Medical History: Abdominal aortic aneurysm Chronic obstructive pulmonary disease Degenerative arthritis Gastroesophageal reflux disease History of pyelonephritis/sepsis Hypertension Peripheral artery disease Covid 19 in 2020 Past Surgical History: Excision of skin cancer from the right hand Left subclavian Eris-m-Hjix-Dr Matthews in 2020 Bronchoscopy in 2020 Left open paramedian mediastinotomy with mediastinal lymph node biopsy in 2020 Colonoscopy in 2019 Laparoscopic cholecystectomy in 2019 Arterial stent placement to the right common iliac artery in 2014 Hysterectomy with bilateral salpingo-oophorectomy and bladder tie up in 2001 Allergies: Adhesive, Clindamycin HCl, Egg, Penicillins, and Skin Glue. Medications: Acyclovir 1 Tablet (of 800 mg) Tablet Oral 5x/d for 14 days Aspirin 81 1 (81 mg) Tablet, chewable Oral every am Cefdinir 1 Capsule (of 300 mg) Oral b.i.d. for 7 days Citalopram Hydrobromide 1 Tablet (of 10 mg) Oral daily DULoxetine HCl 1 Tablet (of 20 mg) Tablet Oral daily Gabapentin (300 mg) Capsule Oral b.i.d. Pantoprazole Sodium 1 (40 mg) Tablet, enteric coated Oral daily traMADol HCl 1 Tablet (of 50 mg) Oral t.i.d. Ventolin HFA 2 Puff(s) (of 108 (90 Base) mcg/act) Aerosol, solution Inhalation daily Vitamin C & D3/Tessa Hips 1 (500-1000-20 mg - Units - mg) Capsule Oral daily Zinc 1 (50 mg) Capsule Oral daily Family History: Ms. Leonard's father is : lung cancer. Father of lung cancer at age 80. Mother is still living at age 84. She has congestive heart failure. A brother and a sister are in good health. Social History: Ms. Leonard is single. She quit smoking 1 year ago but had smoked for 51 years. She has no history of drinking. She has history of smoking up to 2 packs of cigarettes daily or more, beginning at age 10. She quit smoking in December 2020. She previously has had some alcohol use, but never heavy. She has had no alcohol use for at least the last 2 or 3 years. Physical Examination: Performed on Mar 06, 2022 10:39: Height - 66.00 in, Weight - 194.6 lbs (LOW), BSA - 1.98 sq.m, BMI - 31.41 (HIGH), Temperature - 96.8 F (LOW), Pulse - 94 /min, Respiration - 21 /min, BP - 115/74 mm(hg), O2 Sat - 96 %, Pain - 8, and Fatigue - 8. Performance Status: 2 - Ambulatory/capable of all self-care, unable to perform any work activities. Up and about more than 50% of waking hours. (ECOG) Constitutional Alert, cooperative, oriented. Mood and affect appropriate. Appears close to chronological age. Well nourished. Well developed. Head Normocephalic; no scars. Respiratory Lungs are clear to auscultation without rhonchi or wheezing. Cardiovascular Regular rate and rhythm of heart without murmurs, gallops or rubs. Abdomen Non-tender, non-distended, no masses, ascites or hepatosplenomegaly. Good bowel sounds. No guarding or rebound tenderness. Back/Spine Tenderness to lumbar spine Musculoskeletal No tenderness or swelling, normal range of motion without obvious weakness. Psychiatric Alert and oriented times three. Coherent speech. Verbalizes understanding of our discussions today. Laboratory: Test performed on Mar 06, 2022 08:48 Sodium 139 mmol/L Potassium 4.2 mmol/L Chloride 103 mmol/L CO2 24 mmol/L Anion Gap 16.2 BUN 21 mg/dL Creatinine 1.0 mg/dL Cr Clearance (Est) 84.4100 mL/min eGFR 56.7 mL/min Glucose 133 mg/dL Osmolality - Calculated 293 mOsm/kg Calcium 9.8 mg/dL Protein, Total 6.2 g/dL Albumin 4.0 g/dL Globulin 2.2 g/dL Bilirubin, Total 0.2 mg/dL ALT (SGPT) 16 U/L AST (SGOT) 13 U/L Alkaline Phosphatase 87 IU/L WBC 6.6 10 3/uL RBC 4.06 10 6/uL HGB 13.2 g/dL HCT 40.3 % MCV 99.3 fl MCH 32.5 pg MCHC 32.8 g/dL RDW 12.6 % Platelet Count 297 10 3/cmm MPV 9.8 fL Neutrophils 5.05 10 3/uL Lymphocytes 0.9 10 3/uL Monocytes 0.4 10 3/uL Eosinophils 0.2 10 3/uL Basophils 0.0 10 3/uL Neutrophil % 76.7 % Lymphocyte % 13.4 % Monocyte % 6.4 % Eosinophil % 2.4 % Basophils % 0.6 % NRBC % 0 % Test performed on Oct 05, 2021 08:22 TSH 3.42 uIU/mL Est Avg Glucose (eAG) 120 mg/dL Hemoglobin A1C % 5.8 % Impression: 1. 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 There is associated left vocal cord paralysis. A primary lesion has not yet been identified, but the pattern is most consistent with metastatic non-small cell lung cancer. 2. Hypertension. 3. There is CT evidence of carotid and vertebral artery stenosis. 4. She has history of peripheral arterial disease with previous stent to the right common iliac artery. 5. COPD. 6. GERD. 7. Degenerative arthritis. 8. Anxiety/depression. Plan: 1. 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 There was associated left vocal cord paralysis. A definite primary lesion was not identified by clinical evaluation, which included PET/CT. The pattern was most consistent with metastatic non-small cell lung cancer. On her next generation sequencing study, the tumor was found to be positive for PD-L1 expression at 90%. There were no actionable mutations identified. With those findings, she underwent definitive radiation concurrently with weekly carboplatin/paclitaxel chemotherapy. She completed radiation on 03/24/2021 to a total dose of 6000 cGy administered in 30 fractions. During that time she completed a total of 5 weekly infusions of carboplatin/paclitaxel, her week for infusion having been delayed due to neutropenia. Overall, she tolerated the treatment well. Her restaging chest CT on 05/09/2021 showed no pulmonary nodules and no residual mediastinal or hilar lymphadenopathy, consistent with complete response to the treatment. As such, she was deemed eligible for maintenance immunotherapy. She then began cycle 1 of maintenance durvalumab on 06/06/2021. She tolerated it without acute toxicity and she then continued treatment at 2-week intervals. She completed her 4th cycle of treatment on 07/18/2021. As of her follow-up visit on 08/01/2021, her treatment was put on hold due to increased shortness of breath and declining activity tolerance. A subsequent CT pulmonary angiogram showed bilateral upper lobe opacities consistent with mild pneumonitis. She then began on steroid therapy with prednisone. During followup the dosage was tapered to 10 mg daily, but as of November 2021 it was increased back up to 20 mg daily. Since then she has continued to complain of shortness of breath with any activity as well as severe exhaustion. I am not entirely certain of the cause for this. There were no acute findings on her repeat CT pulmonary angiogram on 12/05/2021. As there has been no evidence for recurrence/progression of the squamous cell carcinoma, she will continue on observation/symptomatic management. Patient's primary complaint today is low back pain that radiates to both of her hips. She has been taking tramadol but it has not been very effective. We will obtain x-rays of the lumbar spine and start oxycodone 5 mg 4 times daily as needed and Flexeril 5 mg 3 times daily as needed. Patient has agreed to referral to pain management for her back pain. She will follow-up in [address] scans had shown evidence of severe fatty infiltration of the liver. Her abdominal CT in November showed several lesions in both hepatic lobes which showed slight enhancement, and as they were new compared to prior studies they were felt to be suspicious for metastatic lesions. No discrete hepatic lesions were reported on the December CT pulmonary angiogram. Signed By: Viji Pierre N.P. <<Signature on File>>
== END 2022-03-06 08:33 | disposition home or self-care (01) ==
LOC: ONCMED 09:03 → RAD 10:59
PROVIDERS: Nurse Practitioner Family; PCP Family Medicine; Visit Provider Internal Medicine Medical Oncology
DX: C80.1 Malignant (primary) neoplasm, unspecified (principal); C77.2 Secondary and unspecified malignant neoplasm of intra-abdominal lymph nodes; C78.7 Secondary malignant neoplasm of liver and intrahepatic bile duct; J38.01 Paralysis of vocal cords and larynx, unilateral; D70.1 Agranulocytosis secondary to cancer chemotherapy; T45.1X5A Adverse effect of antineoplastic and immunosuppressive drugs, initial encounter; M51.36 Other intervertebral disc degeneration, lumbar region; Z85.118 Personal history of other malignant neoplasm of bronchus and lung; Z79.52 Long term (current) use of systemic steroids; Z79.891 Long term (current) use of opiate analgesic; Z79.899 Other long term (current) drug therapy; Z92.21 Personal history of antineoplastic chemotherapy; Z92.3 Personal history of irradiation
CPT/HCPCS: 36591; 72100; 80053; 85025; 99215

== ENCOUNTER → 2022-03-13 14:02 | Outpatient (BNVA) | payer MEDICAID, SELFPAY | PROVIDERS: PCP Family Medicine; Referring Provider Nurse Practitioner Family; Visit Provider Anesthesiology Pain Medicine | DX: G89.29 Other chronic pain (principal); M48.062 Spinal stenosis, lumbar region with neurogenic claudication; M79.604 Pain in right leg; M79.605 Pain in left leg; C34.90 Malignant neoplasm of unspecified part of unspecified bronchus or lung; R59.0 Localized enlarged lymph nodes; M19.90 Unspecified osteoarthritis, unspecified site; Z79.891 Long term (current) use of opiate analgesic; Z87.891 Personal history of nicotine dependence | CPT/HCPCS: 73522; 99205 ==

== ENCOUNTER → 2022-03-20 13:11 | Outpatient (BNVA) | payer MEDICAID, SELFPAY | PROVIDERS: PCP Family Medicine; Visit Provider Internal Medicine Critical Care Medicine | DX: J44.9 Chronic obstructive pulmonary disease, unspecified (principal); C34.90 Malignant neoplasm of unspecified part of unspecified bronchus or lung; Z87.891 Personal history of nicotine dependence; Z86.16 Personal history of COVID-19; K21.9 Gastro-esophageal reflux disease without esophagitis; I10 Essential (primary) hypertension | CPT/HCPCS: 99214 ==

== ENCOUNTER → 2022-04-10 10:51 | Outpatient (BNVA) | payer MEDICAID, SELFPAY | PROVIDERS: PCP Family Medicine; Visit Provider Anesthesiology Pain Medicine | DX: G89.29 Other chronic pain (principal); M54.50 Low back pain, unspecified; C34.90 Malignant neoplasm of unspecified part of unspecified bronchus or lung; R59.0 Localized enlarged lymph nodes; M79.604 Pain in right leg; M79.605 Pain in left leg; Z79.891 Long term (current) use of opiate analgesic; Z87.891 Personal history of nicotine dependence | CPT/HCPCS: 99214 ==

== ENCOUNTER 2022-05-01 13:53 | Oncology outpatient (recurring) (ONCR) | payer MEDICAID, SELFPAY ==
[2022-04-09 14:22] LABS: Basophils # 0.1 10^3/uL (0.0-0.1); Basophils % 0.7 %; Eosinophils % 0.4 %; Hematocrit 40.9 % (37.0-47.0); Hemoglobin 13.4 g/dL (11.5-15.3); Lymphocytes # 0.7 10^3/uL (0.8-4.8); Lymphocytes % 9.7 %; Mean Corpuscular HGB Conc 32.8 g/dL (30.0-36.0); Mean Corpuscular Volume 97.6 fl (81-99); Mean Platelet Volume 9.7 fL (7.4-10.4); Monocytes # 0.3 10^3/uL (0.2-0.9); Monocytes % 4.3 %; Neutrophils # 5.64 10^3/uL (1.8-7.7); Neutrophils % 84.5 %; Nucleated Red Blood Cells % 0 %; Platelet Count 341 10^3/cmm (130-400); Red Blood Count 4.19 10^6/uL (4.1-5.3); Red Cell Distribution Width 12.5 % (12.1-15.1); White Blood Count 6.7 10^3/uL (4.0-10.0)
[2022-04-09 14:39] LABS: Alanine Aminotransferase 19 U/L (0-33); Albumin Level 3.9 g/dL (3.5-5.2); Alkaline Phosphatase 89 IU/L (35-105); Anion Gap 15.6 (5-19); Aspartate Amino Transferase 17 U/L (0-32); Blood Urea Nitrogen 12 mg/dL (6-20); Calcium 9.7 mg/dL (8.5-10.5); Carbon Dioxide 26 mmol/L (22-29); Chloride 100 mmol/L (98-107); Glomerular Filtration Rate 73.4 mL/min (90-130); Glucose 156 mg/dL (65-115); Osmolality Calculated 287 mOsm/kg (285-295); Potassium 4.6 mmol/L (3.5-5.1); Sodium 137 mmol/L (136-145); Total Bilirubin 0.2 mg/dL (0.15-1.2); Total Protein 6.9 g/dL (6.6-8.7)
--- NOTE | 2022-04-23 | CT_ITS ---
Radiation Therapy Planning CT images; total exam DLP: 1051.70 mGy-cm MTDD
[2022-04-23 10:37] VITALS: RESP 18; O2SAT 94
[2022-04-23] MEDS: morphine 4 mg/mL SDV 1 mL SUBCUT (10:37)
--- NOTE | 2022-04-23 14:41 | ONCRAD EPV_ITS ---
Radiation Oncology Established Patient Visit Patient: Aisha Raman [id number] : 1960> Age: 61> Sex: Female> Account #: Dictated by: Dr. Yimi Rueda Date of Service: 04/23/2022 Referring Physician(s) : Dr. PIA MATTHEWS Diagnosis: C77.1 - Secondary and unspecified malignant neoplasm of intrathoracic lymph nodes, Diagnosed 12/14/2020 (Active) C34.90 - Malignant neoplasm of unspecified part of unspecified bronchus or lung, Diagnosed 12/14/2020 (Active) Stage IIIA, [place], N2, M0 Metastatic squamous cell carcinoma. 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 Since July 2020 she had complaints of abdominal pain which had persisted despite undergoing cholecystectomy in August. She was then thought to have gastritis and/or diverticulitis, though her colonoscopy in October 2020 was completely unremarkable. She then developed further symptoms of throat swelling, lightheadedness and chest pain, and she also developed hoarseness, for which she was seen in the emergency room on November 29, 2020. 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 There was marked/severe narrowing of the origin of the left vertebral artery due to large plaque. There was noted to be asymmetry of the vocal cords with small nodularity on the left. Tonsils were symmetrically enlarged. There was mediastinal adenopathy including a 2 cm node in the aortopulmonary window and a subcarinal lymph node measuring 1.5 cm. An enlarged right hilar lymph node measured 1.[address] angiogram of the chest showed no evidence of pulmonary embolus. There was noted to be patchy airspace opacity in the left lower lobe compatible with pneumonic infiltrate and there was mild diffuse interstitial and groundglass opacity in the lungs compatible with mild pneumonitis versus CHF. Also noted was a 1.3 cm precarinal lymph node, a 1.5 cm left hilar lymph node, and a 1.2 cm right hilar lymph node. She was referred to Dr. Leroy and she was confirmed by flexible laryngoscopy to have left vocal cord paralysis. She was then seen by Dr. Matthews and on December 14, 2020 she underwent left open paramedian mediastinotomy with biopsy of the AP window lymph node. Pathology showed metastatic squamous cell carcinoma which was p16 negative. On her next generation sequencing study, her PD-L1 expression was reported positive at 95%. There were no actionable mutations identified. I had seen her initially on 12/27/2020. Her staging PET/CT on 12/31/2020 showed several FDG positive mediastinal lymph nodes with high probability of malignancy, including a superior prevascular node measuring 1.0 cm with SUV 5.8. There were additional FDG avid nodes in the prevascular, subaortic, and subcarinal territories. There were no other areas of abnormal uptake on that study. In particular, there was no significant FDG activity in the left glottis to indicate a site of primary malignancy. With those findings, she had radiation oncology consultation with Dr. Alas, and she was recommended to undergo definitive radiation concurrently with weekly carboplatin/paclitaxel chemotherapy. She began her chemoradiation on 02/13/2021. Radiation was completed on 03/24/2021 to a total dose of 6000 cGy administered in 30 fractions. During that time she received a total of 5 weekly chemotherapy infusions of carboplatin/paclitaxel, her week 4 treatment having been delayed due to neutropenia. Her further management was complicated by herpes zoster in the right mid back/chest distribution with associated herpetic neuralgia. Her restaging chest CT on 05/09/2021 showed mild chronic emphysematous changes with no acute pulmonary infiltrates and with no pulmonary nodules identified. There was no residual mediastinal or hilar lymphadenopathy. In the absence of any evidence for other source of primary malignancy, her clinical presentation was most consistent with metastatic non-small cell lung cancer and with the apparent complete response to the chemoradiation, I felt that she was appropriate for maintenance immunotherapy, particularly with the high PD-L1 expression. There was some delay in getting her treatment started, but at least some of that was at her request. Her other medical illnesses include COPD, hypertension, carotid and vertebral artery stenosis, peripheral arterial disease, GERD, and degenerative arthritis. She has a known abdominal aortic aneurysm, and she has anxiety/depression. She began smoking at age 10, and she smoked up to 2 packs of cigarettes daily. She quit smoking in December 2020. INTERIM HISTORY: She began cycle 1 of maintenance durvalumab on 06/06/2021. She tolerated it without acute toxicity and she then continued treatment at 2-week intervals. She completed her 4th cycle on 07/18/2021. At her follow-up visit on 08/01/2021 she presented with increased shortness of breath and declining activity tolerance. Her treatment was put on hold and she began on steroid therapy. Her CT pulmonary angiogram showed new subsegmental minimal groundglass opacifications of the upper lobes bilaterally, most likely representing mild pneumonitis. With that finding she was referred to Dr. Aquino. On 09/05/2021 she underwent bronchoscopy with fluoroscopy guided transbronchial lung biopsies. Pathology showed LV related parenchyma with a single nonnecrotizing granuloma, respiratory bronchiolitis, and mild hyalinized interstitial fibrosis. There were no definite features of acute lung injury, acute inflammation, or neoplasm. Overall, the findings were felt to be most consistent with smoking-related changes. As of her follow-up visit on 10/05/2021 she continued to have significant shortness of breath. In the absence of any evidence of progression of the squamous cell cancer she continued expectant management. On 11/07/2021 she presented to the emergency room with lower abdominal pain. Her chest x-ray showed no acute findings. Her CT abdomen/pelvis showed findings of acute uncomplicated proximal sigmoid diverticulitis. Also noted was hepatomegaly with markedly advanced diffuse fatty infiltration of the liver. Several subtle structures in both right and left hepatic lobes with ill-defined margins appear to show slight enhancement. These measured up to 15 mm in diameter. As they were new compared to prior studies, metastatic lesions were suspected. A 9 mm hypoattenuating lesion was noted in the right kidney. It did not have the characteristics of simple cyst and as it also was a new finding, follow-up was recommended. She was given empiric antibiotic coverage with metronidazole and cefdinir for the diverticulitis. A repeat CT pulmonary angiogram on 12/05/2021 showed no evidence of pulmonary embolism. There were no acute pulmonary infiltrates identified. There were moderate chronic emphysematous changes and there was diffuse fatty infiltration of the liver. There was no reference made to the right renal lesion. Carotid duplex on 12/15/2021 showed occlusion of the right ICA and 70 to 99% left ICA stenosis. There was no change compared to the previous study from July 2021. Patient presents today for a follow-up visit. She complains of severe fatigue. Her appetite has been good. She denies fever or chills. Has occasional night sweats. No sinus drainage or sore throat. She becomes short of breath with activity. No GI or problems. She is complaining of severe lower back pain that radiates into both hips. She has headache today although she does have a history of migraine headaches. No dizziness. Radiotherapy to Date: Course: Lung Ca 2020, Treatment Site: [facility], Ref. ID: [id number], Energy: 6X, Dose/Fx (cGy): 200, #Fx: 30 / 30, Dose Correction (cGy): 0, Total Dose (cGy): 6,000, Start Date: 02/13/2021, End Date: 03/24/2021, Elapsed Days: 39 Current History: MS Leonard is a 61-year-old lady who has undergone combined/concomitant chemotherapy and radiation followed by immunotherapy for non-small cell lung cancer. Her treatment that included radiation began 02/13/2021 and ended 03/24/2021. She received 6000 cGy in 30 fractions. She was doing reasonably well until recently when she began experiencing buttock pain that radiated down the posterior thigh and a radicular manner. Films of both hips, and the lumbar spine were completely negative. She underwent a PET scan that shows PET avid metastases in the muscles of both buttocks. The area of these metastases correlates well with the areas of pain. The mediastinum, where she had previous radiation, does not have active disease at this time. However, she does have new pulmonary metastases. Ms. Leonard is referred for evaluation for palliative radiation to the very painful buttock metastases. At this time her pain is so severe that she can only stay in one position for very few minutes. She can tolerate the prone position. Current Medications: Acyclovir, aspirin 81, cefdinir, citalopram Hydrobromide, cyclobenzaprine HCl, dexamethasone, dULoxetine HCl, gabapentin, gabapentin, imfinzi, metoclopramide HCl, neupogen, ondansetron HCl, oxyCODONE HCl, oxyCODONE HCl, oxyCODONE-Acetaminophen, pantoprazole Sodium, predniSONE, prochlorperazine Maleate, rOPINIRole HCl, scopolamine, traMADol HCl, ventolin HFA, vitamin C & D3/Tessa Hips, zinc. Allergies: Adhesive, Clindamycin HCl, Egg, Penicillins and Skin Glue. Current Complaints / Review of Systems: . Buttock pain and shortness of breath intermittently are her only complaints. Vital Signs: Performed on 04/23/2022 9:48 AM BMI - 31.797 kg/m2 (high), Height - 66 in, Weight - 197 lbs, Temperature - 95.3 f, Pulse - 88 /min, Respiration - 20 /min, O2 Sat - 94 % (low), Pain - 9, Fatigue - 0 and BP - 88/ 53 mm(hg)(low). Physical Exam: General: Alert and oriented x 3. Acute distress from pain. NECK: Supple without supraclavicular or jugular lymphadenopathy. LUNGS: Clear to auscultation bilaterally without rales, rhonchi or wheeze. HEART: Regular rate and rhythm, normal S1 and S2 without murmur, gallop or rub. MUSCULOSKELETAL: No tenderness or percussion pain over the axial skeleton, scapulae or pelvis. Tender, vague masses in both buttocks. Specifically, the lumbar spine, sacrum, and pelvic bones are nontender. ABDOMEN: Soft, nontender, nondistended without masses or organomegaly. Bowell sounds are present. EXTREMITIES: No peripheral edema is identified. Limited motor and sensory examination are grossly intact and symmetric bilaterally. Full range of motion without pain in both hips. NEUROLOGIC: Cranial nerves II ???XII are grossly intact. Normal sensation, strength 5/5 in all extremities. Straight leg raise negative bilaterally Performance Status: 4 Lab: None pending. Test performed on 03/06/2022 8:48 AM RBC - 4.06 10 6/ul (low), MCV - 99.3 fl (high), BUN - 21 mg/dl (high), Creatinine - 1.0 mg/dl (high), eGFR - 56.7 ml/min (low), Glucose - 133 mg/dl (high) and Protein, Total - 6.2 g/dl (low). Pathology: Primary, c77.1 - secondary and unspecified malignant neoplasm of intrathoracic lymph nodes, Diagnosed 12/14/2020 (active) and Primary, c34.90 - malignant neoplasm of unspecified part of unspecified bronchus or lung, Diagnosed 12/14/2020 (active) stage iiia, tx, n2, m0. Imaging: See HPI Impression: Debilitating painful buttock metastases. Ms. Leonard is a candidate for palliative radiation. I cautioned her that the pain relief may not come quickly. Also cautioned that it often takes several weeks. She is she is motivated to take treatment because of her severe pain. We will get her a pain injection and get her simulated this afternoon. Signed by: 04/23/2022 2:40:26 PM <<Signature on File>> Time spent with patient: CPT Code: CPT Code:
[2022-04-26] MEDS: ondansetron 2 mg/ML SDV 2 mL 8 MG IVP (14:42)
[2022-04-26 15:15] VITALS: BP 117/57; PULSE 97; RESP 18; TEMP 36.3; O2SAT 92
--- NOTE | 2022-05-01 14:47 | ONCRAD TMN_ITS ---
Radiation Oncology Treatment Management Note Patient Name: Danisha Leonard Date of : 1960 Date of Service: 05/01/2022 Attending Physician: Maykel Alas M.D. Danisha Leonard is a 61 year-old white female diagnosed with metastatic lung cancer. During a recent follow-up appointment, she reported gluteal pain. A PET scan ordered on April 14, 2022 described bilateral gluteal soft tissue implants. The patient has received 12 Gy of a prescribed 30 Stratton to the left and right soft tissue implants with a 3-dimensional conformal radiotherapy plan utilizing AP and lateral wedge pair treatment daniel. Upon review of systems, she reported improvement in pain. On physical examination, the patient weighed 190 lbs. Her temperature was 96.9 ???F and the blood pressure was 128/68 mmHg. The pulse was 89 bpm and her respiratory rate was 20. There was no erythema present within the skin. Continue palliative radiotherapy as prescribed. Signed by: Dr. Maykel Alas 05/01/2022 2:45:30 PM
== END 2022-05-01 23:59 | disposition home or self-care (01) ==
PROVIDERS: Nurse Practitioner Family; PCP Family Medicine; Referring Provider Thoracic Surgery (Cardiothoracic Vascular Surgery); Visit Provider Radiology Radiation Oncology
DX: Z51.11 Encounter for antineoplastic chemotherapy (principal); C34.90 Malignant neoplasm of unspecified part of unspecified bronchus or lung; C77.1 Secondary and unspecified malignant neoplasm of intrathoracic lymph nodes
CPT/HCPCS: 36591; 77014; 77263; 77290; 77295; 77300; 77334; 77387; 77412; 77417; 80053; 85025; 96372; 96374; 96523; 99214; 99215; 99999; J2270; J2405

== ENCOUNTER 2022-05-17 09:00 | Oncology outpatient (recurring) (ONCR) | payer MEDICAID, SELFPAY ==
[2022-05-17 09:58] LABS: Basophils % 0.7 %; Eosinophils # 0.1 10^3/uL (0.0-0.8); Hemoglobin 11.9 g/dL (11.5-15.3); Lymphocytes # 0.3 10^3/uL (0.8-4.8); Lymphocytes % 4.9 %; Mean Corpuscular HGB Conc 33.1 g/dL (30.0-36.0); Mean Corpuscular Hemoglobin 32.1 pg (28.0-34.0); Mean Platelet Volume 9.9 fL (7.4-10.4); Monocytes # 0.5 10^3/uL (0.2-0.9); Monocytes % 7.7 %; Neutrophils # 5.16 10^3/uL (1.8-7.7); Nucleated Red Blood Cells % 0 %; Platelet Count 213 10^3/cmm (130-400); Red Blood Count 3.71 10^6/uL (4.1-5.3); Red Cell Distribution Width 12.7 % (12.1-15.1); White Blood Count 6.1 10^3/uL (4.0-10.0)
[2022-05-17] MEDS: alteplase 1 mg/mL SDV 2 mL 2 MG INTRACATH (10:03)
[2022-05-17 10:19] LABS: Alanine Aminotransferase 15 U/L (0-33); Albumin Level 3.5 g/dL (3.5-5.2); Alkaline Phosphatase 92 IU/L (35-105); Aspartate Amino Transferase 13 U/L (0-32); Blood Urea Nitrogen 15 mg/dL (6-20); Calcium 8.9 mg/dL (8.5-10.5); Carbon Dioxide 29 mmol/L (22-29); Chloride 101 mmol/L (98-107); Globulin 2.7 g/dL (1.3-4.6); Glomerular Filtration Rate 85.6 mL/min (90-130); Glucose 115 mg/dL (65-115); Osmolality Calculated 292 mOsm/kg (285-295); Sodium 140 mmol/L (136-145); Thyroid Stimulating Hormone 2.84 uIU/mL (0.27-4.20); Total Bilirubin 0.2 mg/dL (0.15-1.2); Total Protein 6.2 g/dL (6.6-8.7)
[2022-05-17] MEDS: ondansetron 4 MG Tablet 8 MG PO (13:24)
[2022-05-17] MEDS: sodium chloride 0.9% 250 ML 75 ML IV (13:26)
[2022-05-17] MEDS: cemiplimab-rwlc 350 MG in sodium chloride 0.9% 250 ML 500 MG IV (13:43)
[2022-05-17 14:44] VITALS: BP 118/68; PULSE 104; TEMP 36.7; O2SAT 94
== END 2022-05-31 23:59 | disposition home or self-care (01) ==
PROVIDERS: Internal Medicine Medical Oncology; PCP Family Medicine; Referring Provider Thoracic Surgery (Cardiothoracic Vascular Surgery); Visit Provider Radiology Radiation Oncology
DX: Z51.11 Encounter for antineoplastic chemotherapy (principal); C34.90 Malignant neoplasm of unspecified part of unspecified bronchus or lung; C77.1 Secondary and unspecified malignant neoplasm of intrathoracic lymph nodes; Z87.891 Personal history of nicotine dependence
CPT/HCPCS: 36593; 77014; 77336; 77387; 77412; 77427; 80053; 84443; 85025; 96413; 99214; J2997; J7050; J9119; Q0162

== ENCOUNTER 2022-06-13 08:32 | Oncology outpatient (recurring) (ONCR) | payer MEDICAID, SELFPAY ==
[2022-06-13 09:13] LABS: Basophils # 0.1 10^3/uL (0.0-0.1); Basophils % 0.6 %; Hematocrit 40.3 % (37.0-47.0); Lymphocytes # 0.6 10^3/uL (0.8-4.8); Mean Corpuscular HGB Conc 32.3 g/dL (30.0-36.0); Mean Corpuscular Hemoglobin 30.8 pg (28.0-34.0); Mean Corpuscular Volume 95.5 fl (81-99); Mean Platelet Volume 9.7 fL (7.4-10.4); Monocytes # 0.6 10^3/uL (0.2-0.9); Monocytes % 7.9 %; Neutrophils # 6.57 10^3/uL (1.8-7.7); Neutrophils % 84.1 %; Nucleated Red Blood Cells % 0 %; Platelet Count 337 10^3/cmm (130-400); Red Blood Count 4.22 10^6/uL (4.1-5.3); Red Cell Distribution Width 13.1 % (12.1-15.1); White Blood Count 7.8 10^3/uL (4.0-10.0)
[2022-06-13 09:34] LABS: Alanine Aminotransferase 19 U/L (0-33); Albumin Level 3.8 g/dL (3.5-5.2); Alkaline Phosphatase 109 IU/L (35-105); Anion Gap 16.5 (5-19); Aspartate Amino Transferase 21 U/L (0-32); Blood Urea Nitrogen 18 mg/dL (6-20); Calcium 9.1 mg/dL (8.5-10.5); Carbon Dioxide 25 mmol/L (22-29); Chloride 99 mmol/L (98-107); Globulin 3.2 g/dL (1.3-4.6); Glomerular Filtration Rate 64.1 mL/min (90-130); Glucose 148 mg/dL (65-115); Osmolality Calculated 289 mOsm/kg (285-295); Potassium 3.5 mmol/L (3.5-5.1); Sodium 137 mmol/L (136-145); Total Bilirubin 0.3 mg/dL (0.15-1.2)
[2022-06-13] MEDS: ondansetron 4 MG Tablet 8 MG PO (10:25)
[2022-06-13] MEDS: sodium chloride 0.9% 250 ML 75 ML IV (10:27)
[2022-06-13] MEDS: cemiplimab-rwlc 350 MG in sodium chloride 0.9% 250 ML 500 MG IV (10:52)
[2022-06-13 11:50] VITALS: BP 136/79; PULSE 89; RESP 18; TEMP 36.6; O2SAT 98
== END 2022-07-01 23:59 | disposition home or self-care (01) ==
PROVIDERS: Internal Medicine Medical Oncology; PCP Family Medicine; Referring Provider Thoracic Surgery (Cardiothoracic Vascular Surgery); Visit Provider Radiology Radiation Oncology
DX: Z51.12 Encounter for antineoplastic immunotherapy (principal); C80.1 Malignant (primary) neoplasm, unspecified; C77.8 Secondary and unspecified malignant neoplasm of lymph nodes of multiple regions; C78.01 Secondary malignant neoplasm of right lung; C78.02 Secondary malignant neoplasm of left lung; C79.89 Secondary malignant neoplasm of other specified sites; J38.01 Paralysis of vocal cords and larynx, unilateral; R11.0 Nausea; R42 Dizziness and giddiness; Z79.899 Other long term (current) drug therapy; Z87.891 Personal history of nicotine dependence; Z92.3 Personal history of irradiation
CPT/HCPCS: 80053; 85025; 96413; 99214; 99215; J7050; J9119; Q0162

== ENCOUNTER 2022-07-03 10:00 | Outpatient (RCR) | payer MEDICAID, SELFPAY ==
--- NOTE | 2022-07-03 10:15 | MR_ITS ---
WS: [id number] MRI BRAIN WITH AND WITHOUT CONTRAST HISTORY: lung cancer, dysequilibrium COMPARISON: 02/22/2022 TECHNIQUE: Multiplanar imaging performed through the brain with MultiHance 17 ml's IV. No acute infarcts are seen. Stratton-white matter differentiation is well preserved. Remote infarcts in t he RIGHT posterior parietal occipital and temporal lobes. Similar to the prior study. Numerous T2 and FLAIR signal hyperintensities from small vessel ischemic disease. No susceptibility artifacts or prior lacunar infarcts. Ventricles are very slightly prominent. No change. Clivus and pituitary gland are normal. Visualized posterior fossa and brainstem are also normal. No enhancing masses are identified. No flow void is identified in the RIGHT ICA. Patient has a known occlusion. This has been previously described. Dural venous sinuses are normal. Paranasal sinuses: Mucoperiosteal thickening and a small air-fluid level in the LEFT maxillary sinus. Mastoid air cells: Normal. Calvarium and scalp: Normal. MR/MR head wo/w con [id number] IMPRESSION: 1. No evidence for metastatic disease to the brain. There are no enhancing mas ses. 2. 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 Gliosis and en cephalomalacia are unchanged. 3. Moderate small vessel ischemic disease. 4. Known occluded RIGHT ICA. 5. Small air-fluid level LEFT maxillary sinus is new.
[2022-07-03] MEDS: gadobenate dimeglumine 20 mL vial IV (11:13)
== END 2022-07-03 14:44 | disposition home or self-care (01) ==
LOC: RAD 10:00
PROVIDERS: PCP Family Medicine; Visit Provider Internal Medicine Medical Oncology
DX: C34.90 Malignant neoplasm of unspecified part of unspecified bronchus or lung
CPT/HCPCS: 70553

== ENCOUNTER 2022-07-30 11:30 | Oncology outpatient (recurring) (ONCR) | payer MEDICAID, SELFPAY ==
[2022-07-04 10:09] VITALS: BMI 28.5
[2022-07-04 10:10] LABS: Basophils % 0.4 %; Hematocrit 38.6 % (37.0-47.0); Hemoglobin 12.6 g/dL (11.5-15.3); Lymphocytes # 0.6 10^3/uL (0.8-4.8); Lymphocytes % 6.9 %; Mean Corpuscular HGB Conc 32.6 g/dL (30.0-36.0); Mean Corpuscular Volume 95.1 fl (81-99); Mean Platelet Volume 9.9 fL (7.4-10.4); Monocytes # 0.4 10^3/uL (0.2-0.9); Monocytes % 4.5 %; Neutrophils # 8.04 10^3/uL (1.8-7.7); Neutrophils % 87.8 %; Nucleated Red Blood Cells % 0 %; Platelet Count 301 10^3/cmm (130-400); Red Blood Count 4.06 10^6/uL (4.1-5.3); White Blood Count 9.2 10^3/uL (4.0-10.0)
[2022-07-04 10:38] LABS: Alanine Aminotransferase 19 U/L (0-33); Albumin Level 3.8 g/dL (3.5-5.2); Alkaline Phosphatase 122 IU/L (35-105); Aspartate Amino Transferase 15 U/L (0-32); Blood Urea Nitrogen 11 mg/dL (6-20); Calcium 9.3 mg/dL (8.5-10.5); Carbon Dioxide 26 mmol/L (22-29); Chloride 102 mmol/L (98-107); Globulin 2.8 g/dL (1.3-4.6); Glomerular Filtration Rate 73.4 mL/min (90-130); Glucose 148 mg/dL (65-115); Osmolality Calculated 292 mOsm/kg (285-295); Sodium 140 mmol/L (136-145); Thyroid Stimulating Hormone 2.47 uIU/mL (0.27-4.20); Total Bilirubin 0.3 mg/dL (0.15-1.2); Total Protein 6.6 g/dL (6.6-8.7)
[2022-07-04] MEDS: sodium chloride 0.9% 250 ML 100 ML IV (10:52)
[2022-07-04] MEDS: ondansetron 2 mg/ML SDV 2 mL 4 MG IVP (10:54)
[2022-07-04] MEDS: cemiplimab-rwlc 350 MG in sodium chloride 0.9% 250 ML 500 MG IV (11:04)
[2022-07-04 12:37] VITALS: BP 135/78; PULSE 98; RESP 16; TEMP 37; O2SAT 95
--- NOTE | 2022-07-06 14:00 | CT_ITS ---
WS: [id number] CT PELVIS WITHOUT CONTRAST. HISTORY: pain bilateral buttocks and left groin, history of lung cancer. TECHNIQUE: Contiguous imaging is performed of the pelvis without contrast. Coronal and sagittal refor mats are reviewed. All CT scans at [facility] use at least one of these dose optimization samuel hniques: automated exposure control; mA and/or kV adjustment per patient size (includes targeted exam s where dose is matched to clinical indication); or iterative reconstruction. DLP: 899.71 mGy.cm COMPARISON: 11/07/2021, PET/CT 04/14/2022 Patient has known bilateral gluteal muscle metastatic implants. The largest implant involves the LEFT gluteus maximum muscle with extension to the piriformis muscle. This is a low-attenuation mass with increased density in the periphery. Mass measures 6.0 x 3.5 cm and extends over a length of 6.6 cm. T his mass is very closely associated with the LEFT sciatic nerve. There is an additional smaller matty guous implant extending posterior to the LEFT acetabulum. Soft tissue mass infiltrating through the L EFT gluteus maximum muscle measures 3.0 x 2.7 cm and extends over length of 5.1 cm. Both of these glu teal masses were identified on the prior PET/CT and probably not significantly changed. There is mild stranding within the pelvic fat along the LEFT obturator drywall sander muscle. Metastatic lymph node along the LEFT iliac chain measures 1.8 x 1.4 cm. This was also positive on a p rior PET/CT. There are additional smaller nodules along the iliac chains. Some of these were positive on the prior PET/CT. CT/CT pelvis w con* [id number] IMPRESSION: 1. Bilateral gluteus tristin muscle metastatic implants as described above. Th e largest involves the LEFT gluteus tristin with extension to the piriformis mu scle measuring 6.0 x 3.5 x 6.6 cm. Closely associated with the LEFT sciatic ner ve and may be causing neuropathy. 2. Abnormal lymph node along the LEFT iliac chain measures 1.8 x 1.4 cm. 3. These metastatic lymph nodes and gluteus implant were described on a prior PET/CT and probably not significantly changed in size.
[2022-07-06] MEDS: iohexol 350 mg/mL 100 mL Btl IV (14:08)
== END 2022-08-01 23:59 | disposition home or self-care (01) ==
PROVIDERS: Internal Medicine Medical Oncology; Nurse Practitioner; PCP Family Medicine; Referring Provider Thoracic Surgery (Cardiothoracic Vascular Surgery); Visit Provider Radiology Radiation Oncology
DX: C34.90 Malignant neoplasm of unspecified part of unspecified bronchus or lung (principal); C77.1 Secondary and unspecified malignant neoplasm of intrathoracic lymph nodes
CPT/HCPCS: 72193; 80053; 84443; 85025; 96375; 96413; 99214; 99215; J2405; J7050; J9119

== ENCOUNTER 2022-08-20 08:53 | Inpatient (IN) | payer MEDICAID, SELFPAY ==
[2022-08-20] VITALS (15 sets, daily range): BP systolic 95–122; BP diastolic 53–97; PULSE 75–110; RESP 16–19; TEMP 36.6–37.2; O2SAT 93–98; BMI 29.0
--- NOTE | 2022-08-20 09:05 | CT_ITS ---
WS: [id number] CT LUMBAR SPINE TECHNIQUE: Noncontrast CT of the lumbar spine with coronal and sagittal reformatted images. CLINICAL INFORMATION: back pain/cancer COMPARISON: None. DLP: All CT scans at [facility] use at least one of these dose optimization techniques: automated e xposure control; mA and/or kV adjustment per patient size (includes targeted exams where dose is matc hed to clinical indication); or iterative reconstruction. FINDINGS: Mild lumbar curve. Destructive metastatic lesion involving the L4 vertebral body is new from the prio r examinations eccentric to the LEFT. Pathologic compression with loss of approximately 40% vertebral body height. Retropulsion of the posterior inferior cortex with mild central canal stenosis and inde ntation LEFT subarticular recess. Moderate LEFT L4-L5 foraminal narrowing. Associated paravertebral s oft tissue edema and soft tissue thickening Partially visualized expansile metastatic lesion involving the sacrococcygeal junction described on t he CT abdomen pelvis. Adrenal glands are normal. LEFT periaortic and LEFT iliac lymphadenopathy described on CT abdomen pel vis. Sigmoid diverticulosis. LEFT gluteus metastatic lesion. Slightly aneurysmal infrarenal abdominal aorta measuring 2.6 cm in AP dimension L1-L2: Normal. L2-L3: Small LEFT foraminal protrusion with mild LEFT foraminal narrowing. Slight narrowing of the LE FT subarticular recess. L3-L4: Mild annular bulging. Mild central canal stenosis. Moderate facet arthropathy. Mild LEFT greater than RIGHT foraminal narro wing. L4-L5: Destructive metastatic lesion L4 vertebral body with mild central canal stenosis. Impingement on the LEFT subarticular recess. Retropulsion of the posterior inferior cortex impinges the exiting L EFT L4 nerve root. Moderate LEFT foraminal narrowing. L5-S1: Mild annular bulging. Spinal canal and foramen are patent. Mild facet arthropathy. CT/CT lumbar spine recon [id number] IMPRESSION: 1. Destructive metastatic lesion involving the L4 vertebral body is new from t he prior examinations eccentric to the LEFT. 2. Pathologic compression with loss of approximately 40% vertebral body height . Retropulsion of the posterior inferior cortex with mild central canal stenosi s and indentation the LEFT subarticular recess. 3. Moderate LEFT L4-L5 foraminal narrowing.
--- NOTE | 2022-08-20 09:05 | CT_ITS ---
WS: [email or web address] CT ABDOMEN PELVIS TECHNIQUE: Noncontrast CT of the abdomen and pelvis with coronal and sagittal reformatted images. CLINICAL INFORMATION: pelvic pain/cancer COMPARISON: CT pelvis July 06, 2022 PET/CT April 14, 2022 DLP: 585.[address] scans at [facility] use at least one of these dose optimization techniques: automated e xposure control; mA and/or kV adjustment per patient size (includes targeted exams where dose is matc hed to clinical indication); or iterative reconstruction. FINDINGS: Prior hysterectomy. Innumerable metastatic lesions visualized in the lung bases progressed compared t o prior examinations. Largest nodule RIGHT lower lobe measures 1.8 cm. New destructive metastatic les ion involving the L4 vertebral body with mild pathologic compression. Retropulsion of the posterior i nferior cortex with mild central canal stenosis. Associated surrounding soft tissue thickening/edema. Progressed expansile bony metastatic lesion involving the sacrococcygeal junction. This measures 4.3 x 1.9 cm. Metastatic implant involving the LEFT gluteus muscles similar to July 06, 2022. Stable pe riaortic, LEFT retroperitoneal, and LEFT iliac chain lymphadenopathy. Diffuse fatty infiltration liver. Cholecystectomy clips. Normal GE junction. Adrenal glands are lala l. No hydronephrosis. Sigmoid diverticulosis. CT/CT abdomen pelvis wo con [id number] IMPRESSION: 1. Partially visualized progressed innumerable metastatic lesions in the lung bases. Largest nodule RIGHT lower lobe measures 1.8 cm. 2. New metastatic destructive lesion involving the L4 vertebral body with path ologic compression. Associated diffuse soft tissue edema. Minimal retropulsion of the posterior inferior cortex with mild central canal stenosis eccentric to the LEFT. Loss of approximately 40% vertebral body height centrally. 3. Additional expansile progressed bony metastatic lesion involving the sacroc occygeal junction. 4. Stable metastatic implants involving the LEFT greater than RIGHT gluteus mu scles. 5. Stable retroperitoneal periaortic and LEFT iliac lymphadenopathy.
--- NOTE | 2022-08-20 09:18 | W.ED.BACK ---
HPI - Back Pain/Injury General: Chief Complaint: Back Pain/Injury Stated Complaint: low back pain Time Seen by Provider: 08/20/22 09:01 Source: patient and EMS Mode of arrival: EMS Limitations: no limitations History of Present Illness: 61-year-old female has a history of lung cancer with mets states she has been having increasing back and hip pain. States she does have some soft tissue mets to her pelvis states she has no known bony mets. States this morning her pain had worsened she states that her pain is a 9 out of 10 she was not able ambulate due to being in such pain. Denies any bowel or bladder incontinence denies any fevers. Associated symptoms: Deny abdominal pain, chills, dysuria, fever(s), nausea or vomiting Review of Systems Const: Denies: fever(s), chills, body aches or change in appetite Eyes: Denies: blurry vision or eye discomfort ENMT: Denies: throat pain or dental pain Card: Denies: chest pain Resp: Denies: dyspnea GI: Denies: abdominal pain, nausea, vomiting or diarrhea : Denies: dysuria Musc: Reports: back pain; Denies: neck pain Skin/Breast: Denies: rash Neuro: Denies: headache(s) Psych: Denies: depression Deric/Lymph: Denies: easy bruising All/Imm: Denies: urticaria PFSH ED PFSH: Medical History Abdominal aortic aneurysm Carotid stenosis, bilateral COPD (chronic obstructive pulmonary disease) Degenerative arthritis GERD (gastroesophageal reflux disease) History of COVID-19 (~01/2021) History of diverticulitis of colon History of pyelonephritis HTN (hypertension) PAD (peripheral artery disease) Port-A-Cath in place Squamous cell carcinoma of lung Surgical History History of bronchoscopy History of hysterectomy History of PTCA Post PTCA S/P insertion of iliac artery stent S/P lymph node biopsy (~12/2020) left open paramedian mediastinotomy with biopsy of the AP window lymph node Status post colonoscopy (10/11/20) 10 years Status post laparoscopic cholecystectomy (08/11/20) Status post surgical removal of malignant neoplasm of skin Family History Father Cancer lung Lung disease CAD (coronary artery disease) Stroke Mother Diabetes Dementia CAD (coronary artery disease) Hypertension Grandfather Cancer Other Hyperlipidemia Psychiatric illness Denies family history of Clotting disorder Chronic kidney disease (CKD) Suicide Anesthesia complication Bleeding disorder Social History Smoking and tobacco status: former smoker Quit status (tobacco): has quit using tobacco Year quit tobacco: Dec 2020 Former quit date comment: Hx of 2 PPD x 45 Years Second hand smoke exposure: No Smoking risk assessment/counseling performed?: No Alcohol intake: former Counseling given: No Counseling given: No Lives independently: Yes Household members: none Housing: House History of recent travel: No Current gender identity: Female Physical Exam Const: COMMON NORMALS: no acute distress, patient oriented x3 and healthy appearing HENMT: COMMON NORMALS: normocephalic and atraumatic HEAD & SCALP: normocephalic and atraumatic Eye: COMMON NORMALS: Equal, round and reactive pupils present and EOMs intact bilaterally PUPIL: Yes Equal, round and reactive pupils present Neck/C-Spine: COMMON NORMALS: full ROM and supple Chest: COMMONS NORMALS: normal inspection of the chest and normal palpation of entire chest wall Resp: COMMON NORMALS: normal respiratory effort, No retractions, No use of accessory muscles and clear to auscultation bilaterally AUSCULTATION: clear to auscultation bilaterally Cardio: COMMON NORMALS: regular rate, regular rhythm and No murmurs present (Cardio) RATE: regular rate RHYTHM: regular rhythm GI: COMMON NORMALS: Normal to inspection, nondistended, normoactive bowel sounds present, Soft to palpation, non-tender and no masses PALPATION: Yes Soft to palpation Back/Pelvis: OTHER: Tenderness along L-spine with some pelvic tenderness Extremity: COMMON NORMALS: normal to inspection and full ROM Neuro: COMMON NORMALS: patient oriented x3, moves all extremities and no focal motor deficits Psych: COMMON NORMALS: mental status grossly normal, Normal thought process present and cooperative THOUGHT PROCESS: Normal thought process present Skin: COMMON NORMALS: no rashes or lesions noted and no wounds GENERAL SKIN EXAM: no rashes or lesions noted Course Vital Signs: Vital signs: Vital Signs Temperature 98 F 08/20/22 12:30 Pulse Rate 76 08/20/22 12:30 Respiratory Rate 18 08/20/22 14:13 Blood Pressure 116/57 08/20/22 12:30 Pulse Oximetry 93 08/20/22 14:13 Oxygen Delivery Me thod 08/20/22 12:30 MDM - Back Pain/Injury Medical Decision Making Patient presents here with back pain she is found to have a pathologic fracture likely from metastases. She has no signs of cauda equina or cord compression here spoke to oncology along with hospitalist will admit at this time. Labs : 08/20/22 09:15 08/20/22 09:15 Radiology Impressions Abdomen/Pelvis CT 08/20/22 09:05 IMPRESSION: 1. Partially visualized progressed innumerable metastatic lesions in the lung bases. Largest nodule RIGHT lower lobe measures 1.8 cm. 2. New metastatic destructive lesion involving the L4 vertebral body with pathologic compression. Associated diffuse soft tissue edema. Minimal retropulsion of the posterior inferior cortex with mild central canal stenosis eccentric to the LEFT. Loss of approximately 40% vertebral body height centrally. 3. Additional expansile progressed bony metastatic lesion involving the sacrococcygeal junction. 4. Stable metastatic implants involving the LEFT greater than RIGHT gluteus muscles. 5. Stable retroperitoneal periaortic and LEFT iliac lymphadenopathy. Lumbar Spine CT 08/20/22 09:05 IMPRESSION: 1. Destructive metastatic lesion involving the L4 vertebral body is new from the prior examinations eccentric to the LEFT. 2. Pathologic compression with loss of approximately 40% vertebral body height. Retropulsion of the posterior inferior cortex with mild central canal stenosis and indentation the LEFT subarticular recess. 3. Moderate LEFT L4-L5 foraminal narrowing. Lumbar Spine MRI 08/20/22 10:27 IMPRESSION: 1. Pathologic compression of the L4 vertebral body with diffuse enhancement with mild retropulsion. Moderate central canal stenosis with crowding of the cauda equina nerve rootlets at this level. 2. Diffuse paravertebral soft tissue enhancement at L4 with a small amount of ventral epidural disease. 3. No other acute compression fractures or enhancing metastatic lesions in the lumbar spine. Notified Jax Rodriguez MD at 08/20/2022 1:08 PM. Laboratory Results WBC 5.5 10^3/uL (4.0-10.0) 08/20/22 09:15 RBC 3.89 10^6/uL (4.1-5.3) L 09/19/22 09:15 Hgb 12.2 g/dL (11.5-15.3) 08/20/22 09:15 Hct 37.1 % (37.0-47.0) 08/20/22 09:15 MCV 95.4 fl (81-99) 08/20/22 09:15 MCH 31.4 pg (28.0-34.0) 08/20/22 09:15 MCHC 32.9 g/dL (30.0-36.0) 08/20/22 09:15 RDW 12.3 % (12.1-15.1) 08/20/22 09:15 Plt Count 320 10^3/cmm (130-400) 08/20/22 09:15 MPV 10.0 fL (7.4-10.4) 08/20/22 09:15 Neut % (Auto) 78.2 % 08/20/22 09:15 Lymph % (Auto) 9.5 % 08/20/22 09:15 [place] % (Auto) 8.4 % 08/20/22 09:15 Eos % (Auto) 2.7 % 08/20/22 09:15 Baso % (Auto) 0.7 % 08/20/22 09:15 Neut # (Auto) 4.30 10^3/uL (1.8-7.7) 08/20/22 09:15 Lymph # (Auto) 0.5 10^3/uL (0.8-4.8) L 08/20/22 09:15 [place] # (Auto) 0.5 10^3/uL (0.2-0.9) 08/20/22 09:15 Eos # (Auto) 0.2 10^3/uL (0.0-0.8) 08/20/22 09:15 Baso # (Auto) 0.0 10^3/uL (0.0-0.1) 08/20/22 09:15 Nucleated RBC % (auto) 0 % 08/20/22 09:15 Nucleated RBCs # 0.0 /100WBC 08/20/22 09:15 Sodium 136 mmol/L (136-145) 08/20/22 09:15 Potassium 4.0 mmol/L (3.5-5.1) 08/20/22 09:15 Chloride 97 mmol/L (98-107) L 08/20/22 09:15 Carbon Dioxide 29 mmol/L (22-29) 08/20/22 09:15 Anion Gap 14.0 (5-19) 08/20/22 09:15 BUN 17 mg/dL (6-20) 08/20/22 09:15 Creatinine 0.7 mg/dL (0.5-0.9) 08/20/22 09:15 GFR Calculation 85.6 mL/min (90-130) L 08/20/22 09:15 Glucose 98 mg/dL (65-115) 08/20/22 09:15 Calculated Osmolality 284 mOsm/kg (285-295) L 08/20/22 09:15 Calcium 9.9 mg/dL (8.5-10.5) 08/20/22 09:15 Total Bilirubin 0.3 mg/dL (0.15-1.2) 08/20/22 09:15 AST 14 U/L (0-32) 08/20/22 09:15 ALT 13 U/L (0-33) 08/20/22 09:15 Alkaline Phosphatase 110 U/L (35-105) H 08/20/22 09:15 Total Protein 6.7 g/dL (6.6-8.7) 08/20/22 09:15 Albumin 3.1 g/dL (3.5-5.2) L 08/20/22 09:15 Globulin 3.6 g/dL (1.3-4.6) 08/20/22 09:15 Discharge Plan Discharge Patient Disposition: Admitted As Inpatient Admit Provider: Bacilio Noguera Clinical Impression: Squamous cell carcinoma of lung, Pathologic compression fracture of lumbar vertebra Condition: Stable Coding Level of Care Code ED Full Time Paramedic for Chg Fwd Exam Comprehensive
[2022-08-20 09:26] LABS: Basophils % 0.7 %; Eosinophils # 0.2 10^3/uL (0.0-0.8); Eosinophils % 2.7 %; Hematocrit 37.1 % (37.0-47.0); Hemoglobin 12.2 g/dL (11.5-15.3); Lymphocytes # 0.5 10^3/uL (0.8-4.8); Lymphocytes % 9.5 %; Mean Corpuscular HGB Conc 32.9 g/dL (30.0-36.0); Mean Corpuscular Hemoglobin 31.4 pg (28.0-34.0); Mean Corpuscular Volume 95.4 fl (81-99); Monocytes # 0.5 10^3/uL (0.2-0.9); Monocytes % 8.4 %; Neutrophils % 78.2 %; Nucleated Red Blood Cells % 0 %; Platelet Count 320 10^3/cmm (130-400); Red Blood Count 3.89 10^6/uL (4.1-5.3); Red Cell Distribution Width 12.3 % (12.1-15.1); White Blood Count 5.5 10^3/uL (4.0-10.0)
[2022-08-20 09:44] LABS: Alanine Aminotransferase 13 U/L (0-33); Albumin Level 3.1 g/dL (3.5-5.2); Alkaline Phosphatase 110 U/L (35-105); Aspartate Amino Transferase 14 U/L (0-32); Blood Urea Nitrogen 17 mg/dL (6-20); Calcium 9.9 mg/dL (8.5-10.5); Carbon Dioxide 29 mmol/L (22-29); Chloride 97 mmol/L (98-107); Globulin 3.6 g/dL (1.3-4.6); Glomerular Filtration Rate 85.6 mL/min (90-130); Glucose 98 mg/dL (65-115); Osmolality Calculated 284 mOsm/kg (285-295); Sodium 136 mmol/L (136-145); Total Bilirubin 0.3 mg/dL (0.15-1.2); Total Protein 6.7 g/dL (6.6-8.7)
[2022-08-20] MEDS: HYDROmorphone 1 mg/mL INJ 1 mL IVP ×3 (09:44→14:13)
[2022-08-20] MEDS: ondansetron 2 mg/ML SDV 2 mL 4 MG IVP (09:45)
--- NOTE | 2022-08-20 10:27 | MR_ITS ---
WS: [id number] MRI LUMBAR SPINE WITH CONTRAST TECHNIQUE: Sagittal T1, T2 and STIR imaging. Axial T1 and T2 imaging. Post gadolinium imaging was obt ained. CLINICAL INFORMATION: back pain COMPARISON: None. FINDINGS: Mild lumbar curve. Pathologic compression of the L4 vertebral body with diffuse metastatic lesion at this level eccentric to the LEFT also seen on the recent CT. Approximately 40% vertebral body height loss centrally. Diffuse soft tissue edema with enhancement. Moderate central canal stenosis with [place] of the cauda equina nerve rootlets. Small amount of enhancing epidural disease. Diffuse surround ing soft tissue enhancement. No other acute compression fractures. L1-L2: Normal. L2-L3: Mild annular bulging. Slight effacement of ventral thecal sac. Mild LEFT foraminal narrowing. Moderate facet arthropathy. L3-L4: Mild annular bulging. Mild central canal stenosis. Moderate facet arthropathy. Mild LEFT great er than RIGHT foraminal narrowing. L4-L5: LEFT pericentral retropulsion of the inferior L4 cortex. Impingement LEFT subarticular recess with moderate central canal stenosis. Crowding of the cauda equina nerve rootlets. Moderate LEFT L4-L 5 foraminal narrowing. Small amount of enhancing ventral epidural disease. RIGHT foramen is patent. M oderate facet arthropathy. L5-S1: No significant disc bulging. Spinal canal and foramen are patent. LEFT periaortic and retroperitoneal lymphadenopathy with LEFT iliac lymphadenopathy described on the concurrent CT. MR/MR lumbar spine wo/w con [id number] IMPRESSION: 1. Pathologic compression of the L4 vertebral body with diffuse enhancement wi th mild retropulsion. Moderate central canal stenosis with crowding of the caud a equina nerve rootlets at this level. 2. Diffuse paravertebral soft tissue enhancement at L4 with a small amount of ventral epidural disease. 3. No other acute compression fractures or enhancing metastatic lesions in the lumbar spine. Notified Jax Rodriguez MD at 08/20/2022 1:08 PM.
[2022-08-20] MEDS: gadobenate dimeglumine 20 mL vial IV (11:30)
--- NOTE | 2022-08-20 15:13 | PM.HP ---
Providers/Chief Complaint Admitting Physician: Bacilio Noguera MD Primary Care Provider: Abrahan Weathers MD Chief Complaint: low back pain History of Present Illness Danisah Leonard is a 61 year old female who presents to the emergency department with complaints of low back pain. She reports she has not been ambulating for the last 4 to 5 days. She denies any history of fall, but has had low back pain for quite some time mainly on the right, which recently acutely worsened and seem to switch to the other side 4 to 5 days ago. She denies any loss of consciousness. She states she has more pain, with trying to move her left leg and this impairs her ability to bear weight. She denies any paresthesias. She has past history of squamous cell lung cancer with metastasis currently on cemiplimab infusions and has had palliative radiation in the past. She denies any recent fever, chills, illness. In the emergency department she has received some pain medication. Review of Systems General: Reports: 10 or more systems reviewed and unremarkable except in HPI and below Const: Denies: fever(s) or chills Eyes: Denies: change in vision ENMT: Denies: throat pain Card: Denies: chest pain Resp: Denies: dyspnea GI: Denies: abdominal pain : Denies: flank pain or difficulty voiding Musc: Reports: back pain and muscle weakness Skin/Breast: Denies: rash Neuro: Reports: weakness in extremities; Denies: headache(s) or numbness in extremities Psych: Denies: anxiety or depression Endo: Denies: polyuria Deric/Lymph: Denies: easy bruising All/Imm: Denies: urticaria Medications/Allergies Home Medications Medication Instructions Recorded Confirmed Last Taken Type multivitamin (Multiple Vitamins) 1 tab PO DAILY 07/04/20 08/20/22 08/20/22 History zinc 50 mg tablet 50 mg PO DAILY 02/03/21 08/20/22 08/20/22 History albuterol sulfate 90 mcg/actuation 2 puff inhalation QID PRN 08/10/21 08/20/22 09/04/21 Rx aerosol inhaler shortness of breath or wheezing 30 days #8.5 grams docusate sodium 50 mg capsule 50 mg PO DAILY 08/10/21 08/20/22 08/20/22 History (Stool Softener) ipratropium 0.5 mg-albuterol 3 mg 3 ml inhalation Q4H PRN wheezing 08/24/21 08/20/22 09/04/21 Rx (2.5 mg base)/3 mL nebulization #180 mL soln cholecalciferol (vitamin D3) 10 10 mcg PO DAILY 09/01/21 08/20/22 08/20/22 History mcg (400 unit) capsule (Vitamin D3) gabapentin 300 mg capsule 300 mg PO TID pain #90 caps 05/17/22 08/20/22 08/20/22 Rx prednisone 10 mg tablet 10 mg PO DAILY #30 tabs 05/17/22 08/20/22 08/20/22 Rx ropinirole 0.25 mg tablet 0.25 mg PO DAILY #30 tabs 05/17/22 08/20/22 08/20/22 Rx DME: Walker #1 ea 05/18/22 08/20/22 Unknown Rx pantoprazole 40 mg tablet,delayed 40 mg PO DAILY #90 tabs 05/29/22 08/20/22 08/20/22 Rx release umeclidinium 62.5 mcg-vilanterol 1 inh inhalation DAILY 60 days #60 06/19/22 08/20/22 Unknown Rx 25 mcg/actuation powdr for ea inhalation (Anoro Ellipta) fluticasone propionate 110 2 puff inhalation BID 30 days #12 07/09/22 08/20/22 Unknown Rx mcg/actuation HFA aerosol inhaler grams (Flovent HFA) oxycodone 15 mg tablet 15 mg PO Q4H PRN pain 30 days #120 07/30/22 08/20/22 Unknown Rx tabs aspirin 81 mg tablet,delayed 81 mg PO DAILY 08/20/22 08/20/22 08/20/22 History release venlafaxine 150 mg 150 mg PO DAILY 08/20/22 08/20/22 08/20/22 History capsule,extended release 24 hr Allergies Allergy/AdvReac Type Severity Reaction Status Date / Time adhesive Allergy ALGY-Hives Verified 08/20/22 13:36 clindamycin Allergy ALGY-Hives Verified 08/20/22 13:36 egg Allergy ADR-Vomitin Verified 08/20/22 13:36 g Penicillins Allergy ALGY-Hives Verified 08/20/22 13:36 skin glue Allergy ALGY-Bliste Uncoded 07/04/22 10:23 r PFSH Acute PFSH: Medical History Abdominal aortic aneurysm Carotid stenosis, bilateral COPD (chronic obstructive pulmonary disease) Degenerative arthritis GERD (gastroesophageal reflux disease) History of COVID-19 (~01/2021) History of diverticulitis of colon History of pyelonephritis HTN (hypertension) PAD (peripheral artery disease) Port-A-Cath in place Squamous cell carcinoma of lung Surgical History History of bronchoscopy History of hysterectomy History of PTCA Post PTCA S/P insertion of iliac artery stent S/P lymph node biopsy (~12/2020) left open paramedian mediastinotomy with biopsy of the AP window lymph node Status post colonoscopy (10/11/20) 10 years Status post laparoscopic cholecystectomy (08/11/20) Status post surgical removal of malignant neoplasm of skin Family History Father Cancer lung Lung disease CAD (coronary artery disease) Stroke Mother Diabetes Dementia CAD (coronary artery disease) Hypertension Grandfather Cancer Other Hyperlipidemia Psychiatric illness Denies family history of Clotting disorder Chronic kidney disease (CKD) Suicide Anesthesia complication Bleeding disorder Social History Smoking and tobacco status: former smoker Quit status (tobacco): has quit using tobacco Year quit tobacco: Dec 2020 Former quit date comment: Hx of 2 PPD x 45 Years Second hand smoke exposure: No Smoking risk assessment/counseling performed?: No Alcohol intake: former Counseling given: No Counseling given: No Lives independently: Yes Household members: none Housing: House History of recent travel: No Current gender identity: Female Vitals/I&O/Wt Last Vital Signs Temp 98 F 08/20/22 12:30 Pulse 76 08/20/22 12:30 Resp 18 08/20/22 14:13 BP 116/57 08/20/22 12:30 Pulse Ox 93 08/20/22 14:13 O2 Del Method 08/20/22 12:30 Weight last 48 hrs Weight 81.647 kg Physical Exam Narrative: General exam is a white female, reporting back pain and inability to walk brought her into the emergency department. HEENT: Atraumatic and normocephalic. Pupils equally round. Oropharynx clear. Neck is supple no lymphadenopathy or thyromegaly Cardiovascular regular rate and rhythm without murmur, no S3 or S4 Lungs clear bilaterally but with diminished breath sounds bilaterally. No wheezes or crackles Abdomen is soft, positive bowel sounds. No obvious organomegaly Back with no rash exam deferred Extremities no cyanosis clubbing or edema. No evidence of foot drop. No sacral paresthesia. With straight leg raise on the left she has significant pain. Neuro: No obvious focal deficits. Data : 08/20/22 09:15 08/20/22 09:15 Other Labs: LFTs with the exception of alk phos is normal. Alk phos is 110. Calcium normal Albumin 3.1 CT abdomen and pelvis demonstrated innumerable metastasis of the lung bases, new metastatic destructive lesion at L4 with pathologic compression fracture. Stable mets left greater than right gluteus and stable retroperitoneal periaortic and left iliac lymphadenopathy. Lumbar CT demonstrated similar findings Lumbar MRI demonstrated pathologic L4 compression with mild retropulsion with moderate central stenosis and crowding of cauda equina nerve rootlets. Diffuse soft tissue enhancement of L4. No other metastatic lesions were noted of the lumbar spine. A&P Assessment and plan (1) Intractable back pain: Patient presents with intractable back pain, with new pathologic compression fracture of L4. Continue pain control with oxycodone, add morphine for breakthrough pain Increase Neurontin to 600 mg 3 times daily Add Flexeril 10 mg 3 times daily as needed Consult orthopedic spine surgery, to determine if they believe that kyphoplasty could be beneficial Consult radiation oncology, for opinion on palliative radiation Hold on physical therapy evaluation, until it can be determined if area is stable for that activity. Status: Acute (2) Pathologic compression fracture of lumbar vertebra: Secondary to metastatic squamous cell carcinoma See notations above Status: Acute (3) COPD (chronic obstructive pulmonary disease): No evidence of exacerbation Budesonide twice daily DuoNeb as needed Status: Acute Qualifiers: COPD type: unspecified COPD Qualified Code(s): J44.9 - Chronic obstructive pulmonary disease, unspecified (4) Carotid stenosis, bilateral: I will hold off on ordering patient's aspirin currently, until evaluation by parts counter specialist. Will discuss with them whether aspirin can be continued with her regular dosing tomorrow after it is been determined if she is undergoing any surgical procedure. Status: Acute (5) Squamous cell carcinoma of lung: Currently on infusions of cemiplimab Status: Acute Attestations Medical Necessity Statement*: Will need greater than 2 midnight stay for intractable back pain, pathologic compression fracture with possible need for kyphoplasty and consideration of palliative radiation Coding Level of Care Code Acute Tobacco Blender for [facility] Fwd Diagnoses Intractable back pain M54.9 Pathologic compression fracture of lumbar vertebra M48.56XA COPD (chronic obstructive pulmonary disease) J44.9 COPD type: unspecified COPD Carotid stenosis, bilateral I65.23 Squamous cell carcinoma of lung C34.90
--- NOTE | 2022-08-20 16:28 | PC.SOCIAL ---
Daughter requested DPOA papers, CM delivered papers and went over them. Daughter to notify us tomorrow after she gets them filled out, and CM to go [employer].
--- NOTE | 2022-08-20 16:43 | PC.NURSE ---
Change in code status Patient and daughter requested to discuss code status. Patient states she does not want any life saving measures if she were to go into cardiac arrest. Amy with case management, and (patient's daughter) were present and witnessed this at bedside. Discussed this with Dr. Noguera, agreeable to change patient to Allow Natural .
[2022-08-20] MEDS: enoxaparin 40 mg/0.4 mL Syringe SUBCUT (17:02)
[2022-08-20] MEDS: oxyCODONE IR 30 mg Tablet 15 MG PO ×2 (17:02→21:27)
[2022-08-20] MEDS: morphine 4 mg/mL SDV 1 mL 2 MG IVP (18:04)
--- NOTE | 2022-08-20 18:19 | PC.NURSE ---
Han order Contact patient to ask if we could place a han catheter d/t severe pain with ambulation/movement. Attempted to transfer patient to bedside commode. She started crying in pain, shaking, and breathing rapidly. She stated she would have to hold her bladder because she could not bare to stand. Dr. Noguera stated okay to place han catheter d/t intractable pain.
[2022-08-20] MEDS: ipratropium-albuterol 3 mL Neb INHALATION (19:55)
[2022-08-20] MEDS: budesonide 0.5 mg/2 mL Neb INHALATION (19:55)
[2022-08-20] MEDS: cyclobenzaprine 10 mg Tablet PO (20:17)
[2022-08-20] MEDS: gabapentin 300 mg Capsule 600 MG PO (20:17)
[2022-08-21] VITALS (16 sets, daily range): BP systolic 95–114; BP diastolic 56–66; PULSE 85–101; RESP 15–18; TEMP 36.4–37.2; O2SAT 90–96
[2022-08-21] MEDS: oxyCODONE IR 30 mg Tablet 15 MG PO ×4 (03:31→22:36)
[2022-08-21] MEDS: acetaminophen 325 mg Tablet 650 MG PO ×2 (03:56→22:04)
[2022-08-21 04:57] LABS: Basophils % 0.7 %; Hematocrit 36.7 % (37.0-47.0); Hemoglobin 11.7 g/dL (11.5-15.3); Lymphocytes # 0.6 10^3/uL (0.8-4.8); Mean Corpuscular HGB Conc 31.9 g/dL (30.0-36.0); Mean Corpuscular Volume 97.3 fl (81-99); Monocytes # 0.4 10^3/uL (0.2-0.9); Monocytes % 10.5 %; Neutrophils # 2.94 10^3/uL (1.8-7.7); Neutrophils % 73.3 %; Nucleated Red Blood Cells % 0 %; Platelet Count 303 10^3/cmm (130-400); Red Blood Count 3.77 10^6/uL (4.1-5.3); Red Cell Distribution Width 12.5 % (12.1-15.1)
[2022-08-21 05:24] LABS: Blood Urea Nitrogen 16 mg/dL (6-20); Calcium 9.6 mg/dL (8.5-10.5); Carbon Dioxide 30 mmol/L (22-29); Chloride 94 mmol/L (98-107); Creatinine Clr Calc Pharmacy 72.5037; Glomerular Filtration Rate 64.1 mL/min (90-130); Glucose 152 mg/dL (65-115); Osmolality Calculated 286 mOsm/kg (285-295); Sodium 136 mmol/L (136-145)
--- NOTE | 2022-08-21 07:42 | PM.CONSULT ---
Providers/Reason For Consult Consulting Physician/Specialty*: Ortho Spine Reason for Consult*: Back Pain Attending Physician: Bacilio Noguera MD Primary Care Provider: Abrahan Weathers MD History of Present Illness History of Present Illness Danisha Leonard is a 61 year old female who presents to [facility] with history of lung cancer and multiple falls. Her back pain is progressively intensified over the last 4 weeks. She has had multiple falls. She denies any leg pain or leg weakness. She has been treated for lung cancer with chemo and radiation. She denies any hip or leg pain, all of her pain is localized in her low back. She reports a smoking history although she is quit 2012. She reports sharp aching pain in her low back worse with activities bending twisting lifting. Rest gives her some temporary relief. She ranks the pain a 6 out of 10 on the pain scale. She denies any hip or groin pain denies any leg pain. She does point to her right buttock and the sciatic region. Where she reports intermittent discomfort that comes and goes with activities. She denies any loss of bowel or bladder control. She does report history of skin cancer as well. An extensive review of the patient's past medical history, surgical history, allergies, medications, family history, social history, and review of systems was completed Review of Systems General: Reports: 10 or more systems reviewed and unremarkable except in HPI and below Const: Denies: fever(s) or chills Eyes: Denies: change in vision ENMT: Denies: throat pain Card: Denies: chest pain Resp: Denies: dyspnea GI: Denies: abdominal pain : Denies: flank pain or difficulty voiding Musc: Reports: back pain and muscle weakness Skin/Breast: Denies: rash Neuro: Reports: weakness in extremities; Denies: headache(s) or numbness in extremities Psych: Denies: anxiety or depression Endo: Denies: polyuria Deric/Lymph: Denies: easy bruising All/Imm: Denies: urticaria Medications/Allergies Home Medications Medication Instructions Recorded Confirmed Last Taken Type multivitamin (Multiple Vitamins) 1 tab PO DAILY 07/04/20 08/20/22 08/20/22 History zinc 50 mg tablet 50 mg PO DAILY 02/03/21 08/20/22 08/20/22 History albuterol sulfate 90 mcg/actuation 2 puff inhalation QID PRN 08/10/21 08/20/22 09/04/21 Rx aerosol inhaler shortness of breath or wheezing 30 days #8.5 grams docusate sodium 50 mg capsule 50 mg PO DAILY 08/10/21 08/20/22 08/20/22 History (Stool Softener) ipratropium 0.5 mg-albuterol 3 mg 3 ml inhalation Q4H PRN wheezing 08/24/21 08/20/22 09/04/21 Rx (2.5 mg base)/3 mL nebulization #180 mL soln cholecalciferol (vitamin D3) 10 10 mcg PO DAILY 09/01/21 08/20/22 08/20/22 History mcg (400 unit) capsule (Vitamin D3) gabapentin 300 mg capsule 300 mg PO TID pain #90 caps 05/17/22 08/20/22 08/20/22 Rx prednisone 10 mg tablet 10 mg PO DAILY #30 tabs 05/17/22 08/20/22 08/20/22 Rx ropinirole 0.25 mg tablet 0.25 mg PO DAILY #30 tabs 05/17/22 08/20/22 08/20/22 Rx DME: Walker #1 ea 05/18/22 08/20/22 Unknown Rx pantoprazole 40 mg tablet,delayed 40 mg PO DAILY #90 tabs 05/29/22 08/20/22 08/20/22 Rx release umeclidinium 62.5 mcg-vilanterol 1 inh inhalation DAILY 60 days #60 06/19/22 08/20/22 Unknown Rx 25 mcg/actuation powdr for ea inhalation (Anoro Ellipta) fluticasone propionate 110 2 puff inhalation BID 30 days #12 07/09/22 08/20/22 Unknown Rx mcg/actuation HFA aerosol inhaler grams (Flovent HFA) oxycodone 15 mg tablet 15 mg PO Q4H PRN pain 30 days #120 07/30/22 08/20/22 Unknown Rx tabs aspirin 81 mg tablet,delayed 81 mg PO DAILY 08/20/22 08/20/22 08/20/22 History release venlafaxine 150 mg 150 mg PO DAILY 08/20/22 08/20/22 08/20/22 History capsule,extended release 24 hr Allergies Allergy/AdvReac Type Severity Reaction Status Date / Time adhesive Allergy ALGY-Hives Verified 08/20/22 13:36 clindamycin Allergy ALGY-Hives Verified 08/20/22 13:36 egg Allergy ADR-Vomitin Verified 08/20/22 13:36 g Penicillins Allergy ALGY-Hives Verified 08/20/22 13:36 skin glue Allergy ALGY-Bliste Uncoded 07/04/22 10:23 r Current Medications Generic Name Dose Route Start Last Admin Trade Name Freq PRN Reason Stop Dose Admin Acetaminophen 650 mg 08/20/22 15:34 08/21/22 03:56 Acetaminophen 325 Mg Tablet PO 650 mg Q6H PRN Administration Mild/Mod Pain Or Temp >/= 101 Albuterol/Ipratropium 3 ml 08/20/22 15:34 08/20/22 19:55 Ipratropium-Albuterol 3 Ml Neb INHALATION 3 ml Q4H PRN Administration wheezing Budesonide 0.5 mg 08/20/22 20:00 08/20/22 19:55 Budesonide 0.5 Mg/2 Ml Neb INHALATION 0.5 mg BID.RESPIRATORY NILS Administration Cyclobenzaprine HCl 10 mg 08/20/22 15:34 08/20/22 20:17 Cyclobenzaprine 10 Mg Tablet PO 10 mg TID PRN Administration MUSCLE SPASMS Enoxaparin Sodium 40 mg 08/20/22 16:00 08/20/22 17:02 Enoxaparin 40 Mg/0.4 Ml Syringe SUBCUT 40 mg Q24H NILS Administration Gabapentin 600 mg 08/20/22 21:00 08/20/22 20:17 Gabapentin 300 Mg Capsule PO 600 mg TID NILS Administration Morphine Sulfate 2 mg 08/20/22 15:34 08/20/22 18:04 Morphine 4 Mg/Ml Sdv 1 Ml IVP 2 mg Q4H PRN Administration SEVERE PAIN Oxycodone HCl 15 mg 08/20/22 15:42 08/21/22 03:31 Oxycodone Ir 30 Mg Tablet PO 15 mg Q4H PRN Administration pain PFSH Acute PFSH: Medical History Abdominal aortic aneurysm Carotid stenosis, bilateral COPD (chronic obstructive pulmonary disease) Degenerative arthritis GERD (gastroesophageal reflux disease) History of COVID-19 (~01/2021) History of diverticulitis of colon History of pyelonephritis HTN (hypertension) PAD (peripheral artery disease) Port-A-Cath in place Squamous cell carcinoma of lung Surgical History History of bronchoscopy History of hysterectomy History of PTCA Post PTCA S/P insertion of iliac artery stent S/P lymph node biopsy (~12/2020) left open paramedian mediastinotomy with biopsy of the AP window lymph node Status post colonoscopy (10/11/20) 10 years Status post laparoscopic cholecystectomy (08/11/20) Status post surgical removal of malignant neoplasm of skin Family History Father Cancer lung Lung disease CAD (coronary artery disease) Stroke Mother Diabetes Dementia CAD (coronary artery disease) Hypertension Grandfather Cancer Other Hyperlipidemia Psychiatric illness Denies family history of Clotting disorder Chronic kidney disease (CKD) Suicide Anesthesia complication Bleeding disorder Social History Smoking and tobacco status: former smoker Quit status (tobacco): has quit using tobacco Year quit tobacco: Dec 2020 Former quit date comment: Hx of 2 PPD x 45 Years Second hand smoke exposure: No Smoking risk assessment/counseling performed?: No Alcohol intake: former Counseling given: No Counseling given: No Lives independently: Yes Household members: none Housing: House History of recent travel: No Current gender identity: Female Vitals/I&O/Wt Last Vital Signs Temp 98.4 F 08/21/22 04:00 Pulse 92 08/21/22 04:00 Resp 17 08/21/22 04:00 BP 106/65 08/21/22 04:00 Pulse Ox 95 08/21/22 04:00 O2 Del Method 08/20/22 19:55 08/20/22 08/21/22 08/21/22 22:59 06:59 14:59 Intake Total 120 / 120 Output Total 900 / 900 Balance 120 / 120 -900 / -780 Weight last 48 hrs Weight 180 lb Physical Exam Narrative: She is alert orient x3 she has good general appearance normal mood and affect. No apparent distress. She is evaluated in room 253 bed 1 with no family present nursing staff present. She has palpable pain in her low back. No evidence of incisions or other skin changes in her low back. She is tender with percussion in her low back as well. She has negative logroll bilaterally. Fires in all motor groups with 5/5 strength in her knees dorsiflex and plantar flexion. Appears to have normal station light touch throughout both lower extremities. Toes are warm good cap refill dorsalis pedis and posterior tibial pulses are palpable. Calves are supple bilaterally. Reflexes are 2+ and symmetric about the knees and Achilles. No palpable pain in the thoracic spine normal station light touch in all dermatomal layers. Moves both upper extremities with good strength in the shoulders elbows and wrist hands warm good cap refill radial pulses are palpable. Normal sensation to light touch. She can flex and extend rotate laterally bend her cervical spine without any pain. 5/5 strength in both upper extremities. HENMT: COMMON NORMALS: normocephalic and atraumatic HEAD & SCALP: normocephalic and atraumatic Resp: COMMON NORMALS: normal respiratory effort Cardio: COMMON NORMALS: regular rate and regular rhythm RATE: regular rate RHYTHM: regular rhythm : COMMON NORMALS: Yes no CVA tenderness BLADDER/KIDNEY EXAM: Yes no CVA tenderness Back/Pelvis: COMMON NORMALS: no CVA tenderness Psych: COMMON NORMALS: mental status grossly normal and cooperative Urinary Catheter Management: Rocha: Cath Placed During This Visit: yes Reason for Continuing Indwelling Catheter: Acute Urinary Retention or Obstruction Urinary Catheter Date of Insertion: 08/20/22 Urinary Catheter Time of Insertion: 19:00 Data : 08/21/22 04:13 08/21/22 04:13 MRI: Radiologist's impression: MR/MR lumbar spine wo/w con [id number] IMPRESSION: ? 1.? Pathologic compression of the L4 vertebral body with diffuse enhancement with mild retropulsion. Moderate central canal stenosis with crowding of the cauda equina nerve rootlets at this level. 2.? Diffuse paravertebral soft tissue enhancement at L4 with a small amount of ventral epidural disease. 3.? No other acute compression fractures or enhancing metastatic lesions in the lumbar spine. CT Abd/Pel: Radiologist's impression: CT/CT abdomen pelvis wo con [id number] IMPRESSION: ? 1.? Partially visualized progressed innumerable metastatic lesions in the lung bases. Largest nodule RIGHT lower lobe measures 1.8 cm. 2.? New metastatic destructive lesion involving the L4 vertebral body with pathologic compression. Associated diffuse soft tissue edema. Minimal retropulsion of the posterior inferior cortex with mild central canal stenosis eccentric to the LEFT. Loss of approximately 40% vertebral body height centrally. 3.? Additional expansile progressed bony metastatic lesion involving the sacrococcygeal junction. 4.? Stable metastatic implants involving the LEFT greater than RIGHT gluteus muscles. 5.? Stable retroperitoneal periaortic and LEFT iliac lymphadenopathy. ? A&P Assessment and plan (1) Pathologic compression fracture of lumbar vertebra: Reviewed the studies at length with the patient. Discussed treatment options which involve kyphoplasty at L4, tissue biopsy, osteo- cool ablation of the L4 vertebral body lesion. Discussed the procedure at length with her. Discussed the risks and benefits of the procedure which include but not limited to bleeding, infection, nerve damage, continued back pain return of the lesion, risks with anesthesia she understands these risks and wished to proceed. Dr Maldonado Dictation: I had an open and honest discussion with the patient about the risks, benefits and alternatives of both surgical and nonsurgical treatment. The patient verbalized understanding of the inherent unpredictability associated with surgery. Risks of surgery were discussed which include, but not limited to, infection, bleeding, temporary and permanent nerve damage, continued pain, stiffness, incomplete healing, need for revision surgery, blood clots and any other complication. The patient verbalized understanding that their surgery is elective in nature and if they find any of these risks to be unacceptable, then they should choose not to have surgery. The patient verbalized understanding of these risks and elected to proceed with surgery. More than 50% of the time spent with the patient today involved coordination of care, counseling and discussion of conservative versus surgical treatment options. Total amount of time spent with the patient was 45 minutes. Status: Acute (2) Intractable back pain: Status: Acute Coding Level of Care Code New Pt Acute Print Finisher for Chg Fwd Patient Type New History Comprehensive Exam Comprehensive Medical Decision Making High Complexity Diagnoses Pathologic compression fracture of lumbar vertebra M48.56XA Intractable back pain M54.9 Time Spent (min) 45
--- NOTE | 2022-08-21 07:43 | P.PN_ITS ---
Subjective Subjective: Danisha reports her pain is still significant and in her low back. She denies any paresis of her lower extremities. A Rocha was placed yesterday for significant pain when she tried to move. I discussed with her the potential need for more long-acting pain medicine such as a pain patch but she would like to defer at this time, seeing if kyphoplasty can allow her to continue on her regular medicine. Medications: Reviewed: Yes Vitals/I&O/Wt Last Vital Signs Temp 98.4 F 08/21/22 04:00 Pulse 92 08/21/22 04:00 Resp 17 08/21/22 04:00 BP 106/65 08/21/22 04:00 Pulse Ox 95 08/21/22 04:00 O2 Del Method 08/20/22 19:55 08/20/22 08/21/22 08/21/22 22:59 06:59 14:59 Intake Total 120 / 120 Output Total 900 / 900 Balance 120 / 120 -900 / -780 Weight last 48 hrs Weight 81.647 kg Physical Exam Narrative: General exam is a white female, no distress, conversant Neck is supple no lymphadenopathy or thyromegaly Cardiovascular regular rate and rhythm without murmur, no S3 or S4 Lungs clear bilaterally but with diminished breath sounds bilaterally. No wheezes or crackles Abdomen is soft, positive bowel sounds. No obvious organomegaly Back with no rash exam Rocha Extremities no cyanosis clubbing or edema. No evidence of foot drop. No sacral paresthesia. Urinary Catheter Management: Rocha: Cath Placed During This Visit: yes Reason for Continuing Indwelling Catheter: Acute Urinary Retention or Obstruction Urinary Catheter Date of Insertion: 08/20/22 Urinary Catheter Time of Insertion: 19:00 Data : 08/21/22 04:13 08/21/22 04:13 A&P Assessment and plan (1) Intractable back pain: Patient presents with intractable back pain, with new pathologic compression fracture of L4. Continue pain control with oxycodone, add morphine for breakthrough pain Neurontin was increased on August 20- 100 mg 3 times daily. Continue. Continue Flexeril 10 mg 3 times daily as needed Morphine for breakthrough pain Senna/Colace 1 twice daily Consult orthopedic spine surgery, to determine if they believe that kyphoplasty could be beneficial. Surgery likely tomorrow for kyphoplasty Consult radiation oncology, for opinion on palliative radiation Hold on physical therapy evaluation currently. Could consider after kyphoplasty. Status: Acute (2) Pathologic compression fracture of lumbar vertebra: Secondary to metastatic squamous cell carcinoma See notations above Status: Acute (3) COPD (chronic obstructive pulmonary disease): No evidence of exacerbation Budesonide twice daily DuoNeb as needed Status: Acute Qualifiers: COPD type: unspecified COPD Qualified Code(s): J44.9 - Chronic obstructive pulmonary disease, unspecified (4) Carotid stenosis, bilateral: I will hold off on ordering patient's aspirin currently, until evaluation by exterior interior specialist. Will discuss with them whether aspirin can be continued with her regular dosing tomorrow after it is been determined if she is undergoing any surgical procedure. Status: Acute (5) Squamous cell carcinoma of lung: Currently on infusions of cemiplimab Status: Acute Plan Multiple other medical problems as outlined in her past medical history Allow natural Lovenox for DVT prophylaxis Attestations Medical Necessity Statement*: Needs continued hospitalization secondary to in tractable back pain with inability to ambulate, pathologic fracture L4 requiring kyphoplasty which is planned tomorrow. Coding Level of Care Code Acute Electrical Automation Engineer for Chg Fwd Diagnoses Intractable back pain M54.9 Pathologic compression fracture of lumbar vertebra M48.56XA COPD (chronic obstructive pulmonary disease) J44.9 COPD type: unspecified COPD Carotid stenosis, bilateral I65.23 Squamous cell carcinoma of lung C34.90
[2022-08-21] MEDS: ipratropium-albuterol 3 mL Neb INHALATION ×2 (07:59→21:35)
[2022-08-21] MEDS: budesonide 0.5 mg/2 mL Neb INHALATION ×2 (07:59→21:35)
[2022-08-21] MEDS: pantoprazole DR 40 mg Tablet PO (08:31)
[2022-08-21] MEDS: ropinirole 0.25 mg Tablet PO (08:31)
[2022-08-21] MEDS: gabapentin 300 mg Capsule 600 MG PO ×3 (08:31→20:07)
[2022-08-21] MEDS: sennosides-docusate Tablet 1 TAB PO ×2 (08:32→17:08)
[2022-08-21] MEDS: venlafaxine ER (24HR) 150 mg Capsule PO (08:32)
[2022-08-21] MEDS: predniSONE 10 mg Tablet PO (08:32)
[2022-08-21] MEDS: aspirin 81 mg EC Tablet PO (11:15)
--- NOTE | 2022-08-21 13:20 | PC.CHAP ---
Pastoral Care Encounter/Spiritual Assessment Type of Contact [] Declined design specialist visit [] Patient/Family/Request visit [] Outpatient visit [] Follow-up visit [] Physician referral [] Code/Alert [x] Routine visit [] Staff referral [] Actively dying [] Patient sleeping [] Family support [] [] Out of room [] Palliative care [] [] Receiving care in room [] Pre-surgical visit [] Trauma [] Long length of stay [] ICU visit [] Other: Relational/Emotional Strength [] Patient feels connected with others/family/visitors/staff [] Distress [] Loneliness/isolation [] Abandonment Spirituality of Patient [x] Person of Donna [] Attends Christian of their Donna [x] Believes in Prayer [] Reads Bible or Voodoo materials [] There are Spiritual issues to be addressed Vinyl Installer Interventions x [x] Prayer [] Active listening [] Non-anxious presence [x] Spiritual/emotional support [] Crisis/trauma care [] Spiritual counseling [] Bereavement support [] Provided bereavement packet [] Provided Bible/devotional materials [] Provided toy/stuffed animal, coloring book to patient or family member [] Provided Communion [] Anointing/[place] [x] Salvation [] Completed spiritual assessment [] Other: Impact on Illness or Injury [] Angry [] Fearful [] Anxious [] Often cries [] Exhaustion [] Unable to work [] Unable to attend yarsani [] Unable to walk/stand [] Unable to read [] Unable to drive [] Unable to eat/drink [] Unable to sleep [] Unable to be with family [] Patient intubated [] Other: Summary Time spent with patient 10 min
[2022-08-21] MEDS: morphine 4 mg/mL SDV 1 mL 2 MG IVP ×2 (14:23→20:07)
[2022-08-21] MEDS: cyclobenzaprine 10 mg Tablet PO ×2 (14:23→22:04)
[2022-08-22] VITALS (31 sets, daily range): BP systolic 70–134; BP diastolic 52–82; PULSE 79–112; RESP 14–27; TEMP 36.6–37.1; O2SAT 92–100
--- NOTE | 2022-08-22 | SCC_ITS ---
Procedure done: 1. Biopsy of L4 vertebral body 2. L4 spine metastasis radiofrequency ablation 3. L4 kyphoplasty 74.0 seconds of fluoroscopic guidance, for a cumulative dose of 27.5 mGy, was provided to Dr. Maldonado by the radiology department. C-arm images of the lumbar spine were saved for the patient's permanent record. [facility]
[2022-08-22] MEDS: morphine 4 mg/mL SDV 1 mL 2 MG IVP ×3 (04:21→20:43)
--- NOTE | 2022-08-22 08:51 | PM.PN ---
Subjective Subjective: Danisha reports she is doing okay. Still having pain at times. Eager to have surgery today. Would like to initiate fentanyl patch for her chronic pain. Discussed with her we could do this after surgery is completed. Medications: Reviewed: Yes Vitals/I&O/Wt Last Vital Signs Temp 98.1 F 08/22/22 07:55 Pulse 86 08/22/22 08:00 Resp 18 08/22/22 08:00 BP 106/56 08/22/22 07:55 Pulse Ox 94 08/22/22 08:00 O2 Del Method 08/22/22 08:00 O2 Flow Rate 2 08/22/22 08:00 08/21/22 08/22/22 08/22/22 22:59 06:59 14:59 Intake Total 120 / 720 Output Total 1150 / 1150 500 / 1650 Balance -1030 / -430 -500 / -930 Weight last 48 hrs Weight 81.647 kg Physical Exam Narrative: General exam is a white female, no distress, conversant Neck is supple no lymphadenopathy or thyromegaly Cardiovascular regular rate and rhythm without murmur, no S3 or S4 Lungs clear bilaterally but with diminished breath sounds bilaterally. No wheezes or crackles Abdomen is soft, positive bowel sounds. No obvious organomegaly Back with no rash exam Rocha Extremities no cyanosis clubbing or edema. No evidence of foot drop. No sacral paresthesia. Urinary Catheter Management: Rocha: Cath Placed During This Visit: yes Reason for Continuing Indwelling Catheter: Acute Urinary Retention or Obstruction Urinary Catheter Date of Insertion: 08/20/22 Urinary Catheter Time of Insertion: 19:00 Data : 08/21/22 04:13 08/21/22 04:13 A&P Assessment and plan (1) Intractable back pain: Patient presents with intractable back pain, with new pathologic compression fracture of L4. Continue pain control with oxycodone, continue morphine for breakthrough pain Neurontin was increased on August 20- 100 mg 3 times daily. Continue. Continue Flexeril 10 mg 3 times daily as needed Morphine for breakthrough pain Senna/Colace 1 twice daily Consult orthopedic spine surgery, to determine if they believe that kyphoplasty could be beneficial. Kyphoplasty is planned today Consult radiation oncology, for opinion on palliative radiation Hold on physical therapy evaluation currently. Start physical therapy following kyphoplasty Following surgery add fentanyl patch 25 mcg patch Status: Acute (2) Pathologic compression fracture of lumbar vertebra: Secondary to metastatic squamous cell carcinoma See notations above Status: Acute (3) COPD (chronic obstructive pulmonary disease): No evidence of exacerbation Budesonide twice daily DuoNeb as needed Status: Acute Qualifiers: COPD type: unspecified COPD Qualified Code(s): J44.9 - Chronic obstructive pulmonary disease, unspecified (4) Carotid stenosis, bilateral: Continue aspirin 81 mg daily Status: Acute (5) Squamous cell carcinoma of lung: Currently on infusions of cemiplimab Status: Acute Plan Multiple other medical problems as outlined in her past medical history Allow natural Lovenox for DVT prophylaxis Awaiting to see needs after surgery to determine if home with home health will be acceptable versus nursing facility care. Attestations Medical Necessity Statement*: Needs continued hospitalization, secondary to intractable pain thoracic region with pathologic compression fracture requiring kyphoplasty. Coding Level of Care Code Acute Dairy Processing Equipment Operator for [facility] Fwd Diagnoses Intractable back pain M54.9 Pathologic compression fracture of lumbar vertebra M48.56XA COPD (chronic obstructive pulmonary disease) J44.9 COPD type: unspecified COPD Carotid stenosis, bilateral I65.23 Squamous cell carcinoma of lung C34.90
[2022-08-22] MEDS: gabapentin 300 mg Capsule 600 MG PO ×2 (09:48→20:43)
[2022-08-22] MEDS: predniSONE 10 mg Tablet PO (09:48)
[2022-08-22] MEDS: sennosides-docusate Tablet 1 TAB PO ×2 (09:48→20:44)
[2022-08-22] MEDS: venlafaxine ER (24HR) 150 mg Capsule PO (09:48)
[2022-08-22] MEDS: aspirin 81 mg EC Tablet PO (09:48)
[2022-08-22] MEDS: pantoprazole DR 40 mg Tablet PO (09:48)
[2022-08-22] MEDS: cyclobenzaprine 10 mg Tablet PO ×2 (09:48→20:44)
[2022-08-22] MEDS: ropinirole 0.25 mg Tablet PO (09:49)
--- NOTE | 2022-08-22 11:32 | PC.NURSE ---
Pt off floor to OPS in pt bed, patient family at bedside.
--- NOTE | 2022-08-22 11:44 | SC_ITS ---
WS: [id number] C-arm fluoroscopy for lumbar kyphoplasty, 08/22/2022 Clinical Data: Kyphoplasty L4 Comparison: CT lumbar spine, 07/19/2022. Findings: Kyphoplasty material is inserted into the L4 vertebral body. SC/C-arm FL for Kyphoplasty Impression: L4 kyphoplasty.
--- NOTE | 2022-08-22 12:01 | ANES.PREANE2 ---
Pre-Anesthetic Assessment Height/Weight: Height 1.68 m Weight 81.647 kg Temp Pulse Resp BP Pulse Ox O2 Del Method O2 Flow Rate 98.2 F 89 18 122/82 97 2 08/22/22 11:19 08/22/22 11:55 08/22/22 11:55 08/22/22 11:55 08/22/22 11:55 08/22/22 11:55 08/22/22 11:55 Preop Diagnosis: Pathologic compression fracture L4 vertebral body Operation Date: 08/22/22 12:10 Proposed Procedures p Kyphoplasty(Not Applicable) - Rich Maldonado, Familial anesthetic complications: None Was Beta Farhana taken within 24 hours: N/A Was Clonidine taken within 24 hours: N/A Last intake: Intake Last Liquid Date 08/22/22 Last Liquid Time 04:30 Last Solid Date 08/21/22 Last Solid Time 21:00 Social No alcohol and No tobacco Exam alert, oriented x 3, clear to auscultation bilaterally and regular rate & rhythm Airway Mallampati: Class II Dentition: false Pulmonary Asthma and Chronic Obstructive Pulmonary Disease Lung SCC CV/HEM Hypertension and Peripheral Vascular Disease GI Gastroesophageal Reflux Disease Neuropsych carotid stenosis Anesthetic Plan ASA status: 4 Anesthesia: General Risk of > 500 ml blood loss (7ml/kg in children): No Medications/Allergies Home Medications Medication Instructions Recorded Confirmed Last Taken Type multivitamin (Multiple Vitamins) 1 tab PO DAILY 07/04/20 08/20/22 08/20/22 History zinc 50 mg tablet 50 mg PO DAILY 02/03/21 08/20/22 08/20/22 History albuterol sulfate 90 mcg/actuation 2 puff inhalation QID PRN 08/10/21 08/20/22 09/04/21 Rx aerosol inhaler shortness of breath or wheezing 30 days #8.5 grams docusate sodium 50 mg capsule 50 mg PO DAILY 08/10/21 08/20/22 08/20/22 History (Stool Softener) ipratropium 0.5 mg-albuterol 3 mg 3 ml inhalation Q4H PRN wheezing 08/24/21 08/20/22 09/04/21 Rx (2.5 mg base)/3 mL nebulization #180 mL soln cholecalciferol (vitamin D3) 10 10 mcg PO DAILY 09/01/21 08/20/22 08/20/22 History mcg (400 unit) capsule (Vitamin D3) gabapentin 300 mg capsule 300 mg PO TID pain #90 caps 05/17/22 08/20/22 08/20/22 Rx prednisone 10 mg tablet 10 mg PO DAILY #30 tabs 05/17/22 08/20/22 08/20/22 Rx ropinirole 0.25 mg tablet 0.25 mg PO DAILY #30 tabs 05/17/22 08/20/22 08/20/22 Rx DME: Walker #1 ea 05/18/22 08/20/22 Unknown Rx pantoprazole 40 mg tablet,delayed 40 mg PO DAILY #90 tabs 05/29/22 08/20/22 08/20/22 Rx release umeclidinium 62.5 mcg-vilanterol 1 inh inhalation DAILY 60 days #60 06/19/22 08/20/22 Unknown Rx 25 mcg/actuation powdr for ea inhalation (Anoro Ellipta) fluticasone propionate 110 2 puff inhalation BID 30 days #12 07/09/22 08/20/22 Unknown Rx mcg/actuation HFA aerosol inhaler grams (Flovent HFA) oxycodone 15 mg tablet 15 mg PO Q4H PRN pain 30 days #120 07/30/22 08/20/22 Unknown Rx tabs aspirin 81 mg tablet,delayed 81 mg PO DAILY 08/20/22 08/20/22 08/20/22 History release venlafaxine 150 mg 150 mg PO DAILY 08/20/22 08/20/22 08/20/22 History capsule,extended release 24 hr Allergies Allergy/AdvReac Type Severity Reaction Status Date / Time adhesive Allergy ALGY-Hives Verified 08/20/22 13:36 clindamycin Allergy ALGY-Hives Verified 08/20/22 13:36 egg Allergy ADR-Vomitin Verified 08/20/22 13:36 g Penicillins Allergy ALGY-Hives Verified 08/20/22 13:36 skin glue Allergy ALGY-Bliste Uncoded 07/04/22 10:23 r Current Medications Generic Name Dose Route Start Last Admin Trade Name Freq PRN Reason Stop Dose Admin Acetaminophen 650 mg 08/20/22 15:34 08/21/22 22:04 Acetaminophen 325 Mg Tablet PO 650 mg Q6H PRN Administration Mild/Mod Pain Or Temp >/= 101 Albuterol/Ipratropium 3 ml 08/20/22 15:34 08/21/22 21:35 Ipratropium-Albuterol 3 Ml Neb INHALATION 3 ml Q4H PRN Administration wheezing Aspirin 81 mg 08/21/22 09:00 08/22/22 09:48 Aspirin 81 Mg Ec Tablet PO 81 mg DAILY NILS Administration Budesonide 0.5 mg 08/20/22 20:00 08/22/22 08:09 Budesonide 0.5 Mg/2 Ml Neb INHALATION Not Given BID.RESPIRATORY NILS Cyclobenzaprine HCl 10 mg 08/20/22 15:34 08/22/22 09:48 Cyclobenzaprine 10 Mg Tablet PO 10 mg TID PRN Administration MUSCLE SPASMS Enoxaparin Sodium 40 mg 08/20/22 16:00 08/20/22 17:02 Enoxaparin 40 Mg/0.4 Ml Syringe SUBCUT 40 mg Q24H NILS Administration Gabapentin 600 mg 08/20/22 21:00 08/22/22 09:48 Gabapentin 300 Mg Capsule PO 600 mg TID NILS Administration Morphine Sulfate 2 mg 08/20/22 15:34 08/22/22 09:48 Morphine 4 Mg/Ml Sdv 1 Ml IVP 2 mg Q4H PRN Administration SEVERE PAIN Oxycodone HCl 15 mg 08/20/22 15:42 08/21/22 22:36 Oxycodone Ir 30 Mg Tablet PO 15 mg Q4H PRN Administration pain Pantoprazole Sodium 40 mg 08/21/22 09:00 08/22/22 09:[address] 40 Mg Tablet PO 40 mg DAILY NILS Administration Prednisone 10 mg 08/21/22 09:00 08/22/22 09:48 Prednisone 10 Mg Tablet PO 10 mg DAILY NILS Administration Ropinirole HCl 0.25 mg 08/21/22 09:00 08/22/22 09:49 Ropinirole 0.25 Mg Tablet PO 0.25 mg DAILY NILS Administration Senna/Docusate Sodium 1 tab 08/21/22 09:00 08/22/22 09:48 Sennosides-Docusate Tablet PO 1 tab BID NILS Administration Venlafaxine HCl 150 mg 08/21/22 09:00 08/22/22 09:48 Venlafaxine Er (24hr) 150 Mg Capsule PO 150 mg DAILY NILS Administration PFSH Anesthesia Medical History Abdominal aortic aneurysm Carotid stenosis, bilateral COPD (chronic obstructive pulmonary disease) Degenerative arthritis GERD (gastroesophageal reflux disease) History of COVID-19 (~01/2021) History of diverticulitis of colon History of pyelonephritis HTN (hypertension) PAD (peripheral artery disease) Port-A-Cath in place Squamous cell carcinoma of lung Surgical History History of bronchoscopy History of hysterectomy History of PTCA Post PTCA S/P insertion of iliac artery stent S/P lymph node biopsy (~12/2020) left open paramedian mediastinotomy with biopsy of the AP window lymph node Status post colonoscopy (10/11/20) 10 years Status post laparoscopic cholecystectomy (08/11/20) Status post surgical removal of malignant neoplasm of skin Family History Father Cancer lung Lung disease CAD (coronary artery disease) Stroke Mother Diabetes Dementia CAD (coronary artery disease) Hypertension Grandfather Cancer Other Hyperlipidemia Psychiatric illness Denies family history of Clotting disorder Chronic kidney disease (CKD) Suicide Anesthesia complication Bleeding disorder Social History Smoking and tobacco status: former smoker Quit status (tobacco): has quit using tobacco Year quit tobacco: Dec 2020 Former quit date comment: Hx of 2 PPD x 45 Years Second hand smoke exposure: No Smoking risk assessment/counseling performed?: No Alcohol intake: former Counseling given: No Counseling given: No Lives independently: Yes Household members: none Housing: House History of recent travel: No Current gender identity: Female Data Anesthesia : 08/21/22 04:13 08/21/22 04:13 Short CBC 08/21/22 Range/Units 04:13 WBC 4.0 (4.0-10.0) 10^3/uL Hgb 11.7 (11.5-15.3) g/dL Hct 36.7 L (37.0-47.0) % MCV 97.3 (81-99) fl Plt Count 303 (130-400) 10^3/cmm Neut % (Auto) 73.3 % Neut # (Auto) 2.94 (1.8-7.7) 10^3/uL BMP 08/21/22 04:13 Sodium 136 Potassium 4.0 Chloride 94 L Carbon Dioxide 30 H BUN 16 Creatinine 0.9 Glucose 152 H Calcium 9.6 Cardiac Studies: Echocardiogram Ultrasound 07/05/20 Sestamibi Stress Test (Cardiology) 11/18/20
--- NOTE | 2022-08-22 12:14 | W.PM.OPSUD ---
Surgery/Procedure H&P Update DATE OF PROCEDURE: August 22, 2022 DATE H&P PERFORMED: 08/24/21 H&P UPDATE INFORMATION: I have reviewed H&P completed within last 30 days, I have examined patient prior to procedure and No changes to prior documentation PREOP DIAGNOSIS: Pathologic compression fracture L4 vertebral body PLANNED PROCEDURE: Operation Date: 08/22/22 12:10 Proposed Procedures p Kyphoplasty(Not Applicable) - Rich Maldonado DO
--- NOTE | 2022-08-22 12:17 | SUR.PREOP ---
patient has allergies to clindamycin and pcn states her reaction is whelps and a bad rash and swelling. she states she is uneasy about taking any antibiotic ending in mycin . this reported to dr flores. order to cx antibiotic order. no further antibiotic ordered.
[2022-08-22] MEDS: iohexol 300 mg/mL 50 mL Btl (OR ONLY) XX (13:17)
[2022-08-22] MEDS: sodium chloride 0.9% 1,000 ML 30 ML IV (13:50)
--- NOTE | 2022-08-22 14:00 | P.OP_ITS ---
Operative Report Date of procedure: August 22, 2022 Pre-op diagnosis: Preop Diagnosis Pathologic wedge compression fracture L4 vertebral body Post-op diagnosis: same Procedure done: 1. Biopsy of L4 vertebral body 2. L4 spine metastasis radiofrequency ablation 3. L4 kyphoplasty Patient is brought to the operative suite. After undergoing anesthesia all areas impingement well-padded once she was placed in the prone position. Patient was then prepped and draped in normal sterile fashion. Biplanar fluoroscopy was brought in in order to visualize the L4 pedicles clearly. Once this was completed then attention was brought to making skin incision. Patient was made a stab incision on the superior lateral corner of the left pedicle. The awl was placed and then a biopsy tube was placed in order to facilitate getting tumor for biopsy. This process was again repeated on the right side. Again a stab incision made on the superior lateral aspect of the pedicle a awl was inserted and then the biopsy tube was inserted into the bone and a plug of bone was brought out. Both the right and left side biopsy tissues were sent for pathology. Next attention was brought to placing the drill into the tubes. Once the drill was placed this was done under C-arm guidance started on to bridge the anterior wall. And then the radiofrequency ablation tubes probes were inserted probes were measured at [place] and they were approximately 15 mm. The ablation took 11 and half minutes. This was monitored the entire time. Once the ablation was completed attention was brought to doing the kyphoplasty. The balloons were inserted and inflated. And then the cement was inserted. This started on the right side once the right side had good fill has started to track over to the left side continue to do this that never leaked out of the parikh. And then apparently more cement through the left side. Both AP lateral and showed the cement had good fill on both sides and did not reach any wall after the tubes were pulled wounds were irrigated and closed with nylon 6 sutures sterile dressings were applied patient was transferred to the PACU in stable condition.
--- NOTE | 2022-08-22 14:20 | SUR.PHASEI ---
1340 PT TO PACU SLEEPY WITH ORAL AIRWAY IN PLACE WITH GOOD RESP NOTED IV TO RT FA #20 PATENT WITH 10ML NS UP CLAMPED OFF, BP TO LT LOWER LEG , SCDS ON BILAT. 2 DRESSINGS TO LOWER BACK D/I ID BRACELET TO LT WRIST, PT ID'D WITH 2 IDENTIFIERS, MONITOR SR WITH NO ECTOPY NOTED, HOB AT 30 DEGREES 1340 PT BP CUFF MOVED TO LT UPPER ARM, BP LOW, HOB FLAT, BP RECHECK AND FLUIDS CALLED FOR 1345 BP REMAINS LOW PT IN REVERSED [place], DR KIRKPATRICK NOTIFIED AND MERCANTILE AGENT AT BEDSIDE, SEE HAMIDA BOLUS GIVEN FOR BP 70/56, NS W/O RATE, PT NOW AWAKES AND ORAL AIRWAY OUT PT VERBALIZING APPROPRIATELY, PT ORIENTED X 2 NO S/S OF DISTRESS,
--- NOTE | 2022-08-22 14:26 | SUR.PHASEI ---
1400 PT NOW STATES ( MY BP IS ALWAYS LOW IN THAT ARM) PT BP CUFF TO RT ARM , AND BP NOW WITHIN NORMAL LIMITS, MONITOR SR WITH NO ECTOPY, PT MOVES BILAT FEET EQUALLY AND STRONGLY DORSAL EXTENSION AND FLEXATION, BILAT PIECE DYEING MACHINE TENDER STRONG. DRESSING REMAINS D/I TO BACK. 1420 HOB AT 10 DEGREES PT ON 2LNC PRE SURGERY, PT AWAKES EASILY AND TAKES OCC ICE CHIPS
--- NOTE | 2022-08-22 14:34 | SUR.PHASEI ---
PT RESTING QUIETLY, VSS UNCHANGED NOW BP 122/68 , DRESSING UNCHANGED, BAKER PATENT TO DD 300 ML YELLOW URINE EMPTIED, STATLOCK TO LT THIGH YELLOW URINE TO TUBING NO URETHRAL TENSION NOTED,
--- NOTE | 2022-08-22 14:45 | SUR.PHASEI ---
UNABLE TO GIVE REPORT EARLIER, PT STABLE AND RESTING, PT FAMILY UPDATED AND PT NOW IN HOLDING WAITING TO GIVE REPORT TO FLOOR NURSE.
--- NOTE | 2022-08-22 15:10 | ANE.PACU2 ---
Inpatient post-anesthesia follow up: Airway intact: Yes Vital signs: Temperature 98.7 F Pulse Rate 99 Respiratory Rate 19 Blood Pressure 122/75 Pulse Oximetry 95 Oxygen Delivery Me thod Nasal Cannula Oxygen Flow Rate 2 Fraction of Inspir ed Oxygen Hydration adequate: Yes Nausea and vomiting: No Pain level: 1 Mental status: Baseline
--- NOTE | 2022-08-22 15:20 | SUR.PHASEI ---
PT TO FLOOR ROOM 253 PER BED PT AWAKE ALERT DAUGHTER AT BEDSIDE, PT TALKATIVE, ROLLS TO RT SIDE FOR BEDSIDE HANDOFF, RN CHECKING DRESSING X 2 TO BACK, D/I VSS.
[2022-08-22] MEDS: fentaNYL 25 mcg Patch 1 PATCH TRANSDERMA (15:40)
[2022-08-22] MEDS: lactated ringers 1,000 ML 90 ML IV ×2 (15:40→22:10)
[2022-08-22] MEDS: oxyCODONE IR 30 mg Tablet 15 MG PO (20:42)
[2022-08-22] MEDS: enoxaparin 40 mg/0.4 mL Syringe SUBCUT (20:43)
[2022-08-22] MEDS: docusate sodium 100 mg Capsule PO (20:44)
[2022-08-23] VITALS (10 sets, daily range): BP systolic 105–120; BP diastolic 56–72; PULSE 88–93; RESP 14–18; TEMP 36.7–37.1; O2SAT 91–97
[2022-08-23] MEDS: oxyCODONE IR 30 mg Tablet 15 MG PO ×3 (02:20→20:44)
[2022-08-23 04:59] LABS: Basophils % 0.4 %; Hematocrit 35.3 % (37.0-47.0); Hemoglobin 11.4 g/dL (11.5-15.3); Lymphocytes # 0.6 10^3/uL (0.8-4.8); Lymphocytes % 11.3 %; Mean Corpuscular HGB Conc 32.3 g/dL (30.0-36.0); Mean Corpuscular Hemoglobin 31.1 pg (28.0-34.0); Mean Corpuscular Volume 96.2 fl (81-99); Mean Platelet Volume 9.7 fL (7.4-10.4); Monocytes # 0.6 10^3/uL (0.2-0.9); Monocytes % 10.9 %; Neutrophils # 4.15 10^3/uL (1.8-7.7); Nucleated Red Blood Cells % 0 %; Platelet Count 300 10^3/cmm (130-400); Red Blood Count 3.67 10^6/uL (4.1-5.3); Red Cell Distribution Width 12.2 % (12.1-15.1); White Blood Count 5.4 10^3/uL (4.0-10.0)
[2022-08-23 05:32] LABS: Anion Gap 13.2 (5-19); Blood Urea Nitrogen 16 mg/dL (6-20); Calcium 9.5 mg/dL (8.5-10.5); Carbon Dioxide 32 mmol/L (22-29); Chloride 100 mmol/L (98-107); Glomerular Filtration Rate 85.6 mL/min (90-130); Glucose 106 mg/dL (65-115); Osmolality Calculated 294 mOsm/kg (285-295); Potassium 4.2 mmol/L (3.5-5.1); Sodium 141 mmol/L (136-145)
[2022-08-23] MEDS: morphine 4 mg/mL SDV 1 mL 2 MG IVP (07:22)
--- NOTE | 2022-08-23 08:11 | PM.PN ---
Subjective Subjective: Danisha reports she feels better. She has less pain. She can move her left leg more than previously, as she has less pain. Medications: Reviewed: Yes Vitals/I&O/Wt Last Vital Signs Temp 98.8 F 08/23/22 07:44 Pulse 93 08/23/22 07:44 Resp 16 08/23/22 07:44 BP 120/72 08/23/22 07:44 Pulse Ox 94 08/23/22 07:44 O2 Del Method 08/23/22 07:44 O2 Flow Rate 1.5 08/22/22 23:59 08/22/22 08/23/22 08/23/22 22:59 06:59 14:59 Intake Total 1305 / 1580 Output Total 1699 / 2004 450 / 2455 Balance -395 / -425 -450 / -875 Physical Exam Narrative: General exam is a white female, no distress, reports she has less discomfort Neck is supple no lymphadenopathy or thyromegaly Cardiovascular regular rate and rhythm without murmur, no S3 or S4 Lungs clear bilaterally but with diminished breath sounds bilaterally. No wheezes or crackles Abdomen is soft, positive bowel sounds. No obvious organomegaly Back with no rash exam Rocha Extremities no cyanosis clubbing or edema. No evidence of foot drop. No sacral paresthesia. Urinary Catheter Management: Rocha: Cath Placed During This Visit: yes Reason for Continuing Indwelling Catheter: Acute Urinary Retention or Obstruction Urinary Catheter Date of Insertion: 08/20/22 Urinary Catheter Time of Insertion: 19:00 Data : 08/23/22 04:47 08/23/22 04:47 A&P Assessment and plan (1) Intractable back pain: Patient presents with intractable back pain, with new pathologic compression fracture of L4. Continue pain control with oxycodone, continue morphine for breakthrough pain Neurontin was increased on August 20- 100 mg 3 times daily. Continue. Continue Flexeril 10 mg 3 times daily as needed 25 mcg fentanyl patch initiated. Morphine for breakthrough pain Senna/Colace 1 twice daily, add MiraLAX Kyphoplasty performed August 22. Up with therapy today to determine discharge planning, whether home with physical therapy or nursing facility is needed. Consult radiation oncology, for opinion on palliative radiation Try to remove Rocha today if can tolerate being up Status: Acute (2) Pathologic compression fracture of lumbar vertebra: Secondary to metastatic squamous cell carcinoma See notations above Status: Acute (3) COPD (chronic obstructive pulmonary disease): No evidence of exacerbation Budesonide twice daily DuoNeb as needed Status: Acute Qualifiers: COPD type: unspecified COPD Qualified Code(s): J44.9 - Chronic obstructive pulmonary disease, unspecified (4) Carotid stenosis, bilateral: Continue aspirin 81 mg daily Status: Acute (5) Squamous cell carcinoma of lung: Currently on infusions of cemiplimab Status: Acute Plan Multiple other medical problems as outlined in her past medical history Allow natural Lovenox for DVT prophylaxis Awaiting to see needs after surgery to determine if home with home health will be acceptable versus nursing facility care. Attestations Medical Necessity Statement*: Needs continued hospitalization for intractable back pain. Mobilization today to determine discharge planning whether she will be able to transition home with home health or needs nursing facility care. Coding Level of Care Code Acute Concrete Polisher for g Fwd Diagnoses Intractable back pain M54.9 Pathologic compression fracture of lumbar vertebra M48.56XA COPD (chronic obstructive pulmonary disease) J44.9 COPD type: unspecified COPD Carotid stenosis, bilateral I65.23 Squamous cell carcinoma of lung C34.90
[2022-08-23] MEDS: aspirin 81 mg EC Tablet PO (08:18)
[2022-08-23] MEDS: venlafaxine ER (24HR) 150 mg Capsule PO (08:18)
[2022-08-23] MEDS: gabapentin 300 mg Capsule 600 MG PO ×3 (08:18→20:39)
[2022-08-23] MEDS: pantoprazole DR 40 mg Tablet PO (08:19)
[2022-08-23] MEDS: cyclobenzaprine 10 mg Tablet PO ×2 (08:19→20:44)
[2022-08-23] MEDS: ropinirole 0.25 mg Tablet PO (08:19)
[2022-08-23] MEDS: predniSONE 10 mg Tablet PO (08:19)
[2022-08-23] MEDS: docusate sodium 100 mg Capsule PO ×2 (08:19→17:37)
[2022-08-23] MEDS: sennosides-docusate Tablet 2 TAB PO ×2 (08:19→17:37)
[2022-08-23] MEDS: polyethylene glycol 3350 Pkt 17 gm PO ×2 (08:21→17:37)
--- NOTE | 2022-08-23 08:54 | P.PN_ITS ---
Subjective Subjective: POD 1 Patient is in good spirits this a.m. having morning breakfast. Family is present. She reports improvement of her back pain reports better movement of her legs. Denies any chest pain, shortness of breath, headaches. Vitals/I&O/Wt Last Vital Signs Temp 98.4 F 08/23/22 08:00 Pulse 90 08/23/22 08:00 Resp 18 08/23/22 08:00 BP 116/66 08/23/22 08:00 Pulse Ox 97 08/23/22 08:00 O2 Del Method 08/23/22 08:00 O2 Flow Rate 2 08/23/22 08:00 08/22/22 08/23/22 08/23/22 22:59 06:59 14:59 Intake Total 1305 / 1580 Output Total 1699 / 2004 450 / 2455 250 / 250 Balance -395 / -425 -450 / -875 -250 / -250 Physical Exam Narrative: Patient presents alert and oriented x3 with a good general appearance normal mood and affect. Normal coordination normal stability. Mild tenderness around the incisional site with the incision appear to be clean and dry. No signs of erythema or drainage. No signs of infection. Patient denies any fevers or chills. 4/5 motor strength both lower extremities with negative straight leg raise bilaterally. Calves are supple no medial thigh tenderness. Pulses are 2+ at the dorsalis pedis and posterior tibial region. Good capillary refill throughout normal sensation light touch both lower extremities. Urinary Catheter Management: Rocha: Cath Placed During This Visit: yes Reason for Continuing Indwelling Catheter: Acute Urinary Retention or Obstruction Urinary Catheter Date of Insertion: 08/20/22 Urinary Catheter Time of Insertion: 19:00 Data : 08/23/22 04:47 08/23/22 04:47 Other data: Pathology report indicates Positive for malignancy, metastatic non-small cell carcinoma. A&P Assessment and plan (1) Pathologic compression fracture of lumbar vertebra: Discussed at length with the patient and family that from an orthopedic standpoint physical therapy to begin mobilizing. We will see her back in the office in 2 weeks time for removal of the sutures. Encouraged her to restrict bending, lifting and excessive twisting activities. But want her to focus on a walking program. She will follow-up with her oncology team for further everton mmended treatments. Status: Acute Attestations Medical Necessity Statement*: Defer to medical team Coding Level of Care Code Acute Craft Manager for Chg Fwd Diagnoses Pathologic compression fracture of lumbar vertebra M48.56XA
[2022-08-23] MEDS: ketorolac 30 mg/mL INJ IVP ×2 (09:31→23:50)
--- NOTE | 2022-08-23 16:04 | PC.NURSE ---
Low oxygen Patient got dressed and ambulated without oxygen, o2 sats were checked. O2 saturation of 87% on room air. Instructed patient to apply nasal cannula back on set at 1.5L oxygen. O2 sats rechecked. O2 saturation of 93% on 1.5L oxygen. No respiratory distress noted. Patient elevated head of bed.
[2022-08-23] MEDS: enoxaparin 40 mg/0.4 mL Syringe SUBCUT (23:47)
[2022-08-24] VITALS (9 sets, daily range): BP systolic 111–145; BP diastolic 66–83; PULSE 89–107; RESP 14–18; TEMP 36.8–36.9; O2SAT 86–98
[2022-08-24] MEDS: ropinirole 0.25 mg Tablet PO (08:50)
[2022-08-24] MEDS: docusate sodium 100 mg Capsule PO (08:51)
[2022-08-24] MEDS: aspirin 81 mg EC Tablet PO (08:51)
[2022-08-24] MEDS: venlafaxine ER (24HR) 150 mg Capsule PO (08:51)
[2022-08-24] MEDS: gabapentin 300 mg Capsule 600 MG PO ×2 (08:51→14:32)
[2022-08-24] MEDS: sennosides-docusate Tablet 2 TAB PO (08:51)
[2022-08-24] MEDS: pantoprazole DR 40 mg Tablet PO (08:51)
[2022-08-24] MEDS: predniSONE 10 mg Tablet PO (08:51)
[2022-08-24] MEDS: oxyCODONE IR 30 mg Tablet 15 MG PO ×2 (09:03→15:18)
--- NOTE | 2022-08-24 12:32 | P.DS_ITS ---
Discharge Providers Date of Admission: 08/20/22 12:59 Date of Discharge: August 24, 2022 Attending Provider at Admission: Bacilio Noguera MD Attending Provider at Discharge: Bacilio Noguera MD Primary Care Provider: Abrahan Weathers MD Diagnoses at Discharge Discharge Diagnosis (1) Pathologic compression fracture of lumbar vertebra: Status: Acute Reason for Visit Reason for Visit: low back pain Hospital Course Hospital Course Danisha is a 61-year-old white female who presented to the hospital with significant low back pain. She was found to have a pathologic fracture L4. 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 Orthopedic spine surgery was consulted. Kyphoplasty was performed. Pain medication, muscle relaxants were adjusted as appropriate and physical therapy was initiated following kyphoplasty. She made some progress, and daughter wished to take her home on home health and palliative care at home with possible transition to hospice in the future. I had several conversations about her with oncology as well as radiation oncology who will arrange prompt outpatient follow-up for consideration of radiation treatment. Oncology was kind enough to initiate prescriptions for new medications for pain control including the initiation and continuation of Duragesic patch started in the hospital. She also qualified for home oxygen on discharge. Physical Exam Narrative: General exam no distress Neck is supple Cardiovascular regular rate and rhythm Lungs clear but diminished breath sounds bilaterally Abdomen is soft nontender with positive bowel sounds Extremities no cyanosis clubbing or edema Skin no rash Urinary Catheter Management: Rocha: Cath Placed During This Visit: yes, but has since been removed by the nurse Reason for Continuing Indwelling Catheter: Decision to DC Catheter Urinary Catheter Date of Insertion: 08/20/22 Urinary Catheter Time of Insertion: 19:00 Date Urinary Catheter Removed: 08/24/22 Time Urinary Catheter Discontinued: 11:05 Discharge Data Studies Completed and Pending Completed Studies During Hospitalization Category Date Time Status CT abdomen pelvis wo con [id number] Stat Cat Scan 08/20/22 09:05 Completed MR lumbar spine wo/w con [id number] Stat MRI 08/20/22 10:27 Completed Pathology: Surgical [PTH] Routine Pth 08/22/22 13:09 Completed Radiology Impressions Abdomen/Pelvis CT 08/20/22 09:05 IMPRESSION: 1. Partially visualized progressed innumerable metastatic lesions in the lung bases. Largest nodule RIGHT lower lobe measures 1.8 cm. 2. New metastatic destructive lesion involving the L4 vertebral body with pathologic compression. Associated diffuse soft tissue edema. Minimal retr opulsion of the posterior inferior cortex with mild central canal stenosis eccentric to the LEFT. Loss of approximately 40% vertebral body height centrally. 3. Additional expansile progressed bony metastatic lesion involving the sacrococcygeal junction. 4. Stable metastatic implants involving the LEFT greater than RIGHT gluteus muscles. 5. Stable retroperitoneal periaortic and LEFT iliac lymphadenopathy. Lumbar Spine CT 08/20/22 09:05 IMPRESSION: 1. Destructive metastatic lesion involving the L4 vertebral body is new from the prior examinations eccentric to the LEFT. 2. Pathologic compression with loss of approximately 40% vertebral body height. Retropulsion of the posterior inferior cortex with mild central canal stenosis and indentation the LEFT subarticular recess. 3. Moderate LEFT L4-L5 foraminal narrowing. Lumbar Spine MRI 08/20/22 10:27 IMPRESSION: 1. Pathologic compression of the L4 vertebral body with diffuse enhancement with mild retropulsion. Moderate central canal stenosis with crowding of the cauda equina nerve rootlets at this level. 2. Diffuse paravertebral soft tissue enhancement at L4 with a small amount of ventral epidural disease. 3. No other acute compression fractures or enhancing metastatic lesions in the lumbar spine. Notified Jax Rodriguez MD at 08/20/2022 1:08 PM. C-Arm Fluoroscopy 08/22/22 11:44 Impression: L4 kyphoplasty. Laboratory Results WBC 5.4 10^3/uL (4.0-10.0) 08/23/22 04:47 RBC 3.67 10^6/uL (4.1-5.3) L 08/23/22 04:47 Hgb 11.4 g/dL (11.5-15.3) L 08/23/22 04:47 Hct 35.3 % (37.0-47.0) L 08/23/22 04:47 MCV 96.2 fl (81-99) 08/23/22 04:47 MCH 31.1 pg (28.0-34.0) 08/23/22 04:47 MCHC 32.3 g/dL (30.0-36.0) 08/23/22 04:47 RDW 12.2 % (12.1-15.1) 08/23/22 04:47 Plt Count 300 10^3/cmm (130-400) 08/23/22 04:47 MPV 9.7 fL (7.4-10.4) 08/23/22 04:47 Neut % (Auto) 77.0 % 08/23/22 04:47 Lymph % (Auto) 11.3 % 08/23/22 04:47 [place] % (Auto) 10.9 % 08/23/22 04:47 Eos % (Auto) 0.0 % 08/23/22 04:47 Baso % (Auto) 0.4 % 08/23/22 04:47 Neut # (Auto) 4.15 10^3/uL (1.8-7.7) 08/23/22 04:47 Lymph # (Auto) 0.6 10^3/uL (0.8-4.8) L 08/23/22 04:47 [place] # (Auto) 0.6 10^3/uL (0.2-0.9) 08/23/22 04:47 Eos # (Auto) 0.0 10^3/uL (0.0-0.8) 08/23/22 04:47 Baso # (Auto) 0.0 10^3/uL (0.0-0.1) 08/23/22 04:47 Nucleated RBC % (auto) 0 % 08/23/22 04:47 Nucleated RBCs # 0.0 /100WBC 08/23/22 04:47 Sodium 141 mmol/L (136-145) 08/23/22 04:47 Potassium 4.2 mmol/L (3.5-5.1) 08/23/22 04:47 Chloride 100 mmol/L (98-107) 08/23/22 04:47 Carbon Dioxide 32 mmol/L (22-29) H 08/23/22 04:47 Anion Gap 13.2 (5-19) 08/23/22 04:47 BUN 16 mg/dL (6-20) 08/23/22 04:47 Creatinine 0.7 mg/dL (0.5-0.9) 08/23/22 04:47 GFR Calculation 85.6 mL/min (90-130) L 08/23/22 04:47 Glucose 106 mg/dL (65-115) 08/23/22 04:47 Calculated Osmolality 294 mOsm/kg (285-295) 08/23/22 04:47 Calcium 9.5 mg/dL (8.5-10.5) 08/23/22 04:47 Total Bilirubin 0.3 mg/dL (0.15-1.2) 08/20/22 09:15 AST 14 U/L (0-32) 08/20/22 09:15 ALT 13 U/L (0-33) 08/20/22 09:15 Alkaline Phosphatase 110 U/L (35-105) H 08/20/22 09:15 Total Protein 6.7 g/dL (6.6-8.7) 08/20/22 09:15 Albumin 3.1 g/dL (3.5-5.2) L 08/20/22 09:15 Globulin 3.6 g/dL (1.3-4.6) 08/20/22 09:15 Vitals Last Vital Signs Temp 98.2 F 08/24/22 12:00 Pulse 107 H 08/24/22 12:00 Resp 16 08/24/22 12:00 BP 111/67 08/24/22 12:00 Pulse Ox 86 L 08/24/22 12:03 O2 Del Method 08/24/22 12:00 O2 Flow Rate 2 08/24/22 12:03 Discharge Plan Discharge Patient Disposition: Home Health Service Condition: Stable Prescriptions: New polyethylene glycol 3350 17 gram Powder In Packet 17 g PO BID Qty: 60 0RF gabapentin 300 mg Capsule 600 mg PO TID Qty: 180 0RF cyclobenzaprine 10 mg Tablet 10 mg PO TID PRN (Reason: Muscle Spasms) Qty: 30 0RF Continued Stool Softener 50 mg capsule 50 mg PO DAILY albuterol sulfate 90 mcg/actuation HFA aerosol inhaler 2 puff inhalation QID PRN (Reason: shortness of breath or wheezing) 30 Days Qty: 8.5 4RF ipratropium-albuterol 0.5 mg-3 mg(2.5 mg base)/3 mL solution for nebulization 3 ml inhalation Q4H PRN (Reason: wheezing) Qty: 180 3RF prednisone 10 mg tablet 10 mg PO DAILY Qty: 30 2RF ropinirole 0.25 mg tablet 0.25 mg PO DAILY Qty: 30 2RF (DME) DME: [facility] See Rx Instructions .Route Qty: 1 0RF Rx Instructions: As directed pantoprazole 40 mg tablet,delayed release (DR/EC) 40 mg PO DAILY Qty: 90 3RF Anoro Ellipta 62.5-25 mcg/actuation blister with device 1 inh inhalation DAILY 60 Days Qty: 60 5RF Flovent HFA 110 mcg/actuation HFA aerosol inhaler 2 puff inhalation BID 30 Days Qty: 12 3RF oxycodone 15 mg tablet 15 - 30 mg PO Q4H PRN (Reason: pain) 30 Days Qty: 120 0RF fentanyl 25 mcg/hr patch 72 hour 1 patch transdermal Q72H 30 Days Qty: 10 0RF meloxicam 15 mg tablet 15 mg PO DAILY Qty: 30 3RF multivitamin [Multiple Vitamins] Tablet 1 tab PO DAILY zinc 50 mg Tablet 50 mg PO DAILY cholecalciferol (vitamin D3) [Vitamin D3] 10 mcg (400 unit) Capsule 10 mcg PO DAILY Aspir-81 81 mg Tablet,Delayed Release (Dr/Ec) 81 mg PO DAILY venlafaxine 150 mg capsule,extended release 24hr 150 mg PO DAILY Discontinued gabapentin 300 mg capsule 300 mg PO TID Qty: 90 2RF Discharge Orders: Discharge Order (Routine); Ordered 08/24/22 Ordered By: Bacilio Noguera Other Ambulatory Orders: DME: Walker (Order) Location: None Selected Ordered By: Bacilio Noguera DME: Wheelchair (Order) Location: None Selected Ordered By: Bacilio Noguera Referrals: [facility] [Other] Abrahan Weathers MD [Primary Care Provider] - 08/30/22 11:15 am Maykel Alas MD [Hospitalist] - 08/27/22 1:15 pm Discharge Diet: Cardiac Discharge Activity: Increase activity as tolerated Patient Instructions: Opioid Safety Activity Restrictions/Additional Instructions: Keep regular follow-up with Dr. Augustin Take all medicine as prescribed Return for any concerns Discharge Attestations Time Spent in Discharge Care*: greater than 30 min Status at Discharge: Cognitive status at discharge: cognitively intact , Behavioral status at discharge: cooperative , Quality Metrics Clinical Quality Measures [ No reported AMI, CVA or VTE this stay] Coding Level of Care Code Acute Chg FW DC note Diagnoses Pathologic compression fracture of lumbar vertebra M48.56XA
[2022-08-24] MEDS: acetaminophen 325 mg Tablet 650 MG PO (16:12)
[2022-08-24] MEDS: cyclobenzaprine 10 mg Tablet PO (16:12)
--- NOTE | 2022-08-24 16:27 | PC.NURSE ---
patient and daughter verbalized understanding of discharge instructions, home medications, and follow up appointments. home oxygen and prescriptions delivered to patients room.
[2022-08-29 09:53] LABS: PD-L1 (Clone 22C3) by IHC BBPL See Report
== END 2022-08-24 16:30 | disposition home health service (06) | DRG 478 ==
LOC: ER 10:16 → MEDSURG 14:38
PROVIDERS: Orthopaedic Surgery; Admitting Provider Internal Medicine; Emergency Provider Emergency Medicine; PCP Family Medicine; Visit Provider Internal Medicine
PROC: 0QB00ZX Excision of Lumbar Vertebra, Open Approach, Diagnostic (ICD-10-PCS; principal; 2022-08-22 12:00)
DX: C79.51 Secondary malignant neoplasm of bone (principal); C34.90 Malignant neoplasm of unspecified part of unspecified bronchus or lung; M48.56XA Collapsed vertebra, not elsewhere classified, lumbar region, initial encounter for fracture; I71.4 Abdominal aortic aneurysm, without rupture; J44.9 Chronic obstructive pulmonary disease, unspecified; K21.9 Gastro-esophageal reflux disease without esophagitis; Z86.16 Personal history of COVID-19; I10 Essential (primary) hypertension; I73.9 Peripheral vascular disease, unspecified; Z95.5 Presence of coronary angioplasty implant and graft; Z95.828 Presence of other vascular implants and grafts; Z85.828 Personal history of other malignant neoplasm of skin; Z87.891 Personal history of nicotine dependence; I65.23 Occlusion and stenosis of bilateral carotid arteries; G89.3 Neoplasm related pain (acute) (chronic); R29.6 Repeated falls; Z79.82 Long term (current) use of aspirin; Z79.891 Long term (current) use of opiate analgesic; Z79.51 Long term (current) use of inhaled steroids; Z66 Do not resuscitate; Z79.899 Other long term (current) drug therapy
CPT/HCPCS: 36415; 51702; 72158; 74176; 76000; 80048; 80053; 85025; 88307; 88311; 88331; 88341; 88342; 94640; 94760; 96372; 96374; 96375; 96376; 97110; 97116; 97161; 97530; 99285; A9577; J1100; J1170; J1650; J1885; J2250; J2270; J2405; J2704; J3010; J3490; J7030; J7512; J7626

== ENCOUNTER 2022-08-27 13:45 | Oncology outpatient (recurring) (ONCR) | payer MEDICAID, SELFPAY ==
--- NOTE | 2022-08-27 | CT_ITS ---
Radiation Therapy Planning CT images; total exam DLP: 1186.67 mGy-cm MTDD
--- NOTE | 2022-08-27 13:57 | N.ONRAD NP_ITS ---
Radiation Oncology Consultation Patient Name: Danisha Leonard Date of : 1960 Date of Service: 08/27/2022 Attending Physician: Maykel Alas M.D. Danisha Leonard was seen in consultation this afternoon at the request of Mark Augustin M.D. for consideration of palliative radiotherapy for the management of metastatic lung cancer. A CTA obtained on November 29, 2020 for evaluation of chest pain at the [facility] urgency department demonstrated a left hilar lymph node measuring 1.5 cm, a right hilar lymph node measuring 1.2 cm, and a precarinal lymph node measuring 1.3 cm. She subsequently was evaluated by Juventino Leroy M.D. in December with the complaints of hoarseness and dysphagia. A fiberoptic laryngoscopy revealed left vocal cord paralysis and a right vocal cord nodule A left open paramedian mediastinotomy was completed on December 14, 2020 with a biopsy of an aorto-pulmonary node performed by Zeferino Matthews M.D. The pathology diagnosed a poorly differentiated carcinoma. A PET CT done on December 31, 2020 revealed hypermetabolic mediastinal lymph nodes -prevascular, subaortic, and subcarinal. VT Genomic Prevalence Score from [employer] identified a 98% likelihood of lung adenocarcinoma (clinical stage IIIA-TXN2). Thoracic radiation therapy was delivered between the dates of February 13, 2021 through March 24, 2021. A prescribed dose of 60 Gy was delivered in 30 fractions encompassing 40 elapsed days. She was prescribed carboplatin (AUC 2) and paclitaxel (50 mg/m???) weekly during radiotherapy under the supervision of Mark Augustin M.D. Maintenance Imfinzi was started on June 06, 2021 but was discontinued on account of dyspnea after cycle 4 (July 18, 2021). During a follow-up appointment, she reported gluteal pain. A PET scan ordered on April 14, 2022 described bilateral gluteal soft tissue implants. Daily radiotherapy was administered to the gluteal masses between the dates of April 25, 2022 through May 11, 2022. A prescribed dose of 30 Gy was delivered in 10 fractions encompassing 17 elapsed days. Recently she was prescribed Libtayo every 3 weeks (Cycle 1 was administered on May 17, 2022). Her last infusion was cycle 3 (July 24, 2022). She was recently evaluated at the [facility] Emergency Department for intractable back pain. A lumbar spine MRI (independently reviewed in [facility]) ordered on August 20, 2022 revealed a pathologic compression fracture of the L4 vertebral body (40%) with left gagan-central retropulsion of the cortex and moderate central canal stenosis and lymphadenopathy within the left gagan-aortic, retroperitoneum, and left iliac regions. An L4 radiofrequency ablation with kyphoplasty was performed by Rich Maldonado D.O on August 22, 2022. Specimens obtained from the procedure confirmed metastatic carcinoma. The patient was evaluated for spinal radiotherapy. I discussed with the patient the role for radiotherapy in the setting of symptomatic spinal metastases. I anticipate a 1 week course of treatment. A CT scan will be performed for radiotherapy planning prior to beginning treatment to delineate the clinical target volumes. The potential toxicities of spinal radiotherapy were reviewed. The patient has verbalized understanding would like to proceed as recommended. Her medical treatment plan has been discussed with Mark Augustin M.D. and Rich Maldonado D.O. Signed by: Dr. Maykel Alas 08/27/2022 1:56:06 PM
== END 2022-08-31 23:59 | disposition home or self-care (01) ==
PROVIDERS: PCP Family Medicine; Referring Provider Thoracic Surgery (Cardiothoracic Vascular Surgery); Visit Provider Radiology Radiation Oncology
DX: C34.90 Malignant neoplasm of unspecified part of unspecified bronchus or lung; C77.8 Secondary and unspecified malignant neoplasm of lymph nodes of multiple regions
CPT/HCPCS: 77290; 77295; 77300; 77334; 99215